=== PATIENT | female | born 1970 | race Two or more races ===

== ENCOUNTER 2020-03-07 15:14 | Outpatient (REF) | payer OTHER, SELFPAY ==
--- NOTE | 2020-03-07 | XR_ITS ---
EXAMINATION: XR LUMBAR SPINE 5 VIEWS CLINICAL INFORMATION: Low back pain COMPARISON: 12/07/2019 KUB TECHNIQUE: AP, lateral, and bilateral oblique views of the lumbar spine FINDINGS: Normal alignment and lumbar lordosis. No fracture. No spondylolysis or spondylolisthesis. Intervertebral disc heights are preserved. There is moderate degenerative disc disease at T12-L1 with narrowing and anterior endplate osteophytes. Incidental left nephrolithiasis. IMPRESSION: Unremarkable lumbar spine. Moderate T12-L1 degenerative disc disease.
== END 2020-03-07 15:15 | disposition home or self-care (01) ==
LOC: HO.XRAY 15:14
PROVIDERS: PCP Internal Medicine Geriatric Medicine; Visit Provider Internal Medicine Geriatric Medicine
DX: M54.5 Low back pain (principal)
CPT/HCPCS: 72110

== ENCOUNTER → 2020-05-14 10:51 | Outpatient (BNVA) | payer OTHER, SELFPAY | PROVIDERS: PCP Internal Medicine Geriatric Medicine; Referring Provider Internal Medicine Geriatric Medicine; Visit Provider Nurse Practitioner | DX: Z13.89 Encounter for screening for other disorder (principal) | CPT/HCPCS: Q3014 ==

== ENCOUNTER 2020-05-29 16:31 | Outpatient (REF) | payer OTHER, SELFPAY | END 2020-05-29 16:32 | disposition home or self-care (01) | LOC: HO.LAB 16:31 | PROVIDERS: Visit Provider Internal Medicine | DX: Z20.828 Contact with and (suspected) exposure to other viral communicable diseases (principal) | CPT/HCPCS: C9803; U0003 ==

== ENCOUNTER 2020-07-04 09:55 | Outpatient (REF) | payer OTHER, SELFPAY ==
--- NOTE | 2020-07-04 09:59 | EMG_ITS ---
Bilateral median and ulnar motor and sensory studies were performed. Bilateral radial sensory studies were performed. Bilateral paraspinal muscles were tested with a needle. IMPRESSION: Mild bilateral ulnar neuropathy across cubital tunnel. There was no evidence of median neuropathy. MD YEIMI Jimenez/VASU / [id number]
== END 2020-07-04 09:56 | disposition home or self-care (01) ==
LOC: HO.NEURO 09:55
PROVIDERS: PCP Internal Medicine Geriatric Medicine; Visit Provider Internal Medicine Geriatric Medicine
DX: G56.03 Carpal tunnel syndrome, bilateral upper limbs (principal); M54.5 Low back pain
CPT/HCPCS: 95886; 95911

== ENCOUNTER 2020-07-08 08:36 | Outpatient (REF) | payer OTHER, SELFPAY ==
--- NOTE | 2020-07-08 08:39 | US_ITS ---
EXAMINATION: US MESENTERIC ARTERIES CLINICAL INFORMATION: Abdominal pain. COMPARISON: CT abdomen and pelvis 12/18/2019. TECHNIQUE: Ultrasound of the aorta, celiac, SMA, PITO and splenic artery. In the aorta, velocity measurements proximal and distal to the SMA were obtained. In the celiac, attempts were made to obtain inspiratory and expiratory velocities in both the supine and upright position. Velocities in the proximal mid and distal SMA were attempted to be measured as were velocities in the PITO and splenic artery. FINDINGS: The study was extremely limited. Velocity in the aorta proximal to the SMA was 103 cm/s and distal to the SMA was 90 cm/s. The celiac could not be imaged with the patient upright as it was obscured by bowel gas. In the supine position, during inspiration velocity was 183 cm/s and during expiration 222 cm/s (slightly elevated with upper limits about 200 cm/s). Velocity in the proximal SMA was elevated at 301 cm/s. Velocity in the mid SMA was 153 cm/s and distally, the SMA could not be seen. Neither the PITO nor splenic artery could be visualized. US/US SMA IMPRESSION: Peak systolic velocity in the proximal SMA is mildly elevated with a maximum measured velocity of 301 cm/s (upper limits of normal 275 cm/s). Examination of the celiac was suboptimal as when dealing with arcuate ligament compression, measuring velocities in the erect position is necessary, which are expected to normalize could not be performed. Of note, on recent CT scan, no calcified plaque is present in the aorta, celiac or SMA. No post stenotic dilatation is seen on the CT. Overall, I would consider this a nondiagnostic study. If suspicion is high for mesenteric stenosis, CT angiography may be of value.
== END 2020-07-08 08:37 | disposition home or self-care (01) ==
LOC: HO.HMGCX 08:36
PROVIDERS: PCP Internal Medicine Geriatric Medicine; Visit Provider Internal Medicine Gastroenterology
DX: R10.13 Epigastric pain (principal)
CPT/HCPCS: 93976

== ENCOUNTER 2020-08-28 14:00 | Outpatient (REF) | payer OTHER, SELFPAY ==
--- NOTE | ~2020-08-28 | MM_ITS ---
EXAMINATION: MM SCREENING DIGITAL BREAST TOMOSYNTHESIS, BILATERAL CLINICAL INFORMATION: Screening. Asymptomatic. The lifetime risk of breast cancer based on the Tyrer-Cuzick Model is 10%. COMPARISON: Mammography: 12/02/2018, 02/01/2017 TECHNIQUE: Digital breast tomosynthesis is performed in both the craniocaudal and mediolateral oblique views along with computer-aided detection (CAD). Synthesized 2D images are generated from the tomosynthesis. FINDINGS: The breasts are almost entirely fatty (ACR BI-RADS breast composition Category a). There are no significant masses, abnormal calcifications, or other abnormalities. The axilla and skin contours are unremarkable. MM/MM tomosynthesis screening BI IMPRESSION: No mammographic evidence of malignancy. ASSESSMENT: BI-RADS 1: Negative RECOMMENDATION: Routine annual mammography screening. This patient's information was entered into a reminder system with a target due date for their next mammogram.
== END 2020-08-28 14:01 | disposition home or self-care (01) ==
LOC: HO.MAMMO 14:00
PROVIDERS: PCP Internal Medicine Geriatric Medicine; Visit Provider Internal Medicine Geriatric Medicine
DX: Z12.31 Encounter for screening mammogram for malignant neoplasm of breast (principal)
CPT/HCPCS: 77063; 77067

== ENCOUNTER → 2020-09-16 16:16 | Outpatient (BNVA) | payer OTHER, SELFPAY | PROVIDERS: PCP Internal Medicine Geriatric Medicine; Visit Provider Nurse Practitioner | DX: K29.71 Gastritis, unspecified, with bleeding (principal); R11.2 Nausea with vomiting, unspecified; K21.9 Gastro-esophageal reflux disease without esophagitis; K58.1 Irritable bowel syndrome with constipation; G43.909 Migraine, unspecified, not intractable, without status migrainosus; Z79.899 Other long term (current) drug therapy | CPT/HCPCS: Q3014 ==

== ENCOUNTER → 2020-10-07 07:36 | Outpatient (BNVA) | payer OTHER, SELFPAY | PROVIDERS: PCP Internal Medicine Geriatric Medicine; Visit Provider Surgery | DX: E66.01 Morbid (severe) obesity due to excess calories (principal); K42.9 Umbilical hernia without obstruction or gangrene; K21.9 Gastro-esophageal reflux disease without esophagitis; R10.13 Epigastric pain; Z68.41 Body mass index [BMI] 40.0-44.9, adult | CPT/HCPCS: Q3014 ==

== ENCOUNTER 2020-11-12 13:42 | Outpatient (REF) | payer OTHER, SELFPAY ==
--- NOTE | ~2020-11-12 | CT_ITS ---
EXAMINATION: CT ABDOMEN AND PELVIS WITH CONTRAST CLINICAL INFORMATION: Umbilical hernia COMPARISON: Previous CT of the abdomen and pelvis December 2019 and renal ultrasound January 2020 TECHNIQUE: Multidetector volumetric images were obtained from the superior aspect of the liver through the pubic symphysis following administration 85 mL of Omnipaque 350 intravenous contrast. Sagittal and coronal reformatted images were obtained on the technologist's workstation. Oral contrast: Yes This CT examination was performed using dose optimization techniques as appropriate, variously including the following: *Automated exposure control *Adjustment of mA and/or kV according to patient size (this includes techniques or standardized protocols for targeted exams where dose is matched to indication/reason for exam; i.e. extremities or head) *Use of iterative reconstruction technique DLP: 736 mGy-cm FINDINGS: LUNG BASES: There is a 2 mm right lower lobe nodule axial image 1 series 6 is stable and may represent a subpleural lymph node. The lung bases are otherwise clear.. LIVER, GALLBLADDER, AND BILIARY TREE: The liver is low in attenuation suggestive of fatty infiltration. The gallbladder has been removed. There is no biliary duct dilatation. PANCREAS: Unremarkable. SPLEEN: Unremarkable. ADRENAL GLANDS: Unremarkable. KIDNEYS AND URETERS: The kidneys are normal in size, shape, and attenuation. There is a 3 cm cyst in the upper pole of the right kidney. There are several small left renal stones, largest measuring 2 mm. There is no hydronephrosis. BLADDER: Unremarkable. GASTROINTESTINAL TRACT: There are postsurgical changes from gastric sleeve. The small and large bowel are unremarkable. The appendix is unremarkable. ABDOMINAL WALL: There are postsurgical changes from previous ventral hernia repair with mesh. There is a small upper abdominal ventral hernia to the left of midline containing fat axial image 34 series 3 measuring 2 x 2.5 x 2 cm. No other hernia is seen. LYMPH NODES: Normal. VASCULAR: Unremarkable. PELVIC VISCERA: The uterus appears to have been removed. No pelvic mass is seen. OSSEOUS STRUCTURES: There are degenerative changes of the spine. CT/CT abdomen pelvis w con IMPRESSION: Small upper abdominal ventral hernia containing fat. Postsurgical change following lower abdominal ventral hernia containing fat. Fatty liver. Small left renal stones. Right renal cyst.
[2020-11-12] MEDS: iohexoL 350 MG/ML 100 ML INFUS..BTL IV (16:37)
[2020-11-12] MEDS: Barium Sulfate Oral (Vanilla) 450 ML ORAL.SUSP PO (16:38)
== END 2020-11-12 13:43 | disposition home or self-care (01) ==
LOC: HO.CT 13:42
PROVIDERS: PCP Internal Medicine Geriatric Medicine; Visit Provider Surgery
DX: K42.9 Umbilical hernia without obstruction or gangrene (principal); R10.13 Epigastric pain; R10.11 Right upper quadrant pain; Z98.84 Bariatric surgery status
CPT/HCPCS: 74177; Q9967

== ENCOUNTER → 2020-12-10 14:15 | Outpatient (BNVA) | payer OTHER, SELFPAY | PROVIDERS: PCP Internal Medicine Geriatric Medicine; Visit Provider Surgery Vascular Surgery | DX: K29.71 Gastritis, unspecified, with bleeding (principal); K21.9 Gastro-esophageal reflux disease without esophagitis; K58.1 Irritable bowel syndrome with constipation; R11.2 Nausea with vomiting, unspecified; R10.9 Unspecified abdominal pain; I83.12 Varicose veins of left lower extremity with inflammation | CPT/HCPCS: 99202; Q3014 ==

== ENCOUNTER → 2021-01-23 14:22 | Outpatient (BNVA) | payer OTHER, SELFPAY | PROVIDERS: Visit Provider Nurse Practitioner | DX: K58.1 Irritable bowel syndrome with constipation (principal); K29.71 Gastritis, unspecified, with bleeding; K21.9 Gastro-esophageal reflux disease without esophagitis; Z79.899 Other long term (current) drug therapy | CPT/HCPCS: Q3014 ==

== ENCOUNTER 2021-07-04 10:54 | Outpatient (REF) | payer OTHER, SELFPAY ==
[2021-07-04 12:07] LABS: MANUAL DIFF FLAG NO
[2021-07-04 12:37] LABS: Basophils Absolute Auto 0.1 X10*3/uL (0.0-0.2); Basophils Percent Auto 0.6 % (0-2); Eosinophils Absolute Auto 0.4 X10*3/uL (0.0-0.4); Hematocrit 42.1 % (37.0-47.0); Hemoglobin 13.6 g/dl (12.0-16.0); Imm Gran Abs Auto 0.03 X10*3/uL (0.00-0.03); Imm Gran Pct Auto 0.4 % (0.0-0.4); Lymphocytes Absolute Auto 2.1 X10*3/uL (1.2-4.9); Lymphocytes Percent Auto 26.5 % (20-40); Mean Corpuscular HGB Conc 32.3 g/dl (31.0-35.0); Mean Corpuscular Hemoglobin 31.3 pg (27.0-33.0); Mean Platelet Volume 11.2 fL (9.4-12.3); Monocytes Absolute Auto 0.7 X10*3/uL (0.1-1.2); Monocytes Percent Auto 8.3 % (2-11); Neutrophils Absolute Auto 4.7 x10*3/uL (2.0-8.3); Neutrophils Percent Auto 59.2 % (45-73); Platelet Count 260 X10*3/uL (160-400); Red Blood Count 4.34 X10*6/uL (4.20-5.50)
[2021-07-04 13:00] LABS: Blood Urea Nitrogen 25 mg/dL (9-16); Estimated Glomerular Filt Rate 54
== END 2021-07-04 10:55 | disposition home or self-care (01) ==
LOC: HO.LAB 10:54
PROVIDERS: PCP Internal Medicine Geriatric Medicine; Referring Provider Internal Medicine Geriatric Medicine; Visit Provider Nurse Practitioner
DX: R10.32 Left lower quadrant pain (principal); K58.1 Irritable bowel syndrome with constipation; K21.9 Gastro-esophageal reflux disease without esophagitis; K57.92 Diverticulitis of intestine, part unspecified, without perforation or abscess without bleeding; R11.2 Nausea with vomiting, unspecified
CPT/HCPCS: 36415; 82565; 84520; 85025; 99212

== ENCOUNTER → 2021-07-22 09:39 | Outpatient (BNVA) | payer OTHER, SELFPAY | PROVIDERS: PCP Internal Medicine Geriatric Medicine; Referring Provider Internal Medicine Geriatric Medicine; Visit Provider Nurse Practitioner | DX: R10.32 Left lower quadrant pain (principal); R11.2 Nausea with vomiting, unspecified; K57.92 Diverticulitis of intestine, part unspecified, without perforation or abscess without bleeding; K58.1 Irritable bowel syndrome with constipation; K21.9 Gastro-esophageal reflux disease without esophagitis | CPT/HCPCS: 99212 ==

== ENCOUNTER 2021-08-05 12:11 | Outpatient (REF) | payer OTHER, SELFPAY ==
--- NOTE | ~2021-08-05 | CT_ITS ---
EXAMINATION: CT ABDOMEN AND PELVIS WITH CONTRAST CLINICAL INFORMATION: Left lower quadrant pain COMPARISON: Previous CT of the abdomen and pelvis November 2020 TECHNIQUE: Multidetector volumetric images were obtained from the superior aspect of the liver through the pubic symphysis following administration 85 mL of Omnipaque 350 intravenous contrast. Sagittal and coronal reformatted images were obtained on the technologist's workstation. Oral contrast: Yes This CT examination was performed using dose optimization techniques as appropriate, variously including the following: *Automated exposure control *Adjustment of mA and/or kV according to patient size (this includes techniques or standardized protocols for targeted exams where dose is matched to indication/reason for exam; i.e. extremities or head) *Use of iterative reconstruction technique DLP: 8 or mGy-cm FINDINGS: LUNG BASES: The visualized lung bases are unremarkable. LIVER, GALLBLADDER, AND BILIARY TREE: The liver is normal in size, shape, and attenuation. No focal hepatic lesion or biliary ductal dilatation is present. The gallbladder has been removed. PANCREAS: Unremarkable. SPLEEN: Unremarkable. ADRENAL GLANDS: Unremarkable. KIDNEYS AND URETERS: There are bilateral small nonobstructing renal stones. There is a 3 cm cyst in the upper pole of the right kidney. No imaging follow-up needed. BLADDER: Unremarkable. GASTROINTESTINAL TRACT: The small and large bowel are unremarkable. The appendix is unremarkable. There are postsurgical changes to the stomach following gastric sleeve procedure. There are small upper abdominal ventral hernias containing fat. There is evidence of old or inferior umbilical hernia repair with mesh. ABDOMINAL WALL: No significant hernia is appreciated. LYMPH NODES: Normal. VASCULAR: Unremarkable. PELVIC VISCERA: Uterus appears to have been removed. No pelvic mass is seen. OSSEOUS STRUCTURES: There are degenerative changes of the spine. CT/CT abdomen pelvis w con IMPRESSION: Bilateral nonobstructing renal stones. Right renal cyst. Postsurgical changes from gastric sleeve procedure. 2 small ventral hernias containing fat. Evidence of previous umbilical hernia repair with mesh. No recurrent umbilical hernia is seen. Fleischner guidelines were followed.
[2021-08-05] MEDS: iohexoL 350 MG/ML 100 ML INFUS..BTL IV (15:18)
[2021-08-05] MEDS: Barium Sulfate Oral (Vanilla) 450 ML ORAL.SUSP 900 ML PO (15:19)
== END 2021-08-05 12:12 | disposition home or self-care (01) ==
LOC: HO.CT 12:11
PROVIDERS: Visit Provider Nurse Practitioner
DX: R10.32 Left lower quadrant pain (principal)
CPT/HCPCS: 74177; Q9967

== ENCOUNTER → 2021-08-07 08:27 | Outpatient (BNVA) | payer OTHER, SELFPAY | PROVIDERS: PCP Internal Medicine Geriatric Medicine; Referring Provider Internal Medicine Geriatric Medicine; Visit Provider Nurse Practitioner | DX: K30 Functional dyspepsia (principal); K21.9 Gastro-esophageal reflux disease without esophagitis; K58.1 Irritable bowel syndrome with constipation; R10.9 Unspecified abdominal pain; R11.2 Nausea with vomiting, unspecified | CPT/HCPCS: 99212 ==

== ENCOUNTER 2021-09-26 14:47 | Outpatient (REF) | payer OTHER, SELFPAY ==
--- NOTE | ~2021-09-26 | XR_ITS ---
EXAMINATION: XR SHOULDER, LEFT CLINICAL INFORMATION: Pain in left shoulder COMPARISON: None TECHNIQUE: AP external rotation, Grashey, scapular Y, and axillary views of the left shoulder. FINDINGS: The bones and soft tissues are normal. No fracture. Glenohumeral and acromioclavicular alignment is anatomic with normal joint space. No abnormal soft tissue calcifications. XR/XR shoulder LT min 2V IMPRESSION: Unremarkable left shoulder exam.
== END 2021-09-26 14:48 | disposition home or self-care (01) ==
LOC: HO.XRAY 14:47
PROVIDERS: PCP Internal Medicine Geriatric Medicine; Visit Provider Nurse Practitioner Family
DX: M25.512 Pain in left shoulder (principal)
CPT/HCPCS: 73030; 99202

== ENCOUNTER 2021-10-02 12:28 | Outpatient (REF) | payer OTHER, SELFPAY ==
--- NOTE | ~2021-10-02 | MM_ITS ---
EXAMINATION: MM SCREENING DIGITAL BREAST TOMOSYNTHESIS, BILATERAL CLINICAL INFORMATION: Screening. Asymptomatic. The lifetime risk of breast cancer based on the Tyrer-Cuzick Model is 10.6%. COMPARISON: Mammography: August 28, 2020 and studies dating back to February 08, 2015 TECHNIQUE: Digital breast tomosynthesis is performed in both the craniocaudal and mediolateral oblique views along with computer-aided detection (CAD). Synthesized 2D images are generated from the tomosynthesis. FINDINGS: The breasts are almost entirely fatty (ACR BI-RADS breast composition Category a). There are no significant masses, abnormal calcifications, or other abnormalities. MM/MM tomosynthesis screening BI IMPRESSION: There are no significant changes from prior study. ASSESSMENT: BI-RADS 1: Negative RECOMMENDATION: Routine annual mammography screening. This patient's information was entered into a reminder system with a target due date for their next mammogram.
== END 2021-10-02 12:29 | disposition home or self-care (01) ==
LOC: HO.MAMMO 12:28
PROVIDERS: Visit Provider Internal Medicine Geriatric Medicine
DX: Z12.31 Encounter for screening mammogram for malignant neoplasm of breast (principal)
CPT/HCPCS: 77063; 77067

== ENCOUNTER → 2021-10-03 08:58 | Outpatient (BNVA) | payer OTHER, SELFPAY | PROVIDERS: PCP Internal Medicine Geriatric Medicine; Visit Provider Nurse Practitioner Family | DX: M25.512 Pain in left shoulder (principal); M62.838 Other muscle spasm; M47.816 Spondylosis without myelopathy or radiculopathy, lumbar region; M79.7 Fibromyalgia | CPT/HCPCS: 99212 ==

== ENCOUNTER 2021-10-14 11:00 | Outpatient (REF) | payer OTHER, SELFPAY ==
--- NOTE | ~2021-10-14 | CT_ITS ---
EXAMINATION: CT HEAD WITHOUT CONTRAST CLINICAL INFORMATION: Headaches COMPARISON: None TECHNIQUE: Contiguous axial imaging was performed from the skull base to vertex without intravenous administration of contrast. This CT examination was performed using dose optimization techniques as appropriate, variously including the following: *Automated exposure control *Adjustment of mA and/or kV according to patient size (this includes techniques or standardized protocols for targeted exams where dose is matched to indication/reason for exam; i.e. extremities or head) *Use of iterative reconstruction technique DLP: 757 mGy-cm FINDINGS: There is no evidence of acute intracranial hemorrhage or territorial infarction. No abnormal mass effect or midline shift is seen. Caldwell to white matter differentiation is well preserved. No extra-axial fluid collections are identified. The ventricles are normal in size. There is no abnormal attenuation within the brain parenchyma. The osseous structures and soft tissues are normal. The mastoid air cells and visualized portions of the paranasal sinuses are well aerated. CT/CT head/brain wo con IMPRESSION: No acute intracranial pathology.
== END 2021-10-14 11:01 | disposition home or self-care (01) ==
LOC: HO.CT 11:00
PROVIDERS: PCP Internal Medicine Geriatric Medicine; Visit Provider Internal Medicine Geriatric Medicine
DX: R51.9 Headache, unspecified (principal)
CPT/HCPCS: 70450

== ENCOUNTER → 2021-10-20 14:17 | Outpatient (BNVA) | payer OTHER, SELFPAY | PROVIDERS: PCP Internal Medicine Geriatric Medicine; Visit Provider Advanced Practice Midwife | DX: Z01.419 Encounter for gynecological examination (general) (routine) without abnormal findings (principal); R39.89 Other symptoms and signs involving the genitourinary system; L98.9 Disorder of the skin and subcutaneous tissue, unspecified | CPT/HCPCS: 81003 ==

== ENCOUNTER → 2021-12-02 12:56 | Outpatient (BNVA) | payer OTHER, SELFPAY | PROVIDERS: PCP Internal Medicine Geriatric Medicine; Visit Provider Nurse Practitioner | DX: K58.1 Irritable bowel syndrome with constipation (principal); K21.9 Gastro-esophageal reflux disease without esophagitis; R11.2 Nausea with vomiting, unspecified; K30 Functional dyspepsia | CPT/HCPCS: 99212 ==

== ENCOUNTER → 2021-12-03 15:25 | Outpatient (BNVA) | payer OTHER, SELFPAY | PROVIDERS: PCP Internal Medicine Geriatric Medicine; Visit Provider Surgery | DX: L72.0 Epidermal cyst (principal) | CPT/HCPCS: 99202 ==

== ENCOUNTER 2021-12-17 05:55 | Outpatient (REF) | payer OTHER, SELFPAY ==
--- NOTE | ~2021-12-17 | FL_ITS ---
EXAMINATION: XR FLUOROSCOPY WITH IMAGES CLINICAL INFORMATION: Pain left shoulder. COMPARISON: None. TECHNIQUE: Fluoroscopy performed by Ellie Xie. Fluoroscopy time: 0.2 minutes. Cumulative Dose: 12 mGy. DAP: 1.56 Gy-cm2. Images: 2. FL/FL guidance in treatment room FINDINGS/IMPRESSION: There is a needle positioned superior to the right scapula with contrast opacifying soft tissues.No gross bony abnormality seen. IMPRESSION: Fluoroscopy guidance was provided to referrer for pain management.
== END 2021-12-17 05:56 | disposition home or self-care (01) ==
LOC: HO.RADIR 05:55
PROVIDERS: Visit Provider Internal Medicine
DX: M25.512 Pain in left shoulder (principal)
CPT/HCPCS: 64418

== ENCOUNTER → 2021-12-29 10:47 | Outpatient (BNVA) | payer OTHER, SELFPAY | PROVIDERS: PCP Internal Medicine Geriatric Medicine; Visit Provider Nurse Practitioner Family | DX: M25.512 Pain in left shoulder (principal); M62.838 Other muscle spasm; M79.7 Fibromyalgia | CPT/HCPCS: 99212 ==

== ENCOUNTER 2022-02-18 06:29 | Outpatient (REF) | payer OTHER, SELFPAY ==
--- NOTE | ~2022-02-18 | FL_ITS ---
EXAMINATION: XR FLUOROSCOPY WITH IMAGES CLINICAL INFORMATION: M25.512 - Pain in left shoulder COMPARISON: Radiographs left shoulder 09/26/2021 TECHNIQUE: Fluoroscopy performed by Dr. Jason Damon. Fluoroscopy time: 0.4 minutes. Cumulative Dose: 12.3 mGy. DAP: 0.791 Gy-cm2. Images: 2. FINDINGS: There is a spinal needle with tip overlying the superior margin left scapula just medial to the neck glenoid. There is contrast along the soft tissue plane. No visible vascular communication. FL/FL guidance in treatment room IMPRESSION: Fluoroscopy for pain management procedure.
== END 2022-02-18 06:30 | disposition home or self-care (01) ==
LOC: HO.RADIR 06:29
PROVIDERS: Visit Provider Internal Medicine
DX: M25.512 Pain in left shoulder (principal)
CPT/HCPCS: 64418

== ENCOUNTER → 2022-02-20 15:55 | Outpatient (BNVA) | payer OTHER, SELFPAY | PROVIDERS: PCP Internal Medicine Geriatric Medicine; Visit Provider Nurse Practitioner Family | DX: M25.512 Pain in left shoulder (principal); M62.838 Other muscle spasm; M79.7 Fibromyalgia | CPT/HCPCS: Q3014 ==

== ENCOUNTER 2022-03-04 12:20 | Outpatient (REF) | payer OTHER, SELFPAY ==
--- NOTE | ~2022-03-04 | XR_ITS ---
EXAMINATION: XR HIP, LEFT CLINICAL INFORMATION: Left hip pain. COMPARISON: CT abdomen/pelvis dated 08/05/2021. TECHNIQUE: Two views of the left hip. FINDINGS: No acute fracture or dislocation. No joint space narrowing or marginal osteophytes. No osseous erosion. Phleboliths and surgical coils overlying the pelvis. Ossification adjacent to the greater trochanter consistent with distal gluteal calcific tendinitis. XR/XR hip LT min 2V IMPRESSION: 1. Ossification adjacent to the greater trochanter, consistent with distal gluteal calcific tendinitis. 2. No acute osseous abnormality.
== END 2022-03-04 12:21 | disposition home or self-care (01) ==
LOC: HO.XRAY 12:20
PROVIDERS: Absent Provider Internal Medicine Geriatric Medicine; PCP Internal Medicine Geriatric Medicine; Visit Provider Internal Medicine
DX: M25.552 Pain in left hip (principal)
CPT/HCPCS: 73502

== ENCOUNTER → 2022-03-12 12:50 | Outpatient (BNVA) | payer OTHER, SELFPAY | PROVIDERS: PCP Internal Medicine Geriatric Medicine; Visit Provider Nurse Practitioner | DX: R11.2 Nausea with vomiting, unspecified (principal); K58.1 Irritable bowel syndrome with constipation; K21.9 Gastro-esophageal reflux disease without esophagitis; K30 Functional dyspepsia | CPT/HCPCS: 99212 ==

== ENCOUNTER 2022-03-14 18:10 | Emergency (ER) | payer OTHER, SELFPAY ==
[2022-03-14 18:36] VITALS: BP 104/61; PULSE 97; RESP 18; TEMP 36.3; O2SAT 97; BMI 40.0
--- NOTE | 2022-03-14 21:27 | ED.LOWEXIN ---
HPI - Extremity Injury (Lower) General Chief Complaint: Extremity Injury, Lower Stated Complaint: finger Inj/black/diabetice Time Seen by Provider: 03/14/22 21:01 Source: patient Mode of arrival: ambulatory Limitations: no limitations History of Present Illness HPI Narrative: Patient comes to the emergency room complaining of pain in her left great toe. Patient dropped a large picture frame in her toe approximately 24 hours ago. Patient complaining of localized pain. Patient denies being on blood thinners. Related Data Home Medications Medication Instructions Recorded Confirmed calcium carbonate 600 mg calcium 600 mg PO DAILY 10/07/20 12/03/21 (1,500 mg) tablet (Calcium) clonazepam 1 mg tablet (Klonopin) 1 mg PO BEDTIME 10/07/20 12/03/21 clonidine HCl 0.1 mg tablet 0.1 mg PO BEDTIME 10/07/20 12/03/21 duloxetine 60 mg capsule,delayed 60 mg PO DAILY 10/07/20 12/03/21 release (Cymbalta) mecobalamin (vitamin B12) 5,000 5,000 mcg PO DAILY 10/07/20 12/03/21 mcg lozenge pregabalin 150 mg capsule (Lyrica) 150 mg PO DAILY 10/07/20 12/03/21 trazodone 100 mg tablet 100 mg PO BEDTIME PRN 10/07/20 12/03/21 albuterol sulfate 90 mcg/actuation 2 puff PO Q4-6H PRN 12/10/20 12/03/21 aerosol inhaler atorvastatin 20 mg tablet 20 mg PO DAILY 12/10/20 12/03/21 calcium carbonate 500 mg-vitamin 1 tab PO BID 12/10/20 12/03/21 D3 5 mcg (200 unit) tablet cholecalciferol (vitamin D3) 50 50 mcg PO DAILY 12/10/20 12/03/21 mcg (2,000 unit) capsule cyanocobalamin (vitamin B-12) 1,000 mcg PO DAILY 12/10/20 12/03/21 1,000 mcg tablet montelukast 10 mg tablet 10 mg PO QPM 12/10/20 12/03/21 potassium citrate 10 mEq (1,080 10 meq PO BID 12/10/20 12/03/21 mg) tablet,extended release losartan 25 mg tablet 25 mg PO DAILY 07/04/21 12/03/21 dulaglutide 0.75 mg/0.5 mL mg subcut QWEEK 08/07/21 12/03/21 subcutaneous pen injector (Trulicity) atomoxetine 40 mg capsule 40 mg PO DAILY 09/26/21 12/03/21 lidocaine-prilocaine 2.5 %-2.5 % g topical DIRECTED 09/26/21 12/03/21 topical cream duloxetine 20 mg capsule,delayed 20 mg PO DAILY 12/02/21 12/03/21 release fluticasone propionate 50 0 mcg intranasal BID PRN 12/02/21 12/03/21 mcg/actuation nasal spray,suspension levothyroxine 100 mcg tablet 100 mcg PO DAILY 12/02/21 12/03/21 topiramate 100 mg tablet 100 mg PO BID 12/02/21 12/03/21 hydrocortisone 2.5 % topical cream topical BID 12/29/21 with perineal applicator (Proctozone-HC) Previous Rx's Medication Instructions Recorded eletriptan 40 mg tablet (Relpax) 40 mg PO Q2-4H migraine headache 03/12/21 30 days #14 tabs sennosides 8.6 mg tablet (Mary-jozef) 17.2 mg PO BEDTIME #60 tabs 11/14/21 bisacodyl 5 mg tablet,delayed 10 mg PO BEDTIME 30 days #60 tabs 12/02/21 release (Dulcolax (bisacodyl)) pantoprazole 40 mg tablet,delayed 40 mg PO BID #60 tabs 01/20/22 release ondansetron 4 mg disintegrating 4 mg sublingual Q8H #90 ea 02/17/22 tablet diclofenac potassium 50 mg tablet 50 mg PO BID pain 30 days #60 tabs 02/20/22 tizanidine 4 mg tablet 4 mg PO BID PRN muscle spasticity 02/20/22 30 days #60 tabs dicyclomine 10 mg/5 mL oral 40 mg (20 mL) PO QID #1,200 mL 02/23/22 solution metoclopramide HCl 10 mg tablet 10 mg PO QIDACHS #120 tabs 03/13/22 (Reglan) ibuprofen 600 mg tablet 600 mg PO TID PRN pain #10 tabs 03/14/22 Allergies Allergy/AdvReac Type Severity Reaction Status Date / Time oxycodone [From PERCOCET] Allergy Intermediate ITCHY Verified 03/14/22 18:35 acetaminophen [Percocet] Allergy Unknown itching Verified 03/14/22 18:35 tramadol [TRAMADOL] Allergy Unknown ITCHING Verified 03/14/22 18:35 Review of Systems Review of Systems: Constitutional : No Weight loss, No Fever, No Chills, No Night Sweats, No Fatigue, No Malaise ENT/Mouth : No Hearing loss, No Ear Pain, No Nasal Congestion, No Sinus Pain, No Hoarseness, No sore throat, No Rhinorrhea, No Swallowing Difficulty Eyes: No Eye Pain, No Swelling, No Redness, No Foreign Body, No Discharge, No Vision Changes Cardiovascular : No Chest Pain, No SOB, No Dyspnea on Exertion, No Orthopnea, No Edema, No Palpitations Respiratory : No Cough, No Sputum, No Wheezing, No Smoke Exposure, No Dyspnea Gastrointestinal : No Nausea, No Vomiting, No Diarrhea, No Constipation, No abdominal Pain, No Hematochezia, No Melena Genitourinary : no irregular bleeding, No Dysuria, No Urinary Frequency, No Hematuria, No Urinary Incontinence, No Urgency, No Flank Pain, No Urinary Flow Changes, No Hesitancy Musculoskeletal : No joint pain, No Myalgias, No Joint Swelling Skin : Pain under her toenail 1st digit left foot Neuro : No Weakness, No Numbness, No Paresthesias, No Loss of Consciousness, No Dizziness, No Headache Psych : No Anxiety/Panic, No Depression, No SI/HI/AH/VH, No Social Issues, Heme/Lymph: No Bruising, No Bleeding,No Lymphadenopathy Endocrine : No Polyuria, No Polydipsia, No Temperature Intolerance PMFSH Past Medical History Medical History Calcific tendinitis of both shoulders Epidermal cyst Fibromyalgia Hypothyroidism Kidney stones Morbid obesity Morbid obesity Umbilical hernia Surgical History H/O: hysterectomy History of esophagogastroduodenoscopy (EGD) Hx of colonoscopy Hx of cystoscopy LAP-BAND surgery status S/P laparoscopic sleeve gastrectomy S/P panniculectomy Status post carpal tunnel release of both wrists Family History Family History Father Diabetes COPD (chronic obstructive pulmonary disease) Heart problem Mother Thyroid condition Diabetes Paternal Aunt Cancer of kidney Social History Social History Household Members: None Alcohol intake: never Current occupational status: disabled Gender identity: Female Physical Exam Vital Signs: Vital Signs: Last Vital Signs Temp 97.3 F 03/14/22 18:36 Pulse 97 03/14/22 18:36 Resp 18 03/14/22 18:36 BP 104/61 03/14/22 18:36 Pulse Ox 97 03/14/22 18:36 O2 Del Method 03/14/22 18:36 BMI result Body Mass Index 40.0 Const: Other: Appearance: Alert. Oriented X3. No acute distress. Eyes: Pupils equal, round and reactive to light. ENT: Pharynx normal. Neck: Normal inspection. Neck supple. No lymph nodes noted. No crepitus CVS: Normal heart rate and rhythm. Pulses normal. Normal S1 and S2 Respiratory: No respiratory distress. Breath sounds normal. No Wheezing. No rales Abdomen: Soft and nontender. No rigidity. No distention. Skin: Skin warm and dry. Normal skin color. Normal skin turgor. Extremities: No lower extremity edema. No Lacerations. No Rash. Patient has a subungual hematoma in the 1st great toe on the left foot Neuro: Oriented X 3. No motor deficit. No sensory deficit. Moving all extremities. No slurred speech. CN 2 through 12 grossly intact Psych: calm, cooperative, normal affect Course Course Course Narrative: X-rays are negative for fracture Subungual hematoma was drained, 2 orifices were made, large amount of blood was drained successfully. Patient feeling better. However, patient requested to have something stronger than Tylenol or ibuprofen. Patient is allergic to tramadol and oxycodone. At this time, we will provide ibuprofen. MDM - Extremity Injury (Lower) Imaging Data Foot x-ray: Radiologist's impression: FINDINGS: No fracture or dislocation. Joint spaces throughout the foot are maintained. No erosions. Small sclerotic bone island noted in the right toe distal phalanx. Normal alignment at the tarsometatarsal joints. Small posterior calcaneal enthesophyte/spur.? XR/XR foot LT 2V IMPRESSION: No fracture or dislocation. Discharge Plan Discharge Clinical Impression: Subungual hematoma of great toe of left foot Patient Disposition: Home, Self-Care Instructions: Subungual Hematoma (ED) Additional Instructions: Please follow-up with your primary care physician tomorrow. If you have any worsening or new symptoms, please return to the emergency room or call 911 Prescriptions: New ibuprofen 600 mg tablet 600 mg PO TID PRN (Reason: pain) Qty: 10 0RF No Action eletriptan [Relpax] 40 mg tablet 40 mg PO Q2-4H 30 Days Qty: 14 6RF Rx Instructions: do not exceed 2 doses per 24 hrs sennosides [Mary-jozef] 8.6 mg tablet 17.2 mg PO BEDTIME Qty: 60 3RF Hold Instructions: Doctor's Order pantoprazole 40 mg tablet,delayed release (DR/EC) 40 mg PO BID Qty: 60 6RF ondansetron 4 mg tablet,disintegrating 4 mg sublingual Q8H Qty: 90 3RF dicyclomine 10 mg/5 mL solution 40 mg PO QID Qty: 1200 6RF metoclopramide HCl [Reglan] 10 mg tablet 10 mg PO QIDACHS Qty: 120 6RF cholecalciferol (vitamin D3) 50 mcg (2,000 unit) capsule 50 mcg PO DAILY calcium carbonate-vitamin D3 500 mg(1,250mg) -200 unit tablet 1 tab PO BID montelukast 10 mg tablet 10 mg PO QPM potassium citrate 10 mEq (1,080 mg) tablet extended release 10 meq PO BID albuterol sulfate 90 mcg/actuation HFA aerosol inhaler 2 puff PO Q4-6H PRN atorvastatin 20 mg tablet 20 mg PO DAILY cyanocobalamin (vitamin B-12) 1,000 mcg tablet 1,000 mcg PO DAILY pregabalin [Lyrica] 150 mg capsule 150 mg PO DAILY duloxetine [Cymbalta] 60 mg capsule,delayed release(DR/EC) 60 mg PO DAILY trazodone 100 mg tablet 100 mg PO BEDTIME PRN clonazepam [Klonopin] 1 mg tablet 1 mg PO BEDTIME Rx Instructions: administer 30 minutes before bedtime clonidine HCl 0.1 mg tablet 0.1 mg PO BEDTIME mecobalamin (vitamin B12) 5,000 mcg lozenge 5,000 mcg PO DAILY Rx Instructions: allow to dissolve in mouth OR may chew lightly before swallowing calcium carbonate [Calcium 600] 600 mg calcium (1,500 mg) tablet 600 mg PO DAILY hydrocortisone [Proctozone-HC] 2.5 % cream with perineal applicator topical BID diclofenac potassium 50 mg tablet 50 mg PO BID 30 Days Qty: 60 0RF Rx Instructions: Take it with food. Avoid other NSAIDs. tizanidine 4 mg tablet 4 mg PO BID PRN (Reason: muscle spasticity) 30 Days Qty: 60 0RF losartan 25 mg tablet 25 mg PO DAILY Trulicity 0.75 mg/0.5 mL pen injector subcut QWEEK levothyroxine 100 mcg tablet 100 mcg PO DAILY topiramate 100 mg tablet 100 mg PO BID fluticasone propionate 50 mcg/actuation spray,suspension 0 mcg intranasal BID PRN duloxetine 20 mg capsule,delayed release(DR/EC) 20 mg PO DAILY bisacodyl [Dulcolax (bisacodyl)] 5 mg tablet,delayed release (DR/EC) 10 mg PO BEDTIME 30 Days Qty: 60 6RF lidocaine-prilocaine 2.5-2.5 % cream topical DIRECTED atomoxetine 40 mg capsule 40 mg PO DAILY
[2022-03-14] MEDS: Ibuprofen 600 MG TABLET PO (22:00)
== END 2022-03-14 22:02 | disposition home or self-care (01) ==
PROVIDERS: Emergency Provider Emergency Medicine; PCP Internal Medicine Geriatric Medicine
DX: S90.212A Contusion of left great toe with damage to nail, initial encounter (principal); W20.8XXA Other cause of strike by thrown, projected or falling object, initial encounter; Y93.89 Activity, other specified; Y92.039 Unspecified place in apartment as the place of occurrence of the external cause; Y99.9 Unspecified external cause status
CPT/HCPCS: 11740; 73620; 99283

== ENCOUNTER 2022-03-25 09:04 | Outpatient (REF) | payer OTHER, SELFPAY | END 2022-03-25 09:05 | disposition home or self-care (01) | LOC: HO.LNP 09:04 | PROVIDERS: PCP Internal Medicine Geriatric Medicine; Visit Provider Obstetrics & Gynecology | DX: R87.622 Low grade squamous intraepithelial lesion on cytologic smear of vagina (LGSIL) (principal) | CPT/HCPCS: 57421; 88305 ==

== ENCOUNTER → 2022-05-06 15:23 | Outpatient (BNVA) | payer OTHER, SELFPAY | PROVIDERS: Visit Provider Obstetrics & Gynecology | DX: R87.622 Low grade squamous intraepithelial lesion on cytologic smear of vagina (LGSIL) (principal) | CPT/HCPCS: 99212 ==

== ENCOUNTER → 2022-05-20 12:24 | Outpatient (BNVA) | payer OTHER, SELFPAY | PROVIDERS: PCP Internal Medicine Geriatric Medicine; Visit Provider Nurse Practitioner | DX: K30 Functional dyspepsia (principal); K58.1 Irritable bowel syndrome with constipation; R11.2 Nausea with vomiting, unspecified | CPT/HCPCS: 99212 ==

== ENCOUNTER 2022-05-27 09:55 | Day surgery (SDC) | payer OTHER, SELFPAY ==
--- NOTE | ~2022-05-27 | FL_ITS ---
EXAMINATION: XR FLUOROSCOPY WITH IMAGES CLINICAL INFORMATION: Sprint nerve stimulator COMPARISON: Left shoulder radiographs 09/26/2021 TECHNIQUE: Fluoroscopy Supervised By: Dr. Jason Damon. Fluoroscopy Time: 0.1 minutes. Cumulative Dose: 2.87 mGy. DAP: 0.385 Gycm2. Images: 3. FINDINGS: There is metallic marker directed towards the superior medial posterior left suprascapular region. Metallic stimulator wires are demonstrated. No kinking. FL/FL guidance in OR IMPRESSION: Fluoroscopy for pain management procedure.
[2022-05-27 10:20] VITALS: BMI 40.2
--- NOTE | 2022-05-27 12:36 | MHC.SHP ---
Pre-Procedural Eval Section A Date of Service: 05/27/22 The patient is an INPATIENT: No Changes since office visit: Yes Patient answered all questions The History & Physical has been completed within 30 days and I have reviewed it.: No Section B Chief Complaint: Pain in left shoulder Relevant Family History (Specify if Yes): No Relevant Social History: None Present Medications: see Short Stay Collaborative assessment Medical History: No relevant PMH History of Previous Operations: No relevant previous surgery Allergies: Allergies Allergy/AdvReac Type Severity Reaction Status Date / Time oxycodone [From PERCOCET] Allergy Intermediate ITCHY Verified 05/20/22 12:42 acetaminophen [Percocet] Allergy Unknown itching Verified 05/20/22 12:42 tramadol [TRAMADOL] Allergy Unknown ITCHING Verified 05/20/22 12:42 Review of Systems Sugical H&P ROS: Negative: Constitution, Cardiovascular and Respiratory Exam Surgical H&P Exam: Normal: HEENT, Normal: Heart and Normal: Lungs Plan Diagnosis/Plan: Unchanged I have reviewed the history and physical and performed a pertinent physical examination on my patient. No changes have occurred unless specified. Time Spent With Patient Time: Total time managing care of this patient today ____ minutes.
[2022-05-27 13:27] VITALS: BP 148/87; PULSE 88; RESP 18; TEMP 36.3; O2SAT 96
--- NOTE | 2022-05-27 14:48 | P.BOP_ITS ---
Brief Operative Note Date of Service: 05/27/22 Pre-op diagnosis: Pain in left shoulder joint, chronic pain Post-op diagnosis: same Procedure: Left suprascapular temporary nerve stimulator placement Implants: SPR temporary PNS system Surgeon: Jason Damon MD Anesthesia: local Was an Regional Maintenance Manager used for this Procedure?: No Estimated blood loss (mL): 1 Pathology: none sent Condition: stable Disposition: same day
--- NOTE | 2022-05-27 14:49 | W.PM.OPN ---
Operative Note Operative Note Date of Service: 05/27/22 Narrative: Peripheral Nerve Stimulation Temporary Lead Placement, Fluoroscopy-Guided, Suprascapular Nerve, Left ? After the risks, benefits and alternatives were discussed with the patient and informed consent was obtained, patient was placed in the sitting position and padded to foster comfort. Appropriate skin and bony landmarks were identified using fluoroscopy, including the left suprascapular notch. The skin overlying the needle entry site was prepped and draped in sterile fashion. After identifying and marking the intended target along the course of the suprascapular nerve, the skin around the planned entry point and the subcutaneous tissues were injected with local anesthetic. An introducer needle and stimulating probe were assembled, inserted and advanced along the intended course of the suprascapular nerve, taking care to maintain the proper depth of insertion as the introducer was advanced under fluoroscopy guidance. Bony contact was achieved with the scapula and maintained throughout. The introducer needle was delivered to a location in proximity to the nerve. Multiple stimulation parameters were used to deliver stimulation to the suprascapular nerve in concert with stimulating at multiple positions around the nerve. Nerve target acquisition was confirmed noting generation of sensory and mild motor effects (paresthesia, muscle tension, etc) in the shoulder and proximal arm; corresponding to the distribution of the suprascapular nerve. Various electrical parameter combinations were tested, and the lead location was adjusted (physically relocated under image guidance) until the patient indicated shoulder paresthesia and tension overlapping the distribution of the patient?s typical region of pain. The stimulating probe was removed from the introducer and a percutaneous lead was guided through the needle and delivered to a location in similar proximity to the nerve. Final location was verified with electrical stimulation and documented. The introducer needle was removed, and the exposed end of the percutaneous lead was attached to an external stimulator unit. Various electrical parameter combinations were again tested until the patient indicated paresthesia and muscle tension overlapping the distribution of the patient?s typical region of pain. After confirming that lead impedance was in the normal range, the external unit was detached, the needle was removed, and the lead was anchored at the skin. The needle entry site was occluded with exofin. The lead was threaded into the connector block and electrical continuity and desired patient response was confirmed. The connector block was attached to the external stimulator unit. The site was covered with a sterile occlusive dressing.? A final image was taken to document final placement. The patient was observed for stability of vital signs and comfort.
== END 2022-05-27 13:39 | disposition home or self-care (01) ==
PROVIDERS: PCP Internal Medicine Geriatric Medicine; Visit Provider Internal Medicine
PROC: (CPT 64555; principal; 2022-05-27 12:30)
DX: M25.512 Pain in left shoulder (principal); G89.29 Other chronic pain; M62.838 Other muscle spasm; M79.7 Fibromyalgia; Z87.828 Personal history of other (healed) physical injury and trauma; M54.40 Lumbago with sciatica, unspecified side; M79.642 Pain in left hand; M79.641 Pain in right hand; E66.01 Morbid (severe) obesity due to excess calories; Z88.8 Allergy status to other drugs, medicaments and biological substances; Z98.890 Other specified postprocedural states; Z98.84 Bariatric surgery status
CPT/HCPCS: 64555; C1778

== ENCOUNTER → 2022-06-05 08:02 | Outpatient (BNVA) | payer OTHER, SELFPAY | PROVIDERS: PCP Internal Medicine Geriatric Medicine; Visit Provider Internal Medicine | DX: M25.512 Pain in left shoulder (principal) | CPT/HCPCS: 99212 ==

== ENCOUNTER → 2022-07-24 08:53 | Outpatient (BNVA) | payer OTHER, SELFPAY | PROVIDERS: PCP Internal Medicine Geriatric Medicine; Visit Provider Internal Medicine | DX: M25.512 Pain in left shoulder (principal) | CPT/HCPCS: 99212 ==

== ENCOUNTER → 2022-09-16 12:35 | Outpatient (BNVA) | payer OTHER, SELFPAY | PROVIDERS: PCP Internal Medicine Geriatric Medicine; Visit Provider Nurse Practitioner | DX: K59.04 Chronic idiopathic constipation (principal); K30 Functional dyspepsia; K21.9 Gastro-esophageal reflux disease without esophagitis | CPT/HCPCS: 99212 ==

== ENCOUNTER 2022-10-20 13:29 | Outpatient (REF) | payer OTHER, SELFPAY ==
--- NOTE | ~2022-10-20 | MM_ITS ---
EXAMINATION: MM SCREENING DIGITAL BREAST TOMOSYNTHESIS, BILATERAL CLINICAL INFORMATION: Screening. Asymptomatic. The lifetime risk of breast cancer based on the Tyrer-Cuzick Model is 10%. COMPARISON: Mammography: 10/02/2021, 08/28/2020, 12/02/2018 TECHNIQUE: Digital breast tomosynthesis is performed in both the craniocaudal and mediolateral oblique views along with computer-aided detection (CAD). Synthesized 2D images are generated from the tomosynthesis. FINDINGS: The breasts are almost entirely fatty (ACR BI-RADS breast composition Category a). Background stromal markings are normal. No developing density or architectural abnormality. No significant mass. The axilla and skin contours are unremarkable. Right breast shows no abnormal calcifications. There are some punctate grouped high attenuation foci possibly calcifications or digital processing artifact pseudo calcification posterior outer left breast on CC view 16 cm from nipple. Patient will be recalled for additional magnification view. MM/MM tomosynthesis screening BI IMPRESSION: Left: -Tightly grouped calcifications versus digital processing artifact pseudocalcification posterior outer left breast. Right: -No mammographic evidence of malignancy. ASSESSMENT: BI-RADS 0: Incomplete - Need Additional Imaging Evaluation RECOMMENDATION: 1. Additional views left breast (magnification CC, magnification ML). 2. Radiology department staff will contact the patient for additional imaging. This patient's information was entered into a reminder system with a target due date for their next mammogram.
== END 2022-10-20 13:30 | disposition home or self-care (01) ==
LOC: HO.MAMMO 13:29
PROVIDERS: PCP Internal Medicine Geriatric Medicine; Visit Provider Internal Medicine Geriatric Medicine
DX: Z12.31 Encounter for screening mammogram for malignant neoplasm of breast (principal)
CPT/HCPCS: 77063; 77067

== ENCOUNTER → 2022-10-30 10:00 | Outpatient (BNVA) | payer OTHER, SELFPAY | PROVIDERS: PCP Internal Medicine Geriatric Medicine; Visit Provider Internal Medicine | DX: M25.512 Pain in left shoulder (principal) | CPT/HCPCS: 99212 ==

== ENCOUNTER 2022-11-17 08:44 | Outpatient (REF) | payer OTHER, SELFPAY ==
--- NOTE | ~2022-11-17 | MM_ITS ---
EXAMINATION: MM DIAGNOSTIC DIGITAL MAMMOGRAPHY, LEFT CLINICAL INFORMATION: Recall from screening for question of calcifications posterior outer left breast. TC score 10%. COMPARISON: Prior mammography exams including most recent 10/20/2022. TECHNIQUE: Digital mammography is performed in the following views: Magnification CC, magnification ML x2. FINDINGS: The breasts are almost entirely fatty (ACR BI-RADS breast composition Category a). The CC magnification view demonstrates a few barely perceptible foci overlying vascular markings outer left breast. There are no calcifications seen on the ML views. Finding for recall most likely represents early vascular calcification and will be reassessed again in 6 months. Results are discussed with the patient at time of visit. MM/MM added views LT IMPRESSION: Additional views suggest fine barely perceptible early vascular calcifications outer left breast. ASSESSMENT: BI-RADS 3: Probably Benign RECOMMENDATION: Diagnostic left mammography in 6 months. This patient's information was entered into a reminder system with a target due date for their next mammogram.
== END 2022-11-17 08:45 | disposition home or self-care (01) ==
LOC: HO.MAMMO 08:44
PROVIDERS: PCP Internal Medicine Geriatric Medicine; Visit Provider Internal Medicine Geriatric Medicine
DX: R92.1 Mammographic calcification found on diagnostic imaging of breast (principal)
CPT/HCPCS: 77065

== ENCOUNTER 2023-01-21 10:11 | Outpatient (REF) | payer OTHER, SELFPAY ==
[2023-01-21 11:13] LABS: MANUAL DIFF FLAG NO
[2023-01-21 11:37] LABS: Basophils Percent Auto 0.6 % (0-2); Eosinophils Absolute Auto 0.3 X10*3/uL (0.0-0.4); Eosinophils Percent Auto 4.1 % (0-4); Hematocrit 39.2 % (37.0-47.0); Hemoglobin 12.8 g/dl (12.0-16.0); Imm Gran Abs Auto 0.03 X10*3/uL (0.00-0.03); Imm Gran Pct Auto 0.4 % (0.0-0.4); Lymphocytes Percent Auto 29.1 % (20-40); Mean Corpuscular HGB Conc 32.7 g/dl (31.0-35.0); Mean Corpuscular Hemoglobin 32.2 pg (27.0-33.0); Mean Corpuscular Volume 98.7 fL (80.0-98.0); Mean Platelet Volume 11.5 fL (9.4-12.3); Monocytes Absolute Auto 0.7 X10*3/uL (0.1-1.2); Monocytes Percent Auto 9.3 % (2-11); Neutrophils Percent Auto 56.5 % (45-73); Platelet Count 233 X10*3/uL (160-400); Red Blood Count 3.97 X10*6/uL (4.20-5.50); Red Cell Distribution Width 12.6 % (11.0-16.0)
[2023-01-21 12:31] LABS: Cholesterol 182 mg/dL; HDL Cholesterol 46 mg/dL; LDL Cholesterol Calculated 109 mg/dl; Triglycerides 137 mg/dL
[2023-01-21 12:39] LABS: TSH reflex Free T4 27.97 uIU/mL (0.32-4.0)
[2023-01-21 13:57] LABS: Free T4 (Free Thyroxine) 0.87 ng/dL (0.71-1.85)
[2023-01-22 05:08] LABS: Follicle Stimulating Hormone 95.3 mIU/mL; Lutenizing Hormone 37.5 mIU/mL
== END 2023-01-21 10:12 | disposition home or self-care (01) ==
LOC: HO.HHCL 10:11
PROVIDERS: Visit Provider Internal Medicine Geriatric Medicine
DX: E11.9 Type 2 diabetes mellitus without complications (principal); E03.9 Hypothyroidism, unspecified; R23.2 Flushing; Z79.899 Other long term (current) drug therapy
CPT/HCPCS: 36415; 80061; 83001; 83002; 84439; 84443; 85025

== ENCOUNTER 2023-02-03 08:57 | Day surgery (SDC) | payer OTHER, SELFPAY ==
--- NOTE | ~2023-02-03 | FL_ITS ---
EXAMINATION: XR FLUOROSCOPY WITH IMAGES CLINICAL INFORMATION: Suprascapular SPRINT PNS. COMPARISON: None available. TECHNIQUE: Fluoroscopy Supervised By: Dr. Jason Damon. Fluoroscopy Time: 0.1 minute. Cumulative Dose: 1.13 mGy. DAP: 0.188 Gycm2. Images: 2. FINDINGS: Images demonstrate wire and probe placement over the right shoulder FL/FL guidance in OR IMPRESSION: Fluoroscopy guidance for pain management procedure
[2023-02-03 09:03] VITALS: BMI 40.8
[2023-02-03 10:54] VITALS: BP 117/62; PULSE 85; RESP 18; TEMP 36.5; O2SAT 94
--- NOTE | 2023-02-03 11:07 | MHC.SHP ---
Pre-Procedural Eval Section A Date of Service: 02/03/23 The patient is an INPATIENT: No Changes since office visit: Yes Patient answered all questions The History & Physical has been completed within 30 days and I have reviewed it.: No Section B Chief Complaint: Pain in left shoulder Relevant Family History (Specify if Yes): Yes Relevant Social History: Other (specify) Present Medications: see Short Stay Collaborative assessment Medical History: No relevant PMH History of Previous Operations: No relevant previous surgery Allergies: Allergies Allergy/AdvReac Type Severity Reaction Status Date / Time oxycodone [From PERCOCET] Allergy Intermediate ITCHY Verified 02/03/23 09:09 tramadol [TRAMADOL] Allergy Unknown ITCHING Verified 02/03/23 09:09 Review of Systems Sugical H&P ROS: Negative: Constitution, Cardiovascular and Respiratory Exam Surgical H&P Exam: Normal: HEENT, Normal: Heart and Normal: Lungs Plan Diagnosis/Plan: Unchanged I have reviewed the history and physical and performed a pertinent physical examination on my patient. No changes have occurred unless specified. Time Spent With Patient Time: Total time managing care of this patient today ____ minutes.
--- NOTE | 2023-02-03 11:08 | P.BOP_ITS ---
Brief Operative Note Date of Service: 02/03/23 Pre-op diagnosis: Intractable left shoulder pain Post-op diagnosis: same Procedure: Temporary suprascapular nerve stimulator placement Implants: Sprint temporary PNS system Surgeon: Jason Damon MD Anesthesia: local Was an Diesel Power Mechanic used for this Procedure?: No Estimated blood loss (mL): 1 Pathology: none sent Condition: stable Disposition: same day
--- NOTE | 2023-02-03 11:08 | W.PM.OPN ---
Operative Note Operative Note Date of Service: 02/03/23 Narrative: Peripheral Nerve Stimulation Temporary Lead Placement, Fluoroscopy-Guided, Suprascapular Nerve, Left ? After the risks, benefits and alternatives were discussed with the patient and informed consent was obtained, patient was placed in the sitting position and padded to foster comfort. Appropriate skin and bony landmarks were identified using fluoroscopy, including the left suprascapular notch. The skin overlying the needle entry site was prepped and draped in sterile fashion. After identifying and marking the intended target along the course of the suprascapular nerve, the skin around the planned entry point and the subcutaneous tissues were injected with local anesthetic. An introducer needle and stimulating probe were assembled, inserted and advanced along the intended course of the suprascapular nerve, taking care to maintain the proper depth of insertion as the introducer was advanced under fluoroscopy guidance. Bony contact was achieved with the scapula and maintained throughout. The introducer needle was delivered to a location in proximity to the nerve. Multiple stimulation parameters were used to deliver stimulation to the suprascapular nerve in concert with stimulating at multiple positions around the nerve. Nerve target acquisition was confirmed noting generation of sensory and mild motor effects (paresthesia, muscle tension, etc) in the shoulder and proximal arm; corresponding to the distribution of the suprascapular nerve. Various electrical parameter combinations were tested, and the lead location was adjusted (physically relocated under image guidance) until the patient indicated shoulder paresthesia and tension overlapping the distribution of the patient?s typical region of pain. The stimulating probe was removed from the introducer and a percutaneous lead was guided through the needle and delivered to a location in similar proximity to the nerve. Final location was verified with electrical stimulation and documented. The introducer needle was removed, and the exposed end of the percutaneous lead was attached to an external stimulator unit. Various electrical parameter combinations were again tested until the patient indicated paresthesia and muscle tension overlapping the distribution of the patient?s typical region of pain. After confirming that lead impedance was in the normal range, the external unit was detached, the needle was removed, and the lead was anchored at the skin. The needle entry site was occluded with dermabond. The lead was threaded into the connector block and electrical continuity and desired patient response was confirmed. The connector block was attached to the external stimulator unit. The site was covered with a sterile occlusive dressing.? A final image was taken to document final placement. The patient was observed for stability of vital signs and comfort.
== END 2023-02-03 11:11 | disposition home or self-care (01) ==
PROVIDERS: PCP Internal Medicine Geriatric Medicine; Visit Provider Internal Medicine
PROC: (CPT 64555; principal; 2023-02-03 10:30)
DX: M25.512 Pain in left shoulder (principal); M75.32 Calcific tendinitis of left shoulder; Z91.81 History of falling; M79.7 Fibromyalgia; E66.01 Morbid (severe) obesity due to excess calories; Z68.41 Body mass index [BMI] 40.0-44.9, adult; Z79.51 Long term (current) use of inhaled steroids; Z79.899 Other long term (current) drug therapy; Z79.85 Long-term (current) use of injectable non-insulin antidiabetic drugs; Z88.5 Allergy status to narcotic agent; Z98.84 Bariatric surgery status; Z98.890 Other specified postprocedural states
CPT/HCPCS: 64555; C1778

== ENCOUNTER → 2023-02-03 08:57 | Outpatient (BNV) | payer OTHER, SELFPAY | PROVIDERS: PCP Internal Medicine Geriatric Medicine; Visit Provider Internal Medicine | DX: M25.512 Pain in left shoulder (principal) | CPT/HCPCS: 64555 ==

== ENCOUNTER 2023-02-12 11:41 | Outpatient (AMB) | payer OTHER, SELFPAY ==
[2023-02-12 11:52] VITALS: BP 116/72; PULSE 85; RESP 14; O2SAT 95; BMI 41.3
--- NOTE | 2023-02-12 11:52 | A.OFFVIS_ITS ---
Intake Vital Signs 02/12/23 11:52 Height 5 ft 2 in Weight 226 lb BMI 41.3 BP 116/72 Blood Pressure Location Lt radial Position Sitting Respiration 14 Pulse 85 Pulse Source Pulse Oximeter Pulse Oximetry (%) 95 Oxygen Delivery Method Room Air Intake Visit Reasons: s/p Left suprascapular S[print Allergies oxycodone [From PERCOCET] Allergy (Intermediate, Verified 02/03/23 09:09) ITCHY tramadol [TRAMADOL] Allergy (Unknown, Verified 02/03/23 09:09) ITCHING HPI s/p Left suprascapular S[print HPI Details 52-year-old female is presenting today f or a status post left suprascapular sprint. The patient reports 90% relief following the procedure for her shoulder pain. The patient reports pain with certain movements, which was present prior to the procedure. Her changed the dressing at home. Past Procedures: 02/03/23: Peripheral Nerve Stimulation T emporary Lead Placement, Fluoroscopy- Guided, Suprascapular Nerve, Left: 90% relief. 05/27/22: Sprint Nerve Stimulator ? >90% relief for four months between May to August. [facility] Medical History Calcific tendinitis of both shoulders Diabetes type 2, controlled Epidermal cyst Fibromyalgia Hx LEEP (loop electrosurgical excision procedure), cervix, Hypothyroidism Kidney stones Morbid obesity Morbid obesity Umbilical hernia Surgical History H/O: hysterectomy History of esophagogastroduodenoscopy (EGD) Hx of colonoscopy Hx of cystoscopy LAP-BAND surgery status S/P laparoscopic sleeve gastrectomy S/P panniculectomy Status post carpal tunnel release of both wrists Family History Father Diabetes COPD (chronic obstructive pulmonary disease) Heart problem Mother Thyroid condition Diabetes Paternal Aunt Cancer of kidney Social History Household Members: None Housing: Apartment Alcohol intake: never Patient Tobacco Use Status: Never used Tobacco Current occupational status: disabled Sexual orientation: Straight/Heterosexual Gender identity: Female Review of Systems Const All systems reviewed & are unremarkable except as noted in HPI and below Physical Exam Vital Signs: Last Vital Signs Pulse 85 02/12/23 11:52 Resp 14 02/12/23 11:52 BP 116/72 02/12/23 11:52 Pulse Ox 95 02/12/23 11:52 Oxygen Delivery Method Room Air 02/12/23 11:52 BMI result Body Mass Index 41.3 General: Appears afebrile. Alert and oriented. Mood and affect appropriate. Follows and participates in conversation appropriately. Respiratory effort is unlabored. Able to transition from sit to stand unassisted. Ambulates with bilaterally normal heel strike and toe off. Site is clean, dry and intact. Results Reviewed Results Reviewed: No imaging is available for review. Assessment & Plan Assessment & Plan (1) Left shoulder pain: Code(s): M25.512 - Pain in left shoulder Plan The patient?s dressing was changed in the office today. The patient will follow up in seven weeks for device removal. Scribed for Dr. Damon by Valentín Danielson medical staff coordinator, on 02/12/2023. I, Dr. Damon, have personally reviewed and agree with the information entered by the scribe. Coding Level of Care Code Est Pt Level 3 (02768) Procedure Only Diagnoses Left shoulder pain M25.512
== END 2023-02-12 16:22 | disposition home or self-care (01) ==
PROVIDERS: PCP Internal Medicine Geriatric Medicine; Visit Provider Internal Medicine
DX: M25.512 Pain in left shoulder (principal)
CPT/HCPCS: 99024

== ENCOUNTER → 2023-02-12 11:41 | Outpatient (BNVA) | payer OTHER, SELFPAY | PROVIDERS: PCP Internal Medicine Geriatric Medicine; Visit Provider Internal Medicine | DX: M25.512 Pain in left shoulder (principal); Z98.890 Other specified postprocedural states | CPT/HCPCS: 99212 ==

== ENCOUNTER 2023-03-27 19:00 | Emergency (ER) | payer OTHER, SELFPAY ==
--- NOTE | ~2023-03-27 | XR_ITS ---
EXAMINATION: XR CHEST CLINICAL INFORMATION: Productive cough x1 week. COMPARISON: Chest x-ray 12/10/2017. TECHNIQUE: 2 views of the chest were obtained. FINDINGS: Peripheral nerve stimulator device. The cardiomediastinal silhouette is within normal limits. The lungs are mildly hypoexpanded. No consolidation or effusion. Mild degenerative changes in the spine. Right rotator cuff repair. XR/XR chest 2V IMPRESSION: No focal pneumonia.
[2023-03-27 19:34] VITALS: BP 134/91; PULSE 92; RESP 18; TEMP 36.8; O2SAT 96; BMI 40.6
--- NOTE | 2023-03-27 19:38 | ED.GENADULT ---
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 Reports sweats/chills, has not checked temperature with thermometer. Reports sore throat and generalized body aches. Has been using Tylenol and ibuprofen, last took Nyquil around 4pm. MD complaint: cough Onset (ago): week(s) Location: chest Associated symptoms: cough, shortness of breath and other (sore throat) Treatments prior to arrival: NSAID Related Data Home Medications Medication Instructions Recorded Confirmed clonazepam 1 mg tablet (Klonopin) 1 mg PO BEDTIME 10/07/20 10/30/22 clonidine HCl 0.1 mg tablet 0.1 mg PO BEDTIME 10/07/20 10/30/22 duloxetine 60 mg capsule,delayed 60 mg PO DAILY 10/07/20 10/30/22 release (Cymbalta) pregabalin 150 mg capsule (Lyrica) 150 mg PO DAILY 10/07/20 10/30/22 trazodone 100 mg tablet 100 mg PO BEDTIME PRN 10/07/20 10/30/22 albuterol sulfate 90 mcg/actuation 2 puff PO Q4-6H PRN 12/10/20 10/30/22 aerosol inhaler atorvastatin 20 mg tablet 20 mg PO DAILY 12/10/20 10/30/22 cholecalciferol (vitamin D3) 50 50 mcg PO DAILY 12/10/20 10/30/22 mcg (2,000 unit) capsule cyanocobalamin (vitamin B-12) 1,000 mcg PO DAILY 12/10/20 10/30/22 1,000 mcg tablet montelukast 10 mg tablet 10 mg PO QPM 12/10/20 10/30/22 potassium citrate 10 mEq (1,080 10 meq PO BID 12/10/20 10/30/22 mg) tablet,extended release losartan 25 mg tablet 25 mg PO DAILY 07/04/21 10/30/22 atomoxetine 40 mg capsule 40 mg PO DAILY 09/26/21 10/30/22 duloxetine 20 mg capsule,delayed 20 mg PO DAILY 12/02/21 10/30/22 release fluticasone propionate 50 0 mcg intranasal BID PRN 12/02/21 10/30/22 mcg/actuation nasal spray,suspension hydrocortisone 2.5 % topical cream topical BID 12/29/21 10/30/22 with perineal applicator (Proctozone-HC) amitriptyline 10 mg tablet 10 mg PO BEDTIME 07/24/22 10/30/22 dulaglutide 3 mg/0.5 mL 3 mg subcut QWEEK 09/16/22 10/30/22 subcutaneous pen injector (Trulicity) levothyroxine 112 mcg capsule 112 mcg PO DAILY 09/16/22 10/30/22 Previous Rx's Medication Instructions Recorded eletriptan 40 mg tablet (Relpax) 40 mg PO Q2-4H migraine headache 03/12/21 30 days #14 tabs ondansetron 4 mg disintegrating 4 mg sublingual Q8H #90 ea 02/17/22 tablet dicyclomine 10 mg/5 mL oral 40 mg (20 mL) PO QID #1,200 mL 05/20/22 solution bisacodyl 5 mg tablet,delayed 10 mg (2 x 5 mg) PO BEDTIME #60 07/07/22 release tabs metoclopramide HCl 10 mg tablet 10 mg PO QIDACHS #120 tabs 09/16/22 (Reglan) pantoprazole 40 mg tablet,delayed 40 mg PO BID 30 days #60 tabs 09/16/22 release (Protonix) linaclotide 145 mcg capsule 145 mcg PO QAM #30 caps 03/16/23 (Linzess) albuterol sulfate 90 mcg/actuation 2 puff inhalation Q4-6H PRN 03/27/23 aerosol inhaler shortness of breath or wheezing #6.7 grams azithromycin 250 mg tablet See Rx Instructions PO .COMPLEX #6 03/27/23 tabs benzonatate 100 mg capsule 100 mg PO TID PRN cough #14 caps 03/27/23 Allergies Allergy/AdvReac Type Severity Reaction Status Date / Time oxycodone [From PERCOCET] Allergy Intermediate ITCHY Verified 02/03/23 09:09 tramadol [TRAMADOL] Allergy Unknown ITCHING Verified 02/03/23 09:09 Review of Systems Review of Systems: As per HPI. Yes all other systems are reviewed and are negative Constitutional: Constitutional: Reports as per HPI [facility] Past Medical History Medical History Calcific tendinitis of both shoulders Diabetes type 2, controlled Epidermal cyst Fibromyalgia Hx LEEP (loop electrosurgical excision procedure), cervix, Hypothyroidism Kidney stones Morbid obesity Morbid obesity Umbilical hernia Surgical History H/O: hysterectomy History of esophagogastroduodenoscopy (EGD) Hx of colonoscopy Hx of cystoscopy LAP-BAND surgery status S/P laparoscopic sleeve gastrectomy S/P panniculectomy Status post carpal tunnel release of both wrists Family History Family History Father Diabetes COPD (chronic obstructive pulmonary disease) Heart problem Mother Thyroid condition Diabetes Paternal Aunt Cancer of kidney Social History Social History Household Members: None Housing: Apartment Alcohol intake: never Patient Tobacco Use Status: Never used Tobacco Current occupational status: disabled Sexual orientation: Straight/Heterosexual Gender identity: Female Physical Exam ED Vital Signs: Vital Signs - 24 hr 03/27/23 19:34 Temperature 98.2 F Pulse Rate 92 Respiratory Rate 18 Blood Pressure 134/91 H Pulse Oximetry 96 Oxygen Delivery Method Room Air BMI result Body Mass Index 40.6 Vital signs have been reviewed and appear to be correct. Blood pressure mildly elevated. Heart rate normal. Respiratory rate normal. Temperature normal. Oxygen saturation normal. Const General: cooperative, healthy appearing and no acute distress Orientation/consciousness: oriented to person, oriented to place, oriented to time and patient oriented x3 Limitations: no limitations HENMT Head: Yes normocephalic and Yes atraumatic Ears: external ears normal, TM's normal bilaterally and EAC's normal General nose exam: Normal external nose present Face and sinus: Yes face symmetric Mouth: oropharynx normal and moist mucous membranes Throat: Yes tonsils normal, Yes uvula midline, No uvular edema and Yes cobblestoning Eyes Pupils: Equal, round and reactive pupils present Neck Neck: Yes normal visual inspection and Yes supple Resp Effort & Inspection: normal respiratory effort and able to speak in complete sentences Auscultation: clear to auscultation bilaterally and wheezes scattered wheezes Cardio Rate: regular rate Rhythm: regular rhythm Heart sounds: S1 normal heart sound present and S2 normal heart sound present GI Palpation (GI): Soft to palpation and nontender Auscultation: normoactive bowel sounds General: Yes no CVA tenderness Back/Spine/Pelvis Back: no CVA tenderness Skin General skin exam: elasticity normal and turgor normal Neuro General: oriented to person, oriented to place, oriented to time, patient oriented x3, moves all extremities, no focal motor deficits and CN's II-XI intact bilaterally Cranial nerves: Yes Equal, round and reactive pupils present Cognition (Neuro): normal cognition Extrem General: Yes full ROM, Yes no pedal edema and Yes no calf tenderness Psych Mental Status: mental status grossly normal Affect: normal affect Thought process: Normal thought process present Medical Decision Making Medical Decision Making [facility] Narrative: Patient is a 52-year-old [place] speaking female presenting to the emergency department with complaint of cough productive of green sputum for the past 1-2 weeks. On exam patient is awake, A+Ox3, BP mildly elevated, VS otherwise WNL, afebrile, normal neurological exam without focal deficits, physical exam findings as above. Given reported symptoms and physical exam findings, initial differential includes viral upper respiratory infection, COVID, flu, strep pharyngitis, bronchitis, pneumonia. Swabs for COVID, flu, strep all negative. X-ray chest notable for no evidence of pneumonia. My interpretation is in agreement with the radiologist's interpretation. Feel patient is stable for discharge home. Will treat patient for bronchitis with azithromycin, albuterol inhaler, and benzonatate. Instructed patient follow-up with primary care provider. Return precautions discussed with patient. Patient verbalized understanding of and agreement with plan. Differential Diagnosis Differential Diagnoses: The differential diagnosis associated with the presentation includes As per [facility]. Lab Data [facility] Lab Attestation statement: I reviewed the patient's lab results. As per MDM. Labs: Lab Results 03/27/23 Range/Units 19:52 COVID-19 (EDU) Negative (Negative) COVID-19 Clin Com See Note Influenza Type A (DION) Negative (Negative) Influenza Type B (DION) Negative (Negative) Influenza A & B Note See Note Independent Interpretation I performed an independent interpretation of an: Plain X-Ray Interpretation: No evidence of pneumonia on chest x-ray. Radiology Impression Discussion of test interpretation with radiology: I have reviewed the radiologist's reading. Radiologist Impression: XR/XR chest 2V IMPRESSION: No focal pneumonia. External Record Review External record reviewed: Inpatient record, Office record and Outpatient record Prescription Management I considered prescription management with: Antibiotic and Other Discharge Plan Discharge Clinical Impression: Bronchitis, Upper respiratory virus Patient Disposition: Home, Self-Care Instructions: How to Use a Metered-Dose Inhaler (ED), Upper Respiratory Infection (DC), Acute Bronchitis (ED), Viral Syndrome (ED) Additional Instructions: Usted fue evaluado hoy en el departamento de emergencias por dolor de garganta y tos. Tus pruebas de Covid, gripe y estreptococo fueron todas negativas. Guardado radiograf?a de t?rax no mostr? evidencia de neumon?a. Es probable que virgil s?ntomas est?n relacionados con mervat enfermedad viral. Est? recibiendo tratamiento para la bronquitis con un tratamiento con antibi?ticos; complete el tratamiento completo seg?n lo prescrito. Tambi?n le recetar?n un inhalador que puede usar cada 4 a 6 horas seg?n sea necesario para la dificultad para respirar. Le recetan medicamentos para la tos que puede usar cada 8 horas seg?n sea necesario. Debe garantizar mervat ingesta adecuada de l?quidos y puede usar Tylenol 650 mg o ibuprofeno 600 mg cada 6 horas seg?n sea necesario para la fiebre o el malestar. Sean un seguimiento con guardado proveedor de atenci?n primaria esta semana. Regrese al departamento de emergencias si presenta dolor en el pecho, dificultad para respirar que empeora, dificultad para tragar, fiebre de 100.4 ?F o m?s o cualquier otro s?ntoma preocupante. Prescriptions: New azithromycin 250 mg tablet See Rx Instructions .ROUTE .COMPLEX Qty: 6 0RF Rx Instructions: For 250 mg dose pack: take 500 mg today (day 1), then 250 mg for 4 days (days 2-5) albuterol sulfate 90 mcg/actuation HFA aerosol inhaler 2 puff inhalation Q4-6H PRN (Reason: shortness of breath or wheezing) Qty: 6.7 0RF benzonatate 100 mg capsule 100 mg PO TID PRN (Reason: cough) Qty: 14 0RF No Action eletriptan [Relpax] 40 mg tablet 40 mg PO Q2-4H 30 Days Qty: 14 6RF Rx Instructions: do not exceed 2 doses per 24 hrs ondansetron 4 mg tablet,disintegrating 4 mg sublingual Q8H Qty: 90 3RF bisacodyl 5 mg tablet,delayed release (DR/EC) 10 mg PO BEDTIME Qty: 60 2RF Hold Instructions: Doctor's Order Linzess 145 mcg capsule 145 mcg PO QAM Qty: 30 6RF cholecalciferol (vitamin D3) 50 mcg (2,000 unit) capsule 50 mcg PO DAILY montelukast 10 mg tablet 10 mg PO QPM potassium citrate 10 mEq (1,080 mg) tablet extended release 10 meq PO BID albuterol sulfate 90 mcg/actuation HFA aerosol inhaler 2 puff PO Q4-6H PRN atorvastatin 20 mg tablet 20 mg PO DAILY cyanocobalamin (vitamin B-12) 1,000 mcg tablet 1,000 mcg PO DAILY pregabalin [Lyrica] 150 mg capsule 150 mg PO DAILY duloxetine [Cymbalta] 60 mg capsule,delayed release(DR/EC) 60 mg PO DAILY trazodone 100 mg tablet 100 mg PO BEDTIME PRN clonazepam [Klonopin] 1 mg tablet 1 mg PO BEDTIME Rx Instructions: administer 30 minutes before bedtime clonidine HCl 0.1 mg tablet 0.1 mg PO BEDTIME hydrocortisone [Proctozone-HC] 2.5 % cream with perineal applicator topical BID losartan 25 mg tablet 25 mg PO DAILY fluticasone propionate 50 mcg/actuation spray,suspension 0 mcg intranasal BID PRN duloxetine 20 mg capsule,delayed release(DR/EC) 20 mg PO DAILY atomoxetine 40 mg capsule 40 mg PO DAILY dicyclomine 10 mg/5 mL solution 40 mg PO QID Qty: 1200 6RF amitriptyline 10 mg tablet 10 mg PO BEDTIME Trulicity 3 mg/0.5 mL pen injector 3 mg subcut QWEEK levothyroxine 112 mcg capsule 112 mcg PO DAILY metoclopramide HCl [Reglan] 10 mg tablet 10 mg PO QIDACHS Qty: 120 6RF pantoprazole [Protonix] 40 mg tablet,delayed release (DR/EC) 40 mg PO BID 30 Days Qty: 60 6RF Print Language: Palauan
[2023-03-27 20:13] LABS: COVID-19 Test Negative (Negative); IDNOW Serial# 08D9AD1C; IDNOW Serial# BCCEAD1C; Influenza A Negative (Negative); Influenza B2 Negative (Negative)
[2023-03-27] MEDS: Benzonatate 100 MG CAPSULE PO (20:48)
[2023-03-27] MEDS: Albuterol Sulfate 90 MCG 8 GM INHALER 2 PUFF INHALE (20:48)
== END 2023-03-27 20:52 | disposition home or self-care (01) ==
PROVIDERS: Registered Nurse Emergency; Emergency Provider Emergency Medicine
DX: J06.9 Acute upper respiratory infection, unspecified (principal); J40 Bronchitis, not specified as acute or chronic; Z11.52 Encounter for screening for COVID-19; E11.9 Type 2 diabetes mellitus without complications; E66.9 Obesity, unspecified; Z68.41 Body mass index [BMI] 40.0-44.9, adult; Z79.85 Long-term (current) use of injectable non-insulin antidiabetic drugs; Z79.899 Other long term (current) drug therapy
CPT/HCPCS: 71046; 87502; 87635; 99282; 99284

== ENCOUNTER 2023-03-30 10:54 | Outpatient (REF) | payer OTHER, SELFPAY ==
[2023-03-30 14:17] LABS: Alanine Aminotransferase 18 U/L (0-31); Albumin Level 4.3 g/dL (3.5-5.0); Alkaline Phosphatase 109 U/L (39-117); Anion Gap 16 (12-20); Aspartate Amino Transferase 15 U/L (5-31); Bilirubin Total 0.4 mg/dL (0.0-1.0); Blood Urea Nitrogen 18 mg/dL (9-16); Carbon Dioxide 25 mmol/L (22-29); Chloride 105 mmol/L (96-108); Estimated Glomerular Filt Rate 57; Glucose Random 117 mg/dL (60-115); Potassium 4.1 mmol/L (3.3-5.1); Sodium 142 mmol/L (135-145); Total Protein 7.2 g/dL (6.5-8.0)
== END 2023-03-30 10:55 | disposition home or self-care (01) ==
LOC: HO.HHCL 10:54
PROVIDERS: Visit Provider Internal Medicine Geriatric Medicine
DX: E11.9 Type 2 diabetes mellitus without complications (principal); E03.9 Hypothyroidism, unspecified; R23.2 Flushing; Z79.899 Other long term (current) drug therapy
CPT/HCPCS: 36415; 80053

== ENCOUNTER 2023-04-02 14:35 | Outpatient (AMB) | payer OTHER, SELFPAY ==
--- NOTE | 2023-04-02 14:45 | MHC.OFFVIS ---
Intake Vital Signs 04/02/23 14:46 Height 5 ft 2 in BP 116/76 Blood Pressure Location Lt brachial Position Sitting Pulse 104 H Pulse Source Pulse Oximeter Pulse Oximetry (%) 95 Oxygen Delivery Method Room Air Intake Visit Reasons: Sprint removal/confirmed Allergies oxycodone [From PERCOCET] Allergy (Intermediate, Verified 04/02/23 14:45) ITCHY tramadol [TRAMADOL] Allergy (Unknown, Verified 04/02/23 14:45) ITCHING HPI HPI Comments History of Present Illness Details Yaniv is a very pleasant 52 year old female who presents to the office today for follow up, removal of left suprascapular Sprint PNS. Patient reports that she continues with pain to the left shoulder with decreased ROM. Pain of the posterior and proximal shoulder is improved but she remains with some pain under her arm and over proximal humerus. Prior: 52-year-old female is presenting today for a status post left suprascapular sprint. The patient reports 90% relief following the procedure for her shoulder pain. The patient reports pain with certain movements, which was present prior to the procedure. Her changed the dressing at home. Past Procedures: 02/03/23: Peripheral Nerve Stimulation Temporary Lead Placement, Fluoroscopy-Guided, Suprascapular Nerve, Left: 90% relief. 05/27/22: Sprint Nerve Stimulator ? >90% relief for four months between May to August. [facility] Medical History Calcific tendinitis of both shoulders Diabetes type 2, controlled Epidermal cyst Fibromyalgia Hx LEEP (loop electrosurgical excision procedure), cervix, Hypothyroidism Kidney stones Morbid obesity Morbid obesity Umbilical hernia Surgical History H/O: hysterectomy History of esophagogastroduodenoscopy (EGD) Hx of colonoscopy Hx of cystoscopy LAP-BAND surgery status S/P laparoscopic sleeve gastrectomy S/P panniculectomy Status post carpal tunnel release of both wrists Family History Father Diabetes COPD (chronic obstructive pulmonary disease) Heart problem Mother Thyroid condition Diabetes Paternal Aunt Cancer of kidney Social History Household Members: None Housing: Apartment Alcohol intake: never Patient Tobacco Use Status: Never used Tobacco Current occupational status: disabled Sexual orientation: Straight/Heterosexual Gender identity: Female Review of Systems Const All systems reviewed & are unremarkable except as noted in HPI and below Physical Exam Vital Signs: Last Vital Signs Pulse 104 H 04/02/23 14:46 BP 116/76 04/02/23 14:46 Pulse Ox 95 04/02/23 14:46 Oxygen Delivery Method Room Air 04/02/23 14:46 General: awake, alert, oriented. Answers questions appropriately. Fully engaged in examination. Skin: warm, dry, intact HEENT: Normocephalic. Hearing intact. Cardiac: External chest normal in appearance. Respiratory: No cough, audible wheezing or stridor. Abdomen: without gross distension. MS: No obvious swelling or deformities. decreased ROM LUE with reported pain increase with abduction Neurological: Oriented to person, place, time and situation. Thought process intact. No gait abnormalities appreciated. Psychiatric: Appropriate mood and affect. Good judgment and insight. Assessment & Plan Assessment & Plan (1) Left shoulder pain: Code(s): M25.512 - Pain in left shoulder Plan Patient presented to the office today for follow up left shoulder pain and left suprascapular sprint removal. Left Suprascapular Sprint dressing removed. Site dry, clean, intact. Area cleansed with chloraprep, lead removed with intact tip. Area cleansed again with chloraprep, bacitracin dressing with tegaderm applied. Patient tolerated removal well. Patient will follow up in the office with Dr Damon to further discuss her continued left shoulder pain. All questions and concerns addressed during visit, patient agrees with the plan. Coding Level of Care Code Est Pt Level 3 (80534) Diagnoses Left shoulder pain M25.512
[2023-04-02 14:46] VITALS: BP 116/76; PULSE 104; O2SAT 95
== END 2023-04-02 14:49 | disposition home or self-care (01) ==
PROVIDERS: PCP Internal Medicine Geriatric Medicine; Visit Provider Registered Nurse Emergency
DX: M25.512 Pain in left shoulder (principal)
CPT/HCPCS: 99213

== ENCOUNTER → 2023-04-02 14:35 | Outpatient (BNVA) | payer OTHER, SELFPAY | PROVIDERS: PCP Internal Medicine Geriatric Medicine; Visit Provider Registered Nurse Emergency | DX: M75.32 Calcific tendinitis of left shoulder (principal); M79.7 Fibromyalgia; Z48.811 Encounter for surgical aftercare following surgery on the nervous system | CPT/HCPCS: 99212 ==

== ENCOUNTER 2023-04-14 09:59 | Outpatient (REF) | payer OTHER, SELFPAY ==
[2023-04-14 12:03] LABS: TSH reflex Free T4 7.89 uIU/mL (0.32-4.0)
[2023-04-14 12:36] LABS: Free T4 (Free Thyroxine) 0.98 ng/dL (0.71-1.85)
== END 2023-04-14 10:00 | disposition home or self-care (01) ==
LOC: HO.HHCL 09:59
PROVIDERS: Visit Provider Internal Medicine Geriatric Medicine
DX: E03.9 Hypothyroidism, unspecified (principal)
CPT/HCPCS: 36415; 84439; 84443

== ENCOUNTER 2023-06-02 08:00 | Outpatient (REF) | payer OTHER, SELFPAY ==
--- NOTE | ~2023-06-02 | MM_ITS ---
EXAMINATION: MM DIAGNOSTIC DIGITAL MAMMOGRAPHY, LEFT CLINICAL INFORMATION: Follow-up possible left breast calcifications lateral aspect left breast, which cannot be seen on the orthogonal ML view. COMPARISON: Mammography: 11/17/2022, 10/20/2022, 09/24/2021, 08/28/2020. TECHNIQUE: Digital mammography is performed in the following views: Spot compression left CC and ML views, as well as a full-field 3-D left ML view. Computer-aided diagnosis was used for this study. FINDINGS: The breasts are almost entirely fatty (ACR BI-RADS breast composition Category a). Review of current and prior imaging demonstrates no evidence of suspicious calcifications, or any calcifications, within the lateral left breast. There are no suspicious masses, suspicious grouped calcifications, or areas of architectural distortion in the left breast. The parenchymal pattern is stable from prior exams. MM/MM diagnostic mammo unilat LT IMPRESSION: There are no findings suspicious for malignancy in the left breast. Specifically, no grouped calcifications are identified. Recommend patient return to routine screening. ASSESSMENT: BI-RADS BI-RADS 1 - Negative RECOMMENDATION: 1 year F/U This patient's information was entered into a reminder system with a target due date for their next mammogram.
== END 2023-06-02 08:01 | disposition home or self-care (01) ==
LOC: HO.MAMMO 08:00
PROVIDERS: PCP Internal Medicine Geriatric Medicine; Visit Provider Internal Medicine Geriatric Medicine
DX: R92.1 Mammographic calcification found on diagnostic imaging of breast (principal)
CPT/HCPCS: 77062; 77065

== ENCOUNTER → 2023-06-02 08:30 | Outpatient (BNV) | payer OTHER, SELFPAY | PROVIDERS: PCP Internal Medicine Geriatric Medicine; Visit Provider Radiology Diagnostic Radiology | DX: R92.2 Inconclusive mammogram (principal) | CPT/HCPCS: 77065 ==

== ENCOUNTER 2023-06-10 | Outpatient (REF) | payer OTHER, SELFPAY ==
[2023-06-14 23:54] LABS: HPV mRNA E6/E7 rflx Not Detected (Not Detected)
== END 2023-06-10 00:01 ==
LOC: HO.HHCLNP
PROVIDERS: Visit Provider Advanced Practice Midwife
DX: Z12.4 Encounter for screening for malignant neoplasm of cervix (principal); Z11.51 Encounter for screening for human papillomavirus (HPV)
CPT/HCPCS: 87624; 88142

== ENCOUNTER 2023-08-19 08:13 | Outpatient (REF) | payer OTHER, SELFPAY ==
[2023-08-19 11:55] LABS: Alanine Aminotransferase 15 U/L (0-31); Albumin Level 4.3 g/dL (3.5-5.0); Alkaline Phosphatase 106 U/L (39-117); Anion Gap 17 (12-20); Aspartate Amino Transferase 13 U/L (5-31); Bilirubin Total 0.2 mg/dL (0.0-1.0); Blood Urea Nitrogen 13 mg/dL (9-16); Calcium 9.8 mg/dL (8.4-10.2); Carbon Dioxide 25 mmol/L (22-29); Chloride 105 mmol/L (96-108); Cholesterol 251 mg/dL (<200); Estimated Glomerular Filt Rate 53; Glucose Random 118 mg/dL (60-115); HDL Cholesterol 44 mg/dL (>40); LDL Cholesterol Calculated 161 mg/dL (<100); Potassium 4.2 mmol/L (3.3-5.1); Sodium 143 mmol/L (135-145); Total Protein 7.1 g/dL (6.5-8.0); Triglycerides 233 mg/dL (<150)
[2023-08-19 11:57] LABS: Anion Gap 17 (12-20); Blood Urea Nitrogen 13 mg/dL (9-16); Calcium 9.9 mg/dL (8.4-10.2); Carbon Dioxide 25 mmol/L (22-29); Chloride 104 mmol/L (96-108); Estimated Glomerular Filt Rate 51; Potassium 4.2 mmol/L (3.3-5.1); Sodium 142 mmol/L (135-145)
[2023-08-19 12:01] LABS: Creatinine Urine 289.33 mg/dL; Microalbum/Creatinine Ratio Ur 8.9 ug/mg cr (<30)
[2023-08-19 12:31] LABS: TSH reflex Free T4 3.08 uIU/mL (0.32-4.0)
== END 2023-08-19 08:14 | disposition home or self-care (01) ==
LOC: HO.HHCL 08:13
PROVIDERS: Internal Medicine Nephrology; Visit Provider Internal Medicine Geriatric Medicine
DX: E11.9 Type 2 diabetes mellitus without complications (principal); E03.9 Hypothyroidism, unspecified; E78.00 Pure hypercholesterolemia, unspecified
CPT/HCPCS: 36415; 80051; 80053; 80061; 82043; 82310; 82565; 82570; 84443; 84520; 84550

== ENCOUNTER 2023-08-24 12:05 | Outpatient (REF) | payer OTHER, SELFPAY ==
[2023-08-25 19:28] LABS: Calcium, Random Urine 25.8 mg/dL
== END 2023-08-24 12:06 | disposition home or self-care (01) ==
LOC: HO.HHCL 12:05
PROVIDERS: Visit Provider Internal Medicine Nephrology
DX: Z00.00 Encounter for general adult medical examination without abnormal findings (principal); N20.0 Calculus of kidney
CPT/HCPCS: 82310; 82570

== ENCOUNTER 2023-08-24 18:15 | Outpatient (REF) | payer OTHER, SELFPAY | END 2023-08-24 18:16 | disposition home or self-care (01) | LOC: HO.HHCLNP 18:15 | PROVIDERS: Visit Provider Nurse Practitioner Family | DX: R30.0 Dysuria (principal) | CPT/HCPCS: 87086 ==

== ENCOUNTER 2023-10-27 07:53 | Outpatient (AMB) | payer OTHER, SELFPAY ==
--- NOTE | 2023-10-27 08:04 | MHC.OFFVIS ---
Vital Signs 10/27/23 08:10 Height 5 ft 2 in Weight 233 lb BMI 42.6 BP 105/55 L Blood Pressure Location Lt brachial Position Sitting Pulse 76 Intake Visit Reasons: Follow up medication Intake Note: Follow up for medication Patient cc: abdominal cramps, acid reflex with burning sensation on her throat, and some constipation. Mortgage Loan Underwriter Required: Yes Mortgage Loan Underwriter Name: Joselito [id number] Accompanied by: Self / Same As Patient Allergies oxycodone [From PERCOCET] Allergy (Intermediate, Verified 04/02/23 14:45) ITCHY tramadol [TRAMADOL] Allergy (Unknown, Verified 04/02/23 14:45) ITCHING HPI HPI Follow up medication: Details: Assessment & Plan (1) Chronic idiopathic constipation: Code(s): K59.04 - Chronic idiopathic constipation Plan: [place] #[employer] She has had 3 episodes of severe bloating after eating with pain the was constant in the gastric area. She admits seh has been very CIC recently not moving her bowels for 4 days at a time despite taking bisacodyl 2 tabs qhs. She also says that she has been adherent to her Reglan 10 mg 4 times a day. She recently had her thyroid medication increased and also her Trulicity was increased. This is likely the reason for the change. Prior to this she struggled with diarrhea r/t s/p lisa, so it is likely this is medication mediated. She continues on her pantoprazole with good control of her GERD. She is concerned because her home VNA nurse did occult stool test that was positive for blood.. This is not terribly concerning to me since she had a colonoscopy in 2018 and she has no alarm signs or symptoms. I reassure her and tell her that she is due for another screening in 2024. Return office visit in 3 weeks to evaluate her response. (2) Delayed gastric emptying: Code(s): K30 - Functional dyspepsia (3) GERD (gastroesophageal reflux disease): Code(s): K21.9 - Gastro-esophageal reflux disease without esophagitis Medications: New linaclotide (Linzess) 145 mcg PO QAM 30 caps 6RF K59.04 - Chronic idiopathic constipation pantoprazole (Protonix) 40 mg PO BID 30 days 60 tabs 6RF K21.9 - Gastro-esophageal reflux disease without esophagitis Refilled metoclopramide HCl (Reglan) 10 mg PO QIDACHS 120 tabs 6RF R11.2 - Nausea with vomiting, unspecified On Hold bisacodyl Hold Comment: Doctor's Order 10 mg (2 x 5 mg) PO BEDTIME 60 tabs 2RF K58.1 - Irritable bowel syndrome with constipation TODAY'S VISIT [place] #[id number] Ezra She received the Linzess 145mcg and the pantoprazole bid. BUT she still has a lot of acid brash and GERD. She feels that the Linzess is helping to move her bowels, but she still will skip days when she does not move her bowels. The stool is soft when she does move them. She is having a lot of abd cramping, which is usually a sign that the Linzess is not strong enough, so I will progress her to dana 290mcg dose. She also is only taking the reglan bid, and complains of a strong stomach ache in dana upper stomach after eating. I educate her to take it qid and before all meals to alleviate this. SHe feels that the pantoprazole is helpful with the GERD but it comes right back if I stop it. Again, I educate her that she needs to take it bid EVERY DAY. ROV 4 weeks. [facility] Medical History (Updated 10/27/23 @ 08:06 by RAHEEM Cordova) Epidermal cyst Irritable bowel syndrome with constipation Postprandial epigastric pain LLQ abdominal pain Diverticulitis Muscle spasm Preprocedural examination LGSIL Pap smear of vagina Diabetes type 2, controlled Hx LEEP (loop electrosurgical excision procedure), cervix, Morbid obesity Kidney stones Calcific tendinitis of both shoulders Fibromyalgia Hypothyroidism Umbilical hernia Morbid obesity Surgical History H/O: hysterectomy Status post carpal tunnel release of both wrists S/P laparoscopic sleeve gastrectomy LAP-BAND surgery status S/P panniculectomy Hx of cystoscopy History of esophagogastroduodenoscopy (EGD) Hx of colonoscopy Family History Father Diabetes COPD (chronic obstructive pulmonary disease) Heart problem Mother Thyroid condition Diabetes Paternal Aunt Cancer of kidney Social History Household Members: None Housing: Apartment Alcohol intake: never Patient Tobacco Use Status: Never used Tobacco Current occupational status: disabled Sexual orientation: Straight/Heterosexual Gender identity: Female Review of Systems Const Denies fatigue, Denies fever(s), Denies night sweats, Denies poor appetite and Denies weight loss Eyes Details: glasses Reports requires corrective lenses ENT Reports Normal hearing present, Denies dental pain, Denies dysphagia, Denies hearing loss, Denies mouth pain, Denies odynophagia, Denies throat swelling, Denies tongue swelling and Reports other (Dentition adequate) Card Reports no additional complaints Resp Reports no additional complaints GI Details: Denies abdominal pain, Denies melena, Reports bloating, Denies hematochezia, Reports constipation, Reports GI cramping, Denies dysphagia, Denies excessive flatus, Denies early satiety, Reports dyspepsia, Reports heartburn, Denies diarrhea, Denies nausea, Denies odynophagia, Denies vomiting and Denies hematemesis Skin/Breast Denies pruritus, Denies lesions, Denies rash and Denies jaundice Neuro Reports Normal hearing present and Denies Abnormal speech present Endo Denies fatigue Aller/Immun Denies throat swelling and Denies tongue swelling Physical Exam Vital Signs: Last Vital Signs Pulse 76 10/27/23 08:10 BP 105/55 L 10/27/23 08:10 BMI result Body Mass Index 42.6 Const General: cooperative, no acute distress, well developed and well groomed Nutritional Appearance: well nourished and obese Orientation/consciousness: oriented to person, oriented to place and oriented to time Limitations: language barrier HEENT Head: Yes normocephalic and Yes atraumatic Eyes General: appearance normal, both eyes and all related structures Pupils: Equal, round and reactive pupils present Neck Neck: Yes normal visual inspection and Yes no lymphadenopathy Thyroid: Thyroid normal Resp Effort & Inspection: normal respiratory effort and able to speak in complete sentences Auscultation: clear to auscultation bilaterally Cardio Rate: regular rate Rhythm: regular rhythm Heart sounds: Normal, physiologic split S2 sound present Peripheral pulses: radial pulses present and posterior tibial pulses present GI Inspection: No distended, Yes Abdominal panniculus present and Yes obesity Palpation (GI): Soft to palpation, nontender, no guarding, not rigid and No hepatosplenomegaly present Percussion: Yes normal to percussion Auscultation: normal bowel sounds Rectal Exam - Female: deferred Skin General skin exam: no rashes or lesions noted, turgor normal, skin not dry, no jaundice, No spider nevi and no striae Rashes: no rashes Nails: normal Neuro General: oriented to person, oriented to place and oriented to time Cranial nerves: Yes Equal, round and reactive pupils present and Yes Normal hearing present Speech: No Abnormal speech present Extrem General: Yes normal to inspection, No clubbing, No cyanosis and No edema Psych Appearance: grossly normal and well kempt Mental Status: mental status grossly normal Speech and movement: Normal speech and movement present Affect: normal affect Attitude: cooperative Thought process: Normal thought process present and not confabulating Thought content: Normal thought content present Insight: Limited insight present (Psych) and Poor insight present (Psych) Judgement: Limited judgement present (Psych) and Poor judgement present (Psych) Assessment & Plan Assessment & Plan (1) Chronic idiopathic constipation: Code(s): K59.04 - Chronic idiopathic constipation Category: Medical (2) GERD (gastroesophageal reflux disease): Code(s): K21.9 - Gastro-esophageal reflux disease without esophagitis Category: Medical (3) Nausea and vomiting: Comment: difficult to say if this is mediated by gastric or migraine issues she has associated dizzy spells as well so vertigo would be in the differential diagnosis. Code(s): R11.2 - Nausea with vomiting, unspecified Category: Medical (4) Hemorrhagic gastritis: Code(s): K29.71 - Gastritis, unspecified, with bleeding Category: Medical (5) Delayed gastric emptying: Code(s): K30 - Functional dyspepsia Category: Medical Plan [place] #[id number] Ezra She received the Linzess 145mcg and the pantoprazole bid. BUT she still has a lot of acid brash and GERD. She feels that the Linzess is helping to move her bowels, but she still will skip days when she does not move her bowels. The stool is soft when she does move them. She is having a lot of abd cramping, which is usually a sign that the Linzess is not strong enough, so I will progress her to dana 290mcg dose. She also is only taking the reglan bid, and complains of a strong stomach ache in dana upper stomach after eating. I educate her to take it qid and before all meals to alleviate this. SHe feels that the pantoprazole is helpful with the GERD but it comes right back if I stop it. Again, I educate her that she needs to take it bid EVERY DAY. ROV 4 weeks. Medications: New linaclotide (Linzess) 290 mcg PO QAM 30 caps 3RF 30 days K59.04 - Chronic idiopathic constipation On Hold linaclotide (Linzess) Hold Comment: Doctor's Order 145 mcg PO QAM 30 caps 6RF K59.04 - Chronic idiopathic constipation Coding Level of Care Code Est Pt Level 3 (77987) Diagnoses Chronic idiopathic constipation K59.04 GERD (gastroesophageal reflux disease) K21.9 Nausea and vomiting R11.2 Hemorrhagic gastritis K29.71 Delayed gastric emptying K30
[2023-10-27 08:10] VITALS: BP 105/55; PULSE 76; BMI 42.6
== END 2023-10-27 08:36 | disposition home or self-care (01) ==
PROVIDERS: PCP Internal Medicine Geriatric Medicine; Visit Provider Nurse Practitioner
DX: K59.04 Chronic idiopathic constipation (principal); K21.9 Gastro-esophageal reflux disease without esophagitis; R11.2 Nausea with vomiting, unspecified; K29.71 Gastritis, unspecified, with bleeding; K30 Functional dyspepsia
CPT/HCPCS: 99213

== ENCOUNTER → 2023-10-27 07:53 | Outpatient (BNVA) | payer OTHER, SELFPAY | PROVIDERS: PCP Internal Medicine Geriatric Medicine; Visit Provider Nurse Practitioner | DX: K59.04 Chronic idiopathic constipation (principal); K21.9 Gastro-esophageal reflux disease without esophagitis; K29.71 Gastritis, unspecified, with bleeding; K30 Functional dyspepsia; R11.2 Nausea with vomiting, unspecified | CPT/HCPCS: 99212 ==

== ENCOUNTER 2024-02-20 01:00 | Emergency (ER) | payer OTHER, SELFPAY ==
--- NOTE | ~2024-02-20 | XR_ITS ---
EXAMINATION: XR FOOT, LEFT CLINICAL INFORMATION: Pain COMPARISON: None available. TECHNIQUE: AP, lateral, and oblique views of the left foot. FINDINGS: Osseous alignment appears anatomic. No acute fracture is seen. Posterior calcaneal spur is noted. No significant focal soft tissue abnormality identified. XR/XR foot LT min 3V IMPRESSION: No acute findings identified. Electronically signed by: Amor Rowan MD 02/20/2024 04:11 AM EDT
[2024-02-20 01:13] VITALS: BP 137/89; PULSE 90; RESP 16; TEMP 36.3; O2SAT 94; BMI 41.1
[2024-02-20 01:30] VITALS: BP 154/87; PULSE 91; RESP 17; TEMP 36.9
--- NOTE | 2024-02-20 01:30 | ED.LOWEXIN ---
HPI - Extremity Injury (Lower) General Chief Complaint: Extremity Injury, Lower Stated Complaint: pain in left foot Time Seen by Provider: 02/20/24 01:29 Source: patient and family Mode of arrival: ambulatory Limitations: language barrier (Patient's 1st language is [place] but she does speak Irish, floor installation mechanic was used) History of Present Illness ED Provider: Dr. Jomar Tapia HPI Narrative: 53-year-old female with a history of fibromyalgia, diabetes mellitus and thyroid disease who presents emergency department for evaluation of pain in her left great toe for 2 weeks. She states that the pain is gotten worse. She denies any injury. Patient states the pain is severe especially if she bears weight or pushes on the great toe. She denied fever, chills, nausea, vomiting, fatigue. Related Data Home Medications ?Medication ?Instructions ?Recorded ?Confirmed clonazepam 1 mg tablet (Klonopin) 1 mg PO BEDTIME 10/07/20 10/30/22 clonidine HCl 0.1 mg tablet 0.1 mg PO BEDTIME 10/07/20 10/30/22 duloxetine 60 mg capsule,delayed 60 mg PO DAILY 10/07/20 10/30/22 release (Cymbalta) pregabalin 150 mg capsule (Lyrica) 150 mg PO DAILY 10/07/20 10/30/22 trazodone 100 mg tablet 100 mg PO BEDTIME PRN 10/07/20 10/30/22 albuterol sulfate 90 mcg/actuation 2 puff PO Q4-6H PRN 12/10/20 10/30/22 aerosol inhaler atorvastatin 20 mg tablet 20 mg PO DAILY 12/10/20 10/30/22 cholecalciferol (vitamin D3) 50 50 mcg PO DAILY 12/10/20 10/30/22 mcg (2,000 unit) capsule cyanocobalamin (vitamin B-12) 1,000 mcg PO DAILY 12/10/20 10/30/22 1,000 mcg tablet montelukast 10 mg tablet 10 mg PO QPM 12/10/20 10/30/22 potassium citrate 10 mEq (1,080 10 meq PO BID 12/10/20 10/30/22 mg) tablet,extended release losartan 25 mg tablet 25 mg PO DAILY 07/04/21 10/30/22 atomoxetine 40 mg capsule 40 mg PO DAILY 09/26/21 10/30/22 duloxetine 20 mg capsule,delayed 20 mg PO DAILY 12/02/21 10/30/22 release fluticasone propionate 50 0 mcg intranasal BID PRN 12/02/21 10/30/22 mcg/actuation nasal spray,suspension hydrocortisone 2.5 % topical cream topical BID 12/29/21 10/30/22 with perineal applicator (Proctozone-HC) amitriptyline 10 mg tablet 10 mg PO BEDTIME 07/24/22 10/30/22 dulaglutide 3 mg/0.5 mL 3 mg subcut QWEEK 09/16/22 10/30/22 [facility] levothyroxine 112 mcg capsule 112 mcg PO DAILY 09/16/22 10/30/22 semaglutide 1 mg/dose (2 mg/1.5 1 mg subcut QWEEK 10/27/23 mL) subcutaneous pen injector Previous Rx's ?Medication ?Instructions ?Recorded eletriptan 40 mg tablet (Relpax) 40 mg PO Q2-4H migraine headache 03/12/21 30 days #14 tabs dicyclomine 10 mg/5 mL oral 40 mg (20 mL) PO QID #1,200 mL 05/20/22 solution bisacodyl 5 mg tablet,delayed 10 mg (2 x 5 mg) PO BEDTIME #60 07/07/22 release tabs albuterol sulfate 90 mcg/actuation 2 puff inhalation Q4-6H PRN 03/27/23 aerosol inhaler shortness of breath or wheezing #6.7 grams azithromycin 250 mg tablet See Rx Instructions PO .COMPLEX #6 03/27/23 tabs benzonatate 100 mg capsule 100 mg PO TID PRN cough #14 caps 03/27/23 ondansetron 4 mg disintegrating 4 mg sublingual Q8H #90 ea 03/30/23 tablet metoclopramide HCl 10 mg tablet 10 mg PO QID #120 tabs 04/20/23 linaclotide 145 mcg capsule 145 mcg PO QAM #30 caps 10/22/23 (Linzess) linaclotide 290 mcg capsule 290 mcg PO QAM 30 days #30 caps 10/27/23 (Linzess) pantoprazole 40 mg tablet,delayed 40 mg PO BID #60 tabs 11/17/23 release colchicine 0.6 mg tablet (Colcrys) 0.6 mg PO ONCE #6 tabs 02/20/24 hydrocodone 5 mg-acetaminophen 325 1 tab PO Q6H PRN pain 5 days #10 02/20/24 mg tablet tabs prednisone 20 mg tablet 40 mg (2 x 20 mg) PO DAILY 5 days 02/20/24 #10 tabs Allergies Allergy/AdvReac Type Severity Reaction Status Date / Time oxycodone [From PERCOCET] Allergy Intermediate ITCHY Verified 02/20/24 01:14 tramadol [TRAMADOL] Allergy Unknown ITCHING Verified 02/20/24 01:14 [facility] Past Medical History Medical History (Updated 02/20/24 @ 01:52 by Jomar Tapia MD) Epidermal cyst Irritable bowel syndrome with constipation Postprandial epigastric pain LLQ abdominal pain Diverticulitis Muscle spasm Preprocedural examination LGSIL Pap smear of vagina Diabetes type 2, controlled Hx LEEP (loop electrosurgical excision procedure), cervix, Morbid obesity Kidney stones Calcific tendinitis of both shoulders Fibromyalgia Hypothyroidism Umbilical hernia Morbid obesity Surgical History H/O: hysterectomy Status post carpal tunnel release of both wrists S/P laparoscopic sleeve gastrectomy LAP-BAND surgery status S/P panniculectomy Hx of cystoscopy History of esophagogastroduodenoscopy (EGD) Hx of colonoscopy Family History Family History Father Diabetes COPD (chronic obstructive pulmonary disease) Heart problem Mother Thyroid condition Diabetes Paternal Aunt Cancer of kidney Social History Social History Household Members: None Housing: Apartment Alcohol intake: never Patient Tobacco Use Status: Never used Tobacco Current occupational status: disabled Sexual orientation: Straight/Heterosexual Gender identity: Female Physical Exam Vital Signs: Vital Signs: Last Vital Signs Temp 98.4 F 02/20/24 01:30 Pulse 91 02/20/24 01:30 Resp 17 02/20/24 01:30 BP 154/87 H 02/20/24 01:30 Pulse Ox 94 02/20/24 01:13 O2 Del Method Room Air 02/20/24 01:13 BMI result Body Mass Index 41.1 Vital signs revealed an elevated blood pressure of 154/87 Exam: Patient has erythema and increased warmth over the MTP joint of the right great toe with severe tenderness with palpation of this joint. She has no tenderness with palpation over the other joints are over the foot or ankle. Medical Decision Making Medical Decision Making MDM Narrative: 53-year-old female with a history of fibromyalgia, diabetes and thyroid disease who presents emergency department for evaluation of 2 weeks of pain in her right great toe. Patient's blood pressure was elevated. Physical examination revealed increased warmth and tenderness palpation over the 1st MTP joint. Differential diagnosis: ?Includes but is not limited to cellulitis, gout, septic arthritis Course: Patient's physical findings are consistent with gout of the 1st MTP joint. Patient's x-rays did not reveal any acute findings on my interpretation. Patient was given prescriptions for Colcrys, prednisone and Vicodin. Patient was given a dose of Vicodin 10/3251 tablets here in the emergency department prior to discharge. She was given printed and verbal instructions these were reviewed with her prior to discharge. Admission/Observation Consideration of admission/observation: Escalation of care including admission/observation considered (No) Independent Interpretation I performed an independent interpretation of an: Plain X-Ray Interpretation: My interpretation of the patient's right foot x-ray is as follows: No acute disease, no fracture seen Radiology Impression Discussion of test interpretation with radiology: I have reviewed the radiologist's reading. Independent Historian Clinical information obtained from an independent historian. History obtained from or confirmed by: Spouse Prescription Management I considered prescription management with: Pain Medication (Colcrys, prednisone, Vicodin) and Other Chronic Conditions Patient?s care impacted by: Diabetes and Other (Fibromyalgia) Discharge Plan Discharge Clinical Impression: Podagra Gout Qualifiers: Gout site: toe Encounter type: initial encounter Chronicity: acute Laterality: right Patient Disposition: Home, Self-Care Instructions: Gout (ED) Additional Instructions: Your symptoms and tenderness are consistent with gout of the great toe, this he was the most common spot for gout. Take Colcrys (colchicine) 0.6 mg pills, take 2 pills and then 1 hour later repeat 1 pill. This will last for 3 days in you can repeat the 3 pill dose again in 3 days if you still have pain. If your insurance does not cover the Colcrys try using [employer] to get a [employer] coupon discount. If this is still too expensive then get the prednisone prescription filled instead of the Colcrys. Take prednisone 20 mg pills, 2 pills once a day for 5 days. Take Vicodin 5/325, 1 pill every 6 hours as needed for pain. Follow-up with your doctor in 2 days. Please return to the emergency department if your symptoms get worse or if you develop any symptoms that are concerning to you. Prescriptions: New colchicine [Colcrys] 0.6 mg tablet 0.6 mg PO ONCE Qty: 6 0RF Rx Instructions: 1.2 mg orally, then 1 hour later take 0.6 mg orally, may repeat in 3 days hydrocodone-acetaminophen 5-325 mg tablet 1 tab PO Q6H PRN (Reason: pain) 5 Days Qty: 10 0RF Rx Instructions: Partial Fill upon patient request. prednisone 20 mg tablet 40 mg PO DAILY 5 Days Qty: 10 0RF No Action eletriptan [Relpax] 40 mg tablet 40 mg PO Q2-4H 30 Days Qty: 14 6RF Rx Instructions: do not exceed 2 doses per 24 hrs bisacodyl 5 mg tablet,delayed release (DR/EC) 10 mg PO BEDTIME Qty: 60 2RF ondansetron 4 mg tablet,disintegrating 4 mg sublingual Q8H Qty: 90 3RF metoclopramide HCl 10 mg tablet 10 mg PO QID Qty: 120 6RF Linzess 145 mcg capsule 145 mcg PO QAM Qty: 30 6RF pantoprazole 40 mg tablet,delayed release (DR/EC) 40 mg PO BID Qty: 60 6RF azithromycin 250 mg tablet See Rx Instructions .ROUTE .COMPLEX Qty: 6 0RF Rx Instructions: For 250 mg dose pack: take 500 mg today (day 1), then 250 mg for 4 days (days 2-5) albuterol sulfate 90 mcg/actuation HFA aerosol inhaler 2 puff inhalation Q4-6H PRN (Reason: shortness of breath or wheezing) Qty: 6.7 0RF benzonatate 100 mg capsule 100 mg PO TID PRN (Reason: cough) Qty: 14 0RF cholecalciferol (vitamin D3) 50 mcg (2,000 unit) capsule 50 mcg PO DAILY montelukast 10 mg tablet 10 mg PO QPM potassium citrate 10 mEq (1,080 mg) tablet extended release 10 meq PO BID albuterol sulfate 90 mcg/actuation HFA aerosol inhaler 2 puff PO Q4-6H PRN atorvastatin 20 mg tablet 20 mg PO DAILY cyanocobalamin (vitamin B-12) 1,000 mcg tablet 1,000 mcg PO DAILY pregabalin [Lyrica] 150 mg capsule 150 mg PO DAILY duloxetine [Cymbalta] 60 mg capsule,delayed release(DR/EC) 60 mg PO DAILY trazodone 100 mg tablet 100 mg PO BEDTIME PRN clonazepam [Klonopin] 1 mg tablet 1 mg PO BEDTIME Rx Instructions: administer 30 minutes before bedtime clonidine HCl 0.1 mg tablet 0.1 mg PO BEDTIME hydrocortisone [Proctozone-HC] 2.5 % cream with perineal applicator topical BID losartan 25 mg tablet 25 mg PO DAILY fluticasone propionate 50 mcg/actuation spray,suspension 0 mcg intranasal BID PRN duloxetine 20 mg capsule,delayed release(DR/EC) 20 mg PO DAILY atomoxetine 40 mg capsule 40 mg PO DAILY dicyclomine 10 mg/5 mL solution 40 mg PO QID Qty: 1200 6RF amitriptyline 10 mg tablet 10 mg PO BEDTIME Trulicity 3 mg/0.5 mL pen injector 3 mg subcut QWEEK levothyroxine 112 mcg capsule 112 mcg PO DAILY semaglutide 1 mg/dose (2 mg/1.5 mL) pen injector 1 mg subcut QWEEK Linzess 290 mcg capsule 290 mcg PO QAM 30 Days Qty: 30 3RF Print Language: [place]
[2024-02-20 02:10] VITALS: BP 141/81; PULSE 88; RESP 17; TEMP 36.8; O2SAT 95
[2024-02-20] MEDS: HYDROcodone Bit/Acetam 5/325 TABLET 1 TAB PO (02:14)
== END 2024-02-20 02:17 | disposition home or self-care (01) ==
PROVIDERS: Emergency Provider Emergency Medicine Emergency Medical Services; PCP Internal Medicine Geriatric Medicine
DX: M10.072 Idiopathic gout, left ankle and foot (principal); Z79.899 Other long term (current) drug therapy
CPT/HCPCS: 73630; 99283; 99284

== ENCOUNTER 2024-03-22 13:43 | Outpatient (REF) | payer OTHER, SELFPAY ==
[2024-03-22 16:55] LABS: Anion Gap 14 (12-20); Blood Urea Nitrogen 12 mg/dL (9-16); Calcium 9.9 mg/dL (8.4-10.2); Carbon Dioxide 28 mmol/L (22-29); Chloride 104 mmol/L (96-108); Estimated Glomerular Filt Rate 57; Glucose Random 137 mg/dL (60-115); Potassium 4.1 mmol/L (3.3-5.1); Sodium 142 mmol/L (135-145)
[2024-03-22 17:07] LABS: TSH reflex Free T4 11.29 uIU/mL (0.32-4.0); Thyroid Stimulating Hormone 11.29 uIU/mL (0.32-4.0)
[2024-03-22 17:54] LABS: Free T4 (Free Thyroxine) 1.13 ng/dL (0.71-1.85)
== END 2024-03-22 13:44 | disposition home or self-care (01) ==
LOC: HO.HHCL 13:43
PROVIDERS: Visit Provider Internal Medicine Geriatric Medicine
DX: E11.9 Type 2 diabetes mellitus without complications (principal); E03.9 Hypothyroidism, unspecified; I10 Essential (primary) hypertension; E03.8 Other specified hypothyroidism
CPT/HCPCS: 36415; 80048; 84439; 84443

== ENCOUNTER 2024-03-28 14:49 | Outpatient (AMB) | payer OTHER, SELFPAY ==
--- NOTE | 2024-03-28 15:02 | A.OFFVIS_ITS ---
Vital Signs 03/28/24 15:10 Height 5 ft 2 in Weight 225 lb 4.999 oz BMI 41.2 BP 137/86 Blood Pressure Location Lt brachial Position Sitting Pulse 95 Intake Visit Reasons: Abdominal pain/CIC Intake Note: Patient in office today in follow up of CIC. CC: Patient c/o abdominal pain, and abdominal inflammation sometimes after eating. She also reports occasional constipation and nausea. 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 Allergies oxycodone [From PERCOCET] Allergy (Intermediate, Verified 03/28/24 15:16) ITCHY tramadol [TRAMADOL] Allergy (Unknown, Verified 03/28/24 15:16) ITCHING HPI HPI Abdominal pain/CIC: Details: Assessment & Plan (1) Chronic idiopathic constipation: Code(s): K59.04 - Chronic idiopathic constipation Category: Medical (2) GERD (gastroesophageal reflux disease): Code(s): K21.9 - Gastro-esophageal reflux disease without esophagitis Category: Medical (3) Nausea and vomiting: Comment: difficult to say if this is mediated by gastric or migraine issues she has associated dizzy spells as well so vertigo would be in the differential diagnosis. Code(s): R11.2 - Nausea with vomiting, unspecified Category: Medical (4) Hemorrhagic gastritis: Code(s): K29.71 - Gastritis, unspecified, with bleeding Category: Medical (5) Delayed gastric emptying: Code(s): K30 - Functional dyspepsia Category: Medical Plan Citizen [place] #[id number] Ezra She received the Linzess 145mcg and the pantoprazole bid. BUT she still has a lot of acid brash and GERD. She feels that the Linzess is helping to move her bowels, but she still will skip days when she does not move her bowels. The stool is soft when she does move them. She is having a lot of abd cramping, which is usually a sign that the Linzess is not strong enough, so I will progress her to the 290mcg dose. She also is only taking the reglan bid, and complains of a strong stomach ache in the upper stomach after eating. I educate her to take it qid and before all meals to alleviate this. SHe feels that the pantoprazole is helpful with the GERD but it comes right back if I stop it. Again, I educate her that she needs to take it bid EVERY DAY. ROV 4 weeks. Medications New linaclotide (Linzess) 290 mcg PO QAM 30 caps 3RF 30 days K59.04 - Chronic idiopathic constipation On Hold linaclotide (Linzess) Hold Comment: Doctor's Order 145 mcg PO QAM 30 caps 6RF K59.04 - Chronic idiopathic constipation TODAY'S VISIT [place] #INDIA It seems at the 290mcg dose she had diarrhea. BUT she declines a trial of senna added to the lower dose LInzess, she wants to play with dosing scheduled to titrate this herself. Her other sx are controlled except the intermittent severe periumbilical pain that will occur randomly and she describes it as like I'm bloated and it will only be relieved with a heating pad across her stomach. This happens about once q3mos, it will last all day if she does nto use a heating pad, but with a heating pad it will last an hour. It is NOT helped with bentyl. I will give her trial of simethicone to try. Her current regimen is LInzess 290mcg, pantoprazole 40mg bid, liquid bentyl, and now simethicone. ROV 4 mos. [facility] Medical History (Updated 02/21/24 @ 00:01 by Maryam Guevara) Epidermal cyst Irritable bowel syndrome with constipation Postprandial epigastric pain LLQ abdominal pain Diverticulitis Muscle spasm Preprocedural examination LGSIL Pap smear of vagina Diabetes type 2, controlled Hx LEEP (loop electrosurgical excision procedure), cervix, Morbid obesity Kidney stones Calcific tendinitis of both shoulders Fibromyalgia Hypothyroidism Umbilical hernia Morbid obesity Surgical History H/O: hysterectomy Status post carpal tunnel release of both wrists S/P laparoscopic sleeve gastrectomy LAP-BAND surgery status S/P panniculectomy Hx of cystoscopy History of esophagogastroduodenoscopy (EGD) Hx of colonoscopy Family History Father Diabetes COPD (chronic obstructive pulmonary disease) Heart problem Mother Thyroid condition Diabetes Paternal Aunt Cancer of kidney Social History Household Members: None Housing: Apartment Alcohol intake: never Patient Tobacco Use Status: Never used Tobacco Current occupational status: disabled Sexual orientation: Straight/Heterosexual Gender identity: Female Review of Systems Const Denies fatigue, Denies fever(s), Denies night sweats, Denies poor appetite and Denies weight loss ENT Reports Normal hearing present, Denies dental pain, Denies dysphagia, Denies hearing loss, Denies mouth pain, Denies odynophagia, Denies throat swelling, Denies tongue swelling and Reports other (Dentition adequate) Card Reports no additional complaints Resp Reports no additional complaints GI Details: Reports abdominal pain, Denies melena, Reports bloating, Denies hematochezia, Reports constipation, Reports GI cramping, Denies dysphagia, Denies excessive flatus, Denies early satiety, Reports heartburn, Denies diarrhea, Denies nausea, Denies odynophagia, Denies vomiting and Denies hematemesis Skin/Breast Denies pruritus, Denies lesions, Denies rash and Denies jaundice Neuro Reports Normal hearing present and Denies Abnormal speech present Endo Denies fatigue Aller/Immun Denies throat swelling and Denies tongue swelling Physical Exam Vital Signs: Last Vital Signs Pulse 95 03/28/24 15:10 BP 137/86 03/28/24 15:10 BMI result Body Mass Index 41.2 Const General: cooperative, no acute distress, well developed and well groomed Nutritional Appearance: well nourished and obese Orientation/consciousness: oriented to person, oriented to place and oriented to time Limitations: language barrier HEENT Head: Yes normocephalic and Yes atraumatic Eyes General: appearance normal, both eyes and all related structures Pupils: Equal, round and reactive pupils present Neck Neck: Yes normal visual inspection and Yes no lymphadenopathy Thyroid: Thyroid normal Resp Effort & Inspection: normal respiratory effort and able to speak in complete sentences Auscultation: clear to auscultation bilaterally Cardio Rate: regular rate Rhythm: regular rhythm Heart sounds: Normal, physiologic split S2 sound present Peripheral pulses: radial pulses present and posterior tibial pulses present GI Inspection: No distended, Yes Abdominal panniculus present and Yes obesity Palpation (GI): Soft to palpation, nontender, no guarding, not rigid and No hepatosplenomegaly present Percussion: Yes normal to percussion Auscultation: normal bowel sounds Rectal Exam - Female: deferred Skin General skin exam: no rashes or lesions noted, turgor normal, skin not dry, no jaundice, No spider nevi and no striae Rashes: no rashes Nails: normal Neuro General: oriented to person, oriented to place and oriented to time Cranial nerves: Yes Equal, round and reactive pupils present and Yes Normal hearing present Speech: No Abnormal speech present Extrem General: Yes normal to inspection, No clubbing, No cyanosis and No edema Psych Appearance: grossly normal and well kempt Mental Status: mental status grossly normal Speech and movement: Normal speech and movement present Affect: normal affect Attitude: cooperative Thought process: Normal thought process present and not confabulating Thought content: Normal thought content present Insight: Fair insight present (Psych) and Limited insight present (Psych) Judgement: Fair judgement present (Psych) and Limited judgement present (Psych) Assessment & Plan Assessment & Plan (1) Chronic idiopathic constipation: Code(s): K59.04 - Chronic idiopathic constipation Category: Medical (2) GERD (gastroesophageal reflux disease): Code(s): K21.9 - Gastro-esophageal reflux disease without esophagitis Category: Medical (3) Nausea and vomiting: Comment: difficult to say if this is mediated by gastric or migraine issues she has associated dizzy spells as well so vertigo would be in the differential diagnosis. Code(s): R11.2 - Nausea with vomiting, unspecified Category: Medical (4) Delayed gastric emptying: Code(s): K30 - Functional dyspepsia Category: Medical Plan [place] #INDIA It seems at the 290mcg dose she had diarrhea. BUT she declines a trial of senna added to the lower dose LInzess, she wants to play with dosing scheduled to titrate this herself. Her other sx are controlled except the intermittent severe periumbilical pain that will occur randomly and she describes it as like I'm bloated and it will only be relieved with a heating pad across her stomach. This happens about once q3mos, it will last all day if she does nto use a heating pad, but with a heating pad it will last an hour. It is NOT helped with bentyl. I will give her trial of simethicone to try. Her current regimen is LInzess 290mcg, pantoprazole 40mg bid, liquid bentyl, reglan 10mg qid and now simethicone. ROV 4 mos. Medications: New simethicone after meals 180 mg PO QID 120 caps 3RF 30 days Refilled metoclopramide HCl 10 mg PO QID 120 tabs 6RF R11.2 - Nausea with vomiting, unspecified ondansetron 4 mg sublingual Q8H 90 ea 3RF K29.71 - Gastritis, unspecified, with bleeding, R11.2 - Nausea with vomiting, unspecified pantoprazole 40 mg PO BID 60 tabs 6RF K21.9 - Gastro-esophageal reflux disease without esophagitis dicyclomine 40 mg (20 mL) PO QID 1,200 mL 6RF R10.9 - Unspecified abdominal pain Coding Level of Care Code Est Pt Level 3 (05985) Diagnoses Chronic idiopathic constipation K59.04 GERD (gastroesophageal reflux disease) K21.9 Nausea and vomiting R11.2 Delayed gastric emptying K30
[2024-03-28 15:10] VITALS: BP 137/86; PULSE 95; BMI 41.2
== END 2024-03-28 15:53 | disposition home or self-care (01) ==
PROVIDERS: PCP Internal Medicine Geriatric Medicine; Visit Provider Nurse Practitioner
DX: K59.04 Chronic idiopathic constipation (principal); K21.9 Gastro-esophageal reflux disease without esophagitis; R11.2 Nausea with vomiting, unspecified; K30 Functional dyspepsia
CPT/HCPCS: 99213

== ENCOUNTER → 2024-03-28 14:49 | Outpatient (BNVA) | payer OTHER, SELFPAY | PROVIDERS: PCP Internal Medicine Geriatric Medicine; Visit Provider Nurse Practitioner | DX: K59.04 Chronic idiopathic constipation (principal); K21.9 Gastro-esophageal reflux disease without esophagitis; R11.2 Nausea with vomiting, unspecified; K30 Functional dyspepsia | CPT/HCPCS: 99212 ==

== ENCOUNTER 2024-04-18 08:53 | Emergency (ER) | payer OTHER, SELFPAY ==
[2024-04-18 08:59] VITALS: BP 108/74; PULSE 100; RESP 18; TEMP 36.3; O2SAT 97; BMI 40.7
--- NOTE | 2024-04-18 18:10 | PC.NURSE ---
no answer at 1800 roll call.
== END 2024-04-18 18:24 | disposition left against medical advice (07) ==
LOC: HO.ED 18:17
PROVIDERS: Emergency Provider Emergency Medicine; PCP Internal Medicine Geriatric Medicine
DX: M54.50 Low back pain, unspecified (principal); Z53.21 Procedure and treatment not carried out due to patient leaving prior to being seen by health care provider
CPT/HCPCS: 99281

== ENCOUNTER 2024-06-19 13:57 | Outpatient (REF) | payer OTHER, SELFPAY | END 2024-06-19 13:58 | disposition home or self-care (01) | LOC: HO.MAMMO 13:57 | PROVIDERS: PCP Internal Medicine Geriatric Medicine; Visit Provider Internal Medicine Geriatric Medicine | DX: Z12.31 Encounter for screening mammogram for malignant neoplasm of breast (principal) | CPT/HCPCS: 77063; 77067 ==

== ENCOUNTER → 2024-06-19 14:15 | Outpatient (BNV) | payer OTHER, SELFPAY | PROVIDERS: PCP Internal Medicine Geriatric Medicine; Visit Provider Internal Medicine | DX: Z12.31 Encounter for screening mammogram for malignant neoplasm of breast (principal) | CPT/HCPCS: 77063; 77067 ==

== ENCOUNTER 2024-06-20 16:43 | Outpatient (REF) | payer OTHER, SELFPAY ==
[2024-06-21 06:49] LABS: HPV 16,18/45 See PAP report
== END 2024-06-20 16:44 | disposition home or self-care (01) ==
LOC: HO.HHCLNP 16:43
PROVIDERS: Visit Provider Advanced Practice Midwife
DX: R87.622 Low grade squamous intraepithelial lesion on cytologic smear of vagina (LGSIL) (principal)
CPT/HCPCS: 87626; 88175

== ENCOUNTER 2024-08-24 10:50 | Outpatient (REF) | payer OTHER, SELFPAY ==
--- OUTSIDE RECORDS SUMMARY | 2024-08-24 12:46 | XMS_ITS | Encounter Summary ---
Author Organization [email or web address] Address [address] [facility] [address] [place] [address] Care Team Providers Care Trim Operator Name Role Phone Name, Saman HOOK Primary Care Provider [phone] Reason for Visit * Reason Comments Med Refill Encounter Details Date Type Department Care Team ([facility] Contact Info) Description 12/02/2023 Refill [facility] MEDICINE [address] [place], [place] [phone] Tabitha Goodman NP [address] [place], [place] [phone] Chronic pain syndrome Social History Tobacco Use Types Packs/Day Years Used Date Smoking Tobacco: Never Smokeless Tobacco: Never Alcohol Use Standard Drinks/Week Comments Never 0 (1 standard drink = 0.6 oz pur e alcohol) Depression Answer Date Recorded Patient Health Questionnaire-9 Score 0 04/07/2023 Patient Health Questionnaire-9 Score 0 04/07/2023 Last PHQ-9: Questionnaire Data Not on file 1 06/07/2022 Housing Stability Answer Date Recorded What is your housing situation today? I have eveashley gómez 07/07/[address] you li ve. Do you have problems with any of the following? None of the above 07/07/2023 Food Insecurity Answer Date Recorded Within the past 12 months, y ou worried that your food would run out before you got money to buy more: Never True 07/07/2023 Within the past 12 months,th e food you bought just didn't last and you didn't have enough money to get more: Never True Transportation Answer Date Recorded In the past 12 months, has l ack of transportation kept you from medical appts, meetings, work or from getting things needed for daily living? No 07/07/2023 Utilities Answer Date Recorded In the past 12 months, has t he electric, gas, oil or water company threatened to shut off services in your home? No 07/07/2023 Depression Answer Date Recorded Patient Health Questionnaire-2 Score 0 04/07/2023 Comments No Sex and Gender Information Value Date Recorded Sex Assigned at Female 04/06/2022 10:29 AM EDT Legal Sex Female 10:29 AM EDT Gender Identity Female 04/06/2022 10:29 AM EDT Sexual Orientation Straight 04/06/2022 10 :29 AM EDT documented as of this encounter Plan of Treatment Upcoming Encounters Date Type Department Care Team (Late st Contact Info) Description 09/01/2024 4:00 PM EDT Office Visit [facility] MEDICINE [address] [place] [address] Name, MD Saman [address] [place] [address] documented as of this encounter Visit Diagnoses Diagnosis Chronic pain syndrome documented in this encounter Additional Health Concerns Assessment Noted Time PHQ-9 Depression Total Score: 0 04/07/20 23 3:38 PM EDT documented as of this encounter Care Teams Trim Operator Relationship Specialty Start Date End Date Name, MD Saman [address] [place] [address] PCP - General Family Medicine 08/13/15 documented as of this encounter
--- OUTSIDE RECORDS SUMMARY | 2024-08-24 12:47 | XMS_ITS | Encounter Summary ---
Author Organization [employer] Address [address] [place] [address] [address] [place] [address] Care Team Providers Care Farmworker General Name Role Phone Name, Saman HOOK Primary Care Provider [phone] Reason for Visit * Reason Comments Med Refill Encounter Details Date Type Department Care Team ([facility] Contact Info) Description 02/10/2023 Refill [facility] MEDICINE [address] [place] [phone] Marisel Baxter MD [address] [place] [address] Social History Tobacco Use Types Packs/Day Years Used Date Smoking Tobacco: Never Smokeless Tobacco: Never Alcohol Use Standard Drinks/Week Comments Never 0 (1 standard drink = 0.6 oz pur e alcohol) Depression Answer Date Recorded Patient Health Questionnaire-9 Score 0 07/03/2022 Depression Answer Date Recorded Patient Health Questionnaire-2 Score 0 07/03/2022 Comments Unknown Sex and Gender Information Value Date Recorded Sex Assigned at Female 04/06/2022 10:29 AM EDT Legal Sex Female 10:29 AM EDT Gender Identity Female 04/06/2022 10:29 AM EDT Sexual Orientation Straight 04/06/2022 10 :29 AM EDT documented as of this encounter Plan of Treatment Upcoming Encounters Date Type Department Care Team ([facility] Contact Info) Description 09/01/2024 4:00 PM EDT Office Visit [facility] MEDICINE [address] [place] [phone] Name, MD Saman [address] [place] [phone] documented as of this encounter Visit Diagnoses Not on filedocumented in this encounter Additional Health Concerns Assessment Noted Time PHQ-9 Depression Total Score: 0 07/03/19 23 10:55 AM EST documented as of this encounter Care Teams Farmworker General Relationship Specialty Start Date End Date Name, MD Saman [address] [place] [address] PCP - General Family Medicine 08/13/15 documented as of this encounter
--- OUTSIDE RECORDS SUMMARY | 2024-08-24 12:47 | XMS_ITS | Encounter Summary ---
Author Organization [employer] Address [address] [place] [address] [address] [place] [address] Care Team Providers Care Adult Care Manager Name Role Phone NameSaman MD Primary Care Provider [phone] Reason for Visit * Reason Comments Med Refill Encounter Details Date Type Department Care Team ([facility] Contact Info) Description 02/10/2023 Refill [facility] MEDICINE [address] [place] [phone] Saman Doe MD [address] [place] [address] [phone] Social History Tobacco Use Types Packs/Day Years [...] Upcoming Encounters Date Type Department Care Team ([facility] Contact Info) Description 09/01/2024 4:00 PM EDT Office Visit [facility] MEDICINE [address] [place] [address] [phone] Saman Doe MD [address] [place] [phone] documented as of this encounter Visit Diagnoses Not on filedocumented in this encounter Additional Health Concerns Assessment Noted Time PHQ-9 Depression Total Score: 0 07/03/19 23 10:55 AM EST documented as of this encounter Care Teams Adult Care Manager Relationship Specialty Start Date End Date Name, MD Saman [address] [place] [address] PCP - General Family Medicine 08/13/15 documented as of this encounter
--- OUTSIDE RECORDS SUMMARY | 2024-08-24 12:47 | XMS_ITS | Clinical Summary ---
Author Organization [employer] Address [address] [facility] [address] [place] [address] Care Team Providers Care Results Engineer Name Role Phone Name, Saman HOOK Primary Care Provider [phone] Allergies Active Allergy Reactions Criticality Noted Date Comments Lisinopril 02/10/2013 cough cough Oxycodone High 08/13/2015 Other reaction(s): ITCHY Tramadol Hives,Itching 12/23/2018 Other reaction(s): Not available Medications atomoxetine (Strattera) 40 MG capsule Take 80 mg by mouth at bed time. Active cloNIDine (Catapres) 0.1 MG tablet TAKE 1 TABLET BY MOUTH IN THE MORNING AND TAKE 2 TABLETS BY MOUTH IN THE EVENING NEEDED 05/26/20 22 Active DULoxetine (Cymbalta) [address] capsule Take 120 mg by mouth Once per day. 05/26/20 22 Active pantoprazole (ProtoNix) 40 MG EC tablet TAKE 1 TABLET BY MOUTH two (2) times a day 05/26/20 22 Active potassium citrate CR (Urocit-K-10) 10 mEq ER tablet TAKE 1 TABLET BY MOUTH two (2) times a day 12/10/19 22 Active traZODone (Desyrel) 100 MG tablet TAKE 2 TABLETS BY MOUTH ONCE DAILY AT BEDTIME NEEDED 05/26/20 22 Active clonazePAM (KlonoPIN) 1 MG tablet TAKE 1 TABLET BY MOUTH two (2) times a day NEEDED 06/05/20 22 Active Diclofenac Sodium 1 % gelIndications:S houlder pain, unspecified chronicity, unspecified laterality APPLY 2gm TO THE AFFECTED AREA two (2) times a day 100 g 02/16/20 23 Active fluticasone (Flonase) 50 MCG/ACT nasal sprayIndications :Allergic rhinitis, unspecified seasonality, unspecified trigger SPRAY TWICE IN two (2) times a day NEEDED 48 g 1 04/07/20 23 Active FREESTYLE LITE test strip USE TO TEST FINGER STICK BLOOD SUGAR ONCE DAILY 100 strip 5 09/10/19 24 Active Global Inject Ease Lancets 28G misc USE TO TEST FINGER STICK BLOOD SUGAR ONCE DAILY 100 each 09/10/19 24 Active pravastatin (Pravachol) 20 MG tablet Take 1 tablet (20 mg) by mouth Once per day. 30 tablet 10/13/19 24 025 Active levothyroxine (Synthroid, Levoxyl) 137 MCG tablet TAKE 1 TABLET BY MOUTH ONCE DAILY BEFORE BREAKFAST 30 tablet 01/03/20 24 Active cyanocobalamin (Vitamin B-12) 1000 MCG tablet TAKE 2 TABLETS (2000mcg) BY MOUTH ONCE DAILY 60 tablet 03/13/20 24 Active cetirizine (ZyrTEC) 10 MG tablet TAKE 1 TABLET BY MOUTH ONCE DAILY IN THE MORNING 30 tablet 03/13/20 24 Active eletriptan (Relpax) 40 MG tablet TAKE 1 TABLET BY MOUTH NEEDED . MAY REPEAT AFTER 2 HOUR. not to exceed 2 X IN 24 HOURS 10 tablet 03/13/20 24 Active Semaglutide, 2 MG/DOSE, (Ozempic, 2 MG/DOSE,) 8 MG/3ML solution pen-injectorIndi cations:Type 2 diabetes mellitus without complication, without long-term current use of insulin ([facility]),Morbid obesity ([facility]) Inject 0.75 mL (2 mg) under the skin 1 (one) time per week. 3 mL 04/12/20 24 025 Active albuterol 108 (90 Base) MCG/ACT inhaler INHALE TWO PUFFS BY MOUTH EVERY 4 TO 6 HOURS NEEDED 8.5 g 3 05/08/20 24 Active montelukast (Singulair) 10 MG tabletIndication s:Chronic pain syndrome TAKE 1 TABLET BY MOUTH EVERY EVENING 30 tablet 5 05/08/20 24 Active losartan (Cozaar) 50 MG tabletIndication s:Essential hypertension TAKE 1 TABLET BY MOUTH EVERY MORNING 30 tablet 5 06/12/19 25 Active estradiol (Vagifem) 10 MCG tablet vaginal tablet Insert 10 mcg into the vagina 2 (two) times a week. 04/24/20 24 Active amitriptyline (Elavil) 10 MG tabletIndication s:Chronic pain syndrome TAKE 1 TABLET BY MOUTH ONCE DAILY AT BEDTIME 30 tablet 5 06/30/19 25 Active methocarbamol (Robaxin) 750 MG tablet TAKE 1 TABLET BY MOUTH 3 (THREE) TIMES A DAY 30 tablet 07/27/19 25 Active celecoxib (CeleBREX) 200 MG capsule TAKE 1 CAPSULE BY MOUTH two (2) times a day 40 capsule 07/27/19 25 Active cholecalciferol (D3 Super Strength) 50 MCG (1999 UT) capsule TAKE 1 CAPSULE BY MOUTH ONCE DAILY 30 capsule 11 08/19/19 25 Active pregabalin (Lyrica) 150 MG capsuleIndicatio ns:Chronic pain syndrome TAKE 1 CAPSULE BY MOUTH 3 (THREE) TIMES A DAY 90 capsule 08/19/19 25 Active cholecalciferol 50 MCG (1999 UT) capsule TAKE 1 CAPSULE BY MOUTH ONCE DAILY 30 capsule 11 07/23/19 24 025 Discontinued celecoxib (CeleBREX) 200 MG capsule TAKE 1 CAPSULE BY MOUTH two (2) times a day 40 capsule 06/30/19 25 025 Discontinued methocarbamol (Robaxin) 750 MG tablet Take 1 tablet (750 mg) by mouth 3 times daily. 30 tablet 06/30/19 25 025 Discontinued pregabalin (Lyrica) 150 MG capsuleIndicatio ns:Chronic pain syndrome TAKE 1 CAPSULE BY MOUTH 3 (THREE) TIMES A DAY 90 capsule 06/30/19 25 025 Discontinued Active Problems Problem Noted Date Diagnosed Date Lack of sexual desire 06/20/2024 Abdominal cramping 04/07/2023 04/07/2023 Chronic idiopathic constipation 04/07/2023 04/07/2023 Diverticulitis 04/07/2023 04/07/2023 Epidermal cyst 04/07/2023 04/07/2023 GERD (gastroesophageal reflux disease) 04/07/2023 Hemorrhagic gastritis 04/07/2023 04/07/2023 LGSIL Pap smear of vagina 04/07/20232022 LLQ abdominal pain 04/07/2023 04/07/2023 Lumbar spondylosis 04/07/2023 04/07/2023 Muscle spasm 04/07/2023 04/07/2023 Other nonspecific abnormal finding 04/07/2023 04/07/2023 Preprocedural examination 04/07/20232022 Sacroiliac joint dysfunction 04/07/202306/2022 Umbilical hernia 04/07/2023 04/07/2023 Varicose veins of left lower extremity with infl ammation 04/07/2023 04/07/2023 Status post repair of ventral hernia 01/11/2023 Venous insufficiency of leg 10/29/2022 Stone in kidney 10/13/2022 Type 2 diabetes mellitus without complication Irritable bowel syndrome with constipation 07/03 Fibromyalgia 07/03/2022 Cubital tunnel syndrome 07/03/2022 Essential hypertension 02/16/2022 Morbid obesity 02/16/2022 Overview (04/07/2023): bariatric surgery Hemorrhoids without complication 02/16/2022 Steatosis of liver 01/05/2018 Renal cyst 01/05/2018 Migraines 09/01/2017 Allergic rhinitis 08/19/2017 Trigger finger of both hands 04/16/2017 History of hysterectomy 01/27/2017 History of sleeve gastrectomy 05/13/2016 Blurring of visual image 05/13/2016 Left shoulder pain 03/03/2016 Mild intermittent asthma 08/13/2015 Anxiety 05/28/2015 Vitamin D deficiency 01/17/2014 Carpal tunnel syndrome 01/10/2014 Back pain 01/10/2014 Bipolar I disorder with depression 02/10/2013 Uterine leiomyoma 12/28/2012 HLD (hyperlipidemia) 11/25/2012 Hypothyroidism 08/17/2012 Depression 08/17/2012 Resolved Problems Problem Noted Date Diagnosed Date Resolved Date Delayed gastric emptying 04/07/2023 04/07/202301/2024 Nausea and vomiting 04/07/2023 04/07/2023 10/13/19 Postprandial epigastric pain 04/07/2023 04/07/2023 10/13/2023 Gastroesophageal reflux disease 04/07/2023 10/13/2023 Acute hemorrhagic gastritis 04/07/2023 10/13/2023 Epigastric pain 04/07/2023 10/13/2023 Primary hypertension 01/11/2023 024 Ulnar nerve entrapment at elbow 07/03/2022 10/13/2023 Varicose veins 02/16/2022 10/13/2023 Numbness of hand 04/16/2017 10/13/2023 Pain in female pelvis 01/27/20172023 Asthma 02/20/2013 10/13/2023 Heartburn 11/25/2012 10/13/2023 Encounters Date Type Department Care Team Description 08/17/2024 Refill [facility] [address] [place] [address] [phone] Saman Doe MD Chronic pain syndrome 07/27/2024 Refill [facility] [address] [place] [address] [phone] Saman Doe MD 07/17/2024 Telephone [facility] [address] [place] [address] [phone] Janna Munoz, CYNDI Results 06/30/2024 Refill [facility] [address] [place] [address] [phone] Shereen Castro MD Chronic pain syndrome 06/30/2024 Refill [facility] [address] [place] [address] [phone] Saman Doe MD Chronic pain syndrome; Chronic pain syndrome 06/30/2024 Refill [facility] [address] [place] [address] [phone] Charla Mendieta DO 06/30/2024 Refill [facility] [address] [place] [address] [phone] Tabitha Goodman NP 06/20/2024 2:15 PM EST Procedure Visit [facility] [address] [place] [address] [phone] Andrew Villareal, JANA LGSIL Pap smear of vagina (Primary Dx); Pelvic pain; Lack of sexual desire 06/20/2024 Travel 06/19/2024 Orders Only [facility] [address] [place] [address] [phone] Saman Doe MD 06/15/2024 Telephone [facility] [address] [place] [address] Cindy Maradiaga MA feb recalls 06/13/2024 Travel 06/10/2024 Refill [facility] [address] [place] [address] Name, MD Saman Essential hypertension 06/10/2024 Refill [facility] [address] [place] [address] Izzy Fischer NP 06/06/2024 Travel from Last 3 Months Immunizations Name Administration Dates Next Due INFLUENZA VACCINE QUADRIVALE NT RECOMBINANT PRESERVATIVE FREE RIV4 03/11/2020 Influenza injectable quadriv alent IIV4 with preservative 04/17/2019,03/11/2018 Influenza injectable quadriv alent preservative free 02/23/2022,04/01/2021,03/18/2017 Influenza, IIV3, injectable 02/20/2015, 3 Influenza, seasonal, injecta ble, preservative free 02/12/2016 PPD Test 02/20/2015 Pneumococcal Conjugate PCV 20 01/25/2024 Tdap 07/07/2023,01/04/2013 Family History Medical History Relation Name Comments Diabetes Father Tin??n Rom??n Nancy Hypertension Father Tin??n Rom??n Nancy Arthritis Father's Sister Liv Rom??n Nancy Cancer Father's Sister Liv Rom??n Nancy Cancer Maternal Grandfather Vesta Romelia Depression Mother Marisel Susie Romelia [place] Diabetes Mother Marisel Susie Romelia [place] Relation Name Status Comments Father Tin??n Rom??n Nancy Father's Sister Liv Rom??n Nancy Maternal Grandfather Vesta Romelia Mother Marisel León [place] Social History Tobacco Use Types Packs/Day Years Used Date Smoking Tobacco: Never Passive Smoke Exposure: Never Smokeless Tobacco: Never Tobacco Cessation:Counseling Given: Not Answered Alcohol Use Standard Drinks/Week Comments Never 0 (1 standard drink = 0.6 oz pur e alcohol) Alcohol Answer Date Recorded Frequency of Alcohol Consumption Not on file 01/25/2024 Average Number of Drinks Not on file 024 Frequency of Binge Drinking Not on file 01/06 Score 0 01/25/2024 Depression Answer Date Recorded Patient Health Questionnaire-9 Score 0 04/07/2023 Patient Health Questionnaire-9 Score 0 04/07/2023 Last PHQ-9: Questionnaire Data Not on file 1 06/07/2022 Housing Stability Answer Date Recorded What is your housing situation today? I have eve gómez 07/07/[address] you [...] Orientation Straight 04/06/2022 10 :29 AM EDT Last Filed Vital Signs Vital Sign Reading Time Taken Comments Blood Pressure 148/78 06/20/2024 2:29 PM EST Pulse 105 06/20/2024 2:29 PM EST Temperature 36.2 ??C (97.2 ??F) 06/20/2024 2:29 PM ES T Respiratory Rate 20 06/20/2024 2:29 PM EST Oxygen Saturation 98% 06/20/2024 2:29 PM EST Inhaled Oxygen Concentration - - Weight 102 kg (224 lb 9.6 oz) 06/20/2024 2:29 PM EST Height 157.5 cm (5' 2 ) 06/20/2024 2:29 PM EST Body Mass Index 41.08 06/20/2024 2:29 PM EST Plan of Treatment Upcoming Encounters Date Type Department Care Team (Late st Contact Info) Description 09/01/2024 4:00 PM EDT Office Visit [facility] [address] [place] [address] Name, MD Saman [address] [place] [address] Health Maintenance Due Date Last Done Comments CT Colonography 1971 FIT DNA/Cologuard 1971 FIT 1971 FOBT 1970 HIV Screening 1970 Sigmoidoscopy 1971 Hepatitis C Screening 1989 Hepatitis A Vaccines (1 of 2 - Risk 2-dose series) 1990 Hepatitis B Vaccines (1 of 3 - 19+ 3-dose series) 1990 Zoster Vaccines (1 of 2) 2021 COVID-19 Vaccine ( - season) 2024 Influenza Vaccine (#1) 2024 , 04/01/2021, 03/11/2020, Additional history exists Depression Screening 04/07/2024 04/07/2023, 04/07/20 23 SDOH Screening 07/07/2024 07/07/2023 Mammogram 12/17/2024 06/19/2024, 05/08, 11/17/2022, Additional history exists Alcohol/Substance Use Screening 01/24/2025 01/25/2024 Tobacco Screening 06/20/2025 06/20/2024 Cervical Cancer Screening 06/20/2027 HPV/Cotest 06/20/2027 06/10/2023, 02/05, 01/18/2019 Pap Smear 06/20/2027 06/20/2024, 09/2023, 02/23/2022 Lipid Panel 08/18/2028 08/19/2023, 01/05, 05/25/2022, Additional history exists Colonoscopy 12/28/2028 01/11/2019, 12/23/2018 Colorectal Cancer Screening 12/28/2028 DTaP/Tdap/Td Vaccines (3 - Td or Tdap) 07/07/2033 07/07/2023, 01/04/2013 RSV Patients and Patients Aged 60 years or older (1 - 1-dose 75+ series) 2046 Pneumococcal Vaccine: 50+ Years Completed 01/25/2024 HIB Vaccines Aged Out No longer eligi ble based on patient's age to complete this topic HPV Vaccines Aged Out No longer eligi ble based on patient's age to complete this topic IPV Vaccines Aged Out No longer eligi ble based on patient's age to complete this topic Meningococcal Vaccine Aged Out No cass noni eligible based on patient's age to complete this topic RSV under 20 months Aged Out No longe r eligible based on patient's age to complete this topic Rotavirus Vaccines Aged Out No longer eligible based on patient's age to complete this topic Procedures Procedure Name Priority Date/Time Associated Diagnosis Comments PAP SMEAR Routine 06/20/2024 12:00 AM EST LGSIL Pap smear of vagina BI MAMMOGRAM SCREENING TOMOSYNTHESIS BILATERAL Routine 06/19/2024 2:05 PM EST LIPID PANEL, STANDARD Routine 08/19/2023 8:22 AM EDT High cholesterol HPV MRNA E6/E7 REFLEX TO HPV 16, 18/45 Routine 06/10/2023 1:06 PM EST HM COLONOSCOPY Routine 01/11/2019 from Last 3 Months or Most Recently Relevant to Health Maintenance Results * Pap Smear (06/20/2024 12:00 AM EST) Swab Vaginal structure / Unknown 06/20/2024 06/21/2024 6:20 AM EST Narrative [facility] - 07/03/2024 3:04 PM EST ----- ------- Name: Yaniv Epstein ?Age/Sex: 53/F ? : 1970 Unit#: [id number] ?? Attend Dr: ANDREW VILLAREAL CNM ?Re06/20/24 ?Status: DEP REF ? [facility] ? Disch: ? ----- ------- SPEC : [id number] ?RECD: 06/21/24 ? STATUS: ??SOUT ? REQ NUM: [id number] ? SIMONE: 06/20/24 ? SUBM DR: ANDREW VILLAREAL CNM ? ENTERED: ??06/21/24 ?SP TYPE: Pap Smr ?OTHR : ? ORDERED: ??Pap Smear ? Interpretation ?? Satisfactory for evaluation. ?? Negative for intraepithelial lesion or malignancy. ? HPV High Risk: ??Negative ? HPV Genotyping 16: ??Negative ?? HPV Genotyping 18: ??Negative ?Clinical Information LMP: Previous PAP test: Other surgery: Hysterectomy Other history: LSIL HPV neg 2023, hx ABILIO ? Material Received ?? ThinPrep-Vaginal ----- ------- Signed (signature on file) ANGELO Potts (ASCP) 07/03/24 7043 ? ----- ------- ? END OF REPORT ? us Andrew Villareal [facility] CYTOLOGY ORDERABLES F inal Result [facility] [address] [place] [address] [phone] * BI Mammogram Screening Tomosynthesis Bilateral (06/19/2024 2:05 PM EST) Anatomical Region Laterality Modality Breast Bilateral Mammography 06/19/2024 2:05 PM EST Narrative 06/27/2024 4:59 PM EST ? [facility] ? [address] ?[place], [place] [address] ? Mammography Report ? Signed ? Patient: Romanquiles,Daianna ?MR#: [id number] ?? [id number] ? : 1970 ?Acct:[id number] ? Age/Sex: 53 / F ?ADM Date: 06/19/24 ? Loc: HO.MAMMO ? Attending Dr: Saman Name MD ? Ordering Physician: Name,Saman MD ?Results: 1Negative ? Date of Service: 06/19/24 ?Follow Up: 1 Year From Orig ?? inal Mammogram ? Procedure(s): MM tomosynthesis screening BI ?? Accession Number(s): [id number] ? cc: Name,Saman MD ? EXAMINATION: ?? MM SCREENING DIGITAL BREAST TOMOSYNTHESIS, BILATERAL ? CLINICAL INFORMATION: ? Screening. Asymptomatic. ? COMPARISON: ?? Mammography: Comparison is made with available priors ? TECHNIQUE: ?? Digital breast mammography with tomosynthesis is performed in both the ?? craniocaudal and mediolateral oblique views along with computer-aided ?? detection (CAD). ? FINDINGS: ?? There are scattered areas of fibroglandular density (ACR BI-RADS breast ?? composition Category b). ? There are no significant masses, abnormal calcifications, or other ?? abnormalities. ? MM/MM tomosynthesis screening BI ?? IMPRESSION: ?? No mammographic evidence of malignancy. ? ASSESSMENT: ? BI-RADS BI-RADS 1 - Negative ? RECOMMENDATION: ?? Routine annual mammography screening. ? 1 year F/U ? This examination should not preclude the clinical evaluation of a ?? suspicious palpable abnormality. ? This patient's information was entered into a reminder system with a ?? target due date for their next mammogram. ? Electronically signed by: ??Marce Stafford DO ??06/27/2024 04:55 PM EST ? Dictated By: ?Marce Stafford DO ? Signed By: ?<Electronically signed by Marce Stafford, DO in OV> ? 06/27/24 7585 ? DD/ 1405 ? TD/TT: 06/19/24 1425 ? Cardiovascular Tech: ? Procedure Note Donbandarter, Image - 06/27/2024 [facility] [address] [place] [address] Mammography Report Signed Patient: Myron Epstein#: [id number] : 1970Acct:[id number] Age/Sex: 53 / FADM Date: 06/19/24 Loc: .MAMMO Attending Dr: Saman Doe MD Ordering Physician: Saman Doeesults: 1Negative Date of Service: 06/19/24Follow Up: 1 Year From Orig inal Mammogram Procedure(s): MM tomosynthesis screening BI Accession Number(s): [id number] cc: Saman Doe MD EXAMINATION: MM SCREENING DIGITAL BREAST TOMOSYNTHESIS, BILATERAL CLINICAL INFORMATION: Screening. Asymptomatic. COMPARISON: Mammography: Comparison is made with available priors TECHNIQUE: Digital breast mammography with tomosynthesis is performed in both the craniocaudal and mediolateral oblique views along with computer-aided detection (CAD). FINDINGS: There are scattered areas of fibroglandular density (ACR BI-RADS breast composition Category b). There are no significant masses, abnormal calcifications, or other abnormalities. MM/MM tomosynthesis screening BI IMPRESSION: No mammographic evidence of malignancy. ASSESSMENT: BI-RADS BI-RADS 1 - Negative RECOMMENDATION: Routine annual mammography screening. 1 year F/U This examination should not preclude the clinical evaluation of a suspicious palpable abnormality. This patient's information was entered into a reminder system with a target due date for their next mammogram. Electronically signed by: Marce Stafford DO 06/27/2024 04:55 PM EST Dictated By: Marce Stafford DO Signed By: <Electronically signed by Marce Stafford DO in OV> 06/27/24 1655 DD/ 1405 TD/TT: 06/19/24 1425 Cardiovascular Tech: us Saman Name IMMaryan BI PROCEDURES Final Result * (ABNORMAL) Lipid Panel, Standard (08/19/2023 8:22 AM EDT) Triglycerides 233(H) <150 mg/dL [facility] Comment:Desirable Triglyceri de: less than 150 mg/dLBorderline High Triglyceride 150-199 mg/dLHigh Triglyceride: 200-499 mg/dLVery High Triglyceride: greater than or equal to 5OO mg/dL Cholesterol 251(H) <200 mg/dL [facility] Comment:Desirable Cholestero l: less than 200 mg/dLBorderline High Cholesterol: 200-239 mg/dLHigh Cholesterol: greater than 239 mg/dL LDL Cholesterol Calculated 161(H) <100 mg/dL [facility] Comment:Desirable LDL: less than 100 mg/dLNear Optimal/Above Optimal LDL: 110- 129 mg/dLBorderline High LDL: 130-159 mg/dLHigh LDL: 160-189 mg/dLVery High LDL: greater than or equal to 190 mg/dL HDL Cholesterol 44 >40 mg/dL [facility] Comment:Desirable HDL: great er than 40 mg/dL Note: This HDL assay may give artificially low results in patients with liver disease. Blood Venous blood specimen / Unknown 08/19/2023 8:22 AM EDT 08/19/2023 11:28 AM EDT Saman Doe MD LAB BLOOD ORDERABLES Final Resul t Performing Organization Address [facility] Co de Phone Number [facility] [address] [place] [phone] * HPV mRNA E6/E7 w/Reflex to HPV Genotypes 16, 18/45 (06/10/2023 1:06 PM EST) HPV nRNA E6/E7 Not Detected Not Detected [facility] Comment:Methodology: Transcr iption-Mediated AmplificationThis assay detects E6/E7 viral messenger RNA (mRNA) from 14high-risk HPV types (16,18,31,33,35,39,45,51,52,56,58,59,66,68).Cervical sources are required for HPV testing.If a vaginal source from a patient who has had atotal hysterectomy with removal of cervix wassubmitted, please contact the testing laboratoryfor alternative testing options.For additional information, please refer tohttp://education.[employer]/faq/KBM472k4(This link if provided for information/educational purposes only.)THIS TEST WAS PERFORMED AT:[employer] [place] [phone] CORDERO MD HPV mRNA E6/E7 [facility] HPV 16 RNA [facility] HPV 18/45 RNA [facility] 06/10/2023 1:06 PM EST 06/11/2023 9:30 AM EST Andrew Villareal CNM LAB CYTOLOGY ORDERABLES F inal Result Performing Organization Address [facility] Co de Phone Number [facility] [address] [place] [phone] * (ABNORMAL) Hm Colonoscopy (01/11/2019) Colonoscopy Abnormal(A ) Normal Saman Doe MD HEALTH MAINTENANCE Final Result from Last 3 Months or Most Recently Relevant to Health Maintenance Insurance [facility] Care Teams Results Engineer Relationship Specialty Start Date End Date Name, MD Saman [address] [place] [phone] PCP - General Family Medicine 08/13/15
--- OUTSIDE RECORDS SUMMARY | 2024-08-24 12:47 | XMS_ITS | Encounter Summary ---
Author Organization [facility] Address [facility] [address] [place] [address] Phone Care Team Providers Care Industrial Ecologist Name Role Phone Name, Saman HOOK Primary Care Provider [phone] Encounter Details Date Type Department Care Team (Late Contact Info) Description 03/31/2022 Telephone [facility] [address] [place] [phone] Lewis Kennedy MD [address] [facility] [address] [place] [phone] Social History Tobacco Use Types Packs/Day Years Used Date Smoking Tobacco: Never Smokeless Tobacco: Never Alcohol Use Standard Drinks/Week Comments No 0 (1 standard drink = 0.6 oz pur e alcohol) Comments Unknown Sex and Gender Information Value Date Recorded Sex Assigned at Not on file Legal Sex Female 4:47 PM EST Gender Identity Not on file Sexual Orientation Not on file documented as of this encounter Miscellaneous Notes * Telephone Encounter - Dionne Robin - 03/31/2022 1:15 PM EDT Pt called, she is still waiting for her litholink kit to come in the mail, she would like t know the status of that. Please call her back at [phone] Thank you documented in this encounter Plan of Treatment Upcoming Encounters Date Type Department Care Team ([facility] Contact Info) Description 02/21/2025 1:00 PM EDT Office Visit [facility] [address] [phone] Lewis Kennedy MD [address] [phone] documented as of this encounter Visit Diagnoses Not on filedocumented in this encounter Care Teams Industrial Ecologist Relationship Specialty Start Date End Date Name, MD Saman [address] [place] [phone] PCP - General 06/17/20 documented as of this encounter
--- OUTSIDE RECORDS SUMMARY | 2024-08-24 12:47 | XMS_ITS | Encounter Summary ---
Author Organization [employer] Address 75 [facility] 7t [place] [address] Care Team Providers Care Fire Safety Manager Name Role Phone Name, Saman HOOK Primary Care Provider [phone] Reason for Visit * Reason Comments Med Refill Encounter Details Date Type Department Care Team ([facility] st Contact Info) Description 08/17/2024 Refill [facility] MEDICINE [address] [place], [place] [phone] Name, MD Saman [address] [place], [place] [phone] Chronic pain syndrome Social History Tobacco Use Types Packs/Day Years Used Date Smoking Tobacco: Never Passive Smoke Exposure: Never Smokeless Tobacco: Never Alcohol Use Standard [...] Description 09/01/2024 4:00 PM EDT Office Visit [facility] MEDICINE [address] [place] [address] NameSaman MD [address] [place] [address] documented as of this encounter Visit Diagnoses Diagnosis Chronic pain syndrome documented in this encounter Additional Health Concerns Assessment Noted Time PHQ-9 Depression Total Score: 0 04/07/20 23 3:38 PM EDT documented as of this encounter Care Teams Fire Safety Manager Relationship Specialty Start Date End Date NameSaman MD [address] [place] [address] PCP - General Family Medicine 08/13/15 documented as of this encounter
--- OUTSIDE RECORDS SUMMARY | 2024-08-24 12:47 | XMS_ITS | Encounter Summary ---
Author Organization [employer] Address 75 [facility] 7t [place] [address] Care Team Providers Care Feed Handler Name Role Phone Name, Saman HOOK Primary Care Provider [phone] Encounter Details Date Type Department Care Team ([facility] Contact Info) Description 08/17/2022 Orders Only [facility] CHC MED & PEDS [address] [place], [place] [phone] Charla Yusuf LPN Social History Tobacco Use Types Packs/Day Years Used Date Smoking Tobacco: Never Smokeless Tobacco: Never Depression Answer Date Recorded Patient Health Questionnaire-9 [...] Upcoming Encounters Date Type Department Care Team ([facility] Contact Info) Description 09/01/2024 4:00 PM EDT Office Visit [facility] MEDICINE [address] [place], [place] [phone] Name, MD Saman [address] [place], [place] [phone] documented as of this encounter Visit Diagnoses Not on filedocumented in this encounter Additional Health Concerns Assessment Noted Time PHQ-9 Depression Total Score: 0 07/03/19 10:55 AM EST documented as of this encounter Care Teams Feed Handler Relationship Specialty Start Date End Date Name, MD Saman [address] [place] [address] PCP - General Family Medicine 08/13/15 documented as of this encounter
--- OUTSIDE RECORDS SUMMARY | 2024-08-24 12:47 | XMS_ITS | Encounter Summary ---
Author Organization [employer] Address [address] [place] [address] 7t [place] [address] Care Team Providers Care Manager Laundry Name Role Phone Name, Saman HOOK Primary Care Provider [phone] Encounter Details Date Type Department Care Team ([facility] Contact Info) Description 08/05/2022 Orders Only [facility] MEDICINE [address] [place] [address] [phone] Ellie Nagy LPN Social History Tobacco Use Types Packs/Day [...] Upcoming Encounters Date Type Department Care Team ([facility] Contact Info) Description 09/01/2024 4:00 PM EDT Office Visit [facility] MEDICINE [address] [place] [address] Name, MD Saman [address] [place] [address] documented as of this encounter Visit Diagnoses Not on filedocumented in this encounter Additional Health Concerns Assessment Noted Time PHQ-9 Depression Total Score: 0 01/27/20 23 10:55 AM EST documented as of this encounter Care Teams Manager Laundry Relationship Specialty Start Date End Date Name, MD Saman [address] [place] [address] PCP - General Family Medicine 08/13/15 documented as of this encounter
--- OUTSIDE RECORDS SUMMARY | 2024-08-24 12:47 | XMS_ITS | Encounter Summary ---
Author Organization [employer] Address [address] [facility] 7t [place] [address] Care Team Providers Care Concrete Pourer Name Role Phone Name, Saman HOOK Primary Care Provider [phone] Reason for Visit * Reason Onset Date Comments triage 08/06/2022 Encounter Details Date Type Department Care Team ([facility] st Contact Info) Description 08/06/2022 Telephone [facility] MEDICINE [address] [place], [place] [phone] Name, MD Saman [address] [place], [place] [phone] triage Social History Tobacco Use Types Packs/Day Years [...] AM EDT documented as of this encounter Miscellaneous Notes * Telephone Encounter - Ivania Murcia RN - 08/06/2022 4:22 PM EST Placed call to pt regarding message below. Pt states she is aware of TSH that was ordered during last appt but needs a f/u with PCP as PCP advised pt to get labs done a week prior to appt. Appt scheduled for 08/31/22 and recall dropped. Pt verbalized understanding and agrees with plan. * Telephone Encounter - Anai Romero LPN - 08/06/2022 3:46 PM EST Triage call returned to patient via [employer] [id number]. Patient reports that she is feeling tired and sleepy for the last two weeks. Patient takes medications for sleep and other meds as prescribed. Patient without illness no vomiting or diarrhea no blood loss. No black or tarry stools. POintake adequate. Patient reports that she needs and appt. with PCP in order to get her labs done. Team tasked to follow with Team Provider for patient request for labs. Disposition reviewed and patietn in agreement with plan Protocol Used: Weakness (Generalized) and Fatigue (Adult) Protocol-Based Disposition: See in Office or Video Visit within 3 Days Override (Final) Disposition: Discuss with PCP and Callback by Nurse Today Override Reason: No appointments available Override Notes: Patient requesting Thyroid labs to be checked due to onset of fatigue. Video visit offer not recorded Positive Triage Question: * Fatigue (i.e., tires easily, decreased energy) and persists > 1 week * All higher-acuity triage questions were negative * Telephone Encounter - Morgan Donald - 08/06/2022 3:09 PM EST Symptom: Lethargic (Tired) Outcome: Schedule an urgent appointment (within 4 hours) or talk to a nurse or provider soon Reason: Getting worse The caller accepted this outcome speaks taiwanese documented in this encounter Plan of Treatment Upcoming Encounters Date Type Department Care Team (Late st Contact Info) Description 09/01/2024 4:00 PM EDT Office Visit [facility] MEDICINE [address] [place] [address] Name, MD Saman [address] [place] [address] documented as of this encounter Visit Diagnoses Not on filedocumented in this encounter Additional Health Concerns Assessment Noted Time PHQ-9 Depression Total Score: 0 07/03/19 23 10:55 AM EST documented as of this encounter Care Teams Concrete Pourer Relationship Specialty Start Date End Date Name, MD Saman [address] [place] [address] PCP - General Family Medicine 08/13/15 documented as of this encounter
--- OUTSIDE RECORDS SUMMARY | 2024-08-24 12:47 | XMS_ITS | Encounter Summary ---
Author Organization [employer] Address [address] [place] [address] 7t [place] [address] Care Team Providers Care Electronic Security Technician Name Role Phone Name, Saman HOOK Primary Care Provider [phone] Encounter Details Date Type Department Care Team ([facility] Contact Info) Description 10/16/2022 Orders Only [facility] CHC MED & PEDS [address] [place], [place] [phone] Charla Yusuf LPN Social History Tobacco Use [...] Upcoming Encounters Date Type Department Care Team ([facility] Contact Info) Description 09/01/2024 4:00 PM EDT Office Visit [facility] MEDICINE 230 [place], [place] [phone] NameSaman MD [address] [place], [place] [phone] documented as of this encounter Procedures Procedure Name Priority Date/Time Associated Diagnosis Comments BI MAMMOGRAM SCREENING TOMOSYNTHESIS BILATERAL Routine 10/20/2022 2:00 PM EDT documented in this encounter Results * BI Mammogram Screening Tomosynthesis Bilateral (10/20/2022 2:00 PM EDT) Anatomical Region Laterality Modality Breast Bilateral Mammography 10/20/2022 2:00 PM EDT Narrative 10/22/2022 11:24 AM EDT ? [facility] ? [address] ?[place] [address] ? Mammography Report ? Signed ? Patient: Ezra León,Yaniv ?MR#: [id number] ?? [id number] ? : 1970 ?Acct:[id number] ? Age/Sex: 52 / F ?ADM Date: 05/16/ ? Loc: HO.MAMMO ? Attending Dr: Saman Name MD ? Ordering Physician: Name,Saman MD ?Results: 0Incomplet ?? e: Needs Additional Imaging Evaluation ? Date of Service: 05/16/23 ?Follow Up: Additional Imagi ?? ng ? Procedure(s): MM tomosynthesis screening BI ?? Accession Number(s): [id number] ? cc: Name,Saman HOOK ? EXAMINATION: ?? MM SCREENING DIGITAL BREAST TOMOSYNTHESIS, BILATERAL ? CLINICAL INFORMATION: ? Screening. Asymptomatic. ? The lifetime risk of breast cancer based on the Tyrer-Cuzick Model is ?? 10%. ? COMPARISON: ?? Mammography: 10/02/2021, 08/28/2020, 12/02/2018 ? TECHNIQUE: ?? Digital breast tomosynthesis is performed in both the craniocaudal and ?? mediolateral oblique views along with computer-aided detection (CAD). ?? Synthesized 2D images are generated from the tomosynthesis. ? FINDINGS: ?? The breasts are almost entirely fatty (ACR BI-RADS breast composition ?? Category a). ? Background stromal markings are normal. No developing density or ?? architectural abnormality. No significant mass. The axilla and skin ?? contours are unremarkable. ? Right breast shows no abnormal calcifications. ? There are some punctate grouped high attenuation foci possibly ?? calcifications or digital processing artifact pseudo calcification ?? posterior outer left breast on CC view 16 cm from nipple. Patient will ?? be recalled for additional magnification view. ? MM/MM tomosynthesis screening BI ?? IMPRESSION: ?? Left: ?? -Tightly grouped calcifications versus digital processing artifact ?? pseudocalcification posterior outer left breast. ? Right: ?? -No mammographic evidence of malignancy. ? ASSESSMENT: ? BI-RADS 0: Incomplete - Need Additional Imaging Evaluation ? RECOMMENDATION: ?? 1. Additional views left breast (magnification CC, magnification ML). ?? 2. Radiology department staff will contact the patient for additional ?? imaging. ? This patient's information was entered into a reminder system with a ?? target due date for their next mammogram. ? Dictated By: ?Jack Jolly MD ? Signed By: ?<Electronically signed by Jack Jolly MD in OV> ?10/22/22 1122 ? DD/ 1400 ? TD/TT: ? Folder Stitcher Operator: KULKARNI ? Procedure Note Meliton Girard - 12/03/2022 [facility] [address] [place] [address] [place] [address] Mammography Report Signed Patient: Nova Kearnssanto#: [id number] : 1970Acct:[id number] Age/Sex: 52 / FADM Date: 10/20/22 Loc: HO.MAMMO Attending Dr: Saman Doe MD Ordering Physician: Name,Saman MDResults: 0Incomplet e: Needs Additional Imaging Evaluation Date of Service: 10/20/22Follow Up: Additional Imagi ng Procedure(s): MM tomosynthesis screening BI Accession Number(s): [id number] cc: Name,Saman HOOK EXAMINATION: MM SCREENING DIGITAL BREAST TOMOSYNTHESIS, BILATERAL CLINICAL INFORMATION: Screening. Asymptomatic. The lifetime risk of breast cancer based on the Tyrer-Cuzick Model is 10%. COMPARISON: Mammography: 10/02/2021, 08/28/2020, 12/02/2018 TECHNIQUE: Digital breast tomosynthesis is performed in both the craniocaudal and mediolateral oblique views along with computer-aided detection (CAD). Synthesized 2D images are generated from the tomosynthesis. FINDINGS: The breasts are almost entirely fatty (ACR BI-RADS breast composition Category a). Background stromal markings are normal. No developing density or architectural abnormality. No significant mass. The axilla and skin contours are unremarkable. Right breast shows no abnormal calcifications. There are some punctate grouped high attenuation foci possibly calcifications or digital processing artifact pseudo calcification posterior outer left breast on CC view 16 cm from nipple. Patient will be recalled for additional magnification view. MM/MM tomosynthesis screening BI IMPRESSION: Left: -Tightly grouped calcifications versus digital processing artifact pseudocalcification posterior outer left breast. Right: -No mammographic evidence of malignancy. ASSESSMENT: BI-RADS 0: Incomplete - Need Additional Imaging Evaluation RECOMMENDATION: 1. Additional views left breast (magnification CC, magnification ML). 2. Radiology department staff will contact the patient for additional imaging. This patient's information was entered into a reminder system with a target due date for their next mammogram. Dictated By: Jack Jolly MD Signed By: <Electronically signed by Jack Jolly MD in OV> 10/22/22 1122 DD/ 1400 TD/TT: Folder Stitcher Operator: KULKARNI [facility] External Provider IMG BI PROCEDURES Final Result documented in this encounter Visit Diagnoses Not on filedocumented in this encounter Additional Health Concerns Assessment Noted Time PHQ-9 Depression Total Score: 0 07/03/19 23 10:55 AM EST documented as of this encounter Care Teams Electronic Security Technician Relationship Specialty Start Date End Date Name, MD Saman [address] [place] [address] PCP - General Family Medicine 08/13/15 documented as of this encounter
--- OUTSIDE RECORDS SUMMARY | 2024-08-24 12:47 | XMS_ITS | Encounter Summary ---
Author Organization [employer] Address [address] [facility] 7t [place] [address] Care Team Providers Care Access Specialist Name Role Phone Name, Saman HOOK Primary Care Provider [phone] Reason for Visit * Reason Comments Med Refill Encounter Details Date Type Department Care Team ([facility] st Contact Info) Description 04/14/2023 Refill [facility] MEDICINE [address] [place], [place] [phone] Name, MD Saman [address] [place], [place] [phone] Chronic pain syndrome Social History Tobacco Use [...] housing situation today? I have eve gómez 03/22/[address] you li ve. Do you have problems with any of the following? None of the above 03/22/2023 Food Insecurity Answer Date Recorded Within the past 12 months, y ou worried that your food would run out before you got money to buy more: Never True 03/22/2023 Within the past 12 months,th e food you bought just didn't last and you didn't have enough money to get more: Never True Transportation Answer Date Recorded In the past 12 months, has l ack of transportation kept you from medical appts, meetings, work or from getting things needed for daily living? No 03/22/2023 Utilities Answer Date Recorded In the past 12 months, has t he electric, gas, oil or water company threatened to shut off services in your home? No 03/22/2023 Depression Answer Date Recorded Patient Health Questionnaire-2 Score 0 04/07/2023 Comments Unknown Sex and Gender Information Value [...] Description 09/01/2024 4:00 PM EDT Office Visit [facility] MEDICINE [address] [place] [address] Name, MD Saman [address] [place] [address] documented as of this encounter Visit Diagnoses Diagnosis Chronic pain syndrome documented in this encounter Additional Health Concerns Assessment Noted Time PHQ-9 Depression Total Score: 0 04/07/20 23 3:38 PM EDT documented as of this encounter Care Teams Access Specialist Relationship Specialty Start Date End Date Name, MD Saman [address] [place] [address] PCP - General Family Medicine 08/13/15 documented as of this encounter
--- OUTSIDE RECORDS SUMMARY | 2024-08-24 12:47 | XMS_ITS | Clinical Summary ---
Author Organization [facility] Address [facility] [address] [place] [address] Phone Care Team Providers Care Derrick Barge Operator Name Role Phone Name, Saman HOOK Primary Care Provider [phone] Allergies Active Allergy Reactions Criticality Noted Date Comments Lisinopril 02/10/2013 cough Oxycodone-Acetaminophen Other (see comments) Tramadol 02/17/2022 Medications atorvastatin (LIPITOR) 20 MG tablet Take 20 mg by mouth 1 (one) time each day 06/17/2020 Active levothyroxine sodium (TIROSINT) 112 MCG capsule Take 1 tablet by mouth 1 (one) time each day 12/04/2014 Active clonazePAM (KlonoPIN) 1 MG tablet Take 1 tablet by mouth 1 (one) time each day 07/01/2015 Active traZODone (DESYREL) 100 MG tablet Take 100 mg by mouth Active cyanocobalamin (VITAMIN B-12) 1000 MCG tablet Take 1,000 mcg by mouth 1 (one) time each day 07/26/2020 Active cloNIDine (CATAPRES) 0.1 MG tablet Take 0.1 mg by mouth 2 (two) times a day Active montelukast (SINGULAIR) 10 MG tablet Take 10 mg by mouth every night Active Calcium Carb-Cholecalci ferol (OYSTER SHELL CALCIUM 250+D PO) TAKE ONE TABLET BY MOUTH two (2) times a day 03/05/2021 Active albuterol HFA (PROVENTIL HFA;VENTOLIN HFA) 108 (90 Base) MCG/ACT inhaler INHALE 2 PUFF BY MOUTH EVERY 4 TO 6 HOURS NEEDED 03/24/2021 Active Butalbital-APAP -Caffeine 50-300-40 MG capsule Take 1 capsule by mouth 1 (one) time each day Active eletriptan (RELPAX) 40 MG tablet TAKE ONE TABLET BY MOUTH EVERY 2 TO 4 HOURS for migraine. not to exceed 2 X EVERY 24 HOUR 03/25/2021 Active pantoprazole (PROTONIX) 40 MG EC tablet TAKE ONE TABLET BY MOUTH two (2) times a day 03/24/2021 Active pregabalin (LYRICA) 150 MG capsule TAKE ONE CAPSULE BY MOUTH 3 (THREE) TIMES A DAY 03/07/2021 Active Dulaglutide 3 MG/0.5ML solution pen-injector Inject under the skin Active potassium citrate 10 MEQ (1080 MG) CR tablet TAKE 1 TABLET BY MOUTH IN THE MORNING, ONE TABLET AT NOON, AND ONE TABLET IN THE EVENING. 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/2022 Renal stone 02/17/2022 Depressed bipolar I disorder 02/16/2022 Essential hypertension 02/16/2022 Gastric band attached 02/16/2022 H/O: asthma 02/16/2022 Hemorrhoids without complication 02/16/2022 Repair of ventral hernia 02/16/2022 Obesity 02/16/2022 Overview (02/16/2022): bariatric surgery Venous varices 02/16/2022 Renal stone 08/06/2020 History of calculus of kidney 08/06/2020 Steatosis of liver 01/05/2018 Migraine 09/01/2017 Allergic rhinitis 08/19/2017 Bilateral trigger fingers 04/16/2017 Numbness of hand 04/16/2017 H/O: hysterectomy 01/27/2017 Pain in female pelvis 01/27/2017 Blurring of visual image 05/13/2016 History of sleeve gastrectomy 05/13/2016 Shoulder pain 03/03/2016 Mild intermittent asthma 08/13/2015 Anxiety 05/28/2015 History of migraine with aura 02/27/2014 Vitamin D deficiency 01/17/2014 Carpal tunnel syndrome 01/10/2014 Bariatric surgery status 01/10/2014 Overview (08/06/2020): Banding with Dr Forbes Back pain 01/10/2014 Asthma 02/20/2013 Bipolar disorder 02/10/2013 Uterine leiomyoma 12/28/2012 Hypercholesterolemia 11/25/2012 Heartburn 11/25/2012 Hypothyroidism 08/17/2012 Encounters Date Type Department Care Team Description 06/10/2024 Refill [facility] [address] [place] [address] Lewis Kennedy MD from Last 3 Months Immunizations Name Administration Dates Next Due Influenza (IM) Preservative Free 02/12/2016 Influenza TIV (IM) 02/20/2015,02/10/2013 Influenza, Quadrivalent, Preservative Free 02/23,04/01/2021,03/18/2017 Influenza, Quadrivalent, With Preservative 04/17,03/11/2018 Influenza, Recombinant, Quadrivalent, Pf 020 PPD Test 02/20/2015 Tdap 07/07/2023,01/04/2013 Family History Medical History Relation Comments Diabetes Father Heart disease Father Hypertension Father Diabetes Mother Relation Status Comments Father Mother Social History Tobacco Use Types Packs/Day Years Used Date Smoking Tobacco: Never Smokeless Tobacco: Never Alcohol Use Standard Drinks/Week Comments No 0 (1 standard drink = 0.6 oz pur e alcohol) Comments Unknown Sex and Gender Information Value Date Recorded Sex Assigned at Not on file Legal Sex Female 4:47 PM EST Gender Identity Not on file Sexual Orientation Not on file Last Filed Vital Signs Vital Sign Reading Time Taken Comments Blood Pressure 117/64 08/26/2023 8:48 AM EDT Pulse 94 08/26/2023 8:48 AM EDT Temperature - - Respiratory Rate - - Oxygen Saturation 98% 08/26/2023 8:48 AM EDT Inhaled Oxygen Concentration - - Weight 106 kg (233 lb) 08/26/2023 8:48 AM EDT Height - - Body Mass Index - - Plan of Treatment Upcoming Encounters Date Type Department Care Team (Late st Contact Info) Description 02/21/2025 1:00 PM EDT Office Visit [facility] [address]. [address] [phone] Lewis Kennedy MD [address] [phone] Health Maintenance Due Date Last Done Comments Breast Cancer Screening 1970 Hepatitis B Vaccine (1 of 3 - 19+ 3-dose series) 1990 Colorectal Cancer Screening: Annual FOBT 2020 Colorectal Cancer Screening: Colonoscopy 2020 Colorectal Cancer Screening: Sigmoidoscopy 2020 Diabetes: Ophthalmology Exam 10/06/2022 Diabetes: Pedal Pulse Checked 10/06/2022 Diabetes: Sensory Foot Exam 10/06/2022 Diabetes: Visual Foot Exam 10/06/2022 Influenza Vaccine (#1) 2024 2, 04/01/2021, 03/11/2020, Additional history exists Diabetes: Hemoglobin A1C 07/13/2024 04/12/2024 Pneumococcal Vaccine: Pediat rics (0 to 5 Years) and At-Risk Patients (6 to 64 Years) Completed 01/25/2024 Insurance [facility] ([id number]) [place] [id number] [facility] ([id number]) [place] [id number] Care Teams Derrick Barge Operator Relationship Specialty Start Date End Date Name, MD Saman [address] [place] [address] [phone] PCP - General 06/17/20
--- OUTSIDE RECORDS SUMMARY | 2024-08-24 12:47 | XMS_ITS | Encounter Summary ---
Author Organization [employer] Address [address] [facility] 7t [place] [address] Care Team Providers Care Mortgage Lender Name Role Phone Name, Saman HOOK Primary Care Provider [phone] Encounter Details Date Type Department Care Team ([facility] Contact Info) Description 12/15/2022 Telephone [facility] MEDICINE [address] [place] [address] [phone] Name, MD Saman [address] [place] [phone] Social History Tobacco Use Types Packs/Day Years [...] Orientation Straight 04/06/2022 10 :29 AM EDT COVID-19 Exposure Response Date Recorded In the last 10 days, have yo u been in contact with someone who was confirmed or suspected to have Coronavirus/COVID-19? No / Unsure 11/19/2022 9:09 AM EDT documented as of this encounter Plan of Treatment Upcoming Encounters Date Type Department Care Team ([facility] Contact Info) Description 09/01/2024 4:00 PM EDT Office Visit [facility] MEDICINE [address] [place] [phone] Name, MD Saman [address] [place] [address] documented as of this encounter Visit Diagnoses Not on filedocumented in this encounter Additional Health Concerns Assessment Noted Time PHQ-9 Depression Total Score: 0 07/03/19 23 10:55 AM EST documented as of this encounter Care Teams Mortgage Lender Relationship Specialty Start Date End Date Name, MD Saman [address] [place] [address] PCP - General Family Medicine 08/13/15 documented as of this encounter
--- OUTSIDE RECORDS SUMMARY | 2024-08-24 12:47 | XMS_ITS | Encounter Summary ---
Author Organization [employer] Address [address] [place] [address] 7 [place] [address] Care Team Providers Care Chief Fishery Division Name Role Phone Name, Saman HOOK Primary Care Provider [phone] Encounter Details Date Type Department Care Team ([facility] Contact Info) Description 02/26/2023 Orders Only [facility] CHC MED & PEDS [address] [place], [place] [phone] Ellie Nagy LPN Social History Tobacco Use [...] Upcoming Encounters Date Type Department Care Team ([facility] Contact Info) Description 09/01/2024 4:00 PM EDT Office Visit [facility] MEDICINE [address] [place], [place] [phone] Name, MD Saman [address] [place], [place] [phone] documented as of this encounter Visit Diagnoses Not on filedocumented in this encounter Additional Health Concerns Assessment Noted Time PHQ-9 Depression Total Score: 0 07/03/19 23 10:55 AM EST documented as of this encounter Care Teams Chief Fishery Division Relationship Specialty Start Date End Date Name, MD Saman [address] [place] [address] PCP - General Family Medicine 08/13/15 documented as of this encounter
--- OUTSIDE RECORDS SUMMARY | 2024-08-24 12:47 | XMS_ITS | Encounter Summary ---
Author Organization [employer] Address [address] [facility] 7t [place] [address] Care Team Providers Care Retail Custodial Associate Name Role Phone Name, Saman HOOK Primary Care Provider [phone] Reason for Visit * Reason Comments Med Refill Encounter Details Date Type Department Care Team ([facility] Contact Info) Description 07/27/2024 Refill [facility] [address] [place] [address] [phone] Name, MD Saman [address] [place] [address] Social History Tobacco Use Types Packs/Day Years [...] Description 09/01/2024 4:00 PM EDT Office Visit [facility] [address] [place] [phone] NameSaman MD [address] [place] [address] documented as of this encounter Visit Diagnoses Not on filedocumented in this encounter Additional Health Concerns Assessment Noted Time PHQ-9 Depression Total Score: 0 04/07/20 23 3:38 PM EDT documented as of this encounter Care Teams Retail Custodial Associate Relationship Specialty Start Date End Date NameSaman MD [address] [place] [address] PCP - General Family Medicine 08/13/15 documented as of this encounter
[2024-08-24 14:11] LABS: Alanine Aminotransferase 15 U/L (0-31); Alkaline Phosphatase 80 U/L (39-117); Anion Gap 11 (12-20); Aspartate Amino Transferase 17 U/L (5-31); Bilirubin Total 0.4 mg/dL (0.0-1.0); Blood Urea Nitrogen 14 mg/dL (9-16); Calcium 9.2 mg/dL (8.4-10.2); Carbon Dioxide 29 mmol/L (22-29); Chloride 106 mmol/L (96-108); Cholesterol 204 mg/dL (<200); Estimated Glomerular Filt Rate > 60; Glucose Random 142 mg/dL (60-115); HDL Cholesterol 43 mg/dL (>40); LDL Cholesterol Calculated 119 mg/dL (<100); Potassium 4.8 mmol/L (3.3-5.1); Sodium 141 mmol/L (135-145); TSH reflex Free T4 0.64 uIU/mL (0.32-4.0); Total Protein 6.8 g/dL (6.5-8.0); Triglycerides 210 mg/dL (<150)
== END 2024-08-24 10:51 | disposition home or self-care (01) ==
LOC: HO.HHCL 10:50
PROVIDERS: Visit Provider Internal Medicine Geriatric Medicine
DX: E03.9 Hypothyroidism, unspecified (principal); Z79.899 Other long term (current) drug therapy
CPT/HCPCS: 36415; 80053; 80061; 84443

== ENCOUNTER 2024-09-22 07:55 | Outpatient (REF) | payer OTHER, SELFPAY ==
--- NOTE | ~2024-09-22 | XR_ITS ---
EXAMINATION: XR SHOULDER, LEFT CLINICAL INFORMATION: M25.512 - Pain in left shoulder COMPARISON: 09/26/2021. TECHNIQUE: AP external rotation, Grashey, scapular Y, and axillary views of the left shoulder. FINDINGS: Normal bone mineralization. No fracture, dislocation, or suspicious bone lesion. Normal alignment. The glenohumeral joint demonstrate mild degenerative arthritis. The AC joint demonstrates mild degenerative arthritis with minimal undersurface spurring. There is a type II acromion. No undersurface spurring. The subacromial space is preserved. Remainder of the soft tissue and bony structures appear normal. XR/XR shoulder LT min 2V IMPRESSION: 1. No acute findings. 2. 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 Electronically signed by: Pranav Esteban MD 09/22/2024 10:35 AM EDT
--- OUTSIDE RECORDS SUMMARY | 2024-09-22 07:57 | XMS_ITS | Encounter Summary ---
Author Organization [employer] Address [address] [place] [address] 7 [place] [address] Care Team Providers Care Commercial Field Inspector Name Role Phone Name, Saman HOOK Primary Care Provider [phone] Reason for Visit * Reason Comments Med Refill Encounter Details Date Type Department Care Team ([facility] Contact Info) Description 02/10/2023 Refill [facility] MEDICINE [address] [place] [phone] Marisel Baxter MD [address] [place], [place] [phone] Social History Tobacco Use Types Packs/Day Years [...] Upcoming Encounters Date Type Department Care Team ([facility] Contact Info) Description 01/11/2025 11:15 AM EDT Office Visit [facility] MEDICINE [address] [place] [address] Name, MD Saman [address] [place] [address] documented as of this encounter Visit Diagnoses Not on filedocumented in this encounter Additional Health Concerns Assessment Noted Time PHQ-9 Depression Total Score: 0 07/03/19 23 10:55 AM EST documented as of this encounter Care Teams Commercial Field Inspector Relationship Specialty Start Date End Date Name, MD Saman [address] [place] [address] PCP - General Family Medicine 08/13/15 documented as of this encounter
--- OUTSIDE RECORDS SUMMARY | 2024-09-22 07:57 | XMS_ITS | Encounter Summary ---
Author Organization [employer] Address [address] [place] [address] 7t [place] [address] Care Team Providers Care Animal Ride Manager Name Role Phone Name, Saman HOOK Primary Care Provider [phone] Encounter Details Date Type Department Care Team ([facility] Contact Info) Description 08/05/2022 Orders Only [facility] MEDICINE [address] [place] [address] Ellie Nagy LPN Social History Tobacco Use [...] Upcoming Encounters Date Type Department Care Team ([facility] Contact Info) Description 01/11/2025 11:15 AM EDT Office Visit [facility] MEDICINE [address] [place] [address] Name, MD Saman [address] [place] [address] documented as of this encounter Visit Diagnoses Not on filedocumented in this encounter Additional Health Concerns Assessment Noted Time PHQ-9 Depression Total Score: 0 01/27/20 23 10:55 AM EST documented as of this encounter Care Teams Animal Ride Manager Relationship Specialty Start Date End Date Name, MD Saman [address] [place] [address] PCP - General Family Medicine 08/13/15 documented as of this encounter
--- OUTSIDE RECORDS SUMMARY | 2024-09-22 07:57 | XMS_ITS | Encounter Summary ---
Author Organization [employer] Address [address] [facility] 7t [place] [address] Care Team Providers Care Senior Office Support Assistant Sosa Name Role Phone Name, Saman HOOK Primary Care Provider [phone] Reason for Visit * Reason Onset Date Comments triage 08/06/2022 Encounter Details Date Type Department Care Team ([facility] st Contact Info) Description 08/06/2022 Telephone [facility] MEDICINE [address] [place], [place] [phone] Name, MD Saman [address] [place], [place] [phone] triage Social History Tobacco Use Types Packs/Day [...] Miscellaneous Notes * Telephone Encounter - Ivania Mrucia RN - 08/06/2022 4:22 PM EST Placed [...] EST Triage call returned to patient via [email or web address] Acquisition Manager [phone]. Patient reports that she is feeling tired [...] worse The caller accepted this outcome speaks nicaraguan documented in this encounter Plan of Treatment Upcoming Encounters Date Type Department Care Team (Late st Contact Info) Description 01/11/2025 11:15 AM EDT Office Visit [facility] MEDICINE [address] [place] [phone] Name, MD Saman [address] [place] [address] documented as of this encounter Visit Diagnoses Not on filedocumented in this encounter Additional Health Concerns Assessment Noted Time PHQ-9 Depression Total Score: 0 07/03/19 23 10:55 AM EST documented as of this encounter Care Teams Senior Office Support Assistant Sosa Relationship Specialty Start Date End Date Name, MD Saman [address] [place] [address] PCP - General Family Medicine 08/13/15 documented as of this encounter
--- OUTSIDE RECORDS SUMMARY | 2024-09-22 07:57 | XMS_ITS | Encounter Summary ---
Author Organization [employer] Address [address] [facility] 7t [place] [address] Care Team Providers Care Furniture Packer Name Role Phone Name, Saman HOOK Primary Care Provider [phone] Encounter Details Date Type Department Care Team ([facility] Contact Info) Description 08/17/2022 Orders Only [facility] CHC MED & PEDS [address] [place], [place] [phone] Charla Yusuf LPN Social History Tobacco Use [...] Upcoming Encounters Date Type Department Care Team ([facility] Contact Info) Description 01/11/2025 11:15 AM EDT Office Visit [facility] MEDICINE [address] [place], [place] [phone] Name, MD Saman [address] [place], [place] [phone] documented as of this encounter Visit Diagnoses Not on filedocumented in this encounter Additional Health Concerns Assessment Noted Time PHQ-9 Depression Total Score: 0 07/03/19 10:55 AM EST documented as of this encounter Care Teams Furniture Packer Relationship Specialty Start Date End Date Name, MD Saman [address] [place] [address] PCP - General Family Medicine 08/13/15 documented as of this encounter
--- OUTSIDE RECORDS SUMMARY | 2024-09-22 07:57 | XMS_ITS | Encounter Summary ---
Author Organization [employer] Address [address] [facility] 7t [place] [address] Care Team Providers Care Sock Mender Name Role Phone Name, Saman HOOK Primary Care Provider [phone] Encounter Details Date Type Department Care Team ([facility] Contact Info) Description 12/15/2022 Telephone [facility] MEDICINE [address] [place] [address] [phone] Name, MD Saman [address] [place] [address] Social History Tobacco Use Types Packs/Day Years [...] Upcoming Encounters Date Type Department Care Team ([facility] Contact Info) Description 01/11/2025 11:15 AM EDT Office Visit [facility] MEDICINE [address] [place] [address] Name, MD Saman [address] [place] [address] documented as of this encounter Visit Diagnoses Not on filedocumented in this encounter Additional Health Concerns Assessment Noted Time PHQ-9 Depression Total Score: 0 07/03/19 23 10:55 AM EST documented as of this encounter Care Teams Sock Mender Relationship Specialty Start Date End Date Name, MD Saman [address] [place] [address] PCP - General Family Medicine 08/13/15 documented as of this encounter
--- OUTSIDE RECORDS SUMMARY | 2024-09-22 07:57 | XMS_ITS | Encounter Summary ---
Author Organization [employer] Address [address] [place] [address] 7 [place] [address] Care Team Providers Care Bait Man Name Role Phone Name, Saman HOOK Primary Care Provider Encounter Details Date Type Department Care Team ([facility] Contact Info) Description 02/26/2023 Orders Only [facility] CHC MED & PEDS [address] [place], [place] [phone] Ellie Nagy LPN Social History Tobacco Use [...] Upcoming Encounters Date Type Department Care Team ([facility] Contact Info) Description 01/11/2025 11:15 AM EDT Office Visit [facility] MEDICINE [address] [place], [place] [phone] Name, MD Saman [address] [place], [place] [phone] documented as of this encounter Visit Diagnoses Not on filedocumented in this encounter Additional Health Concerns Assessment Noted Time PHQ-9 Depression Total Score: 0 07/03/19 23 10:55 AM EST documented as of this encounter Care Teams Bait Man Relationship Specialty Start Date End Date Name, MD Saman [address] [place] [address] PCP - General Family Medicine 08/13/15 documented as of this encounter
--- OUTSIDE RECORDS SUMMARY | 2024-09-22 07:57 | XMS_ITS | Encounter Summary ---
Author Organization [facility] Address [address] [facility] [address] [place] [address] Phone Care Team Providers Care Developer Trading Systems Name Role Phone Name, Saman HOOK Primary Care Provider [phone] Encounter Details Date Type Department Care Team (Late Contact Info) Description 03/31/2022 Telephone [facility] [address] [place] [phone] Lewis Kennedy MD [address] [facility] [address] [place] [phone] Social History Tobacco Use Types Packs/Day Years [...] of that. Please call her back at [phone] Thank you documented in this encounter Plan of Treatment Upcoming Encounters Date Type Department Care Team ([facility] [address] Contact Info) Description 02/21/2025 1:00 PM EDT Office Visit [facility] [address] [phone] Lewis Kennedy MD [address] [phone] documented as of this encounter Visit Diagnoses Not on filedocumented in this encounter Care Teams Developer Trading Systems Relationship Specialty Start Date End Date Name, MD Saman [address] [place] [address] PCP - General 06/17/20 documented as of this encounter
--- OUTSIDE RECORDS SUMMARY | 2024-09-22 07:57 | XMS_ITS | Clinical Summary ---
Author Organization [facility] Address [address] [facility] [address] [place] [address] Phone Care Team Providers Care Office Spec Name Role Phone Name, Saman HOOK Primary Care Provider [phone] Allergies Active Allergy Reactions Criticality Noted Date [...] 12/28/2012 Hypercholesterolemia 11/25/2012 Heartburn 11/25/2012 Hypothyroidism 08/17/2012 Immunizations Immunization Administration Dates Next Due Influenza (IM) Preservative [...] Office Visit [facility] [address] [phone] Lewis Kennedy MD [address] [phone] Health Maintenance Due Date Last Done Comments Breast Cancer Screening 1971 Hepatitis B Vaccine (1 of 3 - 19+ 3-dose series) 1990 Colorectal Cancer Screening: Annual FOBT 2020 Colorectal Cancer Screening: Colonoscopy 2020 Colorectal Cancer Screening: Sigmoidoscopy 2020 Diabetes: Ophthalmology Exam 10/06/2022 Diabetes: Pedal Pulse Checked 10/06/2022 Diabetes: Sensory Foot Exam 10/06/2022 Diabetes: Visual Foot Exam 10/06/2022 Diabetes: Hemoglobin A1C 07/13/2024 04/12/2024 Influenza Vaccine (Season Ended) 2025 02/23/2022, 04/01/2021, 03/11/2020, Additional history exists Pneumococcal Vaccine: 50+ Years Completed Pneumococcal Vaccine: Peds ( 0 to 5 Years) and At-Risk Patients (6 to 49 Years) Discontinued 01/25/2024 Insurance [facility] ([id number]) [facility] MCR ([id number]) [place] HOWELL [id number] Care Teams Office Spec Relationship Specialty Start Date End Date Name, MD Saman [address] [place], [place] [phone] PCP - General 06/17/20
--- OUTSIDE RECORDS SUMMARY | 2024-09-22 07:57 | XMS_ITS | Encounter Summary ---
Author Organization [employer] Address [address] [facility] 7t [place] [address] Care Team Providers Care Airport Duty Manager Name Role Phone Name, Saman HOOK Primary Care Provider [phone] Reason for Visit * Reason Onset Date Comments december recalls 09/21/2024 Encounter Details Date Type Department Care Team ([facility] st Contact Info) Description 09/21/[address] [facility] MEDICINE [address] [place], [place] [phone] [place] december recalls Social History Tobacco Use Types Packs/Day Years [...] encounter Miscellaneous Notes * Telephone Encounter - Cindy Maradiaga MA - 09/21/2024 2:39 PM EDT Telephone call to patient to schedule the following recall: Visit type: Follow up Appointment notes: HTN Patient agree to appointment on 01/21/25 at 11:15 PM with Name. documented in this encounter Plan of Treatment Upcoming Encounters Date Type Department Care Team (Late st Contact Info) Description 01/11/2025 11:15 AM EDT Office Visit [facility] MEDICINE [address] [place] [address] Name, MD Saman [address] [place] [address] documented as of this encounter Visit Diagnoses Not on filedocumented in this encounter Additional Health Concerns Assessment Noted Time PHQ-9 Depression Total Score: 0 04/07/20 23 3:38 PM EDT documented as of this encounter Care Teams Airport Duty Manager Relationship Specialty Start Date End Date NameSaman MD [address] [place] [address] PCP - General Family Medicine 08/13/15 documented as of this encounter
--- OUTSIDE RECORDS SUMMARY | 2024-09-22 07:57 | XMS_ITS | Encounter Summary ---
Author Organization [employer] Address [address] [place] [address] 7t [place] [address] Care Team Providers Care District Plant Superintendent Name Role Phone Name, Saman HOOK Primary Care Provider [phone] Encounter Details Date Type Department Care Team ([facility] Contact Info) Description 10/16/2022 Orders Only [facility] CHC MED & PEDS [address] [place], [place] [phone] Charla Yusuf LPN Social History Tobacco Use [...] Upcoming Encounters Date Type Department Care Team ([facility] Contact Info) Description 01/11/2025 11:15 AM EDT Office Visit [facility] MEDICINE [address] [place], [place] [phone] NameSaman MD [address] [place], [place] [phone] documented as of this encounter Procedures Procedure Name Priority Date/Time Associated Diagnosis Comments BI MAMMOGRAM SCREENING TOMOSYNTHESIS BILATERAL Routine 10/20/2022 2:00 PM EDT documented in this encounter Results * BI Mammogram Screening Tomosynthesis Bilateral (10/20/2022 2:00 PM EDT) Anatomical Region Laterality Modality Breast Bilateral Mammography 10/20/2022 2:00 PM EDT Narrative 10/22/2022 11:24 AM EDT ? [facility] ? [address] ?[place] [address] ? Mammography Report ? Signed ? Patient: Ezra León,Yaniv ?MR#: [id number] ?? [id number] ? : 1970 ?Acct:[id number] ? Age/Sex: 52 / F ?ADM Date: 05/16/ ? Loc: HO.MAMMO ? Attending Dr: Saman Name MD ? Ordering Physician: Name,Saman MD ?Results: 0Incomplet ?? e: Needs Additional Imaging Evaluation ? Date of Service: 05/16/23 ?Follow Up: Additional Imagi ?? ng ? Procedure(s): MM tomosynthesis screening BI ?? Accession Number(s): [id number] ? cc: Name,Saman HOOK ? EXAMINATION: ?? [...] 1122 ? DD/ 1400 ? TD/TT: ? Business Control Manager: KULKARNI ? Procedure Note Meliton Girard - 12/03/2022 [facility] [address] [place] [address] [place] [address] Mammography Report Signed Patient: Nova Kearnssanto#: [id number] : 1970Acct:[id number] Age/Sex: 52 / FADM Date: 10/20/22 Loc: HO.MAMMO Attending Dr: Saman Doe MD Ordering Physician: Name,Saman MDResults: 0Incomplet e: Needs Additional Imaging Evaluation Date of Service: 10/20/22Follow Up: Additional Imagi ng Procedure(s): MM tomosynthesis screening BI Accession Number(s): [id number] cc: Name,Saman HOOK EXAMINATION: MM SCREENING DIGITAL [...] in OV> 10/22/22 1122 DD/ 1400 TD/TT: Business Control Manager: KULKARNI [facility] External Provider IMG BI PROCEDURES Final Result documented in this encounter Visit Diagnoses Not on filedocumented in this encounter Additional Health Concerns Assessment Noted Time PHQ-9 Depression Total Score: 0 07/03/19 23 10:55 AM EST documented as of this encounter Care Teams District Plant Superintendent Relationship Specialty Start Date End Date Name, MD Saman [address] [place] [address] PCP - General Family Medicine 08/13/15 documented as of this encounter
--- OUTSIDE RECORDS SUMMARY | 2024-09-22 07:57 | XMS_ITS | Clinical Summary ---
Author Organization [employer] Address [address] [facility] 7t [place] [address] Care Team Providers Care Waist Cutter Name Role Phone Name, Saman HOOK Primary Care Provider [phone] Allergies Active Allergy Reactions Criticality Noted Date [...] 06/05/20 22 Active Diclofenac Sodium 1 % gelIndications: Shoulder pain, unspecified chronicity, unspecified laterality APPLY 2gm TO THE AFFECTED AREA two (2) times a day 100 g 02/16/20 23 Active fluticasone (Flonase) 50 MCG/ACT nasal sprayIndication s:Allergic rhinitis, unspecified seasonality, unspecified trigger SPRAY TWICE [...] (2000mcg) BY MOUTH ONCE DAILY 60 tablet 11 03/13/20 24 Active cetirizine (ZyrTEC) 10 MG tablet TAKE 1 TABLET BY MOUTH ONCE DAILY IN THE MORNING 30 tablet 11 03/13/20 24 Active albuterol 108 (90 Base) MCG/ACT inhaler INHALE TWO PUFFS BY MOUTH EVERY 4 TO 6 HOURS NEEDED 8.5 g 3 05/08/20 24 Active montelukast (Singulair) 10 MG tabletIndicatio ns:Chronic pain syndrome TAKE 1 TABLET BY MOUTH EVERY EVENING 30 tablet 5 05/08/20 24 Active losartan (Cozaar) 50 MG tabletIndicatio ns:Essential hypertension TAKE 1 TABLET BY MOUTH EVERY MORNING 30 tablet 5 06/12/19 25 Active estradiol (Vagifem) 10 MCG tablet vaginal tablet Insert 10 mcg into the vagina 2 (two) times a week. 04/24/20 24 Active cholecalciferol (D3 Super Strength) 50 MCG (2000 UT) capsule TAKE 1 CAPSULE BY MOUTH ONCE DAILY 30 capsule 11 08/19/19 25 Active pregabalin (Lyrica) 150 MG capsuleIndicati ons:Chronic pain syndrome TAKE 1 CAPSULE BY MOUTH 3 (THREE) TIMES A DAY 90 capsule 08/19/19 25 Active amitriptyline (Elavil) 25 MG tablet Take 1 tablet (25 mg) by mouth at bedtime. 30 tablet 2 09/02/19 25 025 Active SUMAtriptan (Imitrex) 50 MG tablet Take 1 tablet (50 mg) by mouth 1 (one) time if needed for migraine for up to 1 dose. May repeat dose once in 2 hours if no relief. Do not exceed 2 doses in 24 hours. 9 tablet 3 09/02/19 25 Active metaxalone (Skelaxin) 800 MG tablet Take 0.5 tablets (400 mg) by mouth if needed in the morning and at bedtime for muscle spasms for up to 10 days. 15 tablet 09/02/19 25 Active Tirzepatide (Mounjaro) 5 MG/0.5ML solution auto-injectorIn dications:Type 2 diabetes mellitus without complication, without long-term current use of insulin ([facility]) Inject 5 mg under the skin 1 (one) time per week. 2 mL 2 09/02/19 25 025 Active celecoxib (CeleBREX) 200 MG capsule TAKE 1 CAPSULE BY MOUTH two (2) times a day 40 capsule 09/16/19 25 Active eletriptan (Relpax) 40 MG tablet TAKE 1 TABLET BY MOUTH NEEDED . MAY REPEAT AFTER 2 HOUR. not to exceed 2 X IN 24 HOURS 10 tablet 11 03/13/20 24 025 Discontinued(Co st of medication) Semaglutide, 2 MG/DOSE, (Ozempic, 2 MG/DOSE,) 8 MG/3ML solution pen-injectorInd ications:Type 2 diabetes mellitus without complication, without long-term current use of insulin ([facility]),Morbi d obesity ([facility]) Inject 0.75 mL (2 mg) under the skin 1 (one) time per week. 3 mL 11 04/12/20 24 025 Discontinued(In effective) amitriptyline (Elavil) 10 MG tabletIndicatio ns:Chronic pain syndrome TAKE 1 TABLET BY MOUTH ONCE DAILY AT BEDTIME 30 tablet 5 06/30/19 25 025 Discontinued(Do se adjustment) methocarbamol (Robaxin) 750 MG tablet TAKE 1 TABLET BY MOUTH 3 (THREE) TIMES A DAY 30 tablet 07/27/19 25 025 Discontinued(Co st of medication) celecoxib (CeleBREX) 200 MG capsule TAKE 1 CAPSULE BY MOUTH two (2) times a day 40 capsule 07/27/19 025 Discontinued Active Problems Problem Noted Date [...] 04/07/202301/2024 Nausea and vomiting 04/07/2023 04/07/2023 10/13/19 24 Postprandial epigastric pain 04/07/2023 04/07/2023 10/13/2023 Gastroesophageal reflux disease 04/07/2023 10/13/2023 Acute hemorrhagic gastritis 04/07/2023 10/13/2023 Epigastric pain 04/07/2023 10/13/2023 Primary hypertension 01/11/2023 024 Ulnar nerve entrapment at elbow 07/03/2022 10/13/2023 Varicose veins 02/16/2022 10/13/2023 Numbness of hand 04/16/2017 10/13/2023 Pain in female pelvis 01/27/20172023 Asthma 02/20/2013 10/13/2023 Heartburn 11/25/2012 10/13/2023 Encounters Date Type Department Care Team Description 09/21/2024 Telephone [facility] [address] [place] [address] Cindy Maradiaga MA december recalls 09/14/2024 Refill [facility] [address] [place] [address] NameSaman MD 09/01/2024 4:00 PM EDT Telemedicine [facility] [address] [place] [address] NameSaman MD Type 2 diabetes mellitus without complication, without long-term current use of insulin (CMS/HCC) (Primary Dx); Morbid obesity (CMS/HCC); Chronic pain syndrome; Migraine without aura and without status migrainosus, not intractable 09/01/2024 Travel 09/01/2024 Telephone [facility] [address] [place] [address] Cindy Maradiaga MA appt change to telehealth 08/25/2024 Travel 08/17/2024 Refill [facility] [address] [place] [address] Saman Doe MD Chronic pain syndrome 07/27/2024 Refill [facility] [address] [place] [address] Saman Doe MD 07/17/2024 Telephone [facility] [address] [place] [address] Janna Munoz RN Results 06/30/2024 Refill [facility] [address] [place] [address] Shereen Castro MD Chronic pain syndrome 06/30/2024 Refill [facility] [address] [place] [phone] Saman Doe MD Chronic pain syndrome; Chronic pain syndrome 06/30/2024 Refill [facility] [address] [place] [address] Charla Mendieta DO 06/30/2024 Refill [facility] [address] [place] [phone] Tabitha Goodman NP from Last 3 Months Immunizations Name Administration [...] Liv Rom??n Nancy Cancer Maternal Grandfather Vesta León Depression Mother Marisel Fairbanks Diabetes Mother Marisel Fairbanks Relation Name Status Comments Father Tin??n Rom??n Nancy Father's Sister Liv Rom??n Nancy Maternal Grandfather Vesta Romelia Mother Marisel Fairbanks Social History Tobacco Use Types Packs/Day [...] Description 01/11/2025 11:15 AM EDT Office Visit [facility] [address] [place], [place] [phone] Name, MD Saman [address] [place] [address] Health Maintenance Due Date Last Done Comments CT Colonography 1971 FIT DNA/Cologuard 1971 FIT 1970 FOBT 1970 HIV Screening 1970 Sigmoidoscopy 1970 Hepatitis C Screening 1989 Hepatitis A Vaccines (1 of 2 - Risk 2-dose series) 1990 Hepatitis B Vaccines (1 of 3 - 19+ 3-dose series) 1990 Zoster Vaccines (1 of 2) 2021 COVID-19 Vaccine ( season) 2024 Influenza Vaccine (#1) 2024 2, 04/01/2021, 03/11/2020, Additional history exists Depression Screening 04/07/2024 04/07/2023, 04/07/20 23 SDOH Screening 07/07/2024 07/07/2023 Diabetes: Urine Protein Screening 08/18/2024 08/19/2023 Diabetes: Hemoglobin A1C 10/10/2024 024, 10/13/2023, 04/07/2023, Additional history exists Mammogram 12/17/2024 06/19/2024, 05/08, 11/17/2022, Additional history exists Alcohol/Substance Use Screening 01/24/2025 01/25/2024 Diabetes: Foot Exam 04/12/2025 04/12/2024, 01/25/2024, 01/25/2024, Additional history exists Tobacco Screening 06/20/2025 06/20/2024 Lipid Panel 08/24/2025 08/24/2024, 08/05, 01/21/2023, Additional history exists Eye Exam 09/06/2026 09/06/2024, 09/06/2023 Cervical Cancer Screening 06/20/2027 HPV/Cotest 06/20/2027 06/10/2023, 02/05, 01/18/2019 Pap Smear 06/20/2027 06/20/2024, 09/2023, 02/23/2022 Colonoscopy 12/28/2028 01/11/2019, 12/23/2018 Colorectal Cancer Screening [...] Procedure Name Priority Date/Time Associated Diagnosis Comments TSH W/REFLEX TO FT4 Routine 08/24/2024 1 0:57 AM EDT Hypothyroidism, unspecified type LIPID PANEL, STANDARD Routine 08/24/2024 10:57 AM EDT On statin therapy COMPREHENSIVE METABOLIC PANEL Routine 08/24/2024 10:57 AM EDT On statin therapy PAP SMEAR Routine 06/20/2024 12:00 AM EST LGSIL Pap smear of vagina BI MAMMOGRAM SCREENING TOMOSYNTHESIS BILATERAL Routine 06/19/2024 2:05 PM EST POCT GLYCATED HEMOGLOBIN, TOTAL Routine 04/12/2024 3:33 PM EST Type 2 diabetes mellitus without complication, without long-term current use of insulin ([facility]) DIABETES EYE EXAM Routine 09/06/2023 ALBUMIN, RANDOM URINE W/CREATININE Routine 08/19/2023 8:25 AM EDT Type 2 diabetes mellitus without complication, without long-term current use of insulin ([facility]) HPV MRNA E6/E7 REFLEX TO HPV 16, 18/45 Routine 06/10/2023 1:06 PM EST COLONOSCOPY Routine 01/11/2019 from Last 3 Months or Most Recently Relevant to Health Maintenance Results * TSH W/Reflex to FT4 (08/24/2024 10:57 AM EDT) TSH reflex Free T4 0.64 0.32 - 4.0 uIU/mL [facility] Blood Venous blood specimen / Unknown 08/24/2024 10:57 AM EDT 08/24/2024 1:06 PM EDT us Saman Doe MD LAB BLOOD ORDERABLES Final Resul t [facility] [address] [place] [phone] * (ABNORMAL) Lipid Panel, Standard (08/24/2024 10:57 AM EDT) Triglycerides 210(H) <150 mg/dL [facility] Comment:Desirable Triglyceri de: less than 150 mg/dLBorderline High Triglyceride 150-199 mg/dLHigh Triglyceride: 200-499 mg/dLVery High Triglyceride: greater than or equal to 5OO mg/dL Cholesterol 204(H) <200 mg/dL [facility] Comment:Desirable Cholestero l: less than 200 mg/dLBorderline High Cholesterol: 200-239 mg/dLHigh Cholesterol: greater than 239 mg/dL LDL Cholesterol Calculated 119(H) <100 mg/dL [facility] Comment:Desirable LDL: less than 100 mg/dLNear Optimal/Above Optimal LDL: 110- 129 mg/dLBorderline High LDL: 130-159 mg/dLHigh LDL: 160-189 mg/dLVery High LDL: greater than or equal to 190 mg/dL HDL Cholesterol 43 >40 mg/dL [facility] Comment:Desirable HDL: great er than 40 mg/dL Note: This HDL assay may give artificially low results in patients with liver disease. Blood Venous blood specimen / Unknown 08/24/2024 10:57 AM EDT 08/24/2024 1:06 PM EDT us Saman Name MD LAB BLOOD ORDERABLES Final Resul t [facility] [address] [place] [phone] * (ABNORMAL) Comprehensive Metabolic Panel (08/24/2024 10:57 AM EDT) Sodium 141 135 - 145 mmol/L [facility] Potassium 4.8 3.3 - 5.1 mmol/L [facility] Chloride 106 96 - 108 mmol/L [facility] Carbon Dioxide 29 22 - 29 mmol/L [facility] Anion Gap 11(L) 12 - 20 [facility] Urea Nitrogen (BUN) 14 9 - 16 mg/dL [facility] Creatinine, Serum 0.96 0.5 - 1.4 mg/dL [facility] Estimated Glomerular Filt Rate >60 [facility] Comment:Chronic Kidney Disea se: Estimated GFR < 60 mL/min/1.51c7Eqemgf Kidney Disease: Estimated GFR < 15 mL/min/1.73m2 Glucose 142(H) 60 - 115 mg/dL [facility] Calcium 9.2 8.4 - 10.2 mg/dL [facility] Bilirubin, Total 0.4 0.0 - 1.0 mg/dL [facility] Aspartate Amino Transferase 17 5 - 31 U/L [facility] Alanine Aminotransferase 15 0 - 31 U/L [facility] Total Protein 6.8 6.5 - 8.0 g/dL [facility] Albumin Level 4.0 3.5 - 5.0 g/dL [facility] Alkaline Phosphatase 80 39 - 117 U/L [facility] Blood Venous blood specimen / Unknown 08/24/2024 10:57 AM EDT 08/24/2024 1:06 PM EDT us Saman Doe MD LAB BLOOD ORDERABLES Final Resul t [facility] [address] [place] [phone] * Pap Smear (06/20/2024 12:00 AM EST) Swab Vaginal structure / Unknown 06/20/2024 06/21/2024 6:20 AM EST Narrative [facility] - 07/03/2024 3:04 PM EST ----- ------- Name: Yaniv Epstein ?Age/Sex: 53/F ? : 1970 Unit#: [id number] ?? Attend Dr: ANDREW VILLAREAL CNChayo ?Re06/20/24 ?Status: DEP REF ? Location: HO.HHCLNP ? Disch: ? ----- ------- SPEC : [id number] ?RECD: 06/21/24 ? STATUS: ??SOUT ? REQ NUM: [id number] ? SIMONE: 06/20/24 ? SUBM DR: ANDREW VILLAREAL CNM ? ENTERED: ??06/21/24 ?SP TYPE: Pap Smr ?OTHR DR: ? ORDERED: ??Pap Smear ? Interpretation ?? Satisfactory for evaluation. ?? Negative for intraepithelial lesion or malignancy. ? HPV High Risk: ??Negative ? HPV Genotyping 16: ??Negative ?? HPV Genotyping 18: ??Negative ?Clinical Information LMP: Previous PAP test: Other surgery: Hysterectomy Other history: LSIL HPV neg 2023, hx ABILIO ? Material Received ?? ThinPrep-Vaginal ----- ------- Signed (signature on file) ANGELO Ptots (ASCP) 07/03/24 [id number] ? ----- ------- ? END OF REPORT ? us Andrew Villareal [facility] CYTOLOGY ORDERABLES F inal Result [facility] [address] [place] [phone] * BI Mammogram Screening Tomosynthesis Bilateral (06/19/2024 2:05 PM EST) Anatomical Region Laterality Modality Breast Bilateral Mammography 06/19/2024 2:05 PM EST Narrative 06/27/2024 4:59 PM EST ? [facility] ? [address] ?[place] [address] ? Mammography Report ? Signed ? Patient: Romanquiles,Daianna ?MR#: [id number] ?? [id number] ? : 1970 ?Acct:[id number] ? Age/Sex: 53 / F ?ADM Date: 06/19/24 ? Loc: HO.MAMMO ? Attending Dr: Saman Doe MD ? Ordering Physician: Saman Doe MD ?Results: 1Negative ? Date of Service: 06/19/24 ?Follow Up: 1 Year From Orig ?? inal Mammogram ? Procedure(s): MM tomosynthesis screening BI ?? Accession Number(s): [id number] ? cc: Saman Doe MD ? EXAMINATION: ?? MM SCREENING DIGITAL [...] ??Marce Stafford DO ??06/27/2024 04:55 PM EST ?? RP ? Dictated By: ?Marce Stafford DO ? Signed By: ?<Electronically signed by Marce Stafford, DO in OV> ? 06/27/24 1655 ? DD/ 1405 ? TD/TT: 06/19/24 1425 ? Industrial Relations Commissioner: ? Procedure Note Donotuseinterpreter, Image - 06/27/2024 [facility] [address] [place] [address] Mammography Report Signed Patient: Yaniv EpsteinMR#: [id number] : 1970Acct:[id number] Age/Sex: 53 / FADM Date: 06/19/24 Loc: HO.MAMMO Attending Dr: Saman Doe MD Ordering Physician: Saman Doeesults: 1Negative Date of Service: 06/19/24Follow Up: 1 Year From Orig inal Mammogram Procedure(s): MM tomosynthesis screening BI Accession Number(s): [id number] cc: Saman Doe MD EXAMINATION: MM SCREENING [...] Marce Stafford DO 06/27/2024 04:55 PM EST RP Dictated By: Marce Stafford DO Signed By: <Electronically signed by Marce Stafford DO in OV> 06/27/24 1655 DD/ 1405 TD/TT: 06/19/24 1425 Industrial Relations Commissioner: us Saman Doe MD IMG BI PROCEDURES Final Result * (ABNORMAL) POCT HGB A1C (04/12/2024 3:33 PM EST) Hemoglobin A1C 6.6(A) 4.0 - 6.0 % QC Media Lot # [id number] Lot# Expiration Date Blood 04/12/2024 3:33 PM EST us Saman Doe MD POINT OF CARE TEST ENTER/EDIT OR DERABLES Final Result * Hm Diabetes Eye Exam (09/06/2023) Eye Exam Normal Normal us Saman Doe MD HEALTH MAINTENANCE Final Result * Albumin, Random Urine W/Creatinine (08/19/2023 8:25 AM EDT) Creatinine, Urine 289.33 mg/dL [facility] Microalbumin Urine 26.0 mg/L [facility] Microalbum Creatinine Ratio Ur 8.9 <30 ug/mg cr [facility] Comment:Albumin/Creatinine R at Reference Ranges: Normal: < 30 ug/mg creatinine Microalbuminuria: 30 - 300 ug/mg creatinineClinical Albuminuria: > 300 ug/mg creatinine Urine (Urine, Random) 08/19/2023 8:25 AM EDT 08/19/2023 11:27 AM EDT Saman Doe MD LAB URINE ORDERABLES Final Resul t [facility] [address] [place], [place] [phone] * HPV mRNA E6/E7 w/Reflex to HPV Genotypes 16, 18/45 (06/10/2023 1:06 PM EST) HPV nRNA E6/E7 Not Detected Not Detected [facility] Comment:Methodology: Transcr iption-Mediated AmplificationThis assay detects E6/E7 viral messenger RNA (mRNA) from 14high-risk HPV types (16,18,31,33,35,39,45,51,52,56,58,59,66,68).Cervical sources are required for HPV testing.If a vaginal source from a patient who has had atotal hysterectomy with removal of cervix wassubmitted, please contact the testing laboratoryfor alternative testing options.For additional information, please refer tohttp://[email or web address] Navigation/faq/QFF438v9(This link if provided for information/educational purposes only.)THIS TEST WAS PERFORMED AT:[id number] [place] [phone] CORDERO MD HPV mRNA E6/E7 [facility] HPV 16 RNA [facility] HPV 18/45 RNA [facility] 06/10/2023 1:06 PM EST 06/11/2023 9:30 AM EST Andrew JAIME LAB CYTOLOGY ORDERABLES F inal Result [facility] [address] [place] [address] [phone] * (ABNORMAL) Hm Colonoscopy (01/11/2019) Colonoscopy Abnormal(A ) Normal Saman Doe MD HEALTH MAINTENANCE Final Result from Last 3 Months or Most Recently Relevant to Health Maintenance Insurance [facility] Care Teams Waist Cutter Relationship Specialty Start Date End Date Name, MD Saman [address] [place] [phone] PCP - General Family Medicine 08/13/15
--- OUTSIDE RECORDS SUMMARY | 2024-09-22 07:57 | XMS_ITS | Encounter Summary ---
Author Organization [employer] Address [address] [facility] [address]t [place] [address] Care Team Providers Care Refrigeration Installer Name Role Phone Name, Saman HOOK Primary Care Provider [phone] Reason for Visit * Reason Comments Med Refill Encounter Details Date Type Department Care Team ([facility] st Contact Info) Description 04/14/2023 Refill [facility] [address] [place], [place] [phone] Name, MD Saman [address] [place], [place] [phone] Chronic pain syndrome Social History Tobacco Use [...] Description 01/11/2025 11:15 AM EDT Office Visit [facility] [address] [place] [address] Name, MD Saman [address] [place] [address] documented as of this encounter Visit Diagnoses Diagnosis Chronic pain syndrome documented in this encounter Additional Health Concerns Assessment Noted Time PHQ-9 Depression Total Score: 0 04/07/20 23 3:38 PM EDT documented as of this encounter Care Teams Refrigeration Installer Relationship Specialty Start Date End Date Name, MD Saman [address] [place] [address] PCP - General Family Medicine 08/13/15 documented as of this encounter
--- OUTSIDE RECORDS SUMMARY | 2024-09-22 07:57 | XMS_ITS | Encounter Summary ---
Author Organization [employer] Address [address] [place] [address] [address] [place] [address] Care Team Providers Care Body Shop Worker Name Role Phone NameSaman MD Primary Care Provider [phone] Reason for Visit * Reason Comments Med Refill Encounter Details Date Type Department Care Team ([facility] Contact Info) Description 02/10/2023 Refill [facility] [address] [place] [address] [phone] Saman Doe MD [address] [place] [address] [phone] Social History Tobacco Use Types Packs/Day Years [...] Department Care Team ([facility] Contact Info) Description 01/11/2025 11:15 AM EDT Office Visit [facility] [address] [place] [address] [phone] Saman Doe MD [address] [place] [phone] documented as of this encounter Visit Diagnoses Not on filedocumented in this encounter Additional Health Concerns Assessment Noted Time PHQ-9 Depression Total Score: 0 07/03/19 23 10:55 AM EST documented as of this encounter Care Teams Body Shop Worker Relationship Specialty Start Date End Date Name, MD Saman [address] [place] [address] PCP - General Family Medicine 08/13/15 documented as of this encounter
--- OUTSIDE RECORDS SUMMARY | 2024-09-22 07:57 | XMS_ITS | Encounter Summary ---
Author Organization [employer] Address [address] [facility] 7t [place] [address] Care Team Providers Care Business Analytics Intern Name Role Phone Name, Saman HOOK Primary Care Provider [phone] Reason for Visit * Reason Comments Med Refill Encounter Details Date Type Department Care Team ([facility] Contact Info) Description 12/02/[address] [facility] [address] [place], [place] [phone] Tabitha Goodman NP [address] [place], [place] [phone] Chronic pain syndrome Social History Tobacco Use [...] Description 01/11/2025 11:15 AM EDT Office Visit [facility] [address] [place] [address] Name, MD Saman [address] [place] [address] documented as of this encounter Visit Diagnoses Diagnosis Chronic pain syndrome documented in this encounter Additional Health Concerns Assessment Noted Time PHQ-9 Depression Total Score: 0 04/07/20 23 3:38 PM EDT documented as of this encounter Care Teams Business Analytics Intern Relationship Specialty Start Date End Date Name, MD Saman [address] [place] [address] PCP - General Family Medicine 08/13/15 documented as of this encounter
== END 2024-09-22 07:56 | disposition home or self-care (01) ==
LOC: HO.HOSX 07:55
PROVIDERS: Visit Provider Physician Assistant
DX: M77.8 Other enthesopathies, not elsewhere classified (principal); M25.512 Pain in left shoulder
CPT/HCPCS: 20610; 73030; 99202; J1010; J2003

== ENCOUNTER 2024-09-22 10:03 | Outpatient (AMB) | payer OTHER, SELFPAY ==
--- NOTE | 2024-09-22 10:18 | MHC.OFFVIS ---
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 Patient reports her pain is on the lateral aspect of the shoulder and it radiates up to her neck at times. She states that she was prescribed prednisone at [facility] that provided her with mild relief. Nuclear Technician Services: Nuclear Technician Present (bryce [id number]) Nuclear Technician Name: bryce ID [id number] Allergies oxycodone [From PERCOCET] Allergy (Intermediate, Verified 09/22/24 10:41) ITCHY tramadol [TRAMADOL] Allergy (Unknown, Verified 09/22/24 10:41) ITCHING Medication List - Last Reconciled 09/22/24 by Petra Castillo PA-C albuterol sulfate 90 mcg/actuation 2 puffs inhalation Q4-6H PRN amitriptyline 10 mg PO BEDTIME atomoxetine 80 mg PO QAM bisacodyl 10 mg (2 x 5 mg) PO BEDTIME cetirizine 10 mg PO DAILY cholecalciferol (vitamin D3) 50 mcg PO DAILY clonazepam (Klonopin) 1 mg PO BEDTIME clonidine HCl 0.1 mg PO BEDTIME cyanocobalamin (vitamin B-12) 1,000 mcg PO DAILY dicyclomine 40 mg (20 mL) PO QID duloxetine (Cymbalta) 60 mg PO DAILY eletriptan (Relpax) 40 mg PO Q2-4H 30 days fluticasone propionate 50 mcg/actuation 0 mcg intranasal BID PRN hydrocortisone 2.5% (Proctozone-HC) topical BID levothyroxine 137 mcg PO DAILY linaclotide (Linzess) 145 mcg PO QAM linaclotide (Linzess) 290 mcg PO QAM losartan 50 mg PO DAILY metoclopramide HCl 10 mg PO QID montelukast 10 mg PO QPM ondansetron 4 mg sublingual Q8H pantoprazole 40 mg PO BID potassium citrate ER 10 mEq PO BID pravastatin 20 mg PO DAILY pregabalin (Lyrica) 150 mg PO DAILY semaglutide (Ozempic) mg subcut QWEEK simethicone 180 mg PO QID trazodone 100 mg PO BEDTIME PRN HPI HPI 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 She had left shoulder surgery [address] Ag. She was doing well post op up until this past year. She states she may have develiped the pain from carrying cases of water. She states at that moment, she recalls pain, no pop or pulling sensation. Since this incident she has pain with reaching above shoulder height and behind back. She has pain with sleeping at night. [facility] Medical History (Updated 09/22/24 @ 10:49 by Petra Castillo PA-C) Epidermal cyst Irritable bowel syndrome with constipation Postprandial epigastric pain LLQ abdominal pain Diverticulitis Muscle spasm Preprocedural examination LGSIL Pap smear of vagina Diabetes type 2, controlled Hx LEEP (loop electrosurgical excision procedure), cervix, Morbid obesity Kidney stones Calcific tendinitis of both shoulders Fibromyalgia Hypothyroidism Umbilical hernia Morbid obesity Surgical History H/O: hysterectomy Status post carpal tunnel release of both wrists S/P laparoscopic sleeve gastrectomy LAP-BAND surgery status S/P panniculectomy Hx of cystoscopy History of esophagogastroduodenoscopy (EGD) Hx of colonoscopy Family History Father Diabetes COPD (chronic obstructive pulmonary disease) Heart problem Mother Thyroid condition Diabetes Paternal Aunt Cancer of kidney Social History Household Members: None Housing: Apartment Alcohol intake: never Patient Tobacco Use Status: Never used Tobacco Current occupational status: disabled Sexual orientation: Straight/Heterosexual Gender identity: Female Review of Systems Const All systems reviewed & are unremarkable except as noted in HPI and below Physical Exam Const General: cooperative and no acute distress Orientation/consciousness: patient oriented x3 Resp Effort & Inspection: normal respiratory effort and able to speak in complete sentences Cardio Peripheral pulses: Peripheral pulses 2+ throughout Neuro General: patient oriented x3 Extrem Other: Right shoulder normal to inspection. She has full range of motion in all planes. She has a positive cross-body abduction. 5/5 rotator cuff strength. Neurovascularly intact. Office Procedures AMB Joint Injection/Aspiration Joint Injection/Aspiration Primary Site: right shoulder Prep: site was prepped using aseptic technique, ethochloride spray was applied and injection warnings given Injected: 40 mg of, DepoMedrol, with 8 mL of, 1% plain lidocaine and in the subcromial space Approach Used: posterolateral Procedure: The patient tolerated the procedure well and there was some relief with the local anesthesia Coding 97601 - Glenohumeral/Tronchanteric Bursa/Intraarticular Procedure code (CPT) selection complete Results Reviewed Results Reviewed: X-rays of the right shoulder obtained in the office today and reviewed by me are significant for a post surgical changes resembling subacromial decompression. Mild AC joint arthritis. Assessment & Plan Assessment & Plan (1) Left shoulder tendonitis: Code(s): M77.8 - Other enthesopathies, not elsewhere classified Category: Medical Plan We discussed options which include physical therapy and steroid injections. I did place an order for physical therapy to work on range of motion rotator cuff and periscapular stabilization. She did consent to proceed with a right shoulder steroid injection which she tolerated well. I did explain the effects he can have on her overall blood glucose levels which she will monitor over the next 72 hours and present in the emergency department if she was feeling unwell. She will follow up as needed if symptoms persist or worsen. Orders: Orders PT Evaluation and Treatment Today M77.8 - Other enthesopathies, not elsewhere classified XR shoulder LT min 2V Today M25.512 - Pain in left shoulder Coding Level of Care Code New Pt Level 3 (03918) Complex EM visit Add On G2211 Diagnoses Left shoulder tendonitis M77.8 CPT Codes Coding - Joint 7: 27682 - Glenohumeral/Tronchanteric Bursa/Intraarticular ([id number])
--- OUTSIDE RECORDS SUMMARY | 2024-09-22 10:52 | XMS_ITS | Encounter Summary ---
Author Organization [employer] Address [address] [facility] [address] [place] [address] Care Team Providers Care Lodging Facilities Attendant Name Role Phone Name, Saman HOOK Primary Care Provider [phone] Encounter Details Date Type Department Care Team ([facility] Contact Info) Description 08/17/2022 Orders Only [facility] MED & PEDS [address] [place], [place] [phone] Charla Yusuf LPN Social History Tobacco Use [...] Upcoming Encounters Date Type Department Care Team ([facility] Contact Info) Description 01/11/2025 11:15 AM EDT Office Visit [facility] MEDICINE [address] [place], [place] [phone] Name, MD Saman [address] [place], [place] [phone] documented as of this encounter Visit Diagnoses Not on filedocumented in this encounter Additional Health Concerns Assessment Noted Time PHQ-9 Depression Total Score: 0 07/03/19 10:55 AM EST documented as of this encounter Care Teams Lodging Facilities Attendant Relationship Specialty Start Date End Date Name, MD Saman [address] [place] [address] PCP - General Family Medicine 08/13/15 documented as of this encounter
--- OUTSIDE RECORDS SUMMARY | 2024-09-22 10:52 | XMS_ITS | Data Portability ---
Author Organization [place] [facility] Address [address] [place] [address] Care Team Providers Care Wiper Blender Name Role Phone NAME, HAROON CAVAZOS Assessment Encounter Date Assessment Date Assessment LastModified by Organization Details LastModified Time 04/05/2019 04/05/2019 Overview/History : 48-year-old asthmatic female with 2 days of sinus congestion, cough, post nasal drip, irritated throat. Denies fever, chest pain, wheezing. Reports SOB earlier today for which she used albuterol inhaler. Exam: Afebrile, tachycardic, lungs sounds clear. No sinus tenderness, ears normal, oropharynx without erythema. DDx considered, but not limited to: Viral upper respiratory infection likely due to course. Consider bacterial sinusitis however given the time course less likely. Asthma exacerbation less likely, patient's oxygen saturation within normal limits, lungs clear without wheezing. Pneumonia less likely, patient is afebrile and without adventitious lung sounds. Work up/Results: Plan/Discussion: Likely viral due to time course. Patient has asthma but does not appear to have an acute exacerbation. Tachycardia likely from albuterol use. Flonase as prescribed for nasal congestion. Mucinex as prescribed. OTC cough medication such as Delsym per package direction. Continue albuterol inhaler as previously prescribed. Saline nasal rinse, instructed patient to use distilled water not tap water for this. Warm salt water gargles throughout the day for symptomatic relief. Drink plenty of fluids. Patient instructed to call if symptoms worsen or do not improve; patient acknowledges understands and agrees with plan. Note created with voice recognition software and may contain grammatical errors due to this. Patients PCP contacted and updated on patient status. Patient verbalized understanding of discharge instructions and when to follow up with PCP/911/ED as needed. Patient in agreement with current plan and treatment. In order to obtain further information and compare any laboratory results/values, I have accessed . This information was pertinent in my medical decision making today. [email or web address] Not available 04/05/2019 11:33:58 Plan of Treatment Reminders Order Date Submit Date Provider Last Modified By Organization Details Last Modified Time Details Appointments None recorded. Lab None recorded. Referral None recorded. Procedures None recorded. Surgeries None recorded. Imaging None recorded. Medication Orders Flonase Allergy Relief 50 mcg/actua tion nasal spray,virgil pension 2018 [place], [place] - [id number], [address] [place], [address], 9 10:42:14 Mucinex 1,200 mg tablet, extended release 2018 [place], [place] - [id number], [address] [place], [address], 9 10:42:29 Patient TargetsNo targets recorded. Patient Instructions Encounter Date Encounter Id Patient Instructions Last Modified By Organization Details Last Modified Time 04/05/2019 [id number] Saline nasal spray, warm salt water gargles throughout the day. Use Flonase and Mucinex as prescribed. Continue albuterol inhaler. OTC cough medication such as Delsym. [email or web address] Not available 04/05/2019 10:42:59 Reason for Referral None Reported. Medical Equipment None Reported. Allergies Allergen ID Allergen Name Allergen Category Reaction Reaction Severity Criticality Documentation Date Start Date Code Code System Note Provider Name and Address Organization Details Recorded Time 63915 acetamino phen / oxycodone medicatio n Not available Not available Not available 04/05/2019 47233 3 RxNorm ODALYS BURT [address] [place], [address], [place] [facility] 9 10:31:11 73327 tramadol medicatio n Not available Not available Not available 04/05/2019 77423 RxNorm ODALYS BURT [address] [place], [address], [place] [facility] 9 10:31:17 Medications Name Sig Start Date Stop Date Status Note LastModified by Organization Details LastModified Time clonidine HCl 0.1 mg tablet active Not Available Not Available Not Available venlafaxine ER 75 mg capsule,exte nded release 24 hr active Not Available Not Available Not Available atorvastatin 20 mg tablet active Not Available Not Available Not Available trazodone 50 mg tablet active Not Available Not Available No t Available hydrocodone 5 mg-acetamino phen 325 mg tablet active Not Available Not Available Not Available sumatriptan 25 mg tablet active Not Available Not Available Not Available ondansetron HCl 4 mg tablet active Not Available Not Available Not Available clonazepam 1 mg tablet active Not Available Not Available No t Available venlafaxine ER 150 mg capsule,exte nded release 24 hr active Not Available Not Available Not Available chlorthalido ne 25 mg tablet active Not Available Not Available Not Available tramadol 50 mg tablet active Not Available Not Available No t Available levothyroxin e 100 mcg tablet active Not Available Not Available Not Available trazodone 100 mg tablet active Not Available Not Available Not Available dicyclomine 20 mg tablet active Not Available Not Available Not Available Proctozone-H C 2.5 % topical cream perineal applicator active Not Available Not Available N ot Available baclofen 10 mg tablet active Not Available Not Available No t Available potassium citrate ER 10 mEq (1,080 mg) tablet,exten ded release active Not Available Not Available Not Available clonazepam 2 mg tablet active Not Available Not Available No t Available promethazine 25 mg tablet active Not Available Not Available Not Available omeprazole 20 mg capsule,vicente yed release active Not Available Not Available Not Available montelukast 10 mg tablet active Not Available Not Available Not Available lisinopril 5 mg tablet active Not Available Not Available No t Available dicyclomine 10 mg capsule active Not Available Not Available Not Available naproxen 500 mg tablet active Not Available Not Available No t Available Ventolin HFA 90 mcg/actuatio n aerosol inhaler active Not Available Not Available Not Available oxycodone 5 mg tablet active Not Available Not Available No t Available Mucinex 1,200 mg tablet, extended release Take 1 tablet twice a day by oral route for 10 days. 2018 active Not Available Not Available Not Avai lable GaviLyte-N 420 gram oral solution active Not Available Not Available Not Available Creon 3,000 unit-9,500 unit-15,000 unit capsule,vicente yed release active Not Available Not Available Not Available Flonase Allergy Relief 50 mcg/actuatio n nasal spray,suspen kris Neche 1 spray twice a day by intranasal route. 2018 active Not Available Not Available Not Avai lable Vitals Date Recorded Heart rate Oxygen saturation Oxygen saturation in Arterial blood by Pulse oximetry Respiratory rate Body temperature Systolic blood pressure Diastolic blood pressure Provider Name and Address Organization Details Last Updated DateTime 9 110 /min 95 % 95 % 12 /min 99.5 [degF] 108 mm[Hg] 70 mm[Hg] Not Available [facility] 9 10:28:09 Social History Question Answer Notes LastModified by Organizat ion Details LastModified Time Tobacco Smoking Status Never Smoker ODAL[facility] BURT [address], [place], [address], [place] [facility] 04/05/2019 10:32:28 Do You Have An Advance Directive? No Information not available 04/05/2019 What Is Your Code Status? Full Code Information not available 04/05/2019 Drugs Abused 0 Information not available 04/05/2019 Do You Or Have You Ever Used E-cigarettes Or Vape? Never Used Electronic Cigarettes Information not available 04/05/2019 How Many Days In The Past Year Have You Had A Heavy Drinking Consumption (4+ Female, 5+ Male)? 0 Information not available 04/05/2019 Marital Status Single Informatio n not available 04/05/2019 What Was The Date Of Your Most Recent Tobacco Screening? 04/05/2019 Information not available 04/05/2019 Do You Or Have You Ever Used Smokeless Tobacco? Never Used Smokeless Tobacco Information not available 04/05/2019 Sex: Unknown Functional Status None recorded. Mental Status None recorded. Family History Relationship Description Onset Age of this Age Resolved Age Notes LastModified by Organization Details LastModified Time Father Diabetes mellitus [email or web address] Not available 2018 10:31:46 Medical History Condition Response Diabetes N Coronary Artery Disease N High Cholesterol Y Pulmonary Embolism N Cancer N Hypertension N Stroke N Asthma Y COPD N Depression Y Kidney Disease N Gynecological HistoryNo gynecological history recorded. Obstetrics History GPAL:G 0 P 0 0 0 0 Past Encounters Encounter ID Performer Location Encounter Start Date Encounter Closed Date Diagnosis/Indication Diagnosis SNOMED-CT Code Diagnosis ICD10 Code Diagnosis Note [id number] ODALYS BURT [facility] [address] [place] [address] 04/05/2019 10:11:14 04/05/2019 15:30:22 Acute rhinosinusitis 213233449 J00 Asthma [id number] J45.90 9 Health Concerns Section Related Observation LastModified by Organization Detai ls LastModified Time None Recorded Concern Status LastModified by Organization Details LastModified Time None Recorded Advance Directives Directive N: Payers Encounter Date Sequence Insurance Name Policy Number Policy Brown Covered Member ID Brown Member ID Guarantor Name 04/05/2019 1 [place]ICARE [place]: [id number] Yaniv Munguia Romelia [id number] Yaniv Munguia Notes Date Note Type Note Provider Name and Address Organization Details Recorded Time 04/05/2019 text/html 48-year-old asthmatic female presents for evaluation cough. Reports 2 days of cough, sinus congestion, postnasal drip, irritated throat, ear pain. Denies fever, chest pain, wheezing. States this morning she used albuterol inhaler for some shortness of breath. States otherwise, has not tried anything for relief. ODAL[facility] BURT [address], [place], [address], [place] [facility] 04/05/2019 11:34:02 OBGyn Episode No OBEpisode recorded.
--- OUTSIDE RECORDS SUMMARY | 2024-09-22 10:52 | XMS_ITS | Encounter Summary ---
Author Organization [employer] Address [address] [place] [address] [address] [place] [address] Care Team Providers Care Agricultural Agent Name Role Phone NameSaman MD Primary Care Provider Reason for Visit * Reason Comments Med Refill Encounter Details Date Type Department Care Team ([facility] Contact Info) Description 02/10/2023 Refill [facility] MEDICINE [address] [place] [address] [phone] Saman Doe MD [address] [place] [address] [phone] Social History Tobacco Use Types Packs/Day Years [...] Upcoming Encounters Date Type Department Care Team ([facility] Contact Info) Description 01/11/2025 11:15 AM EDT Office Visit [facility] MEDICINE [address] [place] [address] [phone] Saman Doe MD [address] [place] [phone] documented as of this encounter Visit Diagnoses Not on filedocumented in this encounter Additional Health Concerns Assessment Noted Time PHQ-9 Depression Total Score: 0 07/03/19 23 10:55 AM EST documented as of this encounter Care Teams Agricultural Agent Relationship Specialty Start Date End Date Name, MD Saman [address] [place] [address] PCP - General Family Medicine 08/13/15 documented as of this encounter
--- OUTSIDE RECORDS SUMMARY | 2024-09-22 10:52 | XMS_ITS | Encounter Summary ---
Author Organization [employer] Address [address] [facility] [address]t [place] [address] Care Team Providers Care Public Policy Analyst Name Role Phone Name, Saman HOOK Primary Care Provider [phone] Encounter Details Date Type Department Care Team ([facility] Contact Info) Description 12/15/[address] [facility] MEDICINE [address] [place] [address] [phone] Name, MD Saman [address] [place] [phone] Social History Tobacco Use Types Packs/Day Years [...] Upcoming Encounters Date Type Department Care Team ([facility] Contact Info) Description 01/11/2025 11:15 AM EDT Office Visit [facility] MEDICINE [address] [place] [phone] Name, MD Saman [address] [place] [address] documented as of this encounter Visit Diagnoses Not on filedocumented in this encounter Additional Health Concerns Assessment Noted Time PHQ-9 Depression Total Score: 0 07/03/19 23 10:55 AM EST documented as of this encounter Care Teams Public Policy Analyst Relationship Specialty Start Date End Date Name, MD Saman [address] [place] [address] PCP - General Family Medicine 08/13/15 documented as of this encounter
--- OUTSIDE RECORDS SUMMARY | 2024-09-22 10:52 | XMS_ITS | Encounter Summary ---
Author Organization [employer] Address [address] [facility] [address]t [place] [address] Care Team Providers Care Rustic Fence Builder Name Role Phone Name, Saman HOOK Primary Care Provider [phone] Reason for Visit * Reason Comments Med Refill Encounter Details Date Type Department Care Team ([facility] Contact Info) Description 12/02/2023 Refill [facility] MEDICINE [address] [place], [place] [phone] Tabitha Goodman NP [address] [place], [place] [phone] Chronic pain syndrome Social History Tobacco Use [...] Description 01/11/2025 11:15 AM EDT Office Visit [facility] MEDICINE [address] [place] [address] Name, MD Saman [address] [place] [address] documented as of this encounter Visit Diagnoses Diagnosis Chronic pain syndrome documented in this encounter Additional Health Concerns Assessment Noted Time PHQ-9 Depression Total Score: 0 04/07/20 23 3:38 PM EDT documented as of this encounter Care Teams Rustic Fence Builder Relationship Specialty Start Date End Date Name, MD Saman [address] [place] [address] PCP - General Family Medicine 08/13/15 documented as of this encounter
--- OUTSIDE RECORDS SUMMARY | 2024-09-22 10:52 | XMS_ITS | Encounter Summary ---
Author Organization [employer] Address [address] [place] [address] [address] [place] [address] Care Team Providers Care River Rafting Guide Name Role Phone Name, Saman HOOK Primary Care Provider [phone] Encounter Details Date Type Department Care Team ([facility] Contact Info) Description 02/26/2023 Orders Only [facility] MED & PEDS [address] [place], [place] [phone] Ellie Nagy LPN Social History Tobacco Use [...] Upcoming Encounters Date Type Department Care Team ([facility] Contact Info) Description 01/11/2025 11:15 AM EDT Office Visit [facility] MEDICINE [address] [place], [place] [phone] Name, MD Saman [address] [place], [place] [phone] documented as of this encounter Visit Diagnoses Not on filedocumented in this encounter Additional Health Concerns Assessment Noted Time PHQ-9 Depression Total Score: 0 07/03/19 23 10:55 AM EST documented as of this encounter Care Teams River Rafting Guide Relationship Specialty Start Date End Date Name, MD Saman [address] [place] [address] PCP - General Family Medicine 08/13/15 documented as of this encounter
--- OUTSIDE RECORDS SUMMARY | 2024-09-22 10:52 | XMS_ITS | Encounter Summary ---
Author Organization [employer] Address [address] [place] [address] [address] [place] [address] Care Team Providers Care Mainframe Software Developer Name Role Phone Name, Saman HOOK Primary Care Provider [phone] Encounter Details Date Type Department Care Team ([facility] Contact Info) Description 08/05/2022 Orders Only [facility] MEDICINE [address] [place] [phone] Ellie Nagy LPN Social History Tobacco [...] Upcoming Encounters Date Type Department Care Team ([facility] Contact Info) Description 01/11/2025 11:15 AM EDT Office Visit [facility] MEDICINE [address] [place] [phone] Name, MD Saman [address] [place] [phone] documented as of this encounter Visit Diagnoses Not on filedocumented in this encounter Additional Health Concerns Assessment Noted Time PHQ-9 Depression Total Score: 0 01/27/20 23 10:55 AM EST documented as of this encounter Care Teams Mainframe Software Developer Relationship Specialty Start Date End Date Name, MD Saman [address] [place] [address] PCP - General Family Medicine 08/13/15 documented as of this encounter
--- OUTSIDE RECORDS SUMMARY | 2024-09-22 10:52 | XMS_ITS | Clinical Summary ---
Author Organization [facility] [employer] Address [address] [facility] 7t [place] [address] Care Team Providers Care Customer Supply Chain Analyst Name Role Phone Name, Saman HOOK Primary Care Provider [phone] Allergies Active Allergy Reactions Criticality Noted Date [...] complication, without long-term current use of insulin ([facility]) Inject 5 mg under the skin 1 [...] complication, without long-term current use of insulin ([facility]),Morbi d obesity ([facility]) Inject 0.75 mL (2 mg) [...] Type Department Care Team Description 09/21/2024 Telephone [facility] [address] [place] [address] Cindy Maradiaga [place] december recalls 09/14/2024 Refill [facility] [address] [place] [address] NameSaman MD 09/01/2024 4:00 PM EDT Telemedicine [facility] [address] [place] [address] NameSaman MD Type 2 diabetes mellitus without complication, without long-term current use of insulin (CMS/HCC) (Primary Dx); Morbid obesity (CMS/HCC); Chronic pain syndrome; Migraine without aura and without status migrainosus, not intractable 09/01/2024 Travel 09/01/2024 Telephone [facility] [address] [place] [address] Cindy Maradiaga [place] appt change to telehealth 08/25/2024 Travel 08/17/2024 Refill [facility] [address] [place] [address] Saman Doe MD Chronic pain syndrome 07/27/2024 Refill [facility] [address] [place] [address] Saman Doe MD 07/17/2024 Telephone [facility] [address] [place] [address] Janna Munoz RN Results 06/30/2024 Refill [facility] [address] [place] [address] Shereen Castro MD Chronic pain syndrome 06/30/2024 Refill [facility] [address] [place] [address] Saman Doe MD Chronic pain syndrome; Chronic pain syndrome 06/30/2024 Refill [facility] [address] [place] [address] Charla Mendieta DO 06/30/2024 Refill [facility] [address] [place] [address] Tabitha Goodman NP from Last 3 Months [...] Description 01/11/2025 11:15 AM EDT Office Visit [facility] [address] [place], [place] [phone] Name, MD Saman [address] [place] [address] Health Maintenance Due Date Last Done Comments [...] complication, without long-term current use of insulin ([facility]) DIABETES EYE EXAM Routine 09/06/2023 ALBUMIN, RANDOM URINE W/CREATININE Routine 08/19/2023 8:25 AM EDT Type 2 diabetes mellitus without complication, without long-term current use of insulin ([facility]) HPV MRNA E6/E7 REFLEX TO HPV 16, 18/45 Routine 06/10/2023 1:06 PM EST COLONOSCOPY Routine 01/11/2019 from Last 3 Months or Most Recently Relevant to Health Maintenance Results * TSH W/Reflex to FT4 (08/24/2024 10:57 AM EDT) TSH reflex Free T4 0.64 0.32 - 4.0 uIU/mL [facility] Blood Venous blood specimen / Unknown 08/24/2024 10:57 AM EDT 08/24/2024 1:06 PM EDT us Saman Doe MD LAB BLOOD ORDERABLES Final Resul t [facility] [address] [place] [phone] * (ABNORMAL) Lipid Panel, Standard (08/24/2024 10:57 AM EDT) Triglycerides 210(H) <150 mg/dL [facility] Comment:Desirable Triglyceri de: less than 150 mg/dLBorderline High Triglyceride 150-199 mg/dLHigh Triglyceride: 200-499 mg/dLVery High Triglyceride: greater than or equal to 5OO mg/dL Cholesterol 204(H) <200 mg/dL [facility] Comment:Desirable Cholestero l: less than 200 mg/dLBorderline High Cholesterol: 200-239 mg/dLHigh Cholesterol: greater than 239 mg/dL LDL Cholesterol Calculated 119(H) <100 mg/dL [facility] Comment:Desirable LDL: less than 100 mg/dLNear Optimal/Above Optimal LDL: 110- 129 mg/dLBorderline High LDL: 130-159 mg/dLHigh LDL: 160-189 mg/dLVery High LDL: greater than or equal to 190 mg/dL HDL Cholesterol 43 >40 mg/dL [facility] Comment:Desirable HDL: great er than 40 mg/dL Note: This HDL assay may give artificially low results in patients with liver disease. Blood Venous blood specimen / Unknown 08/24/2024 10:57 AM EDT 08/24/2024 1:06 PM EDT us Saman Name MD LAB BLOOD ORDERABLES Final Resul t [facility] [address] [place] [phone] * (ABNORMAL) Comprehensive Metabolic Panel (08/24/2024 10:57 AM EDT) Sodium 141 135 - 145 mmol/L [facility] Potassium 4.8 3.3 - 5.1 mmol/L [facility] Chloride 106 96 - 108 mmol/L [facility] Carbon Dioxide 29 22 - 29 mmol/L [facility] Anion Gap 11(L) 12 - 20 [facility] Urea Nitrogen (BUN) 14 9 - 16 mg/dL [facility] Creatinine, Serum 0.96 0.5 - 1.4 mg/dL [facility] Estimated Glomerular Filt Rate >60 [facility] Comment:Chronic Kidney Disea se: Estimated GFR < 60 mL/min/1.74o3Vczsei Kidney Disease: Estimated GFR < 15 mL/min/1.73m2 Glucose 142(H) 60 - 115 mg/dL [facility] Calcium 9.2 8.4 - 10.2 mg/dL [facility] Bilirubin, Total 0.4 0.0 - 1.0 mg/dL [facility] Aspartate Amino Transferase 17 5 - 31 U/L [facility] Alanine Aminotransferase 15 0 - 31 U/L [facility] Total Protein 6.8 6.5 - 8.0 g/dL [facility] Albumin Level 4.0 3.5 - 5.0 g/dL [facility] Alkaline Phosphatase 80 39 - 117 U/L [facility] Blood Venous blood specimen / Unknown 08/24/2024 10:57 AM EDT 08/24/2024 1:06 PM EDT us Saman Doe MD LAB BLOOD ORDERABLES Final Resul t [facility] [address] [place] [phone] * Pap Smear (06/20/2024 12:00 AM EST) Swab Vaginal structure / Unknown 06/20/2024 06/21/2024 6:20 AM EST Narrative [facility] - 07/03/2024 3:04 PM EST ----- ------- Name: Yaniv Epstein ?Age/Sex: 53/F ? : 1970 Unit#: [id number] ?? Attend Dr: ANDREW VILLAREAL CNChayo ?Re06/20/24 ?Status: DEP REF ? Location: HO.HHCLNP ? Disch: ? ----- ------- SPEC : [id number] ?RECD: 06/21/24 ? STATUS: ??SOUT ? REQ NUM: [id number] ? SIMONE: 06/20/24 ? SUBM DR: ANDREW [...] (signature on file) ANGELO Potts (ASCP) 07/03/24 1604 ? ----- ------- ? END OF REPORT ? us Andrew Villareal [facility] CYTOLOGY ORDERABLES F inal Result [facility] [address] [place] [phone] [phone] * BI Mammogram Screening Tomosynthesis Bilateral (06/19/2024 2:05 PM EST) Anatomical Region Laterality Modality Breast Bilateral Mammography 06/19/2024 2:05 PM EST Narrative 06/27/2024 4:59 PM EST ? [facility] ? [address] ?[place] [address] ? Mammography Report ? Signed ? Patient: Romanquiles,Daianna ?MR#: [id number] ?? [id number] ? : 1970 ?Acct:[id number] ? Age/Sex: 53 / F ?ADM Date: 06/19/24 ? Loc: HO.MAMMO ? Attending Dr: Saman Doe MD ? Ordering Physician: Saman Doe MD ?Results: 1Negative ? Date of Service: 06/19/24 ?Follow Up: 1 Year From Orig ?? inal Mammogram ? Procedure(s): MM tomosynthesis screening BI ?? Accession Number(s): [id number] ? cc: Saman Doe MD ? EXAMINATION: [...] DD/ 1405 ? TD/TT: 06/19/24 1425 ? Job Setter: ? Procedure Note Donotuseinterpreter, Image - 06/27/2024 [facility] [address] [place] [address] Mammography Report Signed Patient: Yaniv EpsteinMR#: [id number] : 1970Acct:[id number] Age/Sex: 53 / FADM Date: 06/19/24 Loc: HO.MAMMO Attending Dr: Saman Doe MD Ordering Physician: Saman Doeesults: 1Negative Date of Service: 06/19/24Follow Up: 1 Year From Orig inal Mammogram Procedure(s): MM tomosynthesis screening BI Accession Number(s): [id number] cc: Saman Doe MD EXAMINATION: MM SCREENING [...] 06/27/24 1655 DD/ 1405 TD/TT: 06/19/24 1425 Job Setter: us Saman Doe MD IMG BI PROCEDURES [...] 8:25 AM EDT) Creatinine, Urine 289.33 mg/dL [facility] Microalbumin Urine 26.0 mg/L [facility] Microalbum Creatinine Ratio Ur 8.9 <30 ug/mg cr [facility] Comment:Albumin/Creatinine R at Reference Ranges: Normal: < 30 ug/mg creatinine Microalbuminuria: 30 - 300 ug/mg creatinineClinical Albuminuria: > 300 ug/mg creatinine Urine (Urine, Random) 08/19/2023 8:25 AM EDT 08/19/2023 11:27 AM EDT Saman oDe MD LAB URINE ORDERABLES Final Resul t [facility] [address] [place], [place] [phone] * HPV mRNA E6/E7 w/Reflex to HPV Genotypes 16, 18/45 (06/10/2023 1:06 PM EST) HPV nRNA E6/E7 Not Detected Not Detected [facility] Comment:Methodology: Transcr iption-Mediated AmplificationThis assay detects E6/E7 viral messenger RNA (mRNA) from 14high-risk HPV types (16,18,31,33,35,39,45,51,52,56,58,59,66,68).Cervical sources are required for HPV testing.If a vaginal source from a patient who has had atotal hysterectomy with removal of cervix wassubmitted, please contact the testing laboratoryfor alternative testing options.For additional information, please refer tohttp://education.[employer]/faq/MGL586w6(This link if provided for information/educational purposes only.)THIS TEST WAS PERFORMED AT:[employer] [place] [phone] CORDERO MD HPV mRNA E6/E7 [facility] HPV 16 RNA [facility] HPV 18/45 RNA [facility] 06/10/2023 1:06 PM EST 06/11/2023 9:30 AM EST Andrew JAIME LAB CYTOLOGY ORDERABLES F inal Result [facility] [address] [place] [address] [phone] * (ABNORMAL) Hm Colonoscopy (01/11/2019) Colonoscopy Abnormal(A ) Normal Saman Doe MD HEALTH MAINTENANCE Final Result from Last 3 Months or Most Recently Relevant to Health Maintenance Insurance [facility] Care Teams Customer Supply Chain Analyst Relationship Specialty Start Date End Date Name, MD Saman [address] [place] [address] PCP - General Family Medicine 08/13/15
--- OUTSIDE RECORDS SUMMARY | 2024-09-22 10:52 | XMS_ITS | Encounter Summary ---
Author Organization [employer] Address [address] [facility] 7t [place] [address] Care Team Providers Care Lap Maker Name Role Phone Name, Saman HOOK Primary Care Provider [phone] Reason for Visit * Reason Comments Med Refill Encounter Details Date Type Department Care Team ([facility] st Contact Info) Description 04/14/2023 Refill [facility] [address] [place], [place] [phone] Name, MD Saman [address] [place], [place] [phone] Chronic pain syndrome Social History Tobacco Use [...] Description 01/11/2025 11:15 AM EDT Office Visit [facility] [address] [place] [address] Name, MD Saman [address] [place] [address] documented as of this encounter Visit Diagnoses Diagnosis Chronic pain syndrome documented in this encounter Additional Health Concerns Assessment Noted Time PHQ-9 Depression Total Score: 0 04/07/20 23 3:38 PM EDT documented as of this encounter Care Teams Lap Maker Relationship Specialty Start Date End Date Name, MD Saman [address] [place] [address] PCP - General Family Medicine 08/13/15 documented as of this encounter
--- OUTSIDE RECORDS SUMMARY | 2024-09-22 10:52 | XMS_ITS | Encounter Summary ---
Author Organization [employer] Address [address] [place] [address] 7 [place] [address] Care Team Providers Care Production Weigher Name Role Phone Name, Saman HOOK Primary Care Provider [phone] Reason for Visit * Reason Comments Med Refill Encounter Details Date Type Department Care Team ([facility] Contact Info) Description 02/10/2023 Refill [facility] [address] [place] [address] Marisel Baxter MD [address] [place], [place] [phone] Social History Tobacco Use Types Packs/Day Years [...] Upcoming Encounters Date Type Department Care Team ([facility] Contact Info) Description 01/11/2025 11:15 AM EDT Office Visit [facility] [address] [place] [address] Name, MD Saman [address] [place] [address] documented as of this encounter Visit Diagnoses Not on filedocumented in this encounter Additional Health Concerns Assessment Noted Time PHQ-9 Depression Total Score: 0 07/03/19 23 10:55 AM EST documented as of this encounter Care Teams Production Weigher Relationship Specialty Start Date End Date Name, MD Saman [address] [place] [address] PCP - General Family Medicine 08/13/15 documented as of this encounter
--- OUTSIDE RECORDS SUMMARY | 2024-09-22 10:52 | XMS_ITS | Encounter Summary ---
Author Organization [employer] Address [address] [facility] 7t [place] [address] Care Team Providers Care Data Abstractor Name Role Phone Name, Saman HOOK Primary Care Provider [phone] Reason for Visit * Reason Onset Date Comments triage 08/06/2022 Encounter Details Date Type Department Care Team ([facility] st Contact Info) Description 08/06/2022 Telephone [facility] [address] [place], [place] [phone] Name, MD Saman [address] [place], [place] [phone] triage Social History Tobacco Use Types Packs/Day [...] EST Triage call returned to patient via [employer] [phone]. Patient reports that she is feeling tired [...] worse The caller accepted this outcome speaks equatorial guinean documented in this encounter Plan of Treatment Upcoming Encounters Date Type Department Care Team (Late st Contact Info) Description 01/11/2025 11:15 AM EDT Office Visit [facility] [address] [place] [address] Name, MD Saman [address] [place] [address] documented as of this encounter Visit Diagnoses Not on filedocumented in this encounter Additional Health Concerns Assessment Noted Time PHQ-9 Depression Total Score: 0 07/03/19 23 10:55 AM EST documented as of this encounter Care Teams Data Abstractor Relationship Specialty Start Date End Date Name, MD Saman [address] [place] [address] PCP - General Family Medicine 08/13/15 documented as of this encounter
--- OUTSIDE RECORDS SUMMARY | 2024-09-22 10:52 | XMS_ITS | Encounter Summary ---
Author Organization [employer] Address [address] [facility] 7t [place] [address] Care Team Providers Care Program Support Specialist Name Role Phone Name, Saman HOOK Primary Care Provider [phone] Reason for Visit * Reason Onset Date Comments december recalls 09/21/2024 Encounter Details Date Type Department Care Team ([facility] st Contact Info) Description 09/21/[address] [facility] [address] [place], [place] [phone] Cindy MaradiagaST[place], [place] december recalls Social History Tobacco Use [...] Office Visit [facility] [address] [place] [address] Name, MD Saman [address] [place] [address] documented as of this encounter Visit Diagnoses Not on filedocumented in this encounter Additional Health Concerns Assessment Noted Time PHQ-9 Depression Total Score: 0 04/07/20 23 3:38 PM EDT documented as of this encounter Care Teams Program Support Specialist Relationship Specialty Start Date End Date NameSaman MD [address] [place] [address] PCP - General Family Medicine 08/13/15 documented as of this encounter
--- OUTSIDE RECORDS SUMMARY | 2024-09-22 10:52 | XMS_ITS | Encounter Summary ---
Author Organization [facility] Address [facility] [address] [place] [address] Phone Care Team Providers Care Food And Beverage Service Manager Name Role Phone Name, Saman HOOK Primary Care Provider Encounter Details Date Type Department Care Team (Late Contact Info) Description 03/31/2022 Telephone [facility] [address] [place] [phone] Lewis Kennedy MD [address] [facility] [address] [place] [phone] Social History Tobacco Use Types Packs/Day Years [...] of that. Please call her back at [phone] Thank you documented in this encounter Plan of Treatment Upcoming Encounters Date Type Department Care Team ([facility] Contact Info) Description 02/21/2025 1:00 PM EDT Office Visit [facility] [address] [phone] Lewis Kennedy MD [address] [phone] documented as of this encounter Visit Diagnoses Not on filedocumented in this encounter Care Teams Food And Beverage Service Manager Relationship Specialty Start Date End Date Name, MD Saman [address] [place] [address] PCP - General 06/17/20 documented as of this encounter
--- OUTSIDE RECORDS SUMMARY | 2024-09-22 10:52 | XMS_ITS | Clinical Summary ---
Author Organization [facility] Address [address] [facility] [address] [place] [address] Phone Care Team Providers Care Campus Manager Name Role Phone Name, Saman HOOK Primary Care Provider [phone] Allergies Active Allergy Reactions Criticality Noted Date [...] Office Visit [facility] [address] [phone] Lewis Kennedy MD [address] [phone] Health Maintenance Due Date Last Done Comments [...] (6 to 49 Years) Discontinued 01/25/2024 Insurance * Guarantor: Yaniv Kearns Account Type Relation to Patient Date of Phone Billing Address Personal/Family Self [address] [place] [id number] [facility] ([id number]) [facility] ([id number]) ODALYS HOWELL [phone] Care Teams Campus Manager Relationship Specialty Start Date End Date Name, MD Saman [address] [place], [place] [phone] PCP - General 06/17/20
--- OUTSIDE RECORDS SUMMARY | 2024-09-22 10:53 | XMS_ITS | Encounter Summary ---
Author Organization [employer] Address [address] [place] [address] 7t [place] [address] Care Team Providers Care Mercury Cracking Tester Name Role Phone Name, Saman HOOK Primary Care Provider [phone] Encounter Details Date Type Department Care Team ([facility] Contact Info) Description 10/16/2022 Orders Only [facility] [address] [place], [place] [phone] Charla Yusuf LPN Social History Tobacco Use [...] Upcoming Encounters Date Type Department Care Team ([facility] Contact Info) Description 01/11/2025 11:15 AM EDT Office Visit [facility] [address] [place], [place] [phone] NameSaman MD [address] [place], [place] [phone] documented as of this encounter Procedures Procedure Name Priority Date/Time Associated Diagnosis Comments BI MAMMOGRAM SCREENING TOMOSYNTHESIS BILATERAL Routine 10/20/2022 2:00 PM EDT documented in this encounter Results * BI Mammogram Screening Tomosynthesis Bilateral (10/20/2022 2:00 PM EDT) Anatomical Region Laterality Modality Breast Bilateral Mammography 10/20/2022 2:00 PM EDT Narrative 10/22/2022 11:24 AM EDT ? [facility] ? [address] ?[place] [address] ? Mammography Report ? Signed ? Patient: Ezra León,Yaniv ?MR#: [id number] ?? [id number] ? : 1970 ?Acct:[id number] ? Age/Sex: 52 / F ?ADM Date: 05/16/ ? Loc: HO.MAMMO ? Attending Dr: Saman Name MD ? Ordering Physician: Name,Saman MD ?Results: 0Incomplet ?? e: Needs Additional Imaging Evaluation ? Date of Service: 05/16/23 ?Follow Up: Additional Imagi ?? ng ? Procedure(s): MM tomosynthesis screening BI ?? Accession Number(s): [id number] ? cc: Name,Saman HOOK ? EXAMINATION: ?? [...] 1122 ? DD/ 1400 ? TD/TT: ? Biometrics Experimentalist: KULKARNI ? Procedure Note Meliton Girard - 12/03/2022 [facility] [address] [place] [address] [place] [address] Mammography Report Signed Patient: Nova Kearnssanto#: [id number] : 1970Acct:[id number] Age/Sex: 52 / FADM Date: 10/20/22 Loc: HO.MAMMO Attending Dr: Saman Doe MD Ordering Physician: Name,Saman MDResults: 0Incomplet e: Needs Additional Imaging Evaluation Date of Service: 10/20/22Follow Up: Additional Imagi ng Procedure(s): MM tomosynthesis screening BI Accession Number(s): [id number] cc: Name,Saman HOOK EXAMINATION: MM SCREENING DIGITAL [...] in OV> 10/22/22 1122 DD/ 1400 TD/TT: Biometrics Experimentalist: KULKARNI [facility] External Provider IMG BI PROCEDURES Final Result documented in this encounter Visit Diagnoses Not on filedocumented in this encounter Additional Health Concerns Assessment Noted Time PHQ-9 Depression Total Score: 0 07/03/19 23 10:55 AM EST documented as of this encounter Care Teams Mercury Cracking Tester Relationship Specialty Start Date End Date Name, MD Saman [address] [place] [address] PCP - General Family Medicine 08/13/15 documented as of this encounter
== END 2024-09-22 11:27 | disposition home or self-care (01) ==
LOC: HO.HOS 10:04
PROVIDERS: PCP Internal Medicine Geriatric Medicine; Visit Provider Physician Assistant
DX: M77.8 Other enthesopathies, not elsewhere classified (principal)
CPT/HCPCS: 20610; 99203

== ENCOUNTER → 2024-09-22 10:09 | Outpatient (BNV) | payer OTHER, SELFPAY | PROVIDERS: Visit Provider Radiology Diagnostic Radiology | DX: M25.512 Pain in left shoulder (principal) | CPT/HCPCS: 73030 ==

== ENCOUNTER 2024-11-20 13:00 | Outpatient (RCR) | payer OTHER, SELFPAY ==
--- NOTE | 2024-10-31 14:36 | MHC.PT.EP ---
[facility] [place] [facility] [place] Office [place] Office [address] Shailesh Godinez [address] [phone] F: [phone] F: [phone] F: [phone] F: [phone] Physical Therapy Plan of Care Date of Evaluation: 10/31/24 Date of Surgery: n/a Diagnosis: L shoulder tendonitis Assessment: Patient is a 54 year old female presenting to PT with complaints of pain in her L shoulder. Pt reports onset of pain began 2019 due to never getting better after surgery. She presents today with impairments in pain, ROM, shoulder strength, posture. Pt's current occupation is disabled, with baseline physical activities including ADLs, reaching, lifting, sleeping. Pt expresses long-term goal of reducing pain, and is motivated to work towards this in PT. Clinical presentation today is most consistent with signs and sx associated with L shoulder pain and pt will benefit from skilled PT 2 week x 4 weeks to address the following problems and impairments noted upon evaluation: pain, ROM, shoulder strength, posture. These problems limit the patient with the following functional activities: ADLs, reaching, lifting, sleeping. The prescribed treatment plan of care is medically necessary. Co-morbidities of T2DM, fibromyalgia were identified and taken into considerations of plan of care. Pt was educated on HEP, role of PT, prognosis, POC. Frequency and Duration: The patient will be seen 2 x week x 4 weeks Short Term Goals: Pt will demonstrate L shoulder ROM equal B in 2 weeks. Pt will demonstrate L shoulder MMT strength improved by 1/3 grade in 2 weeks. Pt will demonstrate improved posture as evidence by min to no cues for correction with exercises in 2 weeks. Master Dyer Goals: Pt will demonstrate improved SPADI score by 13 points for improved functional mobility. Pt will demonstrate ability to reach with min to no pain in 4 weeks for return to PLOF. Pt will demonstrate ability to lift with min to no pain for improved tolerance to bathing and ADLs. Treatment Plan: Modalities to reduce pain, spasms and effusion. Manual therapy to restore motion and function. Therapeutic exercise to improve strength and flexibility. Neuromuscular re-education for posture and balance. Therapeutic activities to return to functional activities of daily living. Electronically signed by: Leti Sam, PT, DPT, ATC Please sign and return to therapist. Thank you for your referral.
--- NOTE | 2024-12-18 10:59 | MHC.PT.DC ---
[facility] [place] Office [place] Office [place] Office [address] Shailesh Godinez [address] [phone] F: [phone] F: [phone] F: [phone] F: [phone] Physical Therapy Discharge Report Diagnosis: L shoulder tendonitis Date of Surgery: n/a Date of Evaluation: 10/31/24 Date of Discharge: 12/18/24 Treatments to Date: 4 Cancellations to Date: 2 No Shows to Date: 1 Discharge Status: Discharge Summary: Pt cancelled her last scheduled appointment and has not returned since. Pt to be d/c. Electronically signed by: Leti Sam PT, DPT, ATC Please sign and return to therapist. Thank you for your referral.
== END 2024-12-18 10:59 | disposition home or self-care (01) ==
LOC: HO.PTCHIC 13:00
PROVIDERS: PCP Internal Medicine Geriatric Medicine; Visit Provider Physician Assistant
DX: M77.8 Other enthesopathies, not elsewhere classified (principal)
CPT/HCPCS: 97110; 97140; 97162

== ENCOUNTER 2025-01-24 14:50 | Outpatient (AMB) | payer OTHER, SELFPAY ==
--- NOTE | 2025-01-24 14:54 | MHC.OFFVIS ---
Vital Signs 01/24/25 14:56 Height 5 ft 2 in Weight 222 lb BMI 40.6 Intake Visit Reasons: OV-LT shoulder calcific tendonitis last inj Intake Note: Yaniv is a 54 year old female who presents today for new problem of left shoulder tendonitis. At last visit injection was given and she was referred to physical therapy for her right shoulder follow up as needed. Today patient reports that she continues to have pain , that radiates form her neck to her shoulder. Limited ROM. She did not attend therapy. [employer] Required: Yes [employer] Services: [employer] Present [employer] Name: Treva, JOSE, LM Allergies oxycodone (From PERCOCET) Allergy (Intermediate, Verified 01/24/25 14:56) ITCHY tramadol (TRAMADOL) Allergy (Unknown, Verified 01/24/25 14:56) ITCHING Medication List - Last Reconciled 01/24/25 by Petra Castillo PA-C albuterol sulfate 90 mcg/actuation 2 puffs inhalation Q4-6H PRN amitriptyline 10 mg PO BEDTIME atomoxetine 80 mg PO QAM bisacodyl 10 mg (2 x 5 mg) PO BEDTIME Held on 09/16/22. Instructions: Doctor's Order cetirizine 10 mg PO DAILY cholecalciferol (vitamin D3) 50 mcg PO DAILY clonazepam (Klonopin) 1 mg PO BEDTIME clonidine HCl 0.1 mg PO BEDTIME cyanocobalamin (vitamin B-12) 1,000 mcg PO DAILY dicyclomine 40 mg (20 mL) PO QID duloxetine (Cymbalta) 60 mg PO DAILY eletriptan (Relpax) 40 mg PO Q2-4H 30 days fluticasone propionate 50 mcg/actuation 0 mcg intranasal BID PRN hydrocortisone 2.5% (Proctozone-HC) topical BID levothyroxine 137 mcg PO DAILY linaclotide (Linzess) 145 mcg PO QAM Held on 10/27/23. Instructions: Doctor's Order linaclotide (Linzess) 290 mcg PO QAM losartan 50 mg PO DAILY metoclopramide HCl 10 mg PO QID montelukast 10 mg PO QPM ondansetron 4 mg sublingual Q8H pantoprazole 40 mg PO BID potassium citrate ER 10 mEq PO BID pravastatin 20 mg PO DAILY pregabalin (Lyrica) 150 mg PO DAILY semaglutide (Ozempic) mg subcut QWEEK simethicone 180 mg PO QID trazodone 100 mg PO BEDTIME PRN HPI HPI OV-LT shoulder calcific tendonitis last inj : Details: 54-year-old female presents to the office today for pain in the left shoulder. He has seen me in the past for her right shoulder and had an injection which was quite helpful. She states her left shoulder has been bothering her for a significant amount of time which is making daily activities difficult. She has pain with overhead reaching and sleeping at night. She has tried physical therapy on the left shoulder but states there was no relief with exercises due to ongoing pain. She does have a history of left shoulder surgery many years ago. [facility] Medical History (Updated 09/22/24 @ 10:49 by Petra Castlilo PA-C) Epidermal cyst Irritable bowel syndrome with constipation Postprandial epigastric pain LLQ abdominal pain Diverticulitis Muscle spasm Preprocedural examination LGSIL Pap smear of vagina Diabetes type 2, controlled Hx LEEP (loop electrosurgical excision procedure), cervix, Morbid obesity Kidney stones Calcific tendinitis of both shoulders Fibromyalgia Hypothyroidism Umbilical hernia Morbid obesity Surgical History H/O: hysterectomy Status post carpal tunnel release of both wrists S/P laparoscopic sleeve gastrectomy LAP-BAND surgery status S/P panniculectomy Hx of cystoscopy History of esophagogastroduodenoscopy (EGD) Hx of colonoscopy Family History Father Diabetes COPD (chronic obstructive pulmonary disease) Heart problem Mother Thyroid condition Diabetes Paternal Aunt Cancer of kidney Social History Household Members: None Housing: Apartment Alcohol intake: never Patient Tobacco Use Status: Never used Tobacco Current occupational status: disabled Sexual orientation: Straight/Heterosexual Gender identity: Female Review of Systems Const All systems reviewed & are unremarkable except as noted in HPI and below Physical Exam Vital Signs: BMI result Body Mass Index 40.6 Extrem Other: Left shoulder normal to inspection. Portal sites well healed. She has full range of motion and pain with palpation to the proximal biceps tendon. Discomfort with Chavez. 5/5 rotator cuff strength. Neurovascularly intact. Office Procedures AMB Joint Injection/Aspiration Joint Injection/Aspiration Primary Site: left shoulder Prep: site was prepped using aseptic technique, ethochloride spray was applied and injection warnings given Injected: 40 mg of, DepoMedrol, with 8 mL of, 1% plain lidocaine and in the subcromial space Approach Used: posterolateral Coding 53967 - Glenohumeral/Tronchanteric Bursa/Intraarticular Procedure code (CPT) selection complete Results Reviewed Results Reviewed: XR shoulder LT min 2V IMPRESSION: 1. No acute findings. 2. 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 Assessment & Plan Assessment & Plan (1) Left shoulder tendonitis: Code(s): M77.8 - Other enthesopathies, not elsewhere classified Category: Medical Plan: We discussed options today, which include steroid injection. The patient did consent to move forward with left shoulder injection, which was tolerated well.? I recommended rest, ice and elevation and OTC antiinflammatories prn for discomfort. .We also discussed their diabetes and the effect the steroid can have on thier blood glucose levels; therefore, they will continue to monitor these very closely over the next 72 hours If symptoms persist over the next 6-8 weeks, they will contact our office, otherwise, prn Coding Level of Care Code Est Pt Level 3 (58924) Complex EM visit Add On G2211 Diagnoses Left shoulder tendonitis M77.8 CPT Codes Coding - Joint 7: 35195 - Glenohumeral/Tronchanteric Bursa/Intraarticular ([id number])
[2025-01-24 14:56] VITALS: BMI 40.6
--- OUTSIDE RECORDS SUMMARY | 2025-01-24 15:47 | XMS_ITS | Encounter Summary ---
Author Organization [employer] Address [address] [facility] [address] [place] [address] Care Team Providers Care Gum Maker Name Role Phone Name, Saman HOOK Primary Care Provider [phone] Reason for Visit * Reason Comments Med Refill Encounter Details Date Type Department Care Team ([facility] Contact Info) Description 12/02/2023 Refill [facility] [address] [place], [place] [phone] Tabitha Goodman NP [address] [place], [place] [phone] Chronic pain syndrome Social History Tobacco Use [...] as of this encounter Plan of Treatment Not on file documented as of this encounter Visit Diagnoses Diagnosis Chronic pain syndrome documented in this encounter Additional Health Concerns Assessment Noted Time PHQ-9 Depression Total Score: 0 04/07/20 23 3:38 PM EDT documented as of this encounter Care Teams Gum Maker Relationship Specialty Start Date End Date Name, MD Saman [address] [place] [address] PCP - General Family Medicine 08/13/15 documented as of this encounter
--- OUTSIDE RECORDS SUMMARY | 2025-01-24 15:47 | XMS_ITS | Clinical Summary ---
Author Organization [facility] Address [address] [facility] [address] [place] [address] Phone Care Team Providers Care Engineering Designer Name Role Phone Name, Saman HOOK Primary Care Provider [phone] Allergies Active Allergy Reactions Criticality Noted Date [...] 1 TABLET BY MOUTH IN THE MORNING, 1 TAB AT NOON, AND 1 TAB IN THE EVENING. TAKE WITH A MEAL 270 tablet 12/14/2024 Active Active Problems Problem Noted Date Diagnosed [...] Encounters Date Type Department Care Team Description 12/14/2024 Refill [facility] [address] [place] [address] Lewis Kennedy MD from Last 3 Months Immunizations Immunization Administration Dates Next Due Influenza [...] Care Team (Late st Contact Info) Description 02/14/2025 1:15 PM EDT Office Visit [facility] [address] [facility] [address] [place] [phone] Lewis Kennedy MD [address] [address] Health Maintenance Due Date Last [...] Diabetes: Hemoglobin A1C 07/13/2024 04/12/2024 Influenza Vaccine (#1) 2025 2, 04/01/2021, 03/11/2020, Additional history exists Pneumococcal Vaccine: 50+ Years Completed 4 Pneumococcal Vaccine: Peds ( 0 to 5 Years) and At-Risk Patients (6 to 49 Years) Discontinued 01/25/2024 Insurance [facility] ([id number]) [facility] ([id number]) Care Teams Engineering Designer Relationship Specialty Start Date End Date Name, MD Saman [address] [place] [address] [phone] PCP - General 06/17/20
== END 2025-01-24 15:43 | disposition home or self-care (01) ==
LOC: HO.HOS 14:51
PROVIDERS: PCP Internal Medicine Geriatric Medicine; Visit Provider Physician Assistant
DX: M77.8 Other enthesopathies, not elsewhere classified (principal)
CPT/HCPCS: 20610; 99213

== ENCOUNTER → 2025-01-24 14:50 | Outpatient (BNVA) | payer OTHER, SELFPAY | PROVIDERS: PCP Internal Medicine Geriatric Medicine; Visit Provider Physician Assistant | DX: M25.512 Pain in left shoulder (principal); M77.8 Other enthesopathies, not elsewhere classified | CPT/HCPCS: 20610; 99212; J1010; J2003 ==

== ENCOUNTER 2025-01-26 13:20 | Outpatient (REF) | payer OTHER, SELFPAY ==
--- NOTE | ~2025-01-26 | XR_ITS ---
EXAMINATION: XR LUMBOSACRAL SPINE WITH OBLIQUES CLINICAL INFORMATION: One month of severe left sided sciatica, worse walking COMPARISON: March 07, 2020 TECHNIQUE: AP, both oblique, and lateral views of the lumbar spine. Lateral view of the lumbosacral junction. FINDINGS: No acute cortical disruption or malalignment. Anterior marginal osteophyte formation and endplate sclerosis decreased intervertebral disc height and vacuum phenomenon and subchondral cyst formation at T12-L1 and to a lesser extent T11-12. No lytic or blastic lesions. Metallic coils overlapping the peripheral aspect of the sacrum likely in the abdominal wall. Vascular clips right upper quadrant abdomen. XR/XR lumbar spine 4V min IMPRESSION: Spondylosis pronounced at T12-L1 and to a lesser extent T11-12. Electronically signed by: Keenan Polk MD 01/26/2025 01:37 PM EDT
--- OUTSIDE RECORDS SUMMARY | 2025-01-26 13:22 | XMS_ITS | Encounter Summary ---
Author Organization [facility] Address [address] [facility] [address] [place] [address] Encounters * CPT with Medical [facility] at [facility] on 2025-01-24 { reasonForRequest : Patient has leg pain and hip pain. , patientReports&q uot;: , denies :[ Zhu Flash, circumferential zhu , Zhu reported with black tissue to the area , Open skin area after a fall with uncontrolled bl eeding , Abscess/infection with streaking noted, presence of fever or without , History of cellulitis, isolated redness noted , Fever and chills noted in setting of wound , Rash , Bites -bugs, spider , Abscess ], chiefComplaints&q uot;: Extremity Pain , pmh : Fibromyalgia, Hypertension, Diabetes MellitusType 2, Depression, Anxiety Disorder, Kidney Stones, Post-Traumatic Stress Disorder (PTSD), Hypothyroidism , allergies : Tramadol, Oxycodone , otherAllergies :null,"painAssessment : Level 10 out of 10 , visitOutcome : ,"additionalComments : 54 y.o female complains of Extremity Pain\n\nPt is having leg and hip pain, left leg, \nShe has not had any falls or injuries. \nShe has had the pain for month. She has an appt on Wednesday with her pcp . \nShe denies any pain or swelling just pain when she walks. \nshe has no arthritis or gout. \nShe has a pain level of 10 when she walks. \nShe has taken lyrica , tylenol and it has not helped \nShe has no blood thinners or CKD \nI provided information on the mobilehealth provider response time and advised the patient and/or caregiver to monitor reported signs and symptoms. I discussed the warning signs of when to seek emergency care. } No complaints are on phonic pain, bilateral and left leg pain. Patient reports she has appointment with TC in two days, just needs to get through. Patient denies recent injury or any other pain or complaint. Patient reports mobility is decrease due to pain on walking. Patient denies fever, chills, numbness, tingling, or any other pain. Patient pink warm dry good CSM???s in all negative increase worker breathing positive full sentences extremities unremarkable no edema noted. Medication administered as ordered without complication using five rights. Red flags patient education discussed. Patient demonstrates understanding of care and plan. IV_(FLUIDS_AND/OR_MEDICATION), MEDICATION_IM, ORAL_MEDICATION, WOUND_CARE, ORTHOSTATIC_VITAL_SIGNS Written by Medical [facility] on 2025-01-24
--- OUTSIDE RECORDS SUMMARY | 2025-01-26 13:22 | XMS_ITS | Clinical Summary ---
Author Organization [facility] Address [address] [facility] [address] [place] [address] Phone Care Team Providers Care Retail Loss Prevention Officer Name Role Phone Name, Saman HOOK Primary Care Provider [phone] Allergies Active Allergy Reactions Criticality Noted Date [...] [place] [address] [place] [address] Lewis Kennedy MD from Last 3 Months [...] Office Visit [facility] [facility] [address] [place] [phone] Lewis Kennedy MD [address] [address] Health Maintenance Due Date Last [...] (6 to 49 Years) Discontinued 01/25/2024 Insurance [facility] ([id number]) [facility] ([id number]) Care Teams Retail Loss Prevention Officer Relationship Specialty Start Date End Date Name, MD Saman [address] [place] [address] [phone] PCP - General 06/17/20
--- OUTSIDE RECORDS SUMMARY | 2025-01-26 13:22 | XMS_ITS | Encounter Summary ---
Author Organization [employer] Address [address] [place] [address] Care Team Providers Care B2B Appointment Setter Name Role Phone Name, Saman HOOK Primary Care Provider [phone] Encounter Details Date Type Department Care Team (Latest Contact Info) Description 01/26/2025 Travel Social History Tobacco Use Types Packs/Day Years [...] documented as of this encounter Care Teams B2B Appointment Setter Relationship Specialty Start Date End Date Name, MD Saman [address] [place] [address] PCP - General Family Medicine 08/13/15 documented as of this encounter
== END 2025-01-26 13:21 | disposition home or self-care (01) ==
LOC: HO.HHCX 13:20
PROVIDERS: Visit Provider Internal Medicine Geriatric Medicine
DX: M54.32 Sciatica, left side (principal)
CPT/HCPCS: 72110

== ENCOUNTER → 2025-01-26 13:21 | Outpatient (BNV) | payer OTHER, SELFPAY | PROVIDERS: Visit Provider Radiology Diagnostic Radiology | DX: M47.814 Spondylosis without myelopathy or radiculopathy, thoracic region (principal); M47.816 Spondylosis without myelopathy or radiculopathy, lumbar region | CPT/HCPCS: 72110 ==

== ENCOUNTER 2025-01-31 11:37 | Outpatient (REF) | payer OTHER, SELFPAY ==
--- OUTSIDE RECORDS SUMMARY | 2025-01-26 13:00 | XMS_ITS | Encounter Summary ---
Author Organization [employer] Address [address] [facility] 7[address] [place] [address] Care Team Providers Care Yarn Spooler Name Role Phone Saman Doe MD Primary Care Provider [phone] Reason for Referral * Consultation (Routine) - Closed Specialty Diagnoses / Procedures Referred By Contac t Referred To Contact Physical Therapy Diagnoses Sciatica of left side Saman Doe MD [address] [place] [id number] Phone: tel: fax: Physical Therapy, AT [address] [facility] [address] [place] Phone: tel: fax: Referral ID Status Reason Start Date Expiration Date V isits Requested Visits Authorized [id number] Closed Specialty Services Required 01/26/2025 01/26/2026 1 1 Reason for Visit * Reason Comments Sciatica Encounter Details Date Type Department Care Team (Late st Contact Info) Description 01/26/2025 1:00 PM EDT Office Visit [facility] [address] [place], [place] [phone] Saman Doe MD [address] [place] [address] [phone] Sciatica of left side (Primary Dx) Social History Tobacco Use Types Packs/Day Years [...] Answer Date Recorded Patient Health Questionnaire-9 Score 5 01/11/2025 Patient Health Questionnaire-9 Score 5 01/11/2025 Last PHQ-9: Questionnaire Data Not on file 0 01/11/2025 Housing Stability Answer Date Recorded What is your housing situation today? I have eve gómez 01/11/[address] you li ve. Do you have problems with any of the following? None of the above 01/11/2025 Food Insecurity Answer Date Recorded Within the past 12 months, y ou worried that your food would run out before you got money to buy more: Never True 01/11/2025 Within the past 12 months,th e food you bought just didn't last and you didn't have enough money to get more: Often true 12/2024 Transportation Answer Date Recorded In the past 12 months, has l ack of transportation kept you from medical appts, meetings, work or from getting things needed for daily living? No 01/11/2025 Utilities Answer Date Recorded In the past 12 months, has t he electric, gas, oil or water company threatened to shut off services in your home? No 01/11/2025 Depression Answer Date Recorded Patient Health Questionnaire-2 Score 1 01/11/2025 Internet Access Answer Date Recorded Internet Access Q1 Yes 01/11/2025 Internet Access Q2 Not on file 01/11/2025 Comments No Sex and Gender Information Value Date Recorded Sex Assigned at Female 04/06/2022 10:29 AM EDT Legal Sex Female 10:29 AM EDT Gender Identity Female 04/06/2022 10:29 AM EDT Sexual Orientation Straight 04/06/2022 10 :29 AM EDT documented as of this encounter Last Filed Vital Signs Vital Sign Reading Time Taken Comments Blood Pressure 128/83 01/26/2025 12:54 PM EDT Pulse 107 01/26/2025 12:54 PM EDT Temperature 36.5 C (97.7 F) 01/26/2025 12:54 PM EDT Respiratory Rate 17 01/26/2025 12:54 PM EDT Oxygen Saturation 98% 01/26/2025 12:54 PM EDT Inhaled Oxygen Concentration - - Weight 99 kg (218 lb 3.2 oz) 01/26/2025 12:54 PM EDT Height - - Body Mass Index 39.91 01/11/2025 11:12 AM EDT documented in this encounter Progress Notes * Saman Doe MD - 01/26/2025 1:00 PM EDT Subjective Patient ID: Yaniv León is a 54 y.o. female who presents for Sciatica. Patient comes for a sick visit complaining of 1 month of radiculopathic pain on the left leg. In the beginning of the month she was having low back pain that has resolved. She has persistent burning/lancinating pain of the left thigh that is worse with walking. She was evaluated at home by [facility] twice and received Toradol in both occasions without much improvement. [id number] NSAIDs are not helping either. She does not have any weakness, no unexplained weight loss, no fevers or chills, no history of malignancy, no IVDA, no associated GI or complaints. No saddle anesthesia. Review of Systems Constitutional: Negative for chills and fever. HENT: Negative for sore throat. Respiratory: Negative for cough, shortness of breath and wheezing. Cardiovascular: Negative for chest pain, palpitations and leg swelling. Gastrointestinal: Negative for abdominal pain. Musculoskeletal: See HPI Visit Vitals BP 128/83 (BP Location: Right arm, Patient Position: Sitting, BP Cuff Size: Large adult) Pulse 107 Temp 97.7 ??F (36.5 ??C) (Temporal) Resp 17 Wt 218 lb 3.2 oz (99 kg) LMP (LMP Unknown) SpO2 98% BMI 39.91 kg/m?? OB Status Postmenopausal Smoking Status Never BSA 2.08 m?? Objective Physical Exam Constitutional: General: She is not in acute distress. Appearance: She is not toxic-appearing. Cardiovascular: Rate and Rhythm: Normal rate and regular rhythm. Pulmonary: Effort: Pulmonary effort is normal. No respiratory distress. Neurological: General: No focal deficit present. Motor: No weakness. Gait: Gait normal. Assessment/Plan Diagnoses and all orders for this visit: Sciatica of left side Comments: I recommend to avoid OTC NSAIDs. I recommended treatment with short tapering course of prednisone Referral to physical therapy X-ray of the lumbar spine prior to physical therapy evaluation Further recommendation based on the results and the patient's response. Orders: - predniSONE (Deltasone) 20 MG tablet; Take 3 tablets (60 mg) by mouth Once per day for 3 days, THEN 2 tablets (40 mg) Once per day for 3 days, THEN 1 tablet (20 mg) Once per day for 3 days, THEN 0.5tablets (10 mg) Once per day for 4 days. - XR Lumbar Spine Complete 4+ Views; Future - Referral to Physical Therapy; Future documented in this encounter Plan of Treatment Scheduled Referrals Name Type Priority Associated Diagnoses Orde r Schedule Referral to Physical Therapy Outpatient Referral Routine Sciatica of left side Expected: 01/26/2025 (Approximate), Expires: 01/26/2026 documented as of this encounter Procedures Procedure Name Priority Date/Time Associated Diagnosis Comments XR LUMBAR SPINE COMPLETE 4+ VIEWS Routine 01/26/2025 12:40 PM EDT Sciatica of left side documented in this encounter Results * XR Lumbar Spine Complete 4+ Views (01/26/2025 12:40 PM EDT) Anatomical Region Laterality Modality Spine, L-spine Radiographic Shawna ging 01/26/2025 12:4 0 PM EDT Narrative 01/26/2025 1:40 PM EDT [address] [address] XRay Report Signed Patient: Yaniv Epstein MR#: [id number] : 1970 Acct:[id number] Age/Sex: 54 / F ADM Date: 01/26/25 Loc: HO.HHCX Attending Dr: Saman Doe MD Ordering Physician: Saman Doe MD Date of Service: 01/26/25 Procedure(s): XR lumbar spine 4V min Accession Number(s): [id number] cc: Saman Doe MD EXAMINATION: XR LUMBOSACRAL SPINE WITH OBLIQUES CLINICAL INFORMATION: One month of severe left sided sciatica, worse walking COMPARISON: March 07, 2020 TECHNIQUE: AP, both oblique, and lateral views of the lumbar spine. Lateral view of the lumbosacral junction. FINDINGS: No acute cortical disruption or malalignment. Anterior marginal osteophyte formation and endplate sclerosis decreased intervertebral disc height and vacuum phenomenon and subchondral cyst formation at T12-L1 and to a lesser extent T11-12. No lytic or blastic lesions. Metallic coils overlapping the peripheral aspect of the sacrum likely in the abdominal wall. Vascular clips right upper quadrant abdomen. XR/XR lumbar spine 4V min IMPRESSION: Spondylosis pronounced at T12-L1 and to a lesser extent T11-12. Electronically signed by: Keenan Polk MD 01/26/2025 01:37 PM EDT RP Dictated By: Keenan Pandey MD Signed By: <Electronically signed by Keenan Pfeiffer MD in OV> 01/26/25 1337 DD/ 1240 TD/TT: 01/26/25 1330 Administrator Health Care Facility: Procedure Note Donotuseinterpreter, Image - 01/26/[address] [address] XRay Report Signed Patient: Myron Epstein#: [id number] : 1970Acct:[id number] Age/Sex: 54 / FADM Date: 01/26/25 Loc: HO.HHCX Attending Dr: Saman Doe MD Ordering Physician: Saman Doe MD Date of Service: 01/26/25 Procedure(s): XR lumbar spine 4V min Accession Number(s): [id number] cc: Saman Doe MD EXAMINATION: XR LUMBOSACRAL SPINE WITH OBLIQUES CLINICAL INFORMATION: One month of severe left sided sciatica, worse walking COMPARISON: March 07, 2020 TECHNIQUE: AP, both oblique, and lateral views of the lumbar spine. Lateral view of the lumbosacral junction. FINDINGS: No acute cortical disruption or malalignment. Anterior marginal osteophyte formation and endplate sclerosis decreased intervertebral disc height and vacuum phenomenon and subchondral cyst formation at T12-L1 and to a lesser extent T11-12. No lytic or blastic lesions. Metallic coils overlapping the peripheral aspect of the sacrum likely in the abdominal wall. Vascular clips right upper quadrant abdomen. XR/XR lumbar spine 4V min IMPRESSION: Spondylosis pronounced at T12-L1 and to a lesser extent T11-12. Electronically signed by: Keenan Polk MD 01/26/2025 01:37 PM EDT RP Dictated By: Keenan Pandey MD Signed By: <Electronically signed by Keenan Pfeiffer MDin OV> 01/26/25 1337 DD/ 1240 TD/TT: 01/26/25 1330 Administrator Health Care Facility: Saman Doe MD IMG XR PROCEDURES Final Result documented in this encounter Visit Diagnoses Diagnosis Sciatica of left side- Primary documented in this encounter Additional Health Concerns Assessment Noted Time PHQ-9 Depression Total Score: 5 01/12/20 25 11:17 AM EDT documented as of this encounter Care Teams Yarn Spooler Relationship Specialty Start Date End Date Name, MD Saman [address] [place] [address] PCP - General Family Medicine 08/13/15 documented as of this encounter
--- OUTSIDE RECORDS SUMMARY | 2025-01-31 12:38 | XMS_ITS | Encounter Summary ---
Author Organization [facility] Address [address] [facility] [address] [place] [address] Phone Care Team Providers Care Circus Hand Name Role Phone Name, Saman HOOK Primary Care Provider [phone] Encounter Details Date Type Department Care Team (Late Contact Info) Description 03/31/2022 Telephone [facility] [address] [facility] [address] [place] [phone] Lewis Kennedy MD [address] [facility] [address] [place] [phone] Social History Tobacco Use Types Packs/Day Years [...] of that. Please call her back at [phone] Thank you documented in this encounter Plan of Treatment Upcoming Encounters Date Type Department Care Team ([facility] Contact Info) Description 02/14/2025 1:15 PM EDT Office Visit [facility] [address] [address] Lewis Kennedy MD [address] [address] documented as of this encounter Visit Diagnoses Not on filedocumented in this encounter Care Teams Circus Hand Relationship Specialty Start Date End Date Name, MD Saman [address] [place] [id number] PCP - General 06/17/20 documented as of this encounter
--- OUTSIDE RECORDS SUMMARY | 2025-01-31 12:38 | XMS_ITS | Encounter Summary ---
Author Organization [employer] Address [address] [facility] 7t [place] [address] Care Team Providers Care Abalone Sheller Name Role Phone Name, Saman HOOK Primary Care Provider [phone] Encounter Details Date Type Department Care Team ([facility] st Contact Info) Description 08/05/2022 Orders Only [facility] [address] [place] [address] Ellie Nagy LPN Social History Tobacco Use [...] documented as of this encounter Care Teams Abalone Sheller Relationship Specialty Start Date End Date Name, MD Saman [address] [place] [address] PCP - General Family Medicine 08/13/15 documented as of this encounter
--- OUTSIDE RECORDS SUMMARY | 2025-01-31 12:38 | XMS_ITS | Encounter Summary ---
Author Organization [employer] Address [address] [facility] 7t [place] [address] Care Team Providers Care Radio Artist Name Role Phone NameSaman MD Primary Care Provider Reason for Visit * Reason Comments Med Refill Encounter Details Date Type Department Care Team ([facility] st Contact Info) Description 02/10/2023 Refill [facility] [address] [place], [place] [phone] Saman Doe MD [address] [place] [address] Social History Tobacco Use Types Packs/Day Years [...] documented as of this encounter Care Teams Radio Artist Relationship Specialty Start Date End Date NameSaman MD [address] [place] [address] PCP - General Family Medicine 08/13/15 documented as of this encounter
--- OUTSIDE RECORDS SUMMARY | 2025-01-31 12:38 | XMS_ITS | Continuity of Care Document ---
Author Name [facility] Address [address] [place] [address] Organization Unknown Address [address] [place] [address] Medications No known medications Problems No known problems
--- OUTSIDE RECORDS SUMMARY | 2025-01-31 12:38 | XMS_ITS | Encounter Summary ---
Author Organization [employer] Address [address] [facility] [address] [place] [address] Care Team Providers Care Geomorphology Teacher Name Role Phone Name, Saman HOOK Primary Care Provider [phone] Encounter Details Date Type Department Care Team [...] documented as of this encounter Care Teams Geomorphology Teacher Relationship Specialty Start Date End Date Name, MD Saman [address] [place] [address] PCP - General Family Medicine 08/13/15 documented as of this encounter
--- OUTSIDE RECORDS SUMMARY | 2025-01-31 12:38 | XMS_ITS | Encounter Summary ---
Author Organization [facility] Address [address] [facility] [address] [place] [address] Encounters * CPT with Medical [facility] at [employer] on 2025-01-07 { reasonForRequest : , patientReports : , denies":[ Zhu Flash, circumferential zhu , Zhu reported with black tissue to the area , Open skin area after a fall with uncontrolled bleeding , Abscess/infectio n with streaking noted, presence of fever or without ], chiefComplaints : Back P ain , pmh : Fibromyalgia, Hypertension, Diabetes Mellitus Type 2, Depression, An xiety Disorder, Kidney Stones, Post-Traumatic Stress Disorder (PTSD), Hypothyroidism , allergies : Tramadol, Oxycodone , otherAllergies :null, painAssessment&qu ot;: , visitOutcome : , additionalComments : 54 y.o female complains of Back Pain\n\nReferral taken via [facility].\nPatient with lower back pain for about a week, goes to her gluts and hips.\nDenies history of sciatica, no falls, trauma or strenuous activity.\nShe is unable to sit straight up, or it the pain shoots like lightening.\nDenies any numbness or tingling down her legs, no loss of bowel or bladder.\nShe has taken APAP, IBU, is onlyrica and celebrex, heat and ice with no relief..\nShe would like to be evaluated.\n\n01/07 9p- out r each to patient as we cannot accommodate a visit this evening, she is agreeable to a visit tomorrow01/07- AC\n\nI provided information on the mobile health provider response time and advised the patient and/or caregiver to monitor reported signs and symptoms. I discussed the warning signs of when toseek emergency care. } This 54-year-old female with a history including but not limited to fibromyalgia, HTN, DM type II, anxiety/depression, kidney stones, PTSD, hypothyroidism quested a visit today to address one week ofleft lower back pain that radiates down her left leg. Patient denies any known history of sciatica a nd denies any injuries or unusually strenuous activity. Patient had similar pain ???many years ago.?? Patient takes Celebrex 200 mg BID, last dose was yesterday evening and has been taking Tylenol Q8H. Allergy to tramadol and oxycodone. Patient presents awake and alert, in no acute distress and speaking full sentences. Her vital signsare reasonably stable and she is afebrile. Nonfocal neurological exam. Slight limp favoring left side. Lungs are clear throughout auscultation. Abdomen is soft, nontender, nondistended. No point tenderness, erythema, edema or warmth to her left lower back. No lower extremity edema. I treated with Ketorolac 15 mg IM, left dorsogluteal. We discussed the diagnostic uncertainty of home visits and the risk associated with this. In this case, the patient and I felt this to be an acceptable and reasonable amount of risk given the benefitof avoiding an ED visit. I recommend she follow up with her PCP tomorrow to discuss the need for physical therapy. I instructed her hold her morning dose of Celebrex, resume tonight; continue [id number] and present to the emergency department for any new or worsening severe symptoms such as black/bloody stools or emesis, focal weakness, loss of bowel or bladder function, high fever, altered mental status. The patient was given the opportunity to ask questions and is agreeable to this plan. IV_(FLUIDS_AND/OR_MEDICATION), MEDICATION_IM, ORAL_MEDICATION, EKG Written by Medical Migel on 2025-01-07
--- OUTSIDE RECORDS SUMMARY | 2025-01-31 12:38 | XMS_ITS | Clinical Summary ---
Author Organization [facility] Address [address] [facility] [address] [place] [address] Phone Care Team Providers Care Academic Support Assistant Name Role Phone Name, Saman HOOK Primary Care Provider [phone] Allergies Active Allergy Reactions Criticality Noted Date [...] Of [place] [address] [place] [address] Lewis Kennedy MD from Last 3 Months [...] Office Visit [facility] [address] [facility] [address] [place] [phone] Lewis Kennedy MD [address] [address] Health Maintenance Due Date Last [...] (6 to 49 Years) Discontinued 01/25/2024 Insurance [facility] ([id number]) [facility] ([id number]) Care Teams Academic Support Assistant Relationship Specialty Start Date End Date Name, MD Saman [address] [place] [address] [phone] PCP - General 06/17/20
--- OUTSIDE RECORDS SUMMARY | 2025-01-31 12:38 | XMS_ITS | Clinical Summary ---
Author Organization [employer] Address [address] [facility] 7t [place] [address] Care Team Providers Care Museum Docent Name Role Phone Name, Saman HOOK Primary Care Provider [phone] Allergies Active Allergy Reactions Criticality Noted Date Comments Lisinopril 02/10/2013 cough cough Oxycodone High 08/13/2015 Other reaction(s): ITCHY Tramadol Hives,Itching 12/23/2018 Other reaction(s): Not available Medications * This document contains information received from the source organization and may not represent a complete record from that organization. atomoxetine (Strattera) 40 MG capsule Take 80 mg by mouth at bed time. Active cloNIDine (Catapres) 0.1 MG tablet TAKE 1 TABLET BY MOUTH IN THE MORNING AND TAKE 2 TABLETS BY MOUTH IN THE EVENING NEEDED Active DULoxetine (Cymbalta) [address] capsule Take 120 mg by mouth Once per day. Active pantoprazole (ProtoNix) 40 MG EC tablet TAKE 1 TABLET BY MOUTH two (2) times a day Active potassium citrate CR (Urocit-K-10) 10 mEq ER tablet TAKE 1 TABLET BY MOUTH two (2) times a day Active traZODone (Desyrel) 100 MG tablet TAKE 2 TABLETS BY MOUTH ONCE DAILY AT BEDTIME NEEDED Active clonazePAM (KlonoPIN) 1 MG tablet TAKE 1 TABLET BY MOUTH two (2) times a day NEEDED 12/30/2 022 Active Diclofenac Sodium 1 % gelIndications :Shoulder pain, unspecified chronicity, unspecified laterality APPLY 2gm TO THE AFFECTED AREA two (2) times a day 100 g 023 Active cyanocobalamin (Vitamin B-12) 1000 MCG tablet TAKE 2 TABLETS (2000mcg) BY MOUTH ONCE DAILY 60 tablet 11 024 Active cetirizine (ZyrTEC) 10 MG tablet TAKE 1 TABLET BY MOUTH ONCE DAILY IN THE MORNING 30 tablet 11 024 Active estradiol (Vagifem) 10 MCG tablet vaginal tablet Insert 10 mcg into the vagina 2 (two) times a week. 024 Active cholecalcifero l (D3 Super Strength) 50 MCG (2000 UT) capsule TAKE 1 CAPSULE BY MOUTH ONCE DAILY 30 capsule 11 025 Active fluticasone (Flonase) 50 MCG/ACT nasal sprayIndicatio ns:Allergic rhinitis, unspecified seasonality, unspecified trigger SPRAY 1 SPRAY IN EACH NOSTRIL two (2) times a day NEEDED 48 g 1 025 Active hydrocortisone (Anusol-HC) 25 MG suppository INSERT 1 SUPPOSITORY rectalemente ONCE DAILY FOR 2 WEEKS 20 suppository 025 Active True Comfort Safety Lancets miscIndication s:Type 2 diabetes mellitus without complication, without long-term current use of insulin ([facility]) USE TO TEST FINGER STICK BLOOD SUGAR ONCE DAILY 100 each 3 025 Active FREESTYLE LITE test stripIndicatio ns:Type 2 diabetes mellitus without complication, without long-term current use of insulin ([facility]) USE TO TEST FINGER STICK BLOOD SUGAR ONCE DAILY 100 strip 3 025 Active Mounjaro 5 MG/0.5ML solution auto-injectorI ndications:Typ e 2 diabetes mellitus without complication, without long-term current use of insulin ([facility]) INJECT ONE PEN (=5MG) SUBCUTANEOUSLY ONCE A WEEK DIRECTED 2 mL 2 025 Active albuterol 108 (90 Base) MCG/ACT inhaler INHALE 2 PUFF BY MOUTH EVERY 4 TO 6 HOURS NEEDED 8.5 g 3 025 Active amitriptyline (Elavil) 25 MG tablet TAKE 1 TABLET BY MOUTH AT BEDTIME 30 tablet 2 025 Active montelukast (Singulair) 10 MG tabletIndicati ons:Chronic pain syndrome TAKE 1 TABLET BY MOUTH EVERY EVENING 30 tablet 5 025 Active pravastatin (Pravachol) 20 MG tablet TAKE 1 TABLET BY MOUTH ONCE DAILY 30 tablet 11 025 Active SUMAtriptan (Imitrex) 50 MG tablet TAKE 1 TABLET BY MOUTH ONCE NEEDED for migraine FOR UP TO 1 X. MAY REPEAT ONCE IN 2 HOUR NEEDED . not to exceed 2 X IN 24 HOUR 9 tablet 3 025 Active losartan (Cozaar) 50 MG tabletIndicati ons:Essential hypertension TAKE 1 TABLET BY MOUTH EVERY MORNING 90 tablet 1 Active tiZANidine (Zanaflex) 2 MG tablet TAKE 1 TABLET BY MOUTH EVERY 8 HOURS NEEDED FOR MUSCLE SPASM 30 tablet Active levothyroxine (Synthroid, Levoxyl) 137 MCG tablet TAKE 1 TABLET BY MOUTH ONCE DAILY BEFORE BREAKFAST 30 tablet 11 Active pregabalin (Lyrica) 150 MG capsuleIndicat ions:Chronic pain syndrome TAKE 1 CAPSULE BY MOUTH 3 (THREE) TIMES A DAY 90 capsule 025 Active predniSONE (Deltasone) 20 MG tabletIndicati ons:Sciatica of left side Take 3 tablets (60 mg) by mouth Once per day for 3 days, THEN 2 tablets (40 mg) Once per day for 3 days, THEN 1 tablet (20 mg) Once per day for 3 days, THEN 0.5 tablets (10 mg) Once per day for 4 days. 20 tablet 025 2024 Active levothyroxine (Synthroid, Levoxyl) 137 MCG tablet TAKE 1 TABLET BY MOUTH ONCE DAILY BEFORE BREAKFAST 30 tablet 11 024 2024 Discontinued celecoxib (CeleBREX) 200 MG capsule TAKE 1 CAPSULE BY MOUTH two (2) times a day 40 capsule 3 025 2024 Discontinued( Therapy completed) tiZANidine (Zanaflex) 2 MG tablet TAKE 1 TABLET BY MOUTH EVERY 8 HOURS NEEDED FOR MUSCLE SPASMS FOR UP TO 10 DAYS 30 tablet 025 2024 Discontinued pregabalin (Lyrica) 150 MG capsuleIndicat ions:Chronic pain syndrome TAKE 1 CAPSULE BY MOUTH 3 (THREE) TIMES A DAY 90 capsule 025 2024 Discontinued Active Problems Problem Noted Date Diagnosed [...] 08/13/2015 Anxiety 05/28/2015 Vitamin D deficiency 01/17/2014 Back pain 01/10/2014 Bipolar I disorder with [...] 04/16/2017 10/13/2023 Pain in female pelvis 01/27/20172023 Carpal tunnel syndrome 01/10/201401/11 Asthma 02/20/2013 10/13/2023 Heartburn 11/25/2012 10/13/2023 Encounters * This document contains information received from the source organization and may not represent a complete record from that organization. Date Type Department Care Team Description 01/26/2025 1:00 PM EDT Office Visit [facility] [address] [place] [address] NameSaman MD Sciatica of left side (Primary Dx) 01/26/2025 Travel 01/25/2025 Travel 01/25/2025 Telephone [facility] [address] [place], [place] [phone] Cindy Maradiaga MA chart prep 01/24/2025 Refill [facility] [address] [place] [address] NameSaman MD Chronic pain syndrome 01/16/2025 Refill [facility] [address] [place] [address] NameSaman MD 01/12/2025 Refill [facility] [address] [facility] [place] [address] NameSaman MD 01/11/2025 11:15 AM EDT Office Visit [facility] [address] [facility] [place] [address] Name, MD Saman Type 2 diabetes mellitus without complication, without long-term current use of insulin ([facility]) (Primary Dx); Morbid obesity ([facility]); Acquired hypothyroidism; Skin cyst; Alopecia areata 01/11/2025 Travel 01/05/2025 Travel 12/23/2024 Refill [facility] [address] [place] [address] NameSaman MD Chronic pain syndrome 12/18/2024 Refill [facility] [address] [place] [address] Tabitha Goodman NP Essential hypertension 12/14/2024 Refill [facility] [address] [place] [address] NameSaman MD 12/13/2024 Refill [facility] [address] [place] [address] NameSaman MD 11/27/2024 Refill [facility] [address] [place] [address] NameSaman MD 11/27/2024 Refill [facility] [address] [place] [address] NameSaman MD 11/25/2024 Refill [facility] [address] [place] [address] NameSaman MD Chronic pain syndrome 11/21/2024 Refill [facility] [address] [place] [address] NameSaman MD Chronic pain syndrome 11/21/2024 Refill [facility] [address] [place] [address] Name, MD Saman Type 2 diabetes mellitus without complication, without long-term current use of insulin ([facility]) 11/10/2024 Telephone [facility] [address] [place] [address] Name, MD Saman Nurse Triage; Medication Question from Last 3 Months Immunizations Immunization Administration Dates Next Due INFLUENZA VACCINE QUADRIVALE NT RECOMBINANT PRESERVATIVE FREE RIV4 03/11/2020 Influenza injectable quadriv alent IIV4 with preservative 04/17/2019,03/11/2018 Influenza injectable quadriv alent preservative free 02/23/2022,04/01/2021,03/18/2017 Influenza, IIV3, injectable 02/20/2015, 3 Influenza, seasonal, injecta ble, preservative free 02/12/2016 PPD Test 02/20/2015 Pneumococcal Conjugate PCV 20 01/25/2024 Tdap 07/07/2023,01/04/2013 Family History Medical History Relation Name Comments Diabetes Father Tin n Rom n Nancy Hypertension Father Tin n Rom n Nancy Arthritis Father's Sister Liv Rom n Nancy Cancer Father's Sister Liv Rom n Nancy Cancer Maternal Grandfather Vesta Romelia Depression Mother Marisel Susie Romelia [place] Diabetes Mother Marisel Susie Romeila [place] Relation Name Status Comments Father Tin n Rom n Nancy Father's Sister Liv Rom n Nancy Maternal Grandfather Vesta Romelia Mother Marisel Susie Romelia [place] Social History Tobacco Use Types Packs/Day [...] 3.2 oz) 01/26/2025 12:54 PM EDT Height 157.5 cm (5' 2 ) 01/11/2025 11:12 AM EDT Body Mass Index 39.91 01/11/2025 11:12 AM EDT Plan of Treatment Health Maintenance Due Date Last Done Comments CT Colonography 1971 FIT DNA/Cologuard 1971 FIT 1971 FOBT 1970 HIV Screening 1970 Sigmoidoscopy 1971 Hepatitis C Screening 1989 Hepatitis A Vaccines (1 of 2 - Risk 2-dose series) 1990 Hepatitis B Vaccines (1 of 3 - 19+ 3-dose series) 1990 Zoster Vaccines (1 of 2) 2021 COVID-19 Vaccine ( - 2023- season) 2024 Diabetes: Urine Protein Screening 08/18/2024 08/19/2023 Mammogram 12/17/2024 06/19/2024, 05/08, 11/17/2022, Additional history exists Influenza Vaccine (#1) 2025 , 04/01/2021, 03/11/2020, Additional history exists Diabetes: Foot Exam 04/12/2025 04/12/2024, 01/25/2024, 01/25/2024, Additional history exists Disability Screening 06/13/2025 06/13/2024 Diabetes: Hemoglobin A1C 07/14/2025 025, 04/12/2024, 10/13/2023, Additional history exists Lipid Panel 08/24/2025 08/24/2024, 08/05, 01/21/2023, Additional history exists Alcohol/Substance Use Screening 01/11/2026 01/11/2025 Depression Screening 01/11/2026 01/11/2025, 01/12/20 25 SDOH Screening 01/11/2026 01/11/2025 Tobacco Screening 01/11/2026 01/11/2025 Eye Exam 09/06/2026 09/06/2024, 09/06/2023 Cervical Cancer [...] patient's age to complete this topic Meningococcal B Vaccine Aged Out No l onger eligible based on patient's age to complete [...] 12:40 PM EDT Sciatica of left side POCT GLYCATED HEMOGLOBIN, TOTAL Routine 01/11/2025 11:14 AM EDT Type 2 diabetes mellitus without complication, without long-term current use of insulin ([facility]) POCT GLUCOSE Routine 01/11/2025 11:14 AM EDT Type 2 diabetes mellitus without complication, without long-term current use of insulin ([facility]) LIPID PANEL, STANDARD Routine 08/24/2024 10:57 AM EDT On statin therapy PAP SMEAR Routine 06/20/2024 12:00 AM EST LGSIL Pap smear of vagina BI MAMMOGRAM SCREENING TOMOSYNTHESIS BILATERAL Routine 06/19/2024 2:05 PM EST DIABETES EYE EXAM Routine 09/06/2023 ALBUMIN, RANDOM URINE W/CREATININE Routine 08/19/2023 8:25 AM EDT Type 2 diabetes mellitus without complication, without long-term current use of insulin ([facility]) HPV MRNA E6/E7 REFLEX TO HPV 16, 18/45 Routine 06/10/2023 1:06 PM EST HM COLONOSCOPY Routine 01/11/2019 from Last 3 Months or Most Recently Relevant to Health Maintenance Results * XR Lumbar Spine Complete 4+ Views (01/26/2025 12:40 PM EDT) Anatomical Region Laterality Modality Spine, L-spine Radiographic Shawna ging 01/26/2025 12:4 0 PM EDT Narrative 01/26/2025 1:40 PM EDT [facility] [address] [place] [address] XRay Report Signed Patient: Yaniv Epstein MR#: [id number] : 1970 Acct:[id number] Age/Sex: 54 / F ADM Date: 01/26/25 Loc: HO.HHCX Attending Dr: Saman Doe MD Ordering Physician: Saman Doe MD Date of Service: 01/26/25 Procedure(s): XR lumbar spine 4V min Accession Number(s): [id number] cc: Saman Doe MD EXAMINATION: XR LUMBOSACRAL [...] Keenan Polk MD 01/26/2025 01:37 PM EDT Dictated By: Keenan Pandey MD Signed By: <Electronically signed by Keenan Pfeiffer MD in OV> 01/26/25 1337 DD/ 1240 TD/TT: 01/26/25 1330 Home Economist Consumer Service: Procedure Note Donotuseinterpreter, Image - 01/26/2025 [facility] [address] [place] [address] XRay Report Signed Patient: Myron Epstein#: [id number] : 1970Acct:[id number] Age/Sex: 54 / FADM Date: 01/26/25 Loc: HO.CX Attending Dr: Saman Doe MD Ordering Physician: Saman Doe MD Date of Service: 01/26/25 Procedure(s): XR lumbar spine 4V min Accession Number(s): [id number] cc: Saman Doe MD EXAMINATION: XR LUMBOSACRAL [...] Keenan Polk MD 01/26/2025 01:37 PM EDT Dictated By: Keenan Pandey MD Signed By: <Electronically signed by Keenan Pfeiffer MDin OV> 01/26/25 1337 DD/ 1240 TD/TT: 01/26/25 1330 Home Economist Consumer Service: Saman oDe MD IMG XR PROCEDURES Final Result * (ABNORMAL) POCT HGB A1C (01/11/2025 11:14 AM EDT) Hemoglobin A1C 6.3(A) 4.0 - 5.7 % QC Media Lot # [id number] Lot# Expiration Date Blood 01/11/2025 11:1 4 AM EDT us Saman Doe MD POINT OF CARE TEST ENTER/EDIT OR DERABLES Final Result * POCT Glucose (01/11/2025 11:14 AM EDT) Glucose Blood, POC 126 60 - 200 mg/dL QC Media Lot # [id number] Lot# Expiration Date Blood Capillary blood specimen / Unknown 01/11/2025 11:14 AM EDT us Saman Doe MD POINT OF CARE TEST ENTER/EDIT OR DERABLES Final Result * (ABNORMAL) Lipid Panel, Standard (08/24/2024 10:57 AM EDT) Triglycerides 210(H) <150 mg/dL [facility] Comment:Desirable Triglyceri de: less than 150 mg/dLBorderline High Triglyceride 150-199 mg/dLHigh Triglyceride: 200-499 mg/dLVery High Triglyceride: greater than or equal to 5OO mg/dL Cholesterol 204(H) <200 mg/dL [facility] Comment:Desirable Cholestero l: less than 200 mg/dLBorderline High Cholesterol: 200-239 mg/dLHigh Cholesterol: greater than 239 mg/dL LDL Cholesterol Calculated 119(H) <100 mg/dL [facility] Comment:Desirable LDL: less than 100 mg/dLNear Optimal/Above Optimal LDL: 110- 129 mg/dLBorderline High LDL: 130-159 mg/dLHigh LDL: 160-189 mg/dLVery High LDL: greater than or equal to 190 mg/dL HDL Cholesterol 43 >40 mg/dL [facility] Comment:Desirable HDL: great er than 40 mg/dL Note: This HDL assay may give artificially low results in patients with liver disease. Blood Venous blood specimen / Unknown 08/24/2024 10:57 AM EDT 08/24/2024 1:06 PM EDT us Saman Name LAB BLOOD ORDERABLES Final Resul t [facility] [address] [place] [phone] * Pap Smear (06/20/2024 12:00 AM EST) Swab Vaginal structure / Unknown 06/20/2024 06/21/2024 6:20 AM EST Narrative [facility] - 07/03/2024 3:04 PM EST ----- ------- Name: Yaniv Epstein Age/Sex: 53/F : 1970 Unit#: [id number] Attend Dr: ANDREW VILLAREAL CNM Re06/20/24 Status: LEON [facility]: ----- ------- SPEC : [id number] RECD: 06/21/24 STATUS: SWETA HOLCOMB NUM: [id number] SIMONE: 06/20/24-[address]: ANDREW VILLAREAL CNM ENTERED: 06/21/24 SP TYPE: Pap Smr OTHR DR: ORDERED: Pap Smear Interpretation Satisfactory for evaluation. Negative for intraepithelial lesion or malignancy. HPV High Risk: Negative HPV Genotyping 16: Negative HPV Genotyping 18: Negative Clinical Information LMP: Previous PAP test: Other surgery: Hysterectomy Other history: LSIL HPV neg 2023, hx ABILIO Material Received ThinPrep-Vaginal ----- ------- Signed (signature on file) ANGELO Potts (ASCP) 07/03/24 1504 ----- ------- END OF REPORT Andrew Villareal [facility] CYTOLOGY ORDERABLES F inal Result [facility] [address] [place] [phone] * BI Mammogram Screening Tomosynthesis Bilateral (06/19/2024 2:05 PM EST) Anatomical Region Laterality Modality Breast Bilateral Mammography 06/19/2024 2:05 PM EST Narrative 06/27/2024 4:59 PM EST [facility] [address] [place] [address] [place] [address] Mammography Report Signed Patient: Yaniv Epstein MR#: [id number] : 1970 Acct:[id number] Age/Sex: 53 / F ADM Date: 06/19/24 Loc: AWA Attending Dr: Saman Doe MD Ordering Physician: Saman Doe MD Results: 1Negative Date of Service: 06/19/24 Follow Up: 1 Year From Orig inal Mammogram Procedure(s): MM tomosynthesis screening BI Accession Number(s): [id number] cc: Saman Doe MD EXAMINATION: MM SCREENING [...] by: Marce Stafford DO 06/27/2024 04:55 PM [facility] Dictated By: Marce Stafford DO Signed By: <Electronically signed by Marce Stafford DO in OV> 06/27/24 1655 DD/ 1405 TD/TT: 06/19/24 1425 Home Economist Consumer Service: Procedure Note Donotuseinterpreter, Image - 06/27/2024 [facility] [address] [place] [address] Mammography Report Signed Patient: Yaniv Epstein#: [id number] : 1970Acct:[id number] Age/Sex: 53 / FADM Date: 06/19/24 Loc: LUCI[facility] Attending Dr: Saman Doe MD Ordering Physician: Saman Doe MDResults: 1Negative Date of Service: 06/19/24Follow Up: 1 Year From Orig inal Mammogram Procedure(s): MM tomosynthesis screening BI Accession Number(s): [id number] cc: Saman Doe MD EXAMINATION: MM SCREENING [...] by: Marce Stafford DO 06/27/2024 04:55 PM [facility] Dictated By: Marce Stafford DO Signed By: <Electronically signed by Marce Stafford DO in OV> 06/27/24 1655 DD/ 1405 TD/TT: 06/19/24 1425 Home Economist Consumer Service: us Saman Doe MD IMG BI PROCEDURES Final Result * Hm Diabetes Eye Exam (09/06/2023) Eye Exam Normal Normal us Saman Doe MD HEALTH MAINTENANCE Final Result * Albumin, Random Urine W/Creatinine (08/19/2023 8:25 AM EDT) Creatinine, Urine 289.33 mg/dL [facility] Microalbumin Urine 26.0 mg/L [facility] Microalbum Creatinine Ratio Ur 8.9 <30 ug/mg cr [facility] Comment:Albumin/Creatinine R atio Reference Ranges: Normal: < 30 ug/mg creatinine Microalbuminuria: 30 - 300 ug/mg creatinineClinical Albuminuria: > 300 ug/mg creatinine Urine (Urine, Random) 08/19/2023 8:25 AM EDT 08/19/2023 11:27 AM EDT Saman Doe MD LAB URINE ORDERABLES Final Resul t Performing Organization Address City/[facility]/ZIP Co de Phone Number [facility] [address] [place] [phone] * HPV mRNA E6/E7 w/Reflex to HPV Genotypes 16, 18/45 (06/10/2023 1:06 PM EST) HPV nRNA E6/E7 Not Detected Not Detected [facility] Comment:Methodology: Transcr iption-Mediated AmplificationThis assay detects E6/E7 viral messenger RNA (mRNA) from 14high-risk HPV types (16,18,31,33,35,39,45,51,52,56,58,59,66,68).Cervical sources are required for HPV testing.If a vaginal source from a patient who has had atotal hysterectomy with removal of cervix wassubmitted, please contact the testing laboratoryfor alternative testing options.For additional information, please refer [email or web address]/faq/MVM877u9(This link if provided for information/educational purposes only.)THIS TEST WAS PERFORMED AT:[facility] [place] [phone] CORDERO MD HPV mRNA E6/E7 [facility] HPV 16 RNA [facility] HPV 18/45 RNA [facility] 06/10/2023 1:06 PM EST 06/11/2023 9:30 AM EST Andrew Villareal [facility] CYTOLOGY ORDERABLES F inal Result [facility] [address] [place] [phone] * (ABNORMAL) Hm Colonoscopy (01/11/2019) Colonoscopy Abnormal(A ) Normal us Saman Doe MD HEALTH MAINTENANCE Final Result from Last 3 Months or Most Recently Relevant to Health Maintenance Insurance [facility] ONE CARE < [address] [place] [id number] Care Teams Museum Docent Relationship Specialty Start Date End Date Name, MD Saman [address] [place] [address] PCP - General Family Medicine 08/13/15
--- OUTSIDE RECORDS SUMMARY | 2025-01-31 12:38 | XMS_ITS | Encounter Summary ---
Author Organization [employer] Address [address] [facility] 7t [place] [address] Care Team Providers Care Life Management Teacher Name Role Phone Name, Saman HOOK Primary Care Provider [phone] Reason for Visit * Reason Comments Med Refill Encounter Details Date Type Department Care Team ([facility] st Contact Info) Description 04/14/2023 Refill [facility] [address] [place], [place] [phone] Name, MD Saman [address] [place], [place] [phone] Chronic pain syndrome Social History Tobacco Use [...] documented as of this encounter Care Teams Life Management Teacher Relationship Specialty Start Date End Date Name, MD Saman [address] [place] [address] PCP - General Family Medicine 08/13/15 documented as of this encounter
--- OUTSIDE RECORDS SUMMARY | 2025-01-31 12:38 | XMS_ITS | Continuity of Care Document ---
Author Name [facility], Medical Address [address] [place] [address] Organization Unknown Address [address] [place], [place] [phone] Medications No known medications Problems No known problems
--- OUTSIDE RECORDS SUMMARY | 2025-01-31 12:38 | XMS_ITS | Encounter Summary ---
Author Organization [employer] Address [address] [facility] 7t [place] [address] Care Team Providers Care Skein Spooler Name Role Phone Name, Saman HOOK Primary Care Provider Reason for Visit * Reason Onset Date Comments triage 08/06/2022 Encounter Details Date Type Department Care Team ([facility] st Contact Info) Description 08/06/2022 Telephone [facility] [address] [place], [place] [phone] Name, MD Saman [address] [place], [place] [phone] triage Social History Tobacco Use Types Packs/Day [...] EST Triage call returned to patient via [employer]/Medical Interpreter [phone]. Patient reports that she is feeling tired [...] worse The caller accepted this outcome speaks urdu documented in this encounter Plan of Treatment Not on file documented as of this encounter Visit Diagnoses Not on filedocumented in this encounter Additional Health Concerns Assessment Noted Time PHQ-9 Depression Total Score: 0 07/03/19 23 10:55 AM EST documented as of this encounter Care Teams Skein Spooler Relationship Specialty Start Date End Date Name, MD Samna [address] [place] [phone] PCP - General Family Medicine 08/13/15 documented as of this encounter
--- OUTSIDE RECORDS SUMMARY | 2025-01-31 12:38 | XMS_ITS | Encounter Summary ---
Author Organization [employer] Address [address] [facility] 7t [place] [address] Care Team Providers Care Assistant Finance Manager Name Role Phone Name, Saman HOOK Primary Care Provider [phone] Reason for Visit * Reason Comments Med Refill Encounter Details Date Type Department Care Team ([facility] st Contact Info) Description 02/10/2023 Refill [facility] [address] [place] [address] Marisel Baxter MD [address] [place] [address] Social History Tobacco Use Types Packs/Day Years [...] documented as of this encounter Care Teams Assistant Finance Manager Relationship Specialty Start Date End Date Name, MD Saman [address] [place] [address] PCP - General Family Medicine 08/13/15 documented as of this encounter
--- OUTSIDE RECORDS SUMMARY | 2025-01-31 12:38 | XMS_ITS | Encounter Summary ---
Author Organization [employer] Address [address] [facility] 7t [place] [address] Care Team Providers Care Claims Adjustor Name Role Phone Name, Saman HOOK Primary Care Provider [phone] Encounter Details Date Type Department Care Team ([facility] st Contact Info) Description 08/17/2022 Orders Only [facility] MED & PEDS [address] [place] [address] Charla Yusuf LPN Social History Tobacco Use [...] documented as of this encounter Care Teams Claims Adjustor Relationship Specialty Start Date End Date Name, MD Saman [address] [place] [address] PCP - General Family Medicine 08/13/15 documented as of this encounter
--- OUTSIDE RECORDS SUMMARY | 2025-01-31 12:38 | XMS_ITS | Encounter Summary ---
Author Organization [employer] Address [address] [facility] 7t [place] [address] Care Team Providers Care Drawing Tracer Name Role Phone Name, Saman HOOK Primary Care Provider [phone] Reason for Visit * Reason Comments Med Refill Encounter Details Date Type Department Care Team ([facility] Contact Info) Description 12/02/2023 Refill [facility] MEDICINE [address] [place], [place] [phone] Tabitha Goodman NP [address] [place], [place] [phone] Chronic pain syndrome Social History Tobacco Use [...] documented as of this encounter Care Teams Drawing Tracer Relationship Specialty Start Date End Date Name, MD Saman [address] [place] [address] PCP - General Family Medicine 08/13/15 documented as of this encounter
--- OUTSIDE RECORDS SUMMARY | 2025-01-31 12:38 | XMS_ITS | Encounter Summary ---
Author Organization [employer] Address [address] [facility] 7t [place] [address] Care Team Providers Care Big Data Analytics Lead Name Role Phone Name, Saman HOOK Primary Care Provider [phone] Encounter Details Date Type Department Care Team ([facility] Contact Info) Description 02/26/2023 Orders Only [facility] CHC MED & PEDS [address] [place], [place] [phone] Ellie Nagy LPN Social History Tobacco Use [...] documented as of this encounter Care Teams Big Data Analytics Lead Relationship Specialty Start Date End Date Name, MD Saman [address] [place] [id number] PCP - General Family Medicine 08/13/15 documented as of this encounter
--- OUTSIDE RECORDS SUMMARY | 2025-01-31 12:39 | XMS_ITS | Encounter Summary ---
Author Organization [employer] Address [address] [facility] 7t [place] [address] Care Team Providers Care Cable Television Program Director Name Role Phone Name, Saman HOOK Primary Care Provider [phone] Encounter Details Date Type Department Care Team ([facility] Contact Info) Description 12/15/2022 Telephone [facility] MEDICINE [address] [place], [place] [phone] Name, MD Saman [address] [place] [address] Social History Tobacco Use Types Packs/Day Years [...] documented as of this encounter Care Teams Cable Television Program Director Relationship Specialty Start Date End Date Name, MD Saman [address] [place] [address] PCP - General Family Medicine 08/13/15 documented as of this encounter
--- OUTSIDE RECORDS SUMMARY | 2025-01-31 12:39 | XMS_ITS | Encounter Summary ---
Author Organization [employer] Address [address] [facility] 7t [place] [address] Care Team Providers Care Electroencephalogram Technologist Name Role Phone Name, Saman HOOK Primary Care Provider [phone] Encounter Details Date Type Department Care Team ([facility] Contact Info) Description 10/16/2022 Orders Only [facility] CHC MED & PEDS [address] [place], [place] [phone] Charla Yusuf LPN Social History Tobacco Use [...] on file documented as of this encounter Procedures Procedure Name Priority Date/Time Associated Diagnosis Comments BI MAMMOGRAM SCREENING TOMOSYNTHESIS BILATERAL Routine 10/20/2022 2:00 PM EDT documented in this encounter Results * BI Mammogram Screening Tomosynthesis Bilateral (10/20/2022 2:00 PM EDT) Anatomical Region Laterality Modality Breast Bilateral Mammography 10/20/2022 2:00 PM EDT Narrative 10/22/2022 11:24 AM EDT [facility] [address] [place], [place] [address] Mammography Report Signed Patient: Yaniv Kearns MR#: [id number] : 1970 Acct:[id number] Age/Sex: 52 / F ADM Date: 10/20/22 Loc: HO.MAMMO Attending Dr: Saman Doe MD Ordering Physician: Saman Doe MD Results: 0Incomplet e: Needs Additional Imaging Evaluation Date of Service: 10/20/22 Follow Up: Additional Imagi ng Procedure(s): MM tomosynthesis screening BI Accession Number(s): [id number] cc: Name,Saman HOOK EXAMINATION: MM SCREENING DIGITAL [...] in OV> 10/22/22 1122 DD/ 1400 TD/TT: Time Clock Inspector: KULKARNI Procedure Note Donotuseinterpreter, Image - 12/03/2022 [facility] [address] [place], [place] [address] Mammography Report Signed Patient: Yaniv KearnsMR#: [id number] : 1970Acct:[id number] Age/Sex: 52 / FADM Date: 10/20/22 Loc: HO.MAMMO Attending Dr: Saman Doe MD Ordering Physician: Saman Doe MDResults: 0Incomplet e: Needs Additional Imaging Evaluation Date of Service: 10/20/22Follow Up: Additional Imagi ng Procedure(s): MM tomosynthesis screening BI Accession Number(s): [id number] cc: Saman Doe MD EXAMINATION: MM SCREENING [...] in OV> 10/22/22 1122 DD/ 1400 TD/TT: Time Clock Inspector: CAYLA [facility] External Provider IMG BI PROCEDURES Final Result documented in this encounter Visit Diagnoses Not on filedocumented in this encounter Additional Health Concerns Assessment Noted Time PHQ-9 Depression Total Score: 0 07/03/19 10:55 AM EST documented as of this encounter Care Teams Electroencephalogram Technologist Relationship Specialty Start Date End Date Name, MD Saman [address] [place] [address] PCP - General Family Medicine 08/13/15 documented as of this encounter
[2025-01-31 13:16] LABS: MANUAL DIFF FLAG NO
[2025-01-31 14:01] LABS: Hematocrit 35.7 % (37.0-47.0); Hemoglobin 11.1 g/dl (12.0-16.0); Imm Gran Abs Auto 0.12 X10*3/uL (0.00-0.03); Imm Gran Pct Auto 0.9 % (0.0-0.4); Lymphocytes Absolute Auto 2.5 X10*3/uL (1.2-4.9); Mean Corpuscular HGB Conc 31.1 g/dl (31.0-35.0); Mean Corpuscular Hemoglobin 25.5 pg (27.0-33.0); Mean Corpuscular Volume 82.1 fL (80.0-98.0); NRBC Abs Auto 0.000 X10*3/uL (0.0-0.012); NRBC Pct Auto 0.0 /100WBC (0.0-0.2); Platelet Count 349 X10*3/uL (160-400); Red Blood Count 4.35 X10*6/uL (4.20-5.50); White Blood Count 14.0 X10*3/uL (4.8-10.8)
[2025-01-31 14:20] LABS: Alanine Aminotransferase 19 U/L (0-31); Albumin Level 4.5 g/dL (3.5-5.0); Alkaline Phosphatase 104 U/L (39-117); Anion Gap 12 (12-20); Aspartate Amino Transferase 15 U/L (5-31); Blood Urea Nitrogen 20 mg/dL (9-16); Calcium 9.3 mg/dL (8.4-10.2); Carbon Dioxide 29 mmol/L (22-29); Chloride 101 mmol/L (96-108); Estimated Glomerular Filt Rate 57; Potassium 3.8 mmol/L (3.3-5.1); Sodium 138 mmol/L (135-145); Total Protein 6.9 g/dL (6.5-8.0)
[2025-01-31 14:41] LABS: Thyroid Stimulating Hormone 0.11 uIU/mL (0.32-4.0)
[2025-01-31 15:41] LABS: Free T4 (Free Thyroxine) 1.42 ng/dL (0.71-1.85)
== END 2025-01-31 11:38 | disposition home or self-care (01) ==
LOC: HO.HHCL 11:37
PROVIDERS: PCP Internal Medicine Geriatric Medicine; Referring Provider Dietitian, Registered; Visit Provider Internal Medicine Geriatric Medicine
DX: F43.10 Post-traumatic stress disorder, unspecified (principal); E03.9 Hypothyroidism, unspecified
CPT/HCPCS: 36415; 80053; 84439; 84443; 85025

== ENCOUNTER 2025-02-15 10:40 | Outpatient (AMB) | payer OTHER, SELFPAY ==
--- NOTE | 2025-02-15 10:43 | MHC.OFFVIS ---
Vital Signs 02/15/25 10:52 Height 5 ft 2 in Weight 219 lb BMI 40.1 BP 117/58 L Blood Pressure Location Rt brachial Position Sitting Pulse 94 Intake Visit Reasons: recurrent skin cyst buttocks draining off/on sinc Intake Note: Patient scheduled today's appointment concerned with recurrent cyst on buttock. Hx of perianal abscess. Patient c/o: on and off oozing. Minor surgery was rescheduled as cyst was resolved. MILA: 12-03-2021 Oil Burner Technician Required: Yes Information Interpreted: clinical only (Rajeev #[id number]) Accompanied by: Self / Same As Patient Allergies oxycodone (From PERCOCET) Allergy (Intermediate, Verified 02/15/25 10:48) ITCHY tramadol (TRAMADOL) Allergy (Unknown, Verified 02/15/25 10:48) ITCHING Medication List - Last Reconciled 02/15/25 by Roman Bolivar MD albuterol sulfate 90 mcg/actuation 2 puffs inhalation Q4-6H PRN amitriptyline 10 mg PO BEDTIME bisacodyl 10 mg (2 x 5 mg) PO BEDTIME Held on 09/16/22. Instructions: Doctor's Order cetirizine 10 mg PO DAILY cholecalciferol (vitamin D3) 50 mcg PO DAILY clonazepam (Klonopin) 1 mg PO BEDTIME clonidine HCl 0.1 mg PO BEDTIME cyanocobalamin (vitamin B-12) 1,000 mcg PO DAILY dicyclomine 40 mg (20 mL) PO QID duloxetine (Cymbalta) 60 mg PO DAILY fluticasone propionate 50 mcg/actuation 0 mcg intranasal BID PRN hydrocortisone 2.5% (Proctozone-HC) topical BID levothyroxine 137 mcg PO DAILY linaclotide (Linzess) 145 mcg PO QAM Held on 10/27/23. Instructions: Doctor's Order linaclotide (Linzess) 290 mcg PO QAM losartan 50 mg PO DAILY montelukast 10 mg PO QPM ondansetron 4 mg sublingual Q8H pantoprazole 40 mg PO BID potassium citrate ER 10 mEq PO BID pravastatin 20 mg PO DAILY pregabalin (Lyrica) 150 mg PO DAILY semaglutide (Ozempic) mg subcut QWEEK simethicone 180 mg PO QID trazodone 100 mg PO BEDTIME PRN HPI HPI recurrent skin cyst buttocks draining off/on sinc: Details: 54-year-old female referred for a cyst on her buttocks. She says that she has had an area of recurrent swelling and drainage left buttock since August 2024. She therefore wants this removed. She says that this causes some pain and discomfort whenever this is swollen. She is a known diabetic. She says her blood sugars are well controlled. [facility] Medical History (Updated 02/15/25 @ 11:04 by Roman Bolivar MD) Cyst of buttocks Epidermal cyst Irritable bowel syndrome with constipation Postprandial epigastric pain LLQ abdominal pain Diverticulitis Muscle spasm Preprocedural examination LGSIL Pap smear of vagina Diabetes type 2, controlled Hx LEEP (loop electrosurgical excision procedure), cervix, Morbid obesity Kidney stones Calcific tendinitis of both shoulders Fibromyalgia Hypothyroidism Umbilical hernia Morbid obesity Surgical History H/O: hysterectomy Status post carpal tunnel release of both wrists S/P laparoscopic sleeve gastrectomy LAP-BAND surgery status S/P panniculectomy Hx of cystoscopy History of esophagogastroduodenoscopy (EGD) Hx of colonoscopy Family History Father Diabetes COPD (chronic obstructive pulmonary disease) Heart problem Mother Thyroid condition Diabetes Paternal Aunt Cancer of kidney Social History Household Members: None Housing: Apartment Alcohol intake: never Patient Tobacco Use Status: Never used Tobacco Current occupational status: disabled Sexual orientation: Straight/Heterosexual Gender identity: Female Review of Systems Const Denies chills and Denies fever(s) Card Denies chest pain, Denies dyspnea and Denies dyspnea on exertion Resp Denies cough, Denies dyspnea and Denies dyspnea on exertion GI Denies hematochezia and Denies change in bowel habits Denies hematuria Musc Denies back pain and Denies limited range of motion Neuro Denies focal weakness and Denies convulsions Psych Denies depression and Denies mood swings Physical Exam Const General: comfortable and no acute distress Orientation/consciousness: patient oriented x3 Neck Neck: Yes no lymphadenopathy Resp Auscultation: clear to auscultation bilaterally Cardio Rhythm: regular rhythm GI Palpation (GI): Soft to palpation, nontender and no guarding Back/Spine/Pelvis Other: Left buttock with a cystic induration, about 2 cm in diameter Neuro General: patient oriented x3 Assessment & Plan Assessment & Plan (1) Cyst of buttocks: Code(s): L72.9 - Follicular cyst of the skin and subcutaneous tissue, unspecified Category: Medical Plan: She has what appears to be an epidermal cyst of the left buttock. She wants to proceed with the excision. I explained the technique of excision under local anesthesia. I reviewed the risks of bleeding, infections among others, as well as the benefits and alternatives. She wants to proceed. This will be done in the office on her next visit. Coding Level of Care Code New Pt Level 3 (14438) Diagnoses Cyst of buttocks L72.9
[2025-02-15 10:52] VITALS: BP 117/58; PULSE 94; BMI 40.1
== END 2025-02-15 11:02 | disposition home or self-care (01) ==
LOC: HO.HGS 10:41
PROVIDERS: PCP Internal Medicine Geriatric Medicine; Visit Provider Surgery
DX: L72.9 Follicular cyst of the skin and subcutaneous tissue, unspecified (principal)
CPT/HCPCS: 99203

== ENCOUNTER → 2025-02-15 10:40 | Outpatient (BNVA) | payer OTHER, SELFPAY | PROVIDERS: PCP Internal Medicine Geriatric Medicine; Visit Provider Surgery | DX: L72.0 Epidermal cyst (principal) | CPT/HCPCS: 99202 ==

== ENCOUNTER 2025-03-08 14:33 | Outpatient (AMB) | payer OTHER, SELFPAY ==
--- NOTE | 2025-03-08 14:46 | A.OFFVIS_ITS ---
Vital Signs 03/08/25 15:08 Height 5 ft 2 in Weight 215 lb 9.793 oz BMI 39.4 BP 150/65 H Blood Pressure Location Lt brachial Position Sitting Pulse 98 Intake Visit Reasons: Follow up medication/CIC Intake Note: Patient in office today in follow up of CIC. CC: Patient reports epigastric pain and abd bloating. Programmer Analyst Health It Required: Yes Programmer Analyst Health It Language: Ivorian Accompanied by: Self / Same As Patient Allergies oxycodone (From PERCOCET) Allergy (Intermediate, Verified 03/08/25 15:16) ITCHY tramadol (TRAMADOL) Allergy (Unknown, Verified 03/08/25 15:16) ITCHING HPI HPI Follow up medication/CIC: Details: Assessment & Plan (1) Chronic idiopathic constipation: Code(s): K59.04 - Chronic idiopathic constipation Category: Medical (2) GERD (gastroesophageal reflux disease): Code(s): K21.9 - Gastro-esophageal reflux disease without esophagitis Category: Medical (3) Nausea and vomiting: Comment: difficult to say if this is mediated by gastric or migraine issues she has associated dizzy spells as well so vertigo would be in the differential diagnosis. Code(s): R11.2 - Nausea with vomiting, unspecified Category: Medical (4) Delayed gastric emptying: Code(s): K30 - Functional dyspepsia Category: Medical Plan Ivorian #INDIA It seems at the 290mcg dose she had diarrhea. BUT she declines a trial of senna added to the lower dose LInzess, she wants to play with dosing scheduled to titrate this herself. Her other sx are controlled except the intermittent severe periumbilical pain that will occur randomly and she describes it as like I'm bloated and it will only be relieved with a heating pad across her stomach. This happens about once q3mos, it will last all day if she does nto use a heating pad, but with a heating pad it will last an hour. It is NOT helped with bentyl. I will give her trial of simethicone to try. Her current regimen is LInzess 290mcg, pantoprazole 40mg bid, liquid bentyl, reglan 10mg qid and now simethicone. ROV 4 mos. Medications: New simethicone after meals 180 mg PO QID 120 caps 3RF 30 days Refilled metoclopramide HCl 10 mg PO QID 120 tabs 6RF R11.2 - Nausea with vomiting, unspecified ondansetron 4 mg sublingual Q8H 90 ea 3RF K29.71 - Gastritis, unspecified, with bleeding, R11.2 - Nausea with vomiting, unspecified pantoprazole 40 mg PO BID 60 tabs 6RF K21.9 - Gastro-esophageal reflux disease without esophagitis dicyclomine 40 mg (20 mL) PO QID 1,200 mL 6RF R10.9 - Unspecified abdominal pain TODAYS VISIT Ivorian #V live [facility] Medical History (Updated 02/15/25 @ 11:04 by Roman Bolivar MD) Cyst of buttocks Epidermal cyst Irritable bowel syndrome with constipation Postprandial epigastric pain LLQ abdominal pain Diverticulitis Muscle spasm Preprocedural examination LGSIL Pap smear of vagina Diabetes type 2, controlled Hx LEEP (loop electrosurgical excision procedure), cervix, Morbid obesity Kidney stones Calcific tendinitis of both shoulders Fibromyalgia Hypothyroidism Umbilical hernia Morbid obesity Surgical History H/O: hysterectomy Status post carpal tunnel release of both wrists S/P laparoscopic sleeve gastrectomy LAP-BAND surgery status S/P panniculectomy Hx of cystoscopy History of esophagogastroduodenoscopy (EGD) Hx of colonoscopy Family History Father Diabetes COPD (chronic obstructive pulmonary disease) Heart problem Mother Thyroid condition Diabetes Paternal Aunt Cancer of kidney Social History Household Members: None Housing: Apartment Alcohol intake: never Patient Tobacco Use Status: Never used Tobacco Current occupational status: disabled Sexual orientation: Straight/Heterosexual Gender identity: Female Review of Systems Const Denies fatigue, Denies fever(s), Denies night sweats, Denies poor appetite and Denies weight loss Eyes Details: glasses Reports requires corrective lenses ENT Reports Normal hearing present, Denies dental pain, Denies dysphagia, Denies hearing loss, Denies mouth pain, Denies odynophagia, Denies throat swelling, Denies tongue swelling and Reports other (Dentition adequate) Card Reports no additional complaints Resp Reports no additional complaints GI Details: Reports abdominal pain, Denies melena, Denies bloating, Denies hematochezia, Reports constipation, Denies GI cramping, Denies dysphagia, Denies excessive flatus, Reports early satiety, Reports dyspepsia, Reports heartburn, Denies diarrhea, Denies nausea, Denies odynophagia, Denies vomiting and Denies hematemesis Skin/Breast Denies pruritus, Denies lesions, Denies rash and Denies jaundice Neuro Reports Normal hearing present and Denies Abnormal speech present Endo Denies fatigue Aller/Immun Denies throat swelling and Denies tongue swelling Physical Exam Vital Signs: Last Vital Signs Pulse 98 03/08/25 15:08 BP 150/65 H 03/08/25 15:08 BMI result Body Mass Index 39.4 Const General: cooperative, no acute distress, well developed and well groomed Nutritional Appearance: well nourished and obese Orientation/consciousness: oriented to person, oriented to place and oriented to time Limitations: language barrier HEENT Head: Yes normocephalic and Yes atraumatic Eyes General: appearance normal, both eyes and all related structures Pupils: Equal, round and reactive pupils present Neck Neck: Yes normal visual inspection and Yes no lymphadenopathy Thyroid: Thyroid normal Resp Effort & Inspection: normal respiratory effort and able to speak in complete sentences Auscultation: clear to auscultation bilaterally Cardio Rate: regular rate Rhythm: regular rhythm Heart sounds: Normal, physiologic split S2 sound present Peripheral pulses: radial pulses present and posterior tibial pulses present GI Inspection: No distended, Yes Abdominal panniculus present and Yes obesity Palpation (GI): Soft to palpation, nontender, no guarding, not rigid and No hepatosplenomegaly present Percussion: Yes normal to percussion Auscultation: normal bowel sounds Rectal Exam - Female: deferred Skin General skin exam: no rashes or lesions noted, turgor normal, skin not dry, no jaundice, No spider nevi and no striae Rashes: no rashes Nails: normal Neuro General: oriented to person, oriented to place and oriented to time Cranial nerves: Yes Equal, round and reactive pupils present and Yes Normal hearing present Speech: No Abnormal speech present Extrem General: Yes normal to inspection, No clubbing, No cyanosis and No edema Psych Appearance: grossly normal and well kempt Mental Status: mental status grossly normal Speech and movement: Normal speech and movement present Affect: normal affect Attitude: cooperative Thought process: Normal thought process present and not confabulating Thought content: Normal thought content present Insight: Limited insight present (Psych) Judgement: Limited judgement present (Psych) Assessment & Plan Assessment & Plan (1) Delayed gastric emptying: Code(s): K30 - Functional dyspepsia Category: Medical Plan Ivorian #V live Her current regimen is LInzess 290mcg, pantoprazole 40mg bid, liquid bentyl, reglan 10mg qid and now simethicone. She has had an increase in epigastric pain and upset stomach. On review of the med list it seems she is out of her dicyclomine and her Reglan. This is likely the reason. We will restart these medications and then assess her for further needs. Return office visit in 6 weeks Medications: New metoclopramide HCl (Reglan) 10 mg PO QIDACHS 120 tabs 6RF K30 - Functional dyspepsia Refilled simethicone 180 mg PO QID 120 ea 3RF dicyclomine 40 mg (20 mL) PO QID 1,200 mL 6RF R10.9 - Unspecified abdominal pain pantoprazole 40 mg PO BID 60 tabs 6RF K21.9 - Gastro-esophageal reflux disease without esophagitis Discontinued bisacodyl Discontinued Reason: Doctor's Order 10 mg (2 x 5 mg) PO BEDTIME 60 tabs 2RF K58.1 - Irritable bowel syndrome with constipation linaclotide (Linzess) Discontinued Reason: Doctor's Order 145 mcg PO QAM 30 caps 6RF K59.04 - Chronic idiopathic constipation Coding Level of Care Code Est Pt Level 3 (72301) Diagnoses Delayed gastric emptying K30
[2025-03-08 15:08] VITALS: BP 150/65; PULSE 98; BMI 39.4
--- OUTSIDE RECORDS SUMMARY | 2025-03-08 16:09 | XMS_ITS | Clinical Summary ---
Author Organization [facility] Address [address] [facility] [address] [place] [address] Phone Care Team Providers Care Refuse Driver Name Role Phone Name, Saman HOOK Primary Care Provider [phone] Allergies Active Allergy Reactions Criticality Noted Date Comments Lisinopril 02/10/2013 cough Oxycodone High 08/13/2015 Other Reaction(s): Not available Other reaction(s): ITCHY Oxycodone-Acetaminophe n Other (see comments) 04/03/2021 Tramadol 02/17/2022 Medications atorvastatin (LIPITOR) 20 MG tablet Take 20 mg by mouth 1 (one) time each day 1 Active levothyroxine sodium (TIROSINT) 112 MCG capsule Take 1 tablet by mouth 1 (one) time each day 5 Active clonazePAM (KlonoPIN) 1 MG tablet Take 1 tablet by mouth 1 (one) time each day 6 Active traZODone (DESYREL) 100 MG tablet Take 100 mg by mouth Active cyanocobalamin (VITAMIN B-12) 1000 MCG tablet Take 1,000 mcg by mouth 1 (one) time each day 1 Active cloNIDine (CATAPRES) 0.1 MG tablet Take 0.1 mg by mouth 2 (two) times a day Active montelukast (SINGULAIR) 10 MG tablet Take 10 mg by mouth every night Active Calcium Carb-Cholecalc iferol (OYSTER SHELL CALCIUM 250+D PO) TAKE ONE TABLET BY MOUTH two (2) times a day 1 Active albuterol HFA (PROVENTIL HFA;VENTOLIN HFA) 108 (90 Base) MCG/ACT inhaler INHALE 2 PUFF BY MOUTH EVERY 4 TO 6 HOURS NEEDED 1 Active Butalbital-APA P-Caffeine 50-300-40 MG capsule Take 1 capsule by mouth 1 (one) time each day Active eletriptan (RELPAX) 40 MG tablet TAKE ONE TABLET BY MOUTH EVERY 2 TO 4 HOURS for migraine. not to exceed 2 X EVERY 24 HOUR 1 Active pantoprazole (PROTONIX) 40 MG EC tablet TAKE ONE TABLET BY MOUTH two (2) times a day 1 Active pregabalin (LYRICA) 150 MG capsule TAKE ONE CAPSULE BY MOUTH 3 (THREE) TIMES A DAY 1 Active Dulaglutide 3 MG/0.5ML solution pen-injector Inject under the skin Active potassium citrate 10 MEQ (1080 MG) CR tablet TAKE 1 TABLET BY MOUTH IN THE MORNING, 1 TAB AT NOON, AND 1 TAB IN THE EVENING. TAKE WITH A MEAL 270 tablet 5 Active Mounjaro 5 MG/0.5ML solution auto-injector INJECT ONE PEN (=5MG) SUBCUTANEOUSLY ONCE A WEEK DIRECTED 5 Active lamoTRIgine (LaMICtal) 25 MG tablet Take 25 mg by mouth 1 (one) time each day Active Active Problems Problem Noted Date Diagnosed [...] Encounters Date Type Department Care Team Description 02/14/2025 1:15 PM EDT Office Visit [facility] [address] [facility] [facility] [address] [place] [phone] Lewis Kennedy MD Stone in kidney (Primary Dx) 02/14/2025 Office Communication [facility] [address] [facility] [address] [place] [phone] Lewis Kennedy MD 12/14/2024 Refill [facility] [address] [place] [address] Lewis Kennedy MD from Last 3 Months [...] Sign Reading Time Taken Comments Blood Pressure 118/72 02/14/2025 1:25 PM EDT Pulse 102 02/14/2025 1:25 PM EDT Temperature - - Respiratory Rate - - Oxygen Saturation 94% 02/14/2025 1:25 PM EDT Inhaled Oxygen Concentration - - Weight 101 kg (221 lb 9.6 oz) 02/14/2025 1:25 PM EDT Height - - Body Mass Index - - Plan of Treatment Upcoming Encounters Date Type Department Care Team (Late st Contact Info) Description 02/13/2026 1:15 PM EDT Office Visit [facility] [address] [phone] Charla Arciniega ARNP [address] [phone] Health Maintenance Due Date Last Done Comments Breast Cancer Screening 1970 Hepatitis B Vaccine (1 of 3 - 19+ 3-dose series) 1990 Colorectal Cancer Screening: Annual FOBT 2020 Colorectal Cancer Screening: Colonoscopy 2020 Colorectal Cancer Screening: Sigmoidoscopy 2020 Diabetes: Ophthalmology Exam 10/06/2022 Diabetes: Pedal Pulse Checked 10/06/2022 Diabetes: Sensory Foot Exam 10/06/2022 Diabetes: Visual Foot Exam 10/06/2022 Influenza Vaccine (#1) 2025 2, 04/01/2021, 03/11/2020, Additional history exists Diabetes: Hemoglobin A1C 04/13/2025 01/11/2025, 110 11/2023 Pneumococcal Vaccine: 50+ Years Completed Pneumococcal Vaccine: Peds ( 0 to 5 Years) and At-Risk Patients (6 to 49 Years) Discontinued 01/25/2024 Insurance ([id number]) [facility] ([id number]) Care Teams Refuse Driver Relationship Specialty Start Date End Date Name, MD Saman [address] [place] [id number] PCP - General 06/17/20
--- OUTSIDE RECORDS SUMMARY | 2025-03-08 16:09 | XMS_ITS | Encounter Summary ---
Author Organization [employer] Address [address] [facility] 7t [place] [address] Care Team Providers Care Bottle Tester Name Role Phone Name, Saman HOOK Primary Care Provider [phone] Encounter Details Date Type Department Care Team ([facility] Contact Info) Description 02/26/2023 Orders Only [facility] [address], [place] [phone] Ellie Nagy LPN Social History Tobacco Use [...] documented as of this encounter Care Teams Bottle Tester Relationship Specialty Start Date End Date Name, MD Saman [address] [place] [phone] PCP - General Family Medicine 08/13/15 documented as of this encounter
--- OUTSIDE RECORDS SUMMARY | 2025-03-08 16:09 | XMS_ITS | Clinical Summary ---
Author Organization [employer] Address [address] [facility] 7t [place] [address] Care Team Providers Care Marine Welder Name Role Phone Name, Saman HOOK Primary Care Provider [phone] Allergies Active Allergy Reactions Criticality Noted Date [...] complication, without long-term current use of insulin (HCC) USE TO TEST FINGER STICK BLOOD SUGAR ONCE DAILY 100 each 3 025 Active FREESTYLE LITE test stripIndicatio ns:Type 2 diabetes mellitus without complication, without long-term current use of insulin (HCC) USE TO TEST FINGER STICK BLOOD SUGAR ONCE DAILY 100 strip 3 025 Active albuterol 108 (90 Base) MCG/ACT inhaler INHALE 2 PUFF BY MOUTH EVERY 4 TO 6 HOURS NEEDED 8.5 g 3 025 Active montelukast (Singulair) 10 MG tabletIndicati [...] X IN 24 HOUR 9 tablet 3 Active losartan (Cozaar) 50 MG tabletIndicati ons:Essential hypertension TAKE 1 TABLET BY MOUTH EVERY MORNING 90 tablet 1 Active tiZANidine (Zanaflex) 2 MG tablet TAKE 1 TABLET BY MOUTH EVERY 8 HOURS NEEDED FOR MUSCLE SPASM 30 tablet Active levothyroxine (Synthroid) 125 MCG tablet Take 1 tablet (125 mcg) by mouth before breakfast. 30 tablet 11 025 2025 Active Mounjaro 5 MG/0.5ML solution auto-injectorI ndications:Typ e 2 diabetes mellitus without complication, without long-term current use of insulin ([facility]) INJECT ONE PEN (=5MG) SUBCUTANEOUSLY ONCE A WEEK DIRECTED 2 mL 2 Active pregabalin (Lyrica) 150 MG capsuleIndicat ions:Chronic pain syndrome TAKE 1 CAPSULE BY MOUTH 3 (THREE) TIMES A DAY 90 capsule Active amitriptyline (Elavil) 25 MG tablet TAKE 1 TABLET BY MOUTH ONCE DAILY AT BEDTIME 30 tablet 2 Active meloxicam (Mobic) 7.5 MG tablet Take 1 tablet (7.5 mg) by mouth Once per day. 30 tablet 025 2025 Active Mounjaro 5 MG/0.5ML solution auto-injectorI ndications:Typ e 2 diabetes mellitus without complication, without long-term current use of insulin ([facility]) INJECT ONE PEN (=5MG) SUBCUTANEOUSLY ONCE A WEEK DIRECTED 2 mL 2 025 2024 Discontinued amitriptyline (Elavil) 25 MG tablet TAKE 1 TABLET BY MOUTH AT BEDTIME 30 tablet 2 025 2024 Discontinued pregabalin (Lyrica) 150 MG capsuleIndicat ions:Chronic pain syndrome TAKE 1 CAPSULE BY MOUTH 3 (THREE) TIMES A DAY 90 capsule 025 2024 Discontinued predniSONE (Deltasone) 20 MG tabletIndicati ons:Sciatica of left side Take 3 tablets (60 mg) by mouth Once per day for 3 days, THEN 2 tablets (40 mg) Once per day for 3 days, THEN 1 tablet (20 mg) Once per day for 3 days, THEN 0.5 tablets (10 mg) Once per day for 4 days. 20 tablet 025 2024 guaiFENesin (Robitussin) 100 MG/5ML liquid Take 10 mL (200 mg) by mouth if needed in the morning, at noon, and at bedtime for cough for up to 10 days. 120 mL 025 2024 Active Problems Problem Noted Date Diagnosed Date [...] syndrome 07/03/2022 Essential hypertension 02/16/2022 Morbid obesity (CMS/HCC) 02/16/2022 Overview (04/07/2023): bariatric surgery Hemorrhoids without complication 02/16/2022 Steatosis of liver 01/05/2018 Renal cyst 01/05/2018 Migraines 09/01/2017 Allergic rhinitis 08/19/2017 Trigger finger of both hands 04/16/2017 History of hysterectomy 01/27/2017 History of sleeve gastrectomy 05/13/2016 Blurring of visual image 05/13/2016 Left shoulder pain 03/03/2016 Mild intermittent asthma 08/13/2015 Anxiety 05/28/2015 Vitamin D deficiency 01/17/2014 Back pain 01/10/2014 Bipolar I disorder with depression (CMS/HCC) 11/2012 Uterine leiomyoma 12/28/2012 HLD (hyperlipidemia) 11/25/2012 Hypothyroidism [...] Encounters Date Type Department Care Team Description 02/27/2025 3:45 PM EDT Office Visit [facility] [address] [place] [phone] Saman Doe MD Sciatica of left side (Primary Dx) 02/27/2025 Travel 02/26/2025 Travel 02/26/2025 Refill [facility] [address] [place] [address] Saman Bailey MD 02/24/2025 Refill [facility] [place] [phone] Saman Doe MD Chronic pain syndrome 02/21/2025 Telephone [facility] [address] [place], [place] [phone] [address] Danielle Bhatt, CYNDI Call Back Request 02/16/2025 Telephone [facility] [address] [place] [phone] Saman Doe MD Nurse Triage 02/14/2025 Refill [facility] [address] [facility] [place] [address] Saman Doe MD Type 2 diabetes mellitus without complication, without long-term current use of insulin ([facility]) 02/08/2025 Telephone [facility] [address] [place], [place] [phone] [address] Saman Doe MD Nurse Triage 02/02/2025 Results Follow-Up [facility] [address] [place] [phone] Saman Doe MD Hold Green Gel, T4, Free 01/31/2025 Orders Only [facility] [address] [place] [phone] Saman Doe MD 01/26/2025 1:00 PM EDT Office Visit [facility] [address] [place] [address] Saman Doe MD Sciatica of left side (Primary Dx) 01/26/2025 Travel 01/25/2025 Travel 01/25/2025 Telephone [facility] [address] [place] [address] Cindy Maradiaga MA chart prep 01/24/2025 Refill [facility] [address] [place] [address] Saman Doe MD Chronic pain syndrome 01/16/2025 Refill [facility] [address] [place] [address] Saman Doe MD 01/12/2025 Refill [facility] [address] [place] [address] Saman Doe MD 01/11/2025 11:15 AM EDT Office Visit [facility] [address] [place] [address] NameSaman MD Type 2 diabetes mellitus without complication, without long-term current use of insulin ([facility]) (Primary Dx); Morbid obesity ([facility]); Acquired hypothyroidism; Skin cyst; Alopecia areata 01/11/2025 Travel 01/05/2025 Travel 12/23/2024 Refill [facility] [address] [place] [address] Saman Doe MD Chronic pain syndrome 12/18/2024 Refill [facility] [address] [place] [address] Tabitha Goodman NP Essential hypertension 12/14/2024 Refill [facility] [address] [place] [address] Saman Doe MD 12/13/2024 Refill [facility] [address] [place] [address] Saman Doe MD from Last 3 Months Immunizations Immunization [...] Romelia Fairbanks Relation Name Status Comments Father Tin [...] Sign Reading Time Taken Comments Blood Pressure 136/82 02/27/2025 3:40 PM EDT Pulse 108 02/27/2025 4:28 PM EDT Temperature 36.7 C (98 F) 02/27/2025 3:40 PM EDT Respiratory Rate 18 02/27/2025 3:40 PM EDT Oxygen Saturation 98% 02/27/2025 3:40 PM EDT Inhaled Oxygen Concentration - - Weight 99.9 kg (220 lb 3.2 oz) 02/27/2025 3:40 P M EDT Height 157.5 cm (5' 2 ) 02/27/2025 3:40 PM EDT Body Mass Index 40.28 02/27/2025 3:40 PM EDT Plan of Treatment Health Maintenance Due Date Last Done Comments CT Colonography 1971 FIT DNA/Cologuard 1971 FIT 1970 FOBT 1970 HIV Screening 1970 Sigmoidoscopy 1970 Hepatitis C Screening 1989 Hepatitis A Vaccines (1 of 2 - Risk 2-dose series) 1990 Hepatitis B Vaccines (1 of 3 - 19+ 3-dose series) 1990 Zoster Vaccines (1 of 2) 2021 Diabetes: Urine Protein Screening 08/18/2024 08/19/2023 Mammogram 12/17/2024 06/19/2024, 05/08, 11/17/2022, Additional history exists COVID-19 Vaccine ( season) 2025 Influenza Vaccine (#1) 2025 , 04/01/2021, 03/11/2020, Additional history exists Diabetes: Foot Exam 04/12/2025 04/12/2024, 01/25/2024, 01/25/2024, Additional history exists Disability Screening 06/13/2025 06/13/2024 Diabetes: Hemoglobin A1C 07/14/2025 025, 04/12/2024, 10/13/2023, Additional history exists Lipid Panel 08/24/2025 08/24/2024, 08/05, 01/21/2023, Additional history exists Alcohol/Substance Use Screening 01/11/2026 01/11/2025 Depression Screening 01/11/2026 01/11/2025, 01/12/20 25 SDOH Screening 01/11/2026 01/11/2025 Tobacco Screening 02/27/2026 02/27/2025 Eye Exam 09/06/2026 09/06/2024, 09/06/2023 Cervical Cancer [...] Procedure Name Priority Date/Time Associated Diagnosis Comments HOLD GREEN GEL Routine 01/31/2025 11:45 AM EDT T4, FREE Routine 01/31/2025 11:45 AM EDT TSH Routine 01/31/2025 11:45 AM EDT COMPREHENSIVE METABOLIC PANEL Routine 01/31/2025 11:45 AM EDT CBC WITH AUTO DIFFERENTIAL Routine 01/31/2025 11:45 AM EDT TSH W/REFLEX TO FT4 Routine 01/31/2025 1 1:45 AM EDT Acquired hypothyroidism XR LUMBAR SPINE COMPLETE 4+ VIEWS Routine 01/26/2025 12:40 PM EDT Sciatica of left side POCT GLYCATED HEMOGLOBIN, TOTAL Routine 01/11/2025 11:14 AM EDT Type 2 diabetes mellitus without complication, without long-term current use of insulin ([facility]) POCT GLUCOSE Routine 01/11/2025 11:14 AM EDT Type 2 diabetes mellitus without complication, without long-term current use of insulin ([facility]) LIPID PANEL, STANDARD Routine 08/24/2024 10:57 AM EDT On statin therapy PAP SMEAR Routine 06/20/2024 12:00 AM EST LGSIL Pap smear of vagina BI MAMMOGRAM SCREENING TOMOSYNTHESIS BILATERAL Routine 06/19/2024 2:05 PM EST DIABETES EYE EXAM Routine 09/06/2023 ALBUMIN, RANDOM URINE W/CREATININE Routine 08/19/2023 8:25 AM EDT Type 2 diabetes mellitus without complication, without long-term current use of insulin ([facility]) HPV MRNA E6/E7 REFLEX TO HPV 16, 18/45 Routine 06/10/2023 1:06 PM EST HM COLONOSCOPY Routine 01/11/2019 from Last 3 Months or Most Recently Relevant to Health Maintenance Results * Hold Green Gel (01/31/2025 11:45 AM EDT) Hold Green Gel See Note [facility] Comment:Specimen held untest ed for 24 hours; Call to requestChemistry testing. 01/31/2025 11:4 5 AM EDT 01/31/2025 1:49 PM EDT us Saman Doe MD HISTORICAL/NON ORDERABLE LABS Fi nal Result Performing Organization Address [facility]/ZIP Co de Phone Number [facility] [address] [place] [phone] * (ABNORMAL) TSH W/Reflex to FT4 (01/31/2025 11:45 AM EDT) Pathologist [facility] TSH reflex Free T4 0.10(L) 0.32 - 4.0 uIU/mL [facility] Blood Venous blood specimen / Unknown 01/31/2025 11:45 AM EDT 01/31/2025 1:04 PM EDT us Saman Doe MD LAB BLOOD ORDERABLES Final Resul t Performing Organization Address [facility] de Phone Number [facility] [address] [place] [phone] * (ABNORMAL) CBC auto differential (01/31/2025 11:45 AM EDT) [facility] White Blood Count 14.0(H) 4.8 - 10.8 X10*3/uL [facility] Red Blood Count 4.35 4.20 - 5.50 X10*6/uL [facility] Hemoglobin 11.1(L) 12.0 - 16.0 g/dl [facility] Hematocrit 35.7(L) 37.0 - 47.0 % [facility] Mean Corpuscular Volume 82.1 80.0 - 98.0 fL [facility] Mean Corpuscular Hemoglobin 25.5(L) 27.0 - 33.0 pg [facility] Mean Corpuscular HGB Conc 31.1 31.0 - 35.0 g/dl [facility] Red Cell Distribution Width 16.2(H) 11.0 - 16.0 % [facility] Platelet Count 349 160 - 400 X10*3/uL [facility] Mean Platelet Volume 10.8 9.4 - 12.3 fL [facility] Neutrophils Percent Auto 72.7 45 - 73 % [facility] Imm Gran Pct Auto 0.9(H) 0.0 - 0.4 % [facility] Lymphocytes Percent Auto 17.5(L) 20 - 40 % [facility] Monocytes Percent Auto 8.1 2 - 11 % [facility] Eosinophils Percent Auto 0.4 0 - 4 % [facility] Basophils Percent Auto 0.4 0 - 2 % [facility] NRBC Pct Auto 0.0 0.0 - 0.2 /100WBC [facility] Neutrophils Absolute Auto 10.2(H) 2.0 - 8.3 x10*3/uL [facility] Imm Gran Abs Auto 0.12(H) 0.00 - 0.03 X10*3/uL [facility] Lymphocytes Absolute Auto 2.5 1.2 - 4.9 X10*3/uL [facility] Monocytes Absolute Auto 1.1 0.1 - 1.2 X10*3/uL [facility] Eosinophils Absolute Auto 0.1 0.0 - 0.4 X10*3/uL [facility] Basophils Absolute Auto 0.1 0.0 - 0.2 X10*3/uL [facility] NRBC Abs Auto 0.000 0.0 - 0.012 X10*3/uL [facility] 01/31/2025 11:4 5 AM EDT 01/31/2025 1:04 PM EDT us Generic External Data Provider LAB BLOOD ORDERAB LES Final Result [facility] [address] [place] [phone] * (ABNORMAL) TSH (01/31/2025 11:45 AM EDT) Thyroid Stimulating Hormone 0.11(L) 0.32 - 4.0 uIU/mL [facility] Comment:TSH 3rd Generation ( [facility]) 01/31/2025 11:4 5 AM EDT 01/31/2025 1:04 PM EDT us Generic External Data Provider LAB BLOOD ORDERAB LES Final Result Performing Organization Address [facility]/ZIP Co de Phone Number [facility] [address] [place] [phone] * T4, Free (01/31/2025 11:45 AM EDT) Free T4 (Free Thyroxine) 1.42 0.71 - 1.85 ng/dL [facility] 01/31/2025 11:4 5 AM EDT 01/31/2025 1:04 PM EDT us Saman Doe MD LAB BLOOD ORDERABLES Final Resul t Performing Organization Address [facility]/ZIP Co de Phone Number [facility] [address] [place] [phone] * (ABNORMAL) Comprehensive Metabolic Panel (01/31/2025 11:45 AM EDT) Pathologist [facility] Sodium 138 135 - 145 mmol/L [facility] Potassium 3.8 3.3 - 5.1 mmol/L [facility] Chloride 101 96 - 108 mmol/L [facility] Carbon Dioxide 29 22 - 29 mmol/L [facility] Anion Gap 12 12 - 20 [facility] Urea Nitrogen (BUN) 20(H) 9 - 16 mg/dL [facility] Creatinine, Serum 1.02 0.5 - 1.4 mg/dL [facility] Estimated Glomerular Filt Rate 57 [facility] Comment:Chronic Kidney Disea se: Estimated GFR < 60 mL/min/1.04u9Bojxmr Kidney Disease: Estimated GFR < 15 mL/min/1.73m2 Glucose 116(H) 60 - 115 mg/dL [facility] Calcium 9.3 8.4 - 10.2 mg/dL [facility] Bilirubin, Total 0.2 0.0 - 1.0 mg/dL [facility] Aspartate Amino Transferase 15 5 - 31 U/L [facility] Alanine Aminotransferase 19 0 - 31 U/L [facility] Total Protein 6.9 6.5 - 8.0 g/dL [facility] Albumin Level 4.5 3.5 - 5.0 g/dL [facility] Alkaline Phosphatase 104 39 - 117 U/L [facility] 01/31/2025 11:4 5 AM EDT 01/31/2025 1:04 PM EDT us Generic External Data Provider LAB BLOOD ORDERAB LES Final Result Performing Organization Address City/State/[facility] Co de Phone Number [facility] [address] [place] [phone] * XR Lumbar Spine Complete 4+ Views (01/26/2025 12:40 PM EDT) Anatomical Region Laterality Modality Spine, L-spine Radiographic Shawna ging 01/26/2025 12:4 0 PM EDT Narrative 01/26/2025 1:40 PM EDT [address] [address] XRay Report Signed Patient: Yaniv Epstein MR#: [id number] : 1970 Acct:[id number] Age/Sex: 54 / F ADM Date: 01/26/25 [facility]: Saman Doe MD Ordering Physician: Saman Doe MD Date of Service: 01/26/25 Procedure(s): XR lumbar spine 4V min Accession Number(s): [id number] cc: Saman Doe MD EXAMINATION: XR LUMBOSACRAL [...] 01/26/25 1337 DD/ 1240 TD/TT: 01/26/25 1330 Regional Training Manager: Procedure Note Donotuseinterpreter, Image - 01/26/2025 [place] [address] XRay Report Signed Patient: Yaniv EpsteinMR#: [id number] : 1970Acct:[id number] Age/Sex: 54 / FADM Date: 01/26/25 Loc: [facility] Attending Dr: Saman Doe MD Ordering Physician: Saman Doe MD Date of Service: 01/26/25 Procedure(s): XR lumbar spine 4V min Accession Number(s): [id number] cc: Saman Doe MD EXAMINATION: XR LUMBOSACRAL [...] 01/26/25 1337 DD/ 1240 TD/TT: 01/26/25 1330 Regional Training Manager: us Saman Doe MD IMG XR PROCEDURES Final Result * [...] 10:57 AM EDT) Triglycerides 210(H) <150 mg/dL [facility] Comment:Desirable Triglyceri de: less than 150 mg/dLBorderline High Triglyceride 150-199 mg/dLHigh Triglyceride: 200-499 mg/dLVery High Triglyceride: greater than or equal to 5OO mg/dL Cholesterol 204(H) <200 mg/dL [facility] Comment:Desirable Cholestero l: less than 200 mg/dLBorderline High Cholesterol: 200-239 mg/dLHigh Cholesterol: greater than 239 mg/dL LDL Cholesterol Calculated 119(H) <100 mg/dL [facility] Comment:Desirable LDL: less than 100 mg/dLNear Optimal/Above Optimal LDL: 110- 129 mg/dLBorderline High LDL: 130-159 mg/dLHigh LDL: 160-189 mg/dLVery High LDL: greater than or equal to 190 mg/dL HDL Cholesterol 43 >40 mg/dL [facility] Comment:Desirable HDL: great er than 40 mg/dL Note: This HDL assay may give artificially low results in patients with liver disease. Blood Venous blood specimen / Unknown 08/24/2024 10:57 AM EDT 08/24/2024 1:06 PM EDT us Saman Doe MD LAB BLOOD ORDERABLES Final Resul t [facility] [address] [place] [phone] * Pap Smear (06/20/2024 12:00 AM EST) Swab Vaginal structure / Unknown 06/20/2024 06/21/2024 6:20 AM EST Narrative [facility] - 07/03/2024 3:04 PM EST ----- ------- Name: EzraamericaYaniv trinh Age/Sex: 53/F : 1970 Unit#: [id number] Attend Dr: ANDREW VILLAREAL [facility] Re06/20/24 Status: DEP [facility]F [facility] Disch: ----- ------- SPEC : [id number] RECD: 06/21/24 STATUS: SWETA [place] NUM: [id number] SIMONE: 06/20/24-[address] [facility] [address]: ANDREW VILLAREAL CNM ENTERED: 06/21/24 SP [...] 1504 ----- ------- END OF REPORT Andrew JAIME LAB CYTOLOGY ORDERABLES F inal Result [facility] [address] [place] [address] [phone] * BI Mammogram Screening Tomosynthesis Bilateral (06/19/2024 2:05 PM EST) Anatomical Region Laterality Modality Breast Bilateral Mammography 06/19/2024 2:05 PM EST Narrative 06/27/2024 4:59 PM EST [facility] [address] [place], [place] [address] Mammography Report Signed Patient: Yaniv Epstein MR#: [id number] : 1970 Acct:[id number] Age/Sex: 53 / F ADM Date: 06/19/24 Loc: HO.MAMMO Attending Dr: Saman Doe MD Ordering Physician: Saman Doe MD Results: 1Negative Date of Service: 06/19/24 Follow Up: 1 Year From Orig inal Mammogram Procedure(s): MM tomosynthesis screening BI Accession Number(s): [id number] cc: Saman Doe MD EXAMINATION: MM SCREENING [...] by Marce Stafford DO in OV> 06/27/24 9695 DD/ 1405 TD/TT: 06/19/24 1425 Regional Training Manager: Procedure Note Donotuseinterpreter, Image - 06/27/2024 [facility] [address] [place], [place] [address] Mammography Report Signed Patient: Myron Epstein#: [id number] : 1970Acct:[id number] Age/Sex: 53 / FADM Date: 06/19/24 Loc: HO.MAMMO Attending Dr: Saman Doe MD Ordering Physician: Saman Doe MDResults: 1Negative Date of Service: 06/19/24Follow Up: 1 Year From Orig inal Mammogram Procedure(s): MM tomosynthesis screening BI Accession Number(s): [id number] cc: Saman Doe MD EXAMINATION: MM SCREENING [...] 06/27/24 1655 DD/ 1405 TD/TT: 06/19/24 1425 Regional Training Manager: us Saman Doe MD IMG BI PROCEDURES Final Result * Hm Diabetes Eye Exam (09/06/2023) Eye Exam Normal Normal us Saman Doe MD HEALTH MAINTENANCE Final Result * Albumin, Random Urine W/Creatinine (08/19/2023 8:25 AM EDT) Creatinine, Urine 289.33 mg/dL [facility] Microalbumin Urine 26.0 mg/L [facility] Microalbum Creatinine Ratio Ur 8.9 <30 ug/mg cr [facility] Comment:Albumin/Creatinine R atio Reference Ranges: Normal: < 30 ug/mg creatinine Microalbuminuria: 30 - 300 ug/mg creatinineClinical Albuminuria: > 300 ug/mg creatinine Urine (Urine, Random) 08/19/2023 8:25 AM EDT 08/19/2023 11:27 AM EDT us Saman Doe MD LAB URINE ORDERABLES Final Resul t [facility] [address] [place] [address] [phone] * HPV mRNA E6/E7 w/Reflex to HPV Genotypes 16, 18/45 (06/10/2023 1:06 PM EST) HPV nRNA E6/E7 Not Detected Not Detected [facility] Comment:Methodology: Transcr iption-Mediated AmplificationThis assay detects E6/E7 viral messenger RNA (mRNA) from 14high-risk HPV types (16,18,31,33,35,39,45,51,52,56,58,59,66,68).Cervical sources are required for HPV testing.If a vaginal source from a patient who has had atotal hysterectomy with removal of cervix wassubmitted, please contact the testing laboratoryfor alternative testing options.For additional information, please refer [email or web address](This link if provided for information/educational purposes only.)THIS TEST WAS PERFORMED AT:[facility] [place] [phone] CORDERO MD HPV mRNA E6/E7 TNP [facility] HPV 16 RNA [facility] HPV 18/45 RNA [facility] 06/10/2023 1:06 PM EST 06/11/2023 9:30 AM EST Andrew Villareal CN LAB CYTOLOGY ORDERABLES F inal Result [facility] [address] [place] [phone] * (ABNORMAL) Colonoscopy (01/11/2019) Colonoscopy Abnormal(A ) Normal us Saman Doe MD HEALTH MAINTENANCE Final Result from Last 3 Months or Most Recently Relevant to Health Maintenance Insurance [facility] < [address] [place] [id number] Care Teams Marine Welder Relationship Specialty Start Date End Date Name, MD Saman [address] [place] [phone] PCP - General Family Medicine 08/13/15
--- OUTSIDE RECORDS SUMMARY | 2025-03-08 16:09 | XMS_ITS | Encounter Summary ---
Author Organization [employer] Address [address] [facility] 7t [place] [address] Care Team Providers Care Injection Mold Technician Name Role Phone Name, Saman HOOK Primary Care Provider [phone] Encounter Details Date Type Department Care Team ([facility] st Contact Info) Description 08/17/2022 Orders Only [facility] CHC MED & PEDS [address] [place] [address] Charla Yusuf LPN Social History Tobacco Use [...] documented as of this encounter Care Teams Injection Mold Technician Relationship Specialty Start Date End Date Name, MD Saman [address] [place] [address] PCP - General Family Medicine 08/13/15 documented as of this encounter
--- OUTSIDE RECORDS SUMMARY | 2025-03-08 16:09 | XMS_ITS | Encounter Summary ---
Author Organization [employer] Address [address] [facility] 7t [place] [address] Care Team Providers Care Weed Science Research Technician Name Role Phone Name, Saman HOOK Primary Care Provider [phone] Encounter Details Date Type Department Care Team ([facility] st Contact Info) Description 08/05/2022 Orders Only [facility] MEDICINE [address] [place] [address] Ellie Nagy LPN Social History Tobacco Use [...] documented as of this encounter Care Teams Weed Science Research Technician Relationship Specialty Start Date End Date Name, MD Saman [address] [place] [address] PCP - General Family Medicine 08/13/15 documented as of this encounter
--- OUTSIDE RECORDS SUMMARY | 2025-03-08 16:09 | XMS_ITS | Encounter Summary ---
Author Organization [employer] Address [address] [facility] 7t [place] [address] Care Team Providers Care Supervisor Sewing Department Name Role Phone Name, Saman HOOK Primary Care Provider Reason for Visit * Reason Comments Med Refill Encounter Details Date Type Department Care Team ([facility] Contact Info) Description 12/02/2023 Refill [facility] MEDICINE [address] [place], [place] [phone] Tabitha Goodman NP [address] [place], [place] [phone] Chronic pain syndrome Social History Tobacco Use [...] documented as of this encounter Care Teams Supervisor Sewing Department Relationship Specialty Start Date End Date Name, MD Saman [address] [place] [address] PCP - General Family Medicine 08/13/15 documented as of this encounter
--- OUTSIDE RECORDS SUMMARY | 2025-03-08 16:09 | XMS_ITS | Encounter Summary ---
Author Organization [facility] Address [address] [facility] [address] [place] [address] Phone Care Team Providers Care Program Administrator Name Role Phone Name, Saman HOOK Primary Care Provider [phone] Encounter Details Date Type Department Care Team ([facility] Contact Info) Description 03/31/2022 Telephone [facility] [address] [facility] [address] [place] [address] Lewis Kennedy MD [address] [facility] [address] [place] [phone] Social History Tobacco Use Types Packs/Day Years [...] of that. Please call her back at [phone] Thank you documented in this encounter Plan of Treatment Upcoming Encounters Date Type Department Care Team ([facility] Contact Info) Description 02/13/2026 1:15 PM EDT Office Visit [facility] [address] [address] Charla Arciniega ARNP [address] [address] documented as of this encounter Visit Diagnoses Not on filedocumented in this encounter Care Teams Program Administrator Relationship Specialty Start Date End Date Name, MD Saman [address] [place] [address] PCP - General 06/17/20 documented as of this encounter
--- OUTSIDE RECORDS SUMMARY | 2025-03-08 16:09 | XMS_ITS | Encounter Summary ---
Author Organization [employer] Address [address] [facility] 7t [place] [address] Care Team Providers Care Security Operations Engineer Name Role Phone Name, Saman HOOK Primary Care Provider [phone] Reason for Visit * Reason Comments Med Refill Encounter Details Date Type Department Care Team ([facility] st Contact Info) Description 04/14/2023 Refill [facility] MEDICINE [address] [place], [place] [phone] Name, MD Saman [address] [place], [place] [phone] Chronic pain syndrome Social History Tobacco Use [...] documented as of this encounter Care Teams Security Operations Engineer Relationship Specialty Start Date End Date Name, MD Saman [address] [place] [address] PCP - General Family Medicine 08/13/15 documented as of this encounter
--- OUTSIDE RECORDS SUMMARY | 2025-03-08 16:09 | XMS_ITS | Encounter Summary ---
Author Organization [employer] Address [address] [facility] 7t [place] [address] Care Team Providers Care Sugar Plantation Manager Name Role Phone Name, Saman HOOK Primary Care Provider [phone] Reason for Visit * Reason Onset Date Comments triage 08/06/2022 Encounter Details Date Type Department Care Team ([facility] st Contact Info) Description 08/06/2022 Telephone [facility] MEDICINE [address] [place], [place] [phone] Name, MD Saman [address] [place], [place] [phone] triage Social History Tobacco Use Types Packs/Day [...] EST Triage call returned to patient via [employer] [id number]. Patient reports that she is feeling tired [...] worse The caller accepted this outcome speaks pashto documented in this encounter Plan of Treatment Not on file documented as of this encounter Visit Diagnoses Not on filedocumented in this encounter Additional Health Concerns Assessment Noted Time PHQ-9 Depression Total Score: 0 07/03/19 23 10:55 AM EST documented as of this encounter Care Teams Sugar Plantation Manager Relationship Specialty Start Date End Date Name, MD Saman [address] [place] [address] PCP - General Family Medicine 08/13/15 documented as of this encounter
--- OUTSIDE RECORDS SUMMARY | 2025-03-08 16:09 | XMS_ITS | Encounter Summary ---
Author Organization [employer] Address [address] [facility] 7t [place] [address] Care Team Providers Care Clinical Program Manager Name Role Phone NameaSman MD Primary Care Provider [phone] Reason for Visit * Reason Comments Med Refill Encounter Details Date Type Department Care Team ([facility] st Contact Info) Description 02/10/2023 Refill [facility] MEDICINE [address] [place], [place] [phone] Saman Doe MD [address] [place] [address] Social History Tobacco Use Types Packs/Day Years [...] documented as of this encounter Care Teams Clinical Program Manager Relationship Specialty Start Date End Date NameSaman MD [address] [place] [address] PCP - General Family Medicine 08/13/15 documented as of this encounter
--- OUTSIDE RECORDS SUMMARY | 2025-03-08 16:09 | XMS_ITS | Encounter Summary ---
Author Organization [employer] Address 75 [facility] 7t [place] [address] Care Team Providers Care Hot Mill Tin Roller Name Role Phone Name, Saman HOOK Primary Care Provider [phone] Encounter Details Date Type Department Care Team ([facility] Contact Info) Description 10/16/2022 Orders Only [facility] CHC MED & PEDS [address] [place], [place] [phone] Charla Yusuf LPN Social History Tobacco Use [...] PM EDT Narrative 10/22/2022 11:24 AM EDT [facility] [address] [place], [place] [address] Mammography Report Signed Patient: Yaniv Kearns MR#: [id number] : 1970 Acct:[id number] Age/Sex: 52 / F ADM Date: 10/20/22 Loc: HO.MAMMO Attending Dr: Saman Doe MD Ordering Physician: Saman Doe MD Results: 0Incomplet e: Needs Additional Imaging Evaluation Date of Service: 10/20/22 Follow Up: Additional Imagi ng Procedure(s): MM tomosynthesis screening BI Accession Number(s): [id number] cc: Name,Saman HOOK EXAMINATION: MM SCREENING DIGITAL [...] in OV> 10/22/22 1122 DD/ 1400 TD/TT: Recreation Therapy Aides Teacher: KULKARNI Procedure Note Donotuseinterpreter, Image - 12/03/2022 [facility] [address] [place], [place] [address] Mammography Report Signed Patient: Yaniv KearnsMR#: [id number] : 1970Acct:[id number] Age/Sex: 52 / FADM Date: 10/20/22 Loc: HO.MAMMO Attending Dr: Saman Doe MD Ordering Physician: Saman Doe MDResults: 0Incomplet e: Needs Additional Imaging Evaluation Date of Service: 10/20/22Follow Up: Additional Imagi ng Procedure(s): MM tomosynthesis screening BI Accession Number(s): [id number] cc: Saman Doe MD EXAMINATION: MM SCREENING [...] in OV> 10/22/22 1122 DD/ 1400 TD/TT: Recreation Therapy Aides Teacher: CAYLA [facility] External Provider IMG BI PROCEDURES Final Result documented in this encounter Visit Diagnoses Not on filedocumented in this encounter Additional Health Concerns Assessment Noted Time PHQ-9 Depression Total Score: 0 07/03/19 10:55 AM EST documented as of this encounter Care Teams Hot Mill Tin Roller Relationship Specialty Start Date End Date Name, MD Saman [address] [place] [address] PCP - General Family Medicine 08/13/15 documented as of this encounter
--- OUTSIDE RECORDS SUMMARY | 2025-03-08 16:09 | XMS_ITS | Encounter Summary ---
Author Organization [employer] Address [address] [facility] 7t [place] [address] Care Team Providers Care Millstone Cleaner Name Role Phone Name, Saman HOOK Primary Care Provider [phone] Encounter Details Date Type Department Care Team ([facility] Contact Info) Description 12/15/2022 Telephone [facility] MEDICINE [address] [place], [place] [phone] Name, MD Saman [address] [place] [address] Social History Tobacco Use Types Packs/Day Years [...] documented as of this encounter Care Teams Millstone Cleaner Relationship Specialty Start Date End Date Name, MD Saman [address] [place] [address] PCP - General Family Medicine 08/13/15 documented as of this encounter
--- OUTSIDE RECORDS SUMMARY | 2025-03-08 16:09 | XMS_ITS | Encounter Summary ---
Author Organization [employer] Address [address] [facility] 7t [place] [address] Care Team Providers Care Seo Marketing Specialist Name Role Phone Name, Saman HOOK Primary Care Provider [phone] Reason for Visit * Reason Comments Med Refill Encounter Details Date Type Department Care Team ([facility] st Contact Info) Description 02/10/2023 Refill [facility] MEDICINE [address] [place] [address] Marisel Baxter MD [address] [place] [address] Social History Tobacco Use Types Packs/Day Years [...] documented as of this encounter Care Teams Seo Marketing Specialist Relationship Specialty Start Date End Date Name, MD Saman [address] [place] [address] PCP - General Family Medicine 08/13/15 documented as of this encounter
== END 2025-03-08 15:46 | disposition home or self-care (01) ==
LOC: HO.HGI 14:34
PROVIDERS: PCP Internal Medicine Geriatric Medicine; Visit Provider Nurse Practitioner
DX: K30 Functional dyspepsia (principal)
CPT/HCPCS: 99213

== ENCOUNTER → 2025-03-08 14:33 | Outpatient (BNVA) | payer OTHER, SELFPAY | PROVIDERS: PCP Internal Medicine Geriatric Medicine; Visit Provider Nurse Practitioner | DX: K30 Functional dyspepsia (principal) | CPT/HCPCS: 99212 ==

== ENCOUNTER → 2025-03-22 10:54 | Outpatient (BNVA) | payer OTHER, SELFPAY | PROVIDERS: PCP Internal Medicine Geriatric Medicine; Visit Provider Surgery | DX: M70.62 Trochanteric bursitis, left hip (principal) | CPT/HCPCS: 99212 ==

== ENCOUNTER 2025-03-22 11:49 | Outpatient (AMB) | payer OTHER, SELFPAY ==
--- NOTE | 2025-03-22 12:13 | MHC.OFFVIS ---
Vital Signs 03/22/25 12:14 Height 5 ft 2 in Weight 215 lb BMI 39.3 BP 120/56 L Blood Pressure Location Lt brachial Position Sitting Respiration 18 Pulse 109 H Pulse Source Pulse Oximeter Pulse Oximetry (%) 96 Oxygen Delivery Method Room Air Intake Visit Reasons: SCIATICA OF LEFT SIDE Cyber Security Architect Required: No Accompanied by: Self / Same As Patient Allergies oxycodone (From PERCOCET) Allergy (Intermediate, Verified 03/22/25 12:13) ITCHY tramadol (TRAMADOL) Allergy (Unknown, Verified 03/22/25 12:13) ITCHING HPI Comments Details: The patient is a 54-year-old female presenting with left hip pain radiating down lateral thigh to the knee. The pain began approximately two months ago without any preceding trauma or injury. Initially, the pain was localized to the low back and buttock area before radiating to the lateral left hip. The patient describes the pain as exacerbated by walking and relieved temporarily by Tordol injections and steroid dose pack. She reports no associated numbness, tingling, or weakness in the leg. Physical therapy has not provided significant relief. The patient has been using ibuprofen, Tylenol, heat, and ice for pain management. An x-ray was performed, which did not reveal any significant abnormalities. The patient is scheduled for general surgery to remove a cyst on buttock 03/26/25. - Onset: Approximately two months ago - Location: Initially low back and buttock, now primarily lateral left hip - Radiation: From lateral left hip down thigh to the knee - Exacerbating factors: Walking - Relieving factors: Tordol injections, ibuprofen, Tylenol, heat, ice - Affect: Not discussed - Analgesia: Tordol injections provided short-term relief; ibuprofen and Tylenol used regularly - Adverse Effects: Not discussed - Activities of Daily Living: Pain exacerbated by walking - Aberrant Drug Related Behaviors: None reported [facility] Medical History (Updated 03/22/25 @ 13:01 by Ally Whitten APRN, INFORMATION COORDINATOR) Cyst of buttocks Epidermal cyst Irritable bowel syndrome with constipation Postprandial epigastric pain LLQ abdominal pain Diverticulitis Muscle spasm Preprocedural examination LGSIL Pap smear of vagina Diabetes type 2, controlled Hx LEEP (loop electrosurgical excision procedure), cervix, Morbid obesity Kidney stones Calcific tendinitis of both shoulders Fibromyalgia Hypothyroidism Umbilical hernia Morbid obesity Surgical History H/O: hysterectomy Status post carpal tunnel release of both wrists S/P laparoscopic sleeve gastrectomy LAP-BAND surgery status S/P panniculectomy Hx of cystoscopy History of esophagogastroduodenoscopy (EGD) Hx of colonoscopy Family History Father Diabetes COPD (chronic obstructive pulmonary disease) Heart problem Mother Thyroid condition Diabetes Paternal Aunt Cancer of kidney Social History Household Members: None Housing: Apartment Alcohol intake: never Patient Tobacco Use Status: Never used Tobacco Current occupational status: disabled Sexual orientation: Straight/Heterosexual Gender identity: Female Review of Systems Const Details: - Musculoskeletal: Reports lateral left hip pain, denies numbness, tingling, or weakness in the leg Physical Exam Exam Exam: General: awake, alert, oriented. Answers questions appropriately. Fully engaged in examination. Skin: warm, dry, intact HEENT: Normocephalic. Hearing intact. Cardiac: External chest normal in appearance. Respiratory: No cough, audible wheezing or stridor. Abdomen: without gross distension. MS: Tenderness noted over the greater trochanteric bursa on palpation No pain elicited with internal/external rotation left hip Nontender over midline lumber vertebrae and paraspinal muscles Nontender over PSIS SLR neg bilaterally Neurological: Oriented to person, place, time and situation. Thought process intact. No gait abnormalities appreciated. Psychiatric: Appropriate mood and affect. Good judgment and insight. Vital Signs: Last Vital Signs Pulse 109 H 03/22/25 12:14 Resp 18 03/22/25 12:14 BP 120/56 L 03/22/25 12:14 Pulse Ox 96 03/22/25 12:14 Oxygen Delivery Method Room Air 03/22/25 12:14 BMI result Body Mass Index 39.3 Results Reviewed Results Reviewed: 01/26/25 XR LS FINDINGS: No acute cortical disruption or malalignment. Anterior marginal osteophyte formation and endplate sclerosis decreased intervertebral disc height and vacuum phenomenon and subchondral cyst formation at T12-L1 and to a lesser extent T11-12. No lytic or blastic lesions. Metallic coils overlapping the peripheral aspect of the sacrum likely in the abdominal wall. Vascular clips right upper quadrant abdomen. IMPRESSION: Spondylosis pronounced at T12-L1 and to a lesser extent T11-12. Assessment & Plan Assessment & Plan (1) Greater trochanteric bursitis of left hip: Code(s): M70.62 - Trochanteric bursitis, left hip Category: Medical Plan The plan includes scheduling the patient for a steroid injection in the left hip bursa to alleviate pain associated with greater trochanteric bursitis. The patient is advised to consult with the general surgeon regarding the timing of the injection post-surgery to avoid any potential complications with healing. The patient will continue using ibuprofen, Tylenol, heat, and ice for pain management until the injection can be administered. She was advised to call the office to schedule Left GTB injection to be performed in the office once cleared by surgeon. Patient was informed and verbally consented to the use of an ambient scribe for clinic note documentation during this visit. Patient Instructions: - Schedule a steroid injection for the left hip bursa after consulting with your surgeon. - Continue using ibuprofen, Tylenol, heat, and ice for pain relief. - Contact our office once you have consulted with your surgeon to schedule the injection. Coding Level of Care Code Est Pt Level 3 (03453) Complex EM visit Add On G2211 Diagnoses Greater trochanteric bursitis of left hip M70.62
[2025-03-22 12:14] VITALS: BP 120/56; PULSE 109; RESP 18; O2SAT 96; BMI 39.3
--- OUTSIDE RECORDS SUMMARY | 2025-03-22 15:06 | XMS_ITS | Data Portability ---
Author Organization [facility], [facility] Address [address] [place] [address] Care Team Providers Care Accounting Recruiter Name Role Phone HIM CCA OTHER NAME, HAROON Primary Care Provider [phone] Assessment Encounter Date Assessment Date Assessment LastModified by Organization Details LastModified Time 01/07/2025 01/07/2025 I have reviewed and agree with the assessment and plan as documented by the adult daycare coordinator. I provided real-time medical direction for this encounter and was immediately available to provide additional phone-based assistance as needed. HPI: 54F presenting with lower back pain radiating down left leg. No recent trauma or injury. On celebrex, last dose last evening. No renal issues. O/E: Vitals at baseline. Pt ambulatory, no limitations. Exam otherwise unremarkable per the adult daycare coordinator Impression/Plan: Suspect sciatica, will proceed with toradol. Pt also using Tylenol PRN. We discussed the diagnostic uncertainty of home visits and the risk associated with this. In this case, the patient and I felt this to be an acceptable and reasonable amount of risk given the benefit of avoiding an ED visit. We discussed the need to seek care urgently/emergen tly in the setting of any new or worsening serious symptoms, particularly weakness, dizziness, fever, chills, CP, SOB, worsening diarrhea, nausea, vomiting or any other concerns. paysola Not available 01/07/2025 14:31:39 01/24/2025 01/24/2025 As noted, we were called to see this patient regarding concerns of pain. Evaluation in the field was performed by my adult daycare coordinator colleague, as noted above, I provided real-time direction and supervision for this visit. The evaluation revealed 54y F with chronic hip, back and leg pain with recent exacerbation. She sees her PCP in 2 days and has f/u w a specialist within the next month. She had ketorolac 15mg from our service in early January with some relief and requests again. No AC, no GIB, no renal issues. Will admin 15mg and reaffirm goal of f/u w PCP. Impression: chronic pain Plan: ketorolac 15mg IM Primary care, consider f/u as scheduled in 2 days Disposition: We discussed the diagnostic uncertainty of home visits and the risk associated with this. In this case, the patient and I felt this to be an acceptable and reasonable amount of risk given the benefit of avoiding an ED visit. We discussed the need to seek care urgently/emergen tly in the setting of any new or worsening serious symptoms, particularly worsening pain, falls, confusion, change in stool, vomiting, weakness, numbness atilhou Not available 01/24/2025 18:32:57 03/19/2025 03/19/2025 As noted, we were called to see this patient regarding concerns of left sided sciatica. Evaluation in the field was performed by my adult daycare coordinator colleague, as noted above, I provided real-time direction and supervision for this visit. The evaluation revealed The patient is a 54 year old female with a past medical history of Chronic Obstructive Pulmonary Disease (COPD), Diabetes Mellitus Type 2, Hypertension Who presents with pain to the left hip that radiates down the left thigh. This will be going on for two months. Patient is going to physical therapy. Period. She's been taking Motrin. And other medicines to help with their pain. It's not helping her pain today. The patient would like some Toradol to help with her pain. She's had this in the past. She's not having any fevers or chills or any red flags for an acute neurosurgical emergency like an epidural Abscess. There are no concerning findings on neurologic exam. She's afebrile also. We will give her an IM dose of Toradol to help with her pain. Impression: acute on chronic left sided sciatica pain Plan: toradol 30 mg im Primary care, consider ___ Disposition: stay at home We discussed the diagnostic uncertainty of home visits and the risk associated with this. In this case, the patient and I felt this to be an acceptable and reasonable amount of risk given the benefit of avoiding an ED visit. We discussed the need to seek care urgently/emergen tly in the setting of any new or worsening serious symptoms, particularly Chest pain, shortness of breath, fever, chills, generalized weakness, dizziness., and abdominal pain. Not available 03/19/2025 21:44:35 Plan of Treatment Reminders Order Date Submit Date Provider Last Modified By Organization Details Last Modified Time Details Appointments None recorded. Lab None recorded. Referral None recorded. Procedures None recorded. Surgeries None recorded. Imaging None recorded. Medication Orders ketorolac 30 mg/mL injection solution 2024 025 [email or web address] [id number], [address] [place], [address], 21:42:52 ketorolac 30 mg/mL injection solution 2024 [facility]25 [id number] [address] [place], [address], 18:32:58 ketorolac 30 mg/mL injection solution 2024 025 paysola Not available 12:16:06 Patient TargetsNo targets recorded. Patient InstructionsNo instructions recorded. Reason for Referral None Reported. Medical Equipment None Reported. Allergies Allergen ID Allergen Name Allergen Category Reaction Reaction Severity Criticality Documentation Date Start Date Code Code System Note Provider Name and Address Organization Details Recorded Time 36380 tramadol medicatio n Not available Not available Not available 01/06/2025 95654 RxNorm Not Available [facility] - production 19:04:40 68030 oxycodone medicatio n Not available Not available Not available 01/06/2025 7804 RxNorm Not Available [facility] 19:04:40 Medications Name Sig Start Date Stop Date Status Note LastModified by Organization Details LastModified Time losartan 50 mg tablet TAKE 1 TABLET BY MOUTH IN THE MORNING active Not Available Not Available No t Available celecoxib 200 mg capsule TAKE 1 CAPSULE BY MOUTH two (2) times a day active Not Available Not Available No t Available levothyroxi ne 137 mcg tablet TAKE 1 TABLET BY MOUTH ONCE DAILY BEFORE BREAKFAST active Not Available Not Available No t Available clonidine HCl 0.1 mg tablet TAKE 1 TO 2 TABLETS BY MOUTH EVERY NIGHT AT BEDTIME active Not Available Not Available No t Available cetirizine 10 mg tablet TAKE 1 TABLET BY MOUTH ONCE DAILY IN THE MORNING active Not Available Not Available No t Available prednisone 20 mg tablet TAKE 2 TABLETS BY MOUTH ONCE DAILY FOR 5 DAYS active Not Available Not Available No t Available clonazepam 1 mg tablet TAKE 1 TABLET BY MOUTH two (2) times a day NEEDED active Not Available Not Available No t Available sumatriptan 50 mg tablet TAKE 1 TABLET BY MOUTH ONCE NEEDED for migraine UP TO 1 X. MAY REPEAT ONCE IN 2 HOUR NEEDED . not to exceed 2 X IN 24 HOUR active Not Available Not Available No t Available cyanocobala min (vit B-12) 1,000 mcg tablet TAKE 2 TABLETS BY MOUTH ONCE DAILY active Not Available Not Available No t Available acetaminoph en 300 mg-codeine 30 mg tablet TAKE 1 TABLET BY MOUTH THREE TIMES DAILY IN THE MORNING, AT NOON, AND AT BEDTIME NEEDED FOR SEVERE PAIN FOR 7 DAYS active Not Available Not Available No t Available methocarbam ol 750 mg tablet TAKE 1 TABLET BY MOUTH 3 (THREE) TIMES A DAY active Not Available Not Available No t Available trazodone 100 mg tablet TAKE 2 TABLETS BY MOUTH ONCE DAILY AT BEDTIME NEEDED active Not Available Not Available No t Available amitriptyli ne 10 mg tablet TAKE 1 TABLET BY MOUTH ONCE DAILY AT BEDTIME active Not Available Not Available No t Available potassium citrate ER 10 mEq (1,080 mg) tablet,exte nded release TAKE 1 TABLET BY MOUTH IN THE MORNING, 1 TAB AT NOON, AND 1 TAB IN THE EVENING. TAKE WITH A MEAL active Not Available Not Available No t Available pantoprazol e 40 mg tablet,vicente yed release TAKE 1 TABLET BY MOUTH two (2) times a day active Not Available Not Available No t Available montelukast 10 mg tablet TAKE 1 TABLET BY MOUTH EVERY EVENING active Not Available Not Available No t Available pravastatin 20 mg tablet TAKE 1 TABLET BY MOUTH ONCE DAILY active Not Available Not Available No t Available albuterol sulfate HFA 90 mcg/actuati on aerosol inhaler INHALE 2 PUFF BY MOUTH EVERY 4 TO 6 HOURS NEEDED active Not Available Not Available No t Available colchicine 0.6 mg tablet TAKE 2 TABLETS BY MOUTH ONCE FOR 1 DAY, THEN TAKE 1 TABLET TWICE DAILY FOR 3 DAYS active Not Available Not Available No t Available ondansetron 4 mg disintegrat ing tablet DISSOLVE 1 TAB UNDER THE TONGUE EVERY 8 HOURS active Not Available Not Available No t Available fluticasone propionate 50 mcg/actuati on nasal spray,suspe nsion SPRAY ONCE IN EACH NOSTRIL two (2) times a day NEEDED active Not Available Not Available No t Available amoxicillin 875 mg-potassiu m clavulanate 125 mg tablet TOME 1 TABLETA POR V A ORAL DOS VECES AL D A POR 7 D 01/06 completed Not Available Not Available Not Available hydroxyzine pamoate 25 mg capsule TAKE 1 TO 2 CAPSULES BY MOUTH ONCE DAILY NEEDED active Not Available Not Available No t Available eletriptan 40 mg tablet TAKE 1 TABLET BY MOUTH NEEDED . MAY REPEAT AFTER 2 HOURS. not to exceed 2 X IN 24 HOUR active Not Available Not Available No t Available duloxetine 60 mg capsule,del ayed release TAKE 2 CAPSULES BY MOUTH ONCE DAILY active Not Available Not Available No t Available pregabalin 150 mg capsule TAKE 1 CAPSULE BY MOUTH 3 (THREE) TIMES A DAY active Not Available Not Available No t Available atomoxetine 80 mg capsule TAKE 1 CAPSULE BY MOUTH ONCE DAILY active Not Available Not Available No t Available FreeStyle Lite Strips USE TO TEST FINGER STICK BLOOD SUGAR ONCE DAILY active Not Available Not Available No t Available estradiol 10 mcg vaginal tablet INSERT 1 TABLETS VAGINALLY EVERY WEDNESDAY AND WEDNESDAY active Not Available Not Available No t Available Vitamin D3 50 mcg (2,000 unit) capsule TAKE 1 CAPSULE BY MOUTH ONCE DAILY active Not Available Not Available No t Available dicyclomine 10 mg/5 mL oral solution TAKE 20mls BY MOUTH 4 (FOUR) TIMES DAILY active Not Available Not Available No t Available True Comfort Lancet 30 gauge USE TO TEST FINGER STICK BLOOD SUGAR ONCE DAILY active Not Available Not Available No t Available Ozempic 1 mg/dose (4 mg/3 mL) subcutaneou s pen injector INJECT 1 MG SUBCUTANE OUSLY ONCE PER WEEK active Not Available Not Available No t Available Ozempic 2 mg/dose (8 mg/3 mL) subcutaneou s pen injector Inject 2 MG SUBCUTANE OUSLY EVERY 7 DAYS IN THE ABDOMEN, THIGHS OR UPPER ARM. ROTATE INJECTION SITES. active Not Available Not Available No t Available Mounjaro 5 mg/0.5 mL subcutaneou s pen injector INJECT ONE PEN (=5MG) SUBCUTANE OUSLY ONCE A WEEK DIRECTED active Not Available Not Available No t Available Vitals Date Recorded Body temperature Heart rate Oxygen saturation Oxygen saturation in Arterial blood by Pulse oximetry Respiratory rate Systolic And Diastolic Provider Name and Address Organization Details Last Updated DateTime 97.3 [degF] 90 /min 98 % 98 % 16 /min 122/79 mm[Hg] Not Available [facility] 12:13:51 Date Recorded Body temperature Oxygen saturation Oxygen saturation in Arterial blood by Pulse oximetry Body weight Respiratory rate Body height Heart rate Systolic And Diastolic Provider Name and Address Organization Details Last Updated DateTime 98 [degF] 97 % 97 % 48227.6 g 14 /min 157.48 cm 72 /min 138/80 mm[Hg] Not Available [facility] 18:27:33 Date Recorded Body height Provider Name an d Address Organization Details Last Updated DateTime 03/19/2025 157.48 cm ALEJANDRA SAMANIEGO MD [address] [place] [address],[address], [place], [address] 03/19/2025 21:41:00 Social History None recorded. Functional Status None recorded. Mental Status None recorded. Family History Nothing Reported. Medical History No medical history recorded. Gynecological HistoryNo gynecological history recorded. Obstetrics History GPAL:G 0 P 0 0 0 0 Past Encounters Encounter ID Performer Location Encounter Start Date Encounter Closed Date Diagnosis/Indication Diagnosis SNOMED-CT Code Diagnosis ICD10 Code Diagnosis IMO Codes Diagnosis Note [id number] Yessenia Bolaños MD [address] [address] 01/07/2025 12:13:47 01/08/2025 09:50:04 Acute back pain with sciatica 052847626 M54.40 [id number] Moni Boykin MD [address] [address] 01/24/2025 18:27:30 01/24/2025 21:49:06 Pain of hip region 80539515 M25.551 M25.552 G89.29 [id number] Chronic low back pain 27 5969170 M54.42 M54.41 G89.29 [id number] ALEJANDRA SAMANIEGO MD [facility] [address] [place] [address] 03/19/2025 21:40:43 03/20/2025 11:06:20 Disorder of left sciatic nerve [id number] 86696 M54.32 [id number] Health Concerns Section Related Observation LastModified by Organization Detai ls LastModified Time None Recorded Concern Status LastModified by Organization Details LastModified Time None Recorded Advance Directives Directive None Recorded Payers Insurance Date Sequence Insurance Name Policy Number Policy Brown Covered Member ID Brown Member ID Guarantor Name 03/19/2025 1 [facility] - DOS ON OR AFTER 2022 - DUAL ELIGIBLE - [facility] [employer] AND [employer] (MEDICARE REPLACEMENT/AD VANTAGE - HMO) Yaniv Epstein [id number] Yaniv Epstein Notes Date Note Type Note Provider Name and Address Organization Details Recorded Time 01/07/2025 text/html CRC Nurse Triage Notes (Alisha Garsia): Denies: Zhu Flash, circumferential zhu Zhu reported with black tissue to the area Open skin area after a fall with uncontrolled bleeding Abscess/infection with streaking noted, presence of fever or without Chief Complaints: Back Pain PMH: Fibromyalgia, Hypertension, Diabetes Mellitus Type 2, Depression, Anxiety Disorder, Kidney Stones, Post-Traumatic Stress Disorder (PTSD), Hypothyroidism PMH Reviewed at 01/06/2025 - 19:04 Allergies Reviewed at 01/06/2025 - :04 Comments: 54 y.o female complains of Back Pain Referral taken via Behavioral Therapy Coordinator. Patient with lower back pain for about a week, goes to her gluts and hips. Denies history of sciatica, no falls, trauma or strenuous activity. She is unable to sit straight up, or it the pain shoots like lightening. Denies any numbness or tingling down her legs, no loss of bowel or bladder. She has taken APAP, IBU, is on lyrica and celebrex, heat and ice with no relief.. She would like to be evaluated. 01/07 9p- out reach to patient as we cannot accommodate a visit this evening, she is agreeable to a visit tomorrow 01/07- AC I provided information on the mobile health provider response time and advised the patient and/or caregiver to monitor reported signs and symptoms. I discussed the warning signs of when to seek emergency care. ..................... ..................... ..................... ..................... ..................... ..................... ............... Handtools Repairer Note From Forrest Akers: This 54-year-old female with a history including but not limited to fibromyalgia, HTN, DM type II, anxiety/depression, kidney stones, PTSD, hypothyroidism quested a visit today to address one week of left lower back pain that radiates down her left leg. Patient denies any known history of sciatica and denies any injuries or unusually strenuous activity. Patient had similar pain m any years ago. Patient takes Celebrex 200 mg BID, last dose was yesterday evening and has been taking Tylenol Q8H. Allergy to tramadol and oxycodone. Patient presents awake and alert, in no acute distress and speaking full sentences. Her vital signs are reasonably stable and she is afebrile. Nonfocal [...] and reasonable amount of risk given the benefit of avoiding an ED visit. I recommend she follow up with her PCP tomorrow to discuss the need for physical therapy. I instructed her hold her morning dose of Celebrex, resume tonight; continue Tylenol Q8H and present to the emergency department for any new or worsening severe symptoms such as black/bloody stools or emesis, focal weakness, loss of bowel or bladder function, high fever, altered mental status. The patient was given the opportunity to ask questions and is agreeable to this plan. [facility] Medication Orders: ketorolac 30 mg/mL injection solution: Administered ..................... ..................... ..................... ..................... ..................... ..................... ............... [facility] Consulted: Yessenia Bolaños ..................... ..................... ..................... ..................... ..................... ..................... ............... Disposition: Theron Bolaños MD [address] [place] [address],[address], [place], [address], [facility] 01/07/2025 14:31:52 01/24/2025 text/html CRC Nurse Triage Notes (Mignon Quinn): Reason For Request: Patient has leg pain and hip pain. Denies: Zhu Flash, circumferential zhu Zhu reported with black tissue to the area Open skin area after a fall with uncontrolled bleeding Abscess/infection with streaking noted, presence of fever or without History of cellulitis, isolated redness noted Fever and chills noted in setting of wound Rash Bites -bugs, spider Abscess Chief Complaints: Extremity Pain PMH: Fibromyalgia, Hypertension, Diabetes Mellitus Type 2, Depression, Anxiety Disorder, Kidney Stones, Post-Traumatic Stress Disorder (PTSD), Hypothyroidism PMH Reviewed at 01/24/2025:44 Allergies Reviewed at 01/24/2025:44 Pain Assessment: Level 10 out of 10 Comments: 54 y.o female complains of Extremity Pain Pt is having leg and hip pain, left leg, She has not had any falls or injuries. She has had the pain for month. She has an appt on Wednesday with her pcp . She denies any pain or swelling just pain when she walks. she has no arthritis or gout. She has a pain level of 10 when she walks. She has taken lyrica , tylenol and it has not helped She has no blood thinners or CKD I provided information on the mobile health provider response time and advised the patient and/or caregiver to monitor reported signs and symptoms. I discussed the warning signs of when to seek emergency care. ..................... ..................... ..................... ..................... ..................... ..................... ............... Handtools Repairer Note From Jose M Bajwa: No complaints are on phonic pain, bilateral and left leg pain. Patient reports she has appointment with TC in two days, just needs to get through. Patient denies recent injury or any other pain or complaint. Patient reports mobility is decrease due to pain on walking. Patient denies fever, chills, numbness, tingling, or any other pain. Patient pink warm dry good CSM s in all negative increase worker breathing positive full sentences extremities unremarkable no edema noted. Medication administered as ordered without complication using five rights. Red flags patient education discussed. Patient demonstrates understanding of care and plan. [facility] Medication Orders: ketorolac 30 mg/mL injection solution: Administered Comment: 15mg IM ..................... ..................... ..................... ..................... ..................... ..................... ............... [facility] Consulted: Moni Boykin ..................... ..................... ..................... ..................... ..................... ..................... ............... Disposition: Fulfilled Moni Boykin MD [address] [place] [address],[address] [facility], [place], [address] 01/24/2025 19:46:39 03/19/2025 text/html ROS as noted in the [facility] CRC Nurse Triage Notes (Wu Miller): Reason For Request: leg pain Denies: Zhu Flash, circumferential zhu Zhu reported with black tissue to the area Open skin area after a fall with uncontrolled bleeding Abscess/infection with streaking noted, presence of fever or without Chief Complaints: Extremity Pain PMH: Fibromyalgia, Hypertension, Diabetes Mellitus Type 2, Depression, Anxiety Disorder, Kidney Stones, Post-Traumatic Stress Disorder (PTSD), Hypothyroidism PMH Reviewed at 03/19/2025 - : Allergies Reviewed at 03/19/2025 - : Comments: 54 y.o female complains of Extremity Pain Patient Greek speaking primarily, general manager in training# [id number] used for triage assessment. Patient calling reporting terrible pain in my thigh . Patient states pain starts in her L hip and travels down into her L thigh. Patient states pain started two months ago and she currently goes to physical therapy. Patient reports pain is worse tonight and it is causing her to have difficulty walking. Patient reports she has tried heating pads, Tylenol, Ibuprofen, and Lyrica with no relief in pain. Patient denies any new injury to the area. Patient denies any new numbness, tingling, or loss of bladder or bowel control. Patient denies any fever or chills. I provided information on the mobile health provider response time and advised the patient and/or caregiver to monitor reported signs and symptoms. I discussed the warning signs of when to seek emergency care -Kiara Miller RN ..................... ..................... ..................... ..................... ..................... ..................... ............... Handtools Repairer Note From Casey Polk: SC08 dispatched to the address listed above for the report of a female constitution party with extremity pain. Arrival on scene, patient was found inside apartment seated on couch, alert and oriented x4, patent airway, breathing non labored speaking in complete sentences, skin WPD in no obvious distress. +/= Chest rise. -SOB, -CP, -NVD, -Trauma, -Fever. GCS 15. Patient reports that she has been experiencing ongoing left thigh pain x2 months in which she actively sees a physical therapist for and has been referred to a auto painter. Patient reports that the pain is worse than normal tonight. Patient reports pain on inner and outer left thigh that radiates up to her left hip, patient reports pain upon palpation, weight bearing, and extension of her leg. Patient denies any new numbness, tingling, swelling, or discoloration, CSM intact to the left leg. Patient denies any chest pain, shortness of breath, NVD, hx of blood clots, hx of blood thinners, recent trauma, or fever/chills. Patient reports she has taken 1000mg Tylenol 8 hours ago, 400mg Ibuprofen 6 hours ago along with her Lyrica without any relief. Patient vital signs obtained as noted. [facility] consulted, provided orders for 30mg Toradol IM injection. Patient opted for injection in glute. 30mg Toradol IM administered in left glute without incident, six patient rights verified. Red flags discussed with patient, advised to call 911 if her condition worsens. SC08 Clear. [facility] Medication Orders: ketorolac 30 mg/mL injection solution: Administered ..................... ..................... ..................... ..................... ..................... ..................... ............... [facility] Consulted: Alejandra Samaniego ..................... ..................... ..................... ..................... ..................... ..................... ............... Disposition: Fulfilled ALEJANDRA SAMANIEGO MD [address] [facility],[address], [place], [address], [facility] 03/19/2025 22:18:41 OBGyn Episode No OBEpisode recorded.
== END 2025-03-22 12:14 | disposition home or self-care (01) ==
LOC: HO.PMC 11:50
PROVIDERS: PCP Internal Medicine Geriatric Medicine; Visit Provider Registered Nurse Emergency
DX: M70.62 Trochanteric bursitis, left hip (principal)
CPT/HCPCS: 99213; G2211

== ENCOUNTER 2025-04-26 11:03 | Outpatient (REF) | payer OTHER, SELFPAY ==
--- OUTSIDE RECORDS SUMMARY | 2025-04-26 17:57 | XMS_ITS | Data Portability ---
Author Organization setObject, [facility] Address [address] [place] [address] Care Team Providers Care Personal Secretary Name Role Phone HIM CCA OTHER NAME, HAROON Primary Care Provider [phone] Assessment Encounter Date Assessment Date Assessment LastModified by Organization Details LastModified Time 01/07/2025 01/07/2025 I have reviewed and agree with the assessment and plan as documented by the head of loss prevention. I provided real-time medical direction for this encounter and was immediately available to provide additional phone-based assistance as needed. HPI: 54F presenting with lower back pain radiating down left leg. No recent trauma or injury. On celebrex, last dose last evening. No renal issues. O/E: Vitals at baseline. Pt ambulatory, no limitations. Exam otherwise unremarkable per the head of loss prevention Impression/Plan: Suspect sciatica, will proceed with toradol. [...] in the field was performed by my head of loss prevention colleague, as noted above, I provided real-time [...] in the field was performed by my head of loss prevention colleague, as noted above, I provided real-time [...] [id number] [address] [place], [address], 21:42:52 ketorolac 30 mg/mL injection solution 2024 [id number] [address] [place], [address], 18:32:58 ketorolac 30 mg/mL injection solution 2024 025 paysola Not available 12:16:06 Patient TargetsNo targets recorded. Patient InstructionsNo instructions recorded. Reason for Referral None Reported. Medical Equipment None Reported. Allergies Allergen ID Allergen Name Allergen Category Reaction Reaction Severity Criticality Documentation Date Start Date Code Code System Note Provider Name and Address Organization Details Recorded Time 93523 tramadol medicatio n Not available Not available Not available 01/06/2025 70076 RxNorm Not Available [facility] - production 19:04:40 34294 oxycodone medicatio n Not available Not available [...] Recorded Body temperature Heart rate Oxygen saturation Respiratory rate Systolic And Diastolic Provider Name and Address Organization Details Last Updated DateTime 97.3 [degF] 90 /min 98 % 16 /min 122/79 mm[Hg] Not Available [facility] - production 12:13:51 Date Recorded Body temperature Oxygen saturation Body weight Respiratory rate Body height Heart rate Systolic And Diastolic Provider Name and Address Organization Details Last Updated DateTime 98 [degF] 97 % 51413.6 g 14 /min 157.48 cm 72 /min 138/80 mm[Hg] Not Available [facility] - production 18:27:33 Date Recorded Body height Provider Name an d Address Organization Details Last Updated DateTime 03/19/2025 157.48 cm ALEJANDRA SAMANIEGO MD [address] [place] [address],[address], [place], [address] 03/19/2025 21:41:00 Social History None recorded. Functional Status None recorded. Mental Status None recorded. Family History Nothing Reported. Medical History No medical history recorded. Gynecological HistoryNo gynecological history recorded. Obstetrics History GPAL:G 0 P 0 0 0 0 Past Encounters Encounter ID Performer Location Encounter Start Date Encounter Closed Date Diagnosis/Indication Diagnosis SNOMED-CT Code Diagnosis ICD10 Code Diagnosis IMO Codes Diagnosis Note [id number] Yessenia Bolaños MD [facility] [address] [address] 01/07/2025 12:13:47 01/08/2025 09:50:04 Acute back pain with sciatica 294799814 M54.40 [id number] Moni Boykin MD [facility] [address] [address] 01/24/2025 18:27:30 01/24/2025 21:49:06 Pain of hip region 02658082 M25.551 M25.552 G89.29 [id number] Chronic low back pain 27 4830777 M54.42 M54.41 G89.29 [id number] ALEJANDRA SAMANIEGO MD [facility] [address] [address] 03/19/2025 21:40:43 03/20/2025 11:06:20 Disorder of left sciatic nerve [id number] 34166 M54.32 [id number] Health Concerns Section Related Observation LastModified by Organization Detlarissa ls LastModified Time None Recorded Concern Status LastModified by Organization Details LastModified Time None Recorded Advance Directives Directive None Recorded Payers Insurance Date Sequence Insurance Name Policy Number Policy Brown Covered Member ID Brown Member ID Guarantor Name 03/19/2025 1 [facility] - DOS ON OR AFTER 2022 - DUAL ELIGIBLE - PENITENTIARY OPTIONS AND ONE CARE (MEDICARE REPLACEMENT/AD VANTAGE - HMO) Yaniv Epstein [id number] Yaniv Epstein Notes Date Note Type Note [...] (PTSD), Hypothyroidism PMH Reviewed at 01/06/2025 - : Allergies Reviewed at 01/06/2025 - : Comments: 54 y.o female complains of Back Pain Referral taken via Assisted Living Nursing Director. Patient with lower back pain for about [...] ..................... ..................... ..................... ..................... ..................... ..................... ............... Pace Analyst Note From Forrest Akers: This 54-year-old female [...] questions and is agreeable to this plan. [facility] Medication Orders: ketorolac 30 mg/mL injection solution: Administered ..................... ..................... ..................... ..................... ..................... ..................... ............... [facility] Consulted: Yessenia Bolaños ..................... ..................... ..................... ..................... ..................... ..................... ............... Disposition: Theron Bolaños MD [address] [place] [address],[address], [place], [address], [facility] 01/07/2025 14:31:52 01/24/2025 text/html CRC Nurse Triage [...] ..................... ..................... ..................... ..................... ..................... ..................... ............... Pace Analyst Note From Jose M Bajwa: No complaints [...] Patient demonstrates understanding of care and plan. [facility] Medication Orders: ketorolac 30 mg/mL injection solution: Administered Comment: 15mg IM ..................... ..................... ..................... ..................... ..................... ..................... ............... [facility] Consulted: Moni Boykin ..................... ..................... ..................... ..................... ..................... ..................... ............... Disposition: Fulfilled Moni Boykin MD [address] [place] [address],[address], [place], [address], [facility] 01/24/2025 19:46:39 03/19/2025 text/html ROS as noted in the [facility] CRC Nurse Triage Notes (Wu Miller): Reason [...] y.o female complains of Extremity Pain Patient [place] speaking primarily, case mgr# [id number] used for triage assessment. Patient calling reporting [...] ..................... ..................... ..................... ..................... ..................... ..................... ............... Pace Analyst Note From Casey Polk: SC08 dispatched to the address listed above for the report of a female libertarian with extremity pain. Arrival on scene, patient [...] for and has been referred to a shipyard painter. Patient reports that the pain is [...] relief. Patient vital signs obtained as noted. [facility] consulted, provided orders for 30mg Toradol IM injection. Patient opted for injection in glute. 30mg Toradol IM administered in left glute without incident, six patient rights verified. Red flags discussed with patient, advised to call 911 if her condition worsens. SC08 Clear. [facility] Medication Orders: ketorolac 30 mg/mL injection solution: Administered ..................... ..................... ..................... ..................... ..................... ..................... ............... [facility] Consulted: Alejandra Samaniego ..................... ..................... ..................... ..................... ..................... ..................... ............... Disposition: Fulfilled ALEJANDRA SAMANIEGO MD [address] [facility],[address], [place], [address], [facility] 03/19/2025 22:18:41 OBGyn Episode No OBEpisode recorded.
--- OUTSIDE RECORDS SUMMARY | 2025-04-26 17:58 | XMS_ITS | Continuity of Care Document ---
Author Organization [employer], [facility] Address [address] [place] [address] Care Team Providers Care Lithostripper Name Role Phone HIM CCA OTHER NAME, HAROON Primary Care Provider Assessment Encounter Date Assessment Date Assessment LastModified by Organization Details LastModified Time 01/24/2025 01/24/2025 As noted, we were called to see this patient regarding concerns of pain. Evaluation in the field was performed by my veneer redrier colleague, as noted above, I provided real-time [...] We discussed the need to seek care urgently/emerge ntly in the setting of any new or worsening serious symptoms, particularly worsening pain, falls, confusion, change in stool, vomiting, weakness, numbness atilhou Not available 01/24/2025 18:32:57 Plan of Treatment Reminders Order Date Submit Date Provider Last Modified By Organization Details Last Modified Time Details Appointments None recorded. Lab None recorded. Referral None recorded. Procedures None recorded. Surgeries None recorded. Imaging None recorded. Medication Orders ketorolac 30 mg/mL injection solution 2024 025 atilhou [id number], [address] [facility] [place], [address], 18:32:58 Patient TargetsNo targets recorded. Patient InstructionsNo instructions recorded. Reason for Referral None Reported. Medical Equipment None Reported. Allergies Allergen ID Allergen Name Allergen Category Reaction Reaction Severity Criticality Documentation Date Start Date Code Code System Note Provider Name and Address Organization Details Recorded Time 36580 tramadol medicatio n Not available Not available Not available 01/06/2025 41868 RxNorm Not Available [facility] - production 19:04:40 17257 oxycodone medicatio n Not available Not available Not available 01/06/2025 7804 RxNorm Not Available [facility] - production 19:04:40 Medications Name Sig Start [...] t Available Vitals Date Recorded Body temperature Oxygen saturation Body weight Respiratory rate Body height Heart rate Systolic And Diastolic Provider Name and Address Organization Details Last Updated DateTime 5 98 [degF] 97 % 58393.6 g 14 /min 157.48 cm 72 /min 138/80 mm[Hg] Not Available [facility] - production 5 18:27:33 Social History None recorded. Functional Status None recorded. Mental Status None recorded. Family History Nothing Reported. Medical History No medical history recorded. Gynecological HistoryNo gynecological history recorded. Obstetrics History GPAL:G 0 P 0 0 0 0 Past Encounters Encounter ID Performer Location Encounter Start Date Encounter Closed Date Diagnosis/Indication Diagnosis SNOMED-CT Code Diagnosis ICD10 Code Diagnosis IMO Codes Diagnosis Note [id number] Yessenia Bolaños MD [facility] [address] [place] [address] 01/07/2025 12:13:47 01/08/2025 09:50:04 Acute back pain with sciatica 187669040 M54.40 [id number] Moni Boykin MD [facility] [address] [address] 01/24/2025 18:27:30 01/24/2025 21:49:06 Pain of hip region 88691877 M25.551 M25.552 G89.29 [id number] Chronic low back pain 27 8668101 M54.42 M54.41 G89.29 [id number] Health Concerns Section Related Observation LastModified by Organization Detai ls LastModified Time None Recorded Concern Status LastModified by Organization Details LastModified Time None Recorded Payers Encounter Date Sequence Insurance Name Policy Number Policy Brown Covered Member ID Brown Member ID Guarantor Name 01/24/2025 1 [facility] - DOS ON OR AFTER 2022 - DUAL ELIGIBLE - LONGTERM OPTIONS AND ONE CARE (MEDICARE REPLACEMENT/AD VANTAGE - HMO) Yaniv Epstein [id number] Yaniv Epstein Notes Date Note Type Note Provider Name and Address Organization Details Recorded Time 01/24/2025 text/html CRC Nurse Triage Notes (Mignon [...] Stress Disorder (PTSD), Hypothyroidism PMH Reviewed at 01/24/2025 - : Allergies Reviewed at 01/24/2025 - 17:44 Pain Assessment: Level 10 out of 10 [...] ..................... ..................... ..................... ..................... ..................... ..................... ............... Geophysical Laboratory Supervisor Note From Jose M Bajwa: No complaints [...] Patient demonstrates understanding of care and plan. [facility] Medication Orders: ketorolac 30 mg/mL injection solution: Administered Comment: 15mg IM ..................... ..................... ..................... ..................... ..................... ..................... ............... [facility] Consulted: Moni Boykin ..................... ..................... ..................... ..................... ..................... ..................... ............... Disposition: Fulfilled Moni Boykin MD [address] [facility],[address] [facility], [place], [address], KARLY BARNETT 01/24/2025 19:46:39 OBGyn Episode No OBEpisode recorded.
--- OUTSIDE RECORDS SUMMARY | 2025-04-26 17:58 | XMS_ITS | Data Portability ---
Author Organization [place] [facility] Address [address] [place] [address] Care Team Providers Care Mechanical Engineering Officer Name Role Phone NAME, HAROON OTHER Assessment Encounter Date Assessment Date Assessment LastModified [...] mcg/actua tion nasal spray,virgil pension 2018 [place]FACE [place], [place] - [phone], [address] [place], [address], 9 10:42:14 Mucinex 1,200 mg tablet, extended release 2018 [place], [place] - [phone], [address], [place], [address], 9 10:42:29 Patient TargetsNo targets recorded. Patient Instructions Encounter Date Encounter Id Patient Instructions Last Modified By Organization Details Last Modified Time 04/05/2019 [id number] Saline nasal spray, warm salt water gargles [...] Name and Address Organization Details Recorded Time 38949 acetamino phen / oxycodone medicatio n Not available Not available Not available 04/05/2019 57488 3 RxNorm [facility] [address] [place], [address], [place] [facility] 9 10:31:11 88702 tramadol medicatio n Not available Not available Not available 04/05/2019 27838 RxNorm [facility] [address] [place], [address], [place] [facility] 9 [...] Relief 50 mcg/actuatio n nasal spray,suspen kris Buda 1 spray twice a day by intranasal route. 2018 active Not Available Not Available Not Avai lable Vitals Date Recorded Heart rate Oxygen saturation Respiratory rate Body temperature Systolic And Diastolic Provider Name and Address Organization Details Last Updated DateTime 9 110 /min 95 % 12 /min 99.5 [degF] 108/70 mm[Hg] Not Available [facility] 9 10:28:09 Social History Question Answer Notes LastModified by Organizat Kuliza Details LastModified Time Tobacco Smoking Status Never Smoker [facility] [address], [place], [address], [place] [facility] 04/05/2019 10:32:28 Do You Have An Advance Directive? No Information not available 04/05/2019 What Is Your Code Status? Full Code Information not available 04/05/2019 Drugs Abused 0 Information not available 04/05/2019 How Many Days In The Past Year Have You Had A Heavy Drinking Consumption (4+ Female, 5+ Male)? 0 Information not available 04/05/2019 Marital Status Single Informatio n not available 04/05/2019 What Was The Date Of Your Most Recent Tobacco Screening? 04/05/2019 Information not available 04/05/2019 Sex: Unknown Functional Status Question Answer Note LastModified by Organizat ion Details LastModified Time Do you or have you ever used smokeless tobacco? Never used smokeless tobacco Information not available 04/05/2019 Do you or have you ever used e-cigarettes or vape? Never used electronic cigarettes Information not available 04/05/2019 Mental Status None recorded. Family History Relationship [...] ICD10 Code Diagnosis IMO Codes Diagnosis Note [id number] [facility] [address] [place] [address] 04/05/2019 10:11:14 04/05/2019 15:30:22 Acute rhinosinusitis 422829112 J00 Asthma 726665740 J45.90 9 Health Concerns Section Related Observation LastModified by Organization Detai ls LastModified Time None Recorded Concern Status LastModified by Organization Details LastModified Time None Recorded Advance Directives Directive N: Payers Insurance Date Sequence Insurance Name Policy Number Policy Brown Covered Member ID Brown Member ID Guarantor Name 04/05/2019 1 *SELF PAY* Yaniv Canseco [id number] Yaniv Munguia 04/05/2019 1 MEDICARE B-MO: [facility] [employer] Yaniv Munguia Romelia [id number] Yaniv Munguia Notes Date Note Type [...] for relief. [facility] [address], [place], [address], [place] [facility] 04/05/2019 11:34:02 OBGyn Episode No OBEpisode recorded.
--- OUTSIDE RECORDS SUMMARY | 2025-04-26 17:58 | XMS_ITS | Continuity of Care Document ---
Author Organization [employer] [facility], [facility] Address [address] [place] [address] Care Team Providers Care Medical Technical Writer Name Role Phone HIM CCA OTHER NAME, HAROON Primary Care Provider [phone] Assessment Encounter Date Assessment Date Assessment LastModified by Organization Details LastModified Time 03/19/2025 03/19/2025 As noted, we were called to see this patient regarding concerns of left sided sciatica. Evaluation in the field was performed by my lead burner helper colleague, as noted above, I provided real-time [...] mg/mL injection solution 2024 025 [email or web address] [id number], [address] [facility] [place], [address], 21:42:52 Patient TargetsNo targets recorded. Patient InstructionsNo instructions recorded. Reason for Referral None Reported. Medical Equipment None Reported. Allergies Allergen ID Allergen Name Allergen Category Reaction Reaction Severity Criticality Documentation Date Start Date Code Code System Note Provider Name and Address Organization Details Recorded Time 61918 tramadol medicatio n Not available Not available Not available 01/06/2025 17101 RxNorm Not Available [facility] - production 19:04:40 04447 oxycodone medicatio n Not available Not available [...] No t Available Vitals Date Recorded Body height Provider Name an d Address Organization Details Last Updated DateTime 03/19/2025 157.48 cm ALEJANDRA SAMANIEGO MD [address] [facility],[address] [facility], [place], [address], [place] [employer] 03/19/2025 21:41:00 Social History None recorded. Functional Status None recorded. Mental Status None recorded. Family History Nothing Reported. Medical History No medical history recorded. Gynecological HistoryNo gynecological history recorded. Obstetrics History GPAL:G 0 P 0 0 0 0 Past Encounters Encounter ID Performer Location Encounter Start Date Encounter Closed Date Diagnosis/Indication Diagnosis SNOMED-CT Code Diagnosis ICD10 Code Diagnosis IMO Codes Diagnosis Note [id number] ALEJANDRA [facility] [address] [place] [address] 03/19/2025 21:40:43 03/20/2025 11:06:20 Disorder of left sciatic nerve 4128276083 66028 M54.32 [id number] Health Concerns Section Related Observation LastModified by Organization Detai ls LastModified Time None Recorded Concern Status LastModified by Organization Details LastModified Time None Recorded Payers Encounter Date Sequence Insurance Name Policy Number Policy Brown Covered Member ID Brown Member ID Guarantor Name 03/19/2025 1 [facility] - DOS ON OR AFTER 2022 - DUAL ELIGIBLE - HALFWAY OPTIONS AND ONE CARE (MEDICARE REPLACEMENT/AD VANTAGE - HMO) Yaniv Epstein [id number] Yaniv Epstein Notes Date Note Type Note Provider Name and Address Organization Details Recorded Time 03/19/2025 text/html ROS as noted in the [facility] Nurse Triage Notes (Wu Miller): [...] - : Allergies Reviewed at 03/19/2025 - :07 Comments: 54 y.o female complains of Extremity Pain Patient Ugandan speaking primarily, paper and pulp mill operator# [id number] used for triage assessment. Patient calling reporting [...] ..................... ..................... ..................... ..................... ..................... ..................... ............... Consultant In Ergonomics And Safety Note From Casey Polk: SC08 dispatched to the address listed above for the report of a female alliance party with extremity pain. Arrival on scene, [...] for and has been referred to a paint mixer machine. Patient reports that the pain is worse [...] relief. Patient vital signs obtained as noted. [facility] [place], provided orders for 30mg Toradol IM injection. Patient opted for injection in glute. 30mg Toradol IM administered in left glute without incident, six patient rights verified. Red flags discussed with patient, advised to call 911 if her condition worsens. CA08 Clear. [facility] [place] Orders: ketorolac 30 mg/mL injection solution: Administered ..................... ..................... ..................... ..................... ..................... ..................... ............... [facility] [place] Consulted: Alejandra Samaniego ..................... ..................... ..................... ..................... ..................... ..................... ............... Disposition: Fulfilled ALEJANDRA SAMANIEGO MD [address] [facility],[address], [place], [address], [employer] 03/19/2025 22:18:41 OBGyn Episode No OBEpisode recorded.
== END 2025-04-26 11:04 | disposition home or self-care (01) ==
LOC: HO.LNP 11:03
PROVIDERS: PCP Internal Medicine Geriatric Medicine; Visit Provider Surgery
DX: L72.8 Other follicular cysts of the skin and subcutaneous tissue (principal)
CPT/HCPCS: 11403; 88304

== ENCOUNTER 2025-04-26 11:03 | Outpatient (AMB) | payer OTHER, SELFPAY ==
--- NOTE | 2025-04-26 11:11 | MHC.OFFVIS ---
Intake Visit Reasons: excision buttock cyst Intake Note: Office procedure: excision buttock cyst Network Security Administrator Required: Yes Network Security Administrator Services: Network Security Administrator Present Network Security Administrator Name: SaraiDorcas Information Interpreted: non-clinical & clinical Accompanied by: Self / Same As Patient Allergies oxycodone (From PERCOCET) Allergy (Intermediate, Verified 04/26/25 11:11) ITCHY tramadol (TRAMADOL) Allergy (Unknown, Verified 04/26/25 11:11) ITCHING HPI HPI excision buttock cyst: Details: She is here for excision of a left buttock cyst [facility] Medical History Cyst of buttocks Epidermal cyst Irritable bowel syndrome with constipation Postprandial epigastric pain LLQ abdominal pain Diverticulitis Muscle spasm Preprocedural examination LGSIL Pap smear of vagina Diabetes type 2, controlled Hx LEEP (loop electrosurgical excision procedure), cervix, Morbid obesity Kidney stones Calcific tendinitis of both shoulders Fibromyalgia Hypothyroidism Umbilical hernia Morbid obesity Surgical History H/O: hysterectomy Status post carpal tunnel release of both wrists S/P laparoscopic sleeve gastrectomy LAP-BAND surgery status S/P panniculectomy Hx of cystoscopy History of esophagogastroduodenoscopy (EGD) Hx of colonoscopy Family History Father Diabetes COPD (chronic obstructive pulmonary disease) Heart problem Mother Thyroid condition Diabetes Paternal Aunt Cancer of kidney Social History Household Members: None Housing: Apartment Alcohol intake: never Patient Tobacco Use Status: Never used Tobacco Current occupational status: disabled Sexual orientation: Straight/Heterosexual Gender identity: Female Office Procedures Excision Details: The area was prepped and draped. Lidocaine 1% was used for local anesthesia. I made an elliptical incision of the skin surrounding this cystic induration with a blade 15.. This was carried down through the full-thickness of the skin and subcutaneous fat to excise this entire anterior area. The excised area was about 2.6 cm in widest dimension. The incision was closed with full-thickness nylon 3-0 simple interrupted sutures. Dressings were applied. The procedure was completed. She tolerated procedure well. There were no immediate complications. 62396-lyggm/arms/legs 2.1-3cm Procedure code (CPT) selection complete Assessment & Plan Assessment & Plan (1) Cyst of buttocks: Code(s): L72.9 - Follicular cyst of the skin and subcutaneous tissue, unspecified Category: Medical Plan: Excision was done in the office. She was given wound care instructions. I will see her for removal sutures in about 2 weeks. Coding Level of Care Code Procedure Only Diagnoses Cyst of buttocks L72.9 CPT Codes Trunk/Arms/Legs - CPT: 73134-tvpwl/arms/legs 2.1-3cm ([id number])
== END 2025-04-26 11:39 | disposition home or self-care (01) ==
LOC: HO.HGS 11:04
PROVIDERS: PCP Internal Medicine Geriatric Medicine; Visit Provider Surgery
DX: L72.0 Epidermal cyst (principal)
CPT/HCPCS: 11403

== ENCOUNTER → 2025-05-15 13:58 | Outpatient (BNVA) | payer OTHER, SELFPAY | PROVIDERS: PCP Internal Medicine Geriatric Medicine; Visit Provider Surgery | DX: Z48.02 Encounter for removal of sutures (principal) | CPT/HCPCS: 99211 ==

== ENCOUNTER 2025-05-22 10:56 | Outpatient (AMB) | payer OTHER, SELFPAY ==
--- NOTE | 2025-05-22 11:08 | A.OFFVIS_ITS ---
Vital Signs 05/22/25 11:11 Height 5 ft 2 in Weight 213 lb 13.574 oz BMI 39.1 Intake Visit Reasons: wound check, continued discharge s/p suture remova Intake Note: Patient presents for wound check. Pt c/o; discharge, pain. Unclaimed Property Manager Required: Yes Unclaimed Property Manager Language: Ironworker Helper Shop Services: Unclaimed Property Manager Present Unclaimed Property Manager Name: Harshad Information Interpreted: non-clinical & clinical Accompanied by: Self / Same As Patient Allergies oxycodone (From PERCOCET) Allergy (Intermediate, Verified 05/22/25 11:11) ITCHY tramadol (TRAMADOL) Allergy (Unknown, Verified 05/22/25 11:11) ITCHING HPI HPI wound check, continued discharge s/p suture remova: Details: Patient having some pain and clear yellow discharge from excision site following suture removal. Denies fevers at home. [facility] Medical History Cyst of buttocks Epidermal cyst Irritable bowel syndrome with constipation Postprandial epigastric pain LLQ abdominal pain Diverticulitis Muscle spasm Preprocedural examination LGSIL Pap smear of vagina Diabetes type 2, controlled Hx LEEP (loop electrosurgical excision procedure), cervix, Morbid obesity Kidney stones Calcific tendinitis of both shoulders Fibromyalgia Hypothyroidism Umbilical hernia Morbid obesity Surgical History (Updated 05/28/25 @ 09:59 by Jesus Mcknight PA-C) History of removal of cyst (~04/26/25) H/O: hysterectomy Status post carpal tunnel release of both wrists S/P laparoscopic sleeve gastrectomy LAP-BAND surgery status S/P panniculectomy Hx of cystoscopy History of esophagogastroduodenoscopy (EGD) Hx of colonoscopy Family History Father Diabetes COPD (chronic obstructive pulmonary disease) Heart problem Mother Thyroid condition Diabetes Paternal Aunt Cancer of kidney Social History Household Members: None Housing: Apartment Alcohol intake: never Patient Tobacco Use Status: Never used Tobacco Current occupational status: disabled Sexual orientation: Straight/Heterosexual Gender identity: Female Physical Exam Vital Signs: BMI result Body Mass Index 39.1 Const General: comfortable and no acute distress Orientation/consciousness: patient oriented x3 Resp Effort & Inspection: normal respiratory effort and able to speak in complete sentences GI Other: small 0.5 cm area of granulation tissue at the excision site. tender to palpation. no cellulitic changes. Neuro General: patient oriented x3 Assessment & Plan Assessment & Plan (1) History of removal of cyst: Onset Date: ~04/26/25 Comment: office procedure: excision buttock cyst- Dr. Osmel HOOK FACS Code(s): Z98.890 - Other specified postprocedural states Category: Medical Plan 54-year-old female s/p excision of cyst on buttock with Dr. Bolivar on 04/26/2025, subsequently had sutures removed on 05/15 25 with our nurse Al. Path report showing benign ruptured epidermal cyst with fibrosis, inflammation with abscess, granulation tissue, and foreign body giant cell reaction to keratin debris. Patient reports pain and drainage from wound. She denies fevers. On exam there is a small 2 mm ulceration with granulation tissue in the centrum. There was no erythema, no palpable fluid collection, no active drainage. The dressings that were removed were dry. Likely delayed wound healing. But no evidence of infection at this time. I recommended she keep this area clean, can do warm compress 3 times a day. For now while there is some of the small drainage, she can keep this covered with a Band-Aid. Reassured her this should close over the next few weeks. If not improving patient can return with questions or concerns. We will see her about 2 weeks or sooner with any issues Coding Level of Care Code Est Pt Level 3 (10415) Diagnoses History of removal of cyst Z98.890
[2025-05-22 11:11] VITALS: BMI 39.1
== END 2025-05-22 11:10 | disposition home or self-care (01) ==
LOC: HO.HGS 10:56
PROVIDERS: PCP Internal Medicine Geriatric Medicine
DX: Z98.890 Other specified postprocedural states (principal)
CPT/HCPCS: 99213

== ENCOUNTER → 2025-05-22 10:56 | Outpatient (BNVA) | payer OTHER, SELFPAY | PROVIDERS: PCP Internal Medicine Geriatric Medicine | DX: Z98.890 Other specified postprocedural states (principal) | CPT/HCPCS: 99212 ==

== ENCOUNTER 2025-05-28 10:34 | Outpatient (AMB) | payer OTHER, SELFPAY ==
--- NOTE | 2025-05-28 11:05 | MHC.OFFVIS ---
Vital Signs 05/28/25 11:07 Height 5 ft 2 in Weight 214 lb BMI 39.1 BP 123/71 Blood Pressure Location Lt radial Position Sitting Respiration 17 Pulse 130 H Pulse Source Pulse Oximeter Pulse Oximetry (%) 95 Oxygen Delivery Method Room Air Intake Visit Reasons: Right GTB Injection Recycling Assistant Required: No Railroad Car Letterer: Railroad Car Letterer Present Accompanied by: Jose Smith Allergies oxycodone (From PERCOCET) Allergy (Intermediate, Verified 05/28/25 11:08) ITCHY tramadol (TRAMADOL) Allergy (Unknown, Verified 05/28/25 11:08) ITCHING Medication List - Last Reconciled 05/28/25 by Celia Montaño, DOMINGO albuterol sulfate 90 mcg/actuation 2 puffs inhalation Q4-6H PRN amitriptyline 25 mg PO BEDTIME cetirizine 10 mg PO DAILY cholecalciferol (vitamin D3) 50 mcg PO DAILY clonazepam (Klonopin) 1 mg PO BEDTIME clonidine HCl 0.1 mg PO BEDTIME cyanocobalamin (vitamin B-12) 1,000 mcg PO DAILY dicyclomine 40 mg (20 mL) PO QID duloxetine (Cymbalta) 60 mg PO DAILY fluticasone propionate 50 mcg/actuation 0 mcg intranasal BID PRN hydrocortisone 2.5% (Proctozone-HC) topical BID levothyroxine 137 mcg PO DAILY linaclotide (Linzess) 290 mcg PO QAM losartan 50 mg PO DAILY metoclopramide HCl (Reglan) 10 mg PO QIDACHS montelukast 10 mg PO QPM ondansetron 4 mg sublingual Q8H pantoprazole 40 mg PO BID potassium citrate ER 10 mEq PO BID pravastatin 20 mg PO DAILY pregabalin (Lyrica) 150 mg PO DAILY simethicone 180 mg PO QID tirzepatide (Mounjaro) mg subcut QWEEK trazodone 100 mg PO BEDTIME PRN HPI HPI Right GTB Injection: Details: History of Present Illness The patient is a 54 year old female presenting for a right greater trochanteric bursa injection. She reports this is the first time she has received this type of injection. She states she becomes nauseated with flu shots and expressed anxiety about the procedure being painful. Procedure - Procedure: Ultrasound-guided right greater trochanteric bursa injection. - Consent: Informed consent was obtained prior to the procedure. - Description: The patient was placed in the left lateral decubitus position. - The right greater trochanteric area was prepped with ChloraPrep. - A 21-gauge needle was advanced to the greater trochanteric bursa under ultrasound guidance. - A mixture of 30 mg of Kenalog and 0.25% ropivacaine 3 mL was injected without pain. - An image of the ultrasound-guided injection was saved. - Complications: None; the patient tolerated the procedure well. PFSH Medical History (Updated 05/28/25 @ 12:00 by Jason Damon MD) Cyst of buttocks Epidermal cyst Irritable bowel syndrome with constipation Postprandial epigastric pain LLQ abdominal pain Diverticulitis Muscle spasm Preprocedural examination LGSIL Pap smear of vagina Diabetes type 2, controlled Hx LEEP (loop electrosurgical excision procedure), cervix, Morbid obesity Kidney stones Calcific tendinitis of both shoulders Fibromyalgia Hypothyroidism Umbilical hernia Morbid obesity Surgical History (Updated 05/28/25 @ 09:59 by Jesus Mcknight PA-C) History of removal of cyst (~04/26/25) H/O: hysterectomy Status post carpal tunnel release of both wrists S/P laparoscopic sleeve gastrectomy LAP-BAND surgery status S/P panniculectomy Hx of cystoscopy History of esophagogastroduodenoscopy (EGD) Hx of colonoscopy Family History Father Diabetes COPD (chronic obstructive pulmonary disease) Heart problem Mother Thyroid condition Diabetes Paternal Aunt Cancer of kidney Social History Household Members: None Housing: Apartment Alcohol intake: never Patient Tobacco Use Status: Never used Tobacco Current occupational status: disabled Sexual orientation: Straight/Heterosexual Gender identity: Female Physical Exam Vital Signs: Last Vital Signs Pulse 130 H 05/28/25 11:07 Resp 17 05/28/25 11:07 BP 123/71 05/28/25 11:07 Pulse Ox 95 05/28/25 11:07 Oxygen Delivery Method Room Air 05/28/25 11:07 BMI result Body Mass Index 39.1 Assessment & Plan Assessment & Plan (1) Greater trochanteric bursitis of both hips: Code(s): M70.61 - Trochanteric bursitis, right hip; M70.62 - Trochanteric bursitis, left hip Category: Medical Plan Plan Patient was informed and verbally consented to the use of an ambient scribe for clinic note documentation during this visit. 1. Right Trochanteric Bursitis - An ultrasound-guided injection into the right greater trochanteric bursa was performed. - The patient tolerated the procedure well. - The patient will follow up for repeat injections as needed. Patient Instructions - You may return for another injection if your pain comes back. Coding Level of Care Code Procedure Only Diagnoses Greater trochanteric bursitis of both hips M70.61; M70.62
[2025-05-28 11:07] VITALS: BP 123/71; PULSE 130; RESP 17; O2SAT 95; BMI 39.1
--- OUTSIDE RECORDS SUMMARY | 2025-05-28 13:01 | XMS_ITS | Encounter Summary ---
Author Organization [employer] Address [address] [facility] 7[address] [place] [address] Care Team Providers Care Computer Methods Analyst Name Role Phone Name, Saman HOOK Primary Care Provider [phone] Reason for Visit * Reason Comments Med Refill Encounter Details Date Type Department Care Team ([facility] Contact Info) Description 02/10/2023 Refill [facility] [address] [place] [address] [phone] Name, MD Saman [address] [place] [phone] Social History Tobacco Use Types Packs/Day Years [...] Upcoming Encounters Date Type Department Care Team ([facility] Contact Info) Description 07/06/2025 2:45 PM EST Office Visit [facility] [address] [place] [address] [phone] Alida Vargas MD [address] [place] [address] [place] [address] documented as of this encounter Visit Diagnoses Not on filedocumented in this encounter Additional Health Concerns Assessment Noted Time PHQ-9 Depression Total Score: 0 07/03/19 23 10:55 AM EST documented as of this encounter Care Teams Computer Methods Analyst Relationship Specialty Start Date End Date Name, MD Saman [address] [place] [address] PCP - General Family Medicine 08/13/15 documented as of this encounter
--- OUTSIDE RECORDS SUMMARY | 2025-05-28 13:01 | XMS_ITS | Encounter Summary ---
Author Organization [employer] Address [address] [facility] [address] [place] [address] Care Team Providers Care Dewaterer Operator Name Role Phone Name, Saman HOOK Primary Care Provider [phone] Encounter Details Date Type Department Care Team ([facility] Contact Info) Description 02/26/2023 Orders Only [facility] & PEDS [address] [place], [place] [phone] Ellie Nagy LPN Social History Tobacco Use [...] Upcoming Encounters Date Type Department Care Team ([facility] Contact Info) Description 07/06/2025 2:45 PM EST Office Visit [facility] [address] [place], [place] [phone] Alida Vargas MD [address] [place], [place] [phone] documented as of this encounter Visit Diagnoses Not on filedocumented in this encounter Additional Health Concerns Assessment Noted Time PHQ-9 Depression Total Score: 0 07/03/19 23 10:55 AM EST documented as of this encounter Care Teams Dewaterer Operator Relationship Specialty Start Date End Date Name, MD Saman [address] [place] [address] PCP - General Family Medicine 08/13/15 documented as of this encounter
--- OUTSIDE RECORDS SUMMARY | 2025-05-28 13:01 | XMS_ITS | Encounter Summary ---
Author Organization [employer] Address [address] [facility] [address] [place] [address] Care Team Providers Care Continuous Mining Operator Name Role Phone Name, Saman HOOK Primary Care Provider [phone] Encounter Details Date Type Department Care Team (Late st Contact Info) Description 08/05/2022 Orders Only [facility] MEDICINE [address] [place] [address] [phone] Ellie Nagy LPN Social History Tobacco Use [...] Encounters Date Type Department Care Team (Late Contact Info) Description 07/06/2025 2:45 PM EST Office Visit [facility] MEDICINE [address] [place] [address] [phone] Alida Vargas MD [address] [place] [address] [phone] documented as of this encounter Visit Diagnoses Not on filedocumented in this encounter Additional Health Concerns Assessment Noted Time PHQ-9 Depression Total Score: 0 07/03/19 10:55 AM EST documented as of this encounter Care Teams Continuous Mining Operator Relationship Specialty Start Date End Date Name, MD Saman [address] [place] [address] PCP - General Family Medicine 08/13/15 documented as of this encounter
--- OUTSIDE RECORDS SUMMARY | 2025-05-28 13:01 | XMS_ITS | Encounter Summary ---
Author Organization [employer] Address [address] [facility] [address]t [place] [address] Care Team Providers Care Merchandise Supervisor Name Role Phone Name, Saman HOOK Primary Care Provider Encounter Details Date Type Department Care Team ([facility] Contact Info) Description 08/17/2022 Orders Only [facility] MED & PEDS [address] [place], [place] [phone] Charla Yusuf LPN Social History Tobacco Use [...] Upcoming Encounters Date Type Department Care Team ([facility] Contact Info) Description 07/06/2025 2:45 PM EST Office Visit [facility] MED[facility]INE [address] [place], [place] [phone] Alida Vargas MD [address] [place], [place] [phone] documented as of this encounter Visit Diagnoses Not on filedocumented in this encounter Additional Health Concerns Assessment Noted Time PHQ-9 Depression Total Score: 0 07/03/19 23 10:55 AM EST documented as of this encounter Care Teams Merchandise Supervisor Relationship Specialty Start Date End Date Name, MD Saman [address] [place] [address] PCP - General Family Medicine 08/13/15 documented as of this encounter
--- OUTSIDE RECORDS SUMMARY | 2025-05-28 13:01 | XMS_ITS | Encounter Summary ---
Author Organization [employer] Address [address] [facility] [address] [place] [address] Care Team Providers Care Commercial Producer Name Role Phone Name, Saman HOOK Primary Care Provider [phone] Reason for Visit * Reason Onset Date Comments triage 08/06/2022 Encounter Details Date Type Department Care Team ([facility] st Contact Info) Description 08/06/2022 Telephone [facility] MEDICINE [address] [place], [place] [phone] Name, MD Saman [address] [place], [place] [phone] triage Social History Tobacco Use Types Packs/Day [...] EST Triage call returned to patient via [employer] Engineer [phone]. Patient reports that she is feeling tired [...] worse The caller accepted this outcome speaks wolof documented in this encounter Plan of Treatment Upcoming Encounters Date Type Department Care Team (Late st Contact Info) Description 07/06/2025 2:45 PM EST Office Visit [facility] [address] [place], [place] [phone] Alida Vargas MD [address] [place], [place] [phone] documented as of this encounter Visit Diagnoses Not on filedocumented in this encounter Additional Health Concerns Assessment Noted Time PHQ-9 Depression Total Score: 0 07/03/19 23 10:55 AM EST documented as of this encounter Care Teams Commercial Producer Relationship Specialty Start Date End Date Name, MD Saman [address] [place] [address] PCP - General Family Medicine 08/13/15 documented as of this encounter
--- OUTSIDE RECORDS SUMMARY | 2025-05-28 13:01 | XMS_ITS | Encounter Summary ---
Author Organization [employer] Address [address] [facility] [address] [place] [address] Care Team Providers Care Cottrell Operator Name Role Phone Name, Saman HOOK Primary Care Provider [phone] Reason for Visit * Reason Comments Med Refill Encounter Details Date Type Department Care Team ([facility] Contact Info) Description 12/02/2023 Refill [facility] MED[facility]INE [address] [place], [place] [phone] Tabitha Goodman NP [address] [place], [place] [phone] Chronic pain syndrome Social History Tobacco Use [...] Description 07/06/2025 2:45 PM EST Office Visit [facility] MED[facility]INE [address] [place] [address] Alida Vargas MD [address] [place] [address] documented as of this encounter Visit Diagnoses Diagnosis Chronic pain syndrome documented in this encounter Additional Health Concerns Assessment Noted Time PHQ-9 Depression Total Score: 0 04/07/20 23 3:38 PM EDT documented as of this encounter Care Teams Cottrell Operator Relationship Specialty Start Date End Date Name, MD Saman [address] [place] [phone] PCP - General Family Medicine 08/13/15 documented as of this encounter
--- OUTSIDE RECORDS SUMMARY | 2025-05-28 13:01 | XMS_ITS | Clinical Summary ---
Author Organization [employer] Address [address] [facility] [address] [place] [address] Care Team Providers Care Carpenter Rough Name Role Phone Name, Saman HOOK Primary Care Provider [phone] Allergies Active Allergy Reactions Criticality Noted Date [...] times a day 100 g 023 Active estradiol (Vagifem) 10 MCG tablet vaginal tablet Insert 10 mcg into the vagina 2 (two) times a week. 024 Active cholecalcifero l (D3 Super Strength) 50 MCG (1999 UT) capsule TAKE 1 CAPSULE BY MOUTH ONCE DAILY 30 capsule 11 05/21/20 10:35 AM EST 025 Active hydrocortisone (Anusol-HC) 25 MG suppository [...] BY MOUTH EVERY EVENING 30 tablet 5 05/15/20 25 12:35 PM EST 025 Active pravastatin (Pravachol) 20 MG tablet TAKE 1 TABLET BY MOUTH ONCE DAILY 30 tablet 11 025 Active losartan (Cozaar) 50 MG tabletIndicati ons:Essential hypertension TAKE 1 TABLET BY MOUTH EVERY MORNING 90 tablet 1 025 Active tiZANidine (Zanaflex) 2 MG tablet TAKE 1 TABLET BY MOUTH EVERY 8 HOURS NEEDED FOR MUSCLE SPASM 30 tablet 025 Active levothyroxine (Synthroid) 125 MCG tablet Take 1 tablet (125 mcg) by mouth before breakfast. 30 tablet 11 05/05/20 25 10:32 AM EST 025 2025 Active Mounjaro 5 MG/0.5ML solution auto-injectorI ndications:Typ e 2 diabetes mellitus without complication, without long-term current use of insulin (HCC) INJECT ONE PEN (=5MG) SUBCUTANEOUSLY ONCE A WEEK DIRECTED 2 mL 2 Active cyanocobalamin (Vitamin B-12) 1000 MCG tablet TAKE 2 TABLETS BY MOUTH ONCE DAILY 60 tablet 11 Active Allergy Relief Cetirizine 10 MG tablet TAKE 1 TABLET BY MOUTH ONCE DAILY IN THE MORNING 30 tablet 11 Active SUMAtriptan (Imitrex) 50 MG tablet TAKE 1 TABLET BY MOUTH ONCE NEEDED for migraine. MAY REPEAT ONCE IN 2 HOUR NEEDED . not to exceed 2 TABLETS IN 24 HOURS 9 tablet 3 05/21/20 25 10:35 AM EST Active Tirzepatide-We ight Management (Zepbound) 7.5 MG/0.5ML solution auto-injector Inject 0.5 mL (7.5 mg) under the skin 1 (one) time per week. 2 mL 2 025 Active Tirzepatide (Mounjaro) 7.5 MG/0.5ML solution auto-injectorI ndications:Typ e 2 diabetes mellitus without complication, without long-term current use of insulin (HCC) Inject 7.5 mg under the skin 1 (one) time per week. 2 mL 2 05/21/20 25 10:35 AM EST 025 2025 Active meloxicam (Mobic) 7.5 MG tablet TAKE 1 TABLET BY MOUTH ONCE DAILY 30 tablet 05/05/20 25 10:32 AM EST 025 Active pregabalin (Lyrica) 150 MG capsuleIndicat ions:Chronic pain syndrome TAKE 1 CAPSULE BY MOUTH 3 (THREE) TIMES A DAY 90 capsule 05/05/20 25 10:32 AM EST 025 Active fluticasone (Flonase) 50 MCG/ACT nasal sprayIndicatio ns:Allergic rhinitis, unspecified seasonality, unspecified trigger SPRAY ONCE IN EACH NOSTRIL two (2) times a day NEEDED 48 g 1 05/15/20 25 12:36 PM EST 025 Active amitriptyline (Elavil) 25 MG tablet TAKE 1 TABLET BY MOUTH EVERY NIGHT AT BEDTIME 30 tablet 2 Active fluticasone (Flonase) 50 MCG/ACT nasal sprayIndicatio ns:Allergic rhinitis, unspecified seasonality, unspecified trigger SPRAY 1 SPRAY IN EACH NOSTRIL two (2) times a day NEEDED 48 g 1 025 2024 Discontinued amitriptyline (Elavil) 25 MG tablet TAKE 1 TABLET BY MOUTH ONCE DAILY AT BEDTIME 30 tablet 2 05/05/20 25 10:32 AM EST 025 2024 Discontinued pregabalin (Lyrica) 150 MG capsuleIndicat ions:Chronic pain syndrome TAKE 1 CAPSULE BY MOUTH 3 (THREE) TIMES A DAY 90 capsule 025 2024 Discontinued meloxicam (Mobic) 7.5 MG tablet TAKE 1 TABLET BY MOUTH ONCE DAILY 30 tablet 025 2024 Discontinued Active Problems Problem Noted [...] Encounters Date Type Department Care Team Description 05/26/2025 Refill [facility] [address] [place] [address] Saman Doe MD 05/08/2025 Refill [facility] [address] [place] [address] Saman Doe MD Allergic rhinitis, unspecified seasonality, unspecified trigger 05/02/2025 Refill [facility] [address] [place] [address] Shereen Castro MD Chronic pain syndrome 05/01/2025 Telephone [facility] [address] [place] [address] Saman Doe MD Durable Medical Equipment (Shower chair) 04/26/2025 Orders Only GENERIC EXTERNAL DATA DEPARTMENT Provider, Generic External Data 04/23/2025 Telephone [facility] [address] [place] [address] Saman Doe MD 04/20/2025 Orders Only [facility] [address] [place] [phone] Saman Doe MD Type 2 diabetes mellitus without complication, without long-term current use of insulin (HCC) (Primary Dx) 04/17/2025 Telephone [facility] [address] [place] [address] NameSaman MD Call Back Request 04/16/2025 Telephone [facility] [address] [place] [phone] Saman Doe MD Referral 04/14/2025 Refill [facility] [address] [place] [phone] Saman Doe MD 04/06/2025 Telephone [facility] [address] [place] [address] Saman Doe MD 03/29/2025 Telephone [facility] [address] [place] [phone] Cindy Maradiaga [place] dec recalls 03/29/2025 Refill [facility] [address] [place] [address] Saman Doe MD Chronic pain syndrome 03/22/2025 Refill [facility] [address] [place] [phone] Saman Doe MD 02/27/2025 3:45 PM EDT Office Visit [facility] [address] [place] [address] Saman Doe MD Sciatica of left side (Primary Dx) 02/27/2025 Travel 02/26/2025 Travel 02/26/2025 Refill [facility] [address] [place] [address] Name, MD Saman from Last 3 Months Immunizations Immunization Administration [...] 02/27/2025 3:40 PM EDT Plan of Treatment Upcoming Encounters Date Type Department Care Team (Late st Contact Info) Description 07/06/2025 2:45 PM EST Office Visit [facility] [address] [place] [address] Alida Vargas MD [address] [place] [address] Health Maintenance Due Date Last Done Comments CT Colonography 1971 FIT DNA/Cologuard 1970 FIT 1971 FOBT 1970 HIV Screening 1970 Sigmoidoscopy 1971 Hepatitis C Screening 1989 Hepatitis A Vaccines (1 of 2 - Risk 2-dose series) 1990 Hepatitis B Vaccines (1 of 3 - 19+ 3-dose series) 1990 RSV Patients and Patients Aged 60 years or older (1 - Risk 50-74 years 1-dose series) 2021 Zoster Vaccines (1 of 2) 2021 Diabetes: [...] Screening 01/11/2026 01/11/2025 Depression Screening 01/11/2026 01/11/2025, 08/07/20 25 SDOH Screening 01/11/2026 01/11/2025 Tobacco Screening 02/27/2026 02/27/2025 Eye Exam 09/06/2026 09/06/2024, 09/06/2023 Cervical Cancer Screening 06/20/2027 HPV/Cotest 06/20/2027 06/10/2023, 02/05, 01/18/2019 Pap Smear 06/20/2027 06/20/2024, 09/2023, 02/23/2022 Colonoscopy 12/28/2028 01/11/2019, 12/23/2018 Colorectal Cancer Screening 12/28/2028 DTaP/Tdap/Td Vaccines (3 - Td or Tdap) 07/07/2033 07/07/2023, 01/04/2013 Pneumococcal Vaccine: 50+ Years Completed 01/25/2024 HIB [...] on patient's age to complete this topic Goals Goal Patient Goal Type Associated Problems Recent Progress Patient-Stated? Author Help patients manage their type 2 diabetes Care Plan Help patients manage their type 2 diabetes No Jen Jefferson Weekly blood pressure task Care Plan Weekly blood pressure task No Jen Jefferson Help patients manage their type 2 diabetes Care Plan Help patients manage their type 2 diabetes No Jen Jefferson Patient has chronic kidney disease Care Plan Patient has chronic kidney disease No Jen Jefferson Weekly blood pressure task Care Plan Weekly blood pressure task No Jen Jefferson Patient has chronic kidney disease Care Plan Patient has chronic kidney disease No Jen Jefferson Weekly blood pressure task Care Plan Weekly blood pressure task No Anai Romero LPN Weekly blood pressure task Care Plan Weekly blood pressure task No Anai Romero LPN Patient has chronic kidney disease Care Plan Patient has chronic kidney disease No Anai Romero LPN Patient has chronic kidney disease Care Plan Patient has chronic kidney disease No Anai Romero LPN Weekly blood pressure task Care Plan Weekly blood pressure task [place] MD Weekly blood pressure task Care Plan Weekly blood pressure task [place] MD Patient has chronic kidney disease Care Plan Patient has chronic kidney disease [place] MD Patient has chronic kidney disease Care Plan Patient has chronic kidney disease [place] MD Weekly blood pressure task Care Plan Weekly blood pressure task [place] Doe MD Weekly blood pressure task Care Plan Weekly blood pressure task [place] MD Patient has chronic kidney disease Care Plan Patient has chronic kidney disease [place] MD Patient has chronic kidney disease Care Plan Patient has chronic kidney disease [place] Doe MD Weekly blood pressure task Care Plan Weekly blood pressure task No Vin Robert Weekly blood pressure task Care Plan Weekly blood pressure task No Vin Robert Patient has chronic kidney disease Care Plan Patient has chronic kidney disease No Vin Robert Patient has chronic kidney disease Care Plan Patient has chronic kidney disease No Vin Robert Weekly blood pressure task Care Plan Weekly blood pressure task No Yudith Ho Weekly blood pressure task Care Plan Weekly blood pressure task No Juve Holanda Patient has chronic kidney disease Care Plan Patient has chronic kidney disease No Vic Yudith Patient has chronic kidney disease Care Plan Patient has chronic kidney disease No Milo Hoa Weekly blood pressure task Care Plan Weekly blood pressure task No Charla Yusuf LPN Weekly blood pressure task Care Plan Weekly blood pressure task No Charla Yusuf LPN Patient has chronic kidney disease Care Plan Patient has chronic kidney disease No Charla Yusuf LPN Patient has chronic kidney disease Care Plan Patient has chronic kidney disease No Charla Yusuf LPN Procedures Procedure Name Priority Date/Time Associated Diagnosis Comments GROSS AND MICROSCOPIC LEVEL 3 Routine 04/26/2025 11:38 AM EST POCT GLYCATED HEMOGLOBIN, TOTAL Routine 01/11/2025 11:14 AM EDT Type 2 diabetes mellitus without complication, without long-term current use of insulin ([facility]) LIPID PANEL, STANDARD Routine 08/24/2024 10:57 AM EDT On statin therapy PAP SMEAR Routine 06/20/2024 12:00 AM EST LGSIL Pap smear of vagina BI MAMMOGRAM SCREENING TOMOSYNTHESIS BILATERAL Routine 06/19/2024 2:05 PM EST DIABETES EYE EXAM Routine 09/06/2023 ALBUMIN, RANDOM URINE W/CREATININE Routine 08/19/2023 8:25 AM EDT Type 2 diabetes mellitus without complication, without long-term current use of insulin ([facility]) HPV MRNA E6/E7 REFLEX TO HPV 16, 18/45 Routine 06/10/2023 1:06 PM EST COLONOSCOPY Routine 01/11/2019 from Last 3 Months or Most Recently Relevant to Health Maintenance Results * Gross and Microscopic Level 3 (04/26/2025 11:38 AM EST) 04/26/2025 11:3 8 AM EST 04/26/2025 1:41 PM EST Power [facility] - 04/30/2025 11:57 AM EST ----- ------- Name: Yaniv Kearns Age/Sex: 54/F : 1970 Unit#: [id number] Attend Dr: Roman Bolivar MD Re04/26/25 Status: DEP REF Location: [facility] Disch: ----- ------- SPEC : [id number] RECD: 04/26/25 STATUS: SWETA HOLCOMB NUM: [id number] SIMONE: 04/26/[address] [facility] [address]: Roman Bolivar MD ENTERED: 04/26/25 SP TYPE: Surgical OTHR DR: Saman Doe MD ORDERED: Gross Micro L3 Diagnosis Skin, left buttocks cyst, excision: Benign ruptured epidermal cyst with fibrosis, inflammation with abscess, granulation tissue, and foreign body giant cell reaction to keratin debris. Clinical History Cyst of buttocks, left Microscopic Description Microscopic sections reviewed. Material Received Cyst of buttocks, left Gross Description Received in formalin is a 2.7 x 2.5 x 1.2 cm portion of yellow-white fibrofatty soft tissue, partially surfaced by 1.8 x 1.3 cm portion of reeves-brown skin. Sectioning shows a disrupted subcutaneous cyst. Insurance Salesman cross-sections are submitted. (RJD) IHC S/NG Disclaimer NOTE: Unless otherwise stated, all tissue is formalin-fixed and paraffin-embedded. Some or all of the immunohistochemical tests reported herein may have been developed and their performance characteristics determined by [facility]. They have not been cleared or approved by the U.S. Food and Drug Administration (FDA). However, the FDA has determined that such clearance or approval is not necessary. This laboratory is certified under the Clinical Laboratory Improvement Amendments of 1988 (CLIA) as qualified to perform high complexity clinical laboratory testing. Copies To: Roman Bolivar MD [facility] [address] [place] [address] CONTINUED ON NEXT PAGE ----- ------- Name: Yaniv Kearns Age/Sex: 54/F : 1970 Unit#: [id number] Attend Dr: Roman Bolivar MD Re04/26/25 Status: DEP REF Location: [facility] Disch: ----- ------- SPEC : [id number] RECD: 04/26/25 STATUS: SWETA HOLCOMB NUM: [id number] SIMONE: 04/26/[address] [facility] [address]: Roman Bolivar MD ENTERED: 04/26/25 SP TYPE: Surgical OTHR DR: Saman Doe MD ORDERED: Gross Micro L3 Copies To: (Continued) Saman Doe MD [address] [id number] ----- ------- Signed (signature on file) Donna London MD 04/30/25 1157 ----- ------- END OF REPORT Generic External Data Provider LAB CYTOLOGY SHAMA DELUCA Final Result [facility] [address] [place] [phone] * (ABNORMAL) POCT HGB A1C (01/11/2025 11:14 AM EDT) Hemoglobin A1C 6.3(A) 4.0 - 5.7 % QC Media Lot # [id number] Lot# Expiration Date Blood 01/11/2025 11:1 4 AM EDT Saman Name POINT OF CARE TEST ENTER/EDIT OR DERABLES Final Result * (ABNORMAL) Lipid Panel, Standard (08/24/2024 10:57 AM EDT) Triglycerides 210(H) <150 mg/dL [facility] Comment:Desirable Triglyceri de: less than 150 mg/dLBorderline High Triglyceride 150-199 mg/dLHigh Triglyceride: 200-499 mg/dLVery High Triglyceride: greater than or equal to 5OO mg/dL Cholesterol 204(H) <200 mg/dL [facility] Comment:Desirable Cholestero l: less than 200 mg/dLBorderline High Cholesterol: 200-239 mg/dLHigh Cholesterol: greater than 239 mg/dL LDL Cholesterol Calculated 119(H) <100 mg/dL [facility] Comment:Desirable LDL: less than 100 mg/dLNear Optimal/Above Optimal LDL: 110- 129 mg/dLBorderline High LDL: 130-159 mg/dLHigh LDL: 160-189 mg/dLVery High LDL: greater than or equal to 190 mg/dL HDL Cholesterol 43 >40 mg/dL [facility] Comment:Desirable HDL: great er than 40 mg/dL Note: This HDL assay may give artificially low results in patients with liver disease. Blood Venous blood specimen / Unknown 08/24/2024 10:57 AM EDT 08/24/2024 1:06 PM EDT us Saman Name LAB BLOOD ORDERABLES Final Resul t [facility] [address] [place] [phone] * Pap Smear (06/20/2024 12:00 AM EST) Swab Vaginal structure / Unknown 06/20/2024 06/21/2024 6:20 AM EST Narrative [facility] - 07/03/2024 3:04 PM EST ----- ------- Name: Yaniv Epstein Age/Sex: 53/F : 1970 Unit#: [id number] Attend Dr: ANDREW VILLAREAL CNM Re06/20/24 Status: LEON REF Location: [facility] Disch: ----- ------- SPEC : [id number] RECD: 06/21/24 STATUS: SWETA HOLCOMB NUM: [id number] SIMONE: 06/20/24-[address]: ANDREW VILLAREAL CNM [...] ----- ------- END OF REPORT Andrew Villareal [facility] CYTOLOGY ORDERABLES F inal Result [facility] [address] [place] [phone] * BI Mammogram Screening Tomosynthesis Bilateral (06/19/2024 2:05 PM EST) Anatomical Region Laterality Modality Breast Bilateral Mammography 06/19/2024 2:05 PM EST Narrative 06/27/2024 4:59 PM EST [facility] [address] [place] [address] [place] [address] Mammography Report Signed Patient: Yaniv Epstein MR#: [id number] : 1970 Acct:[id number] Age/Sex: 53 / F ADM Date: 06/19/24 Loc: [facility] Attending Dr: Saman Doe MD Ordering Physician: Saman Doe MD Results: 1Negative Date of Service: 06/19/24 Follow Up: 1 Year From Orig inal Mammogram Procedure(s): MM tomosynthesis screening BI Accession Number(s): [id number] cc: Saman Doe MD EXAMINATION: MM SCREENING [...] 06/27/24 1655 DD/ 1405 TD/TT: 06/19/24 1425 Senior Ruby Developer: Procedure Note Donotuseinterpreter, Image - 06/27/2024 [facility] [address] [place] [address] [place] [address] Mammography Report Signed Patient: Yaniv Epstein#: [id number] : 1970Acct:[id number] Age/Sex: 53 / FADM Date: 06/19/24 Loc: [facility] Attending Dr: Saman Doe MD Ordering Physician: Saman Doe MDResults: 1Negative Date of Service: 06/19/24Follow Up: 1 Year From Orig inal Mammogram Procedure(s): MM tomosynthesis screening BI Accession Number(s): [id number] cc: Saman Doe MD EXAMINATION: MM SCREENING [...] by: Marce Stafford DO 06/27/2024 04:55 PM [facility] Dictated By: Marce Stafford DO Signed By: <Electronically signed by Marce Stafford DO in OV> 06/27/24 1655 DD/ 1405 TD/TT: 06/19/24 1425 Senior Ruby Developer: us Saman Doe MD IMG BI PROCEDURES Final Result * Hm Diabetes Eye Exam (09/06/2023) Eye Exam Normal Normal us Saman Doe MD HEALTH MAINTENANCE Final Result * Albumin, Random Urine W/Creatinine (08/19/2023 8:25 AM EDT) Creatinine, Urine 289.33 mg/dL [facility] Microalbumin Urine 26.0 mg/L [facility] Microalbum Creatinine Ratio Ur 8.9 <30 ug/mg cr [facility] Comment:Albumin/Creatinine R atio Reference Ranges: Normal: < 30 ug/mg creatinine Microalbuminuria: 30 - 300 ug/mg creatinineClinical Albuminuria: > 300 ug/mg creatinine Urine (Urine, Random) 08/19/2023 8:25 AM EDT 08/19/2023 11:27 AM EDT us Saman Doe MD LAB URINE ORDERABLES Final Resul t Performing Organization Address City/[facility]/ZIP Co de Phone Number [facility] [address] [place] [phone] * HPV mRNA E6/E7 w/Reflex to HPV Genotypes 16, 18/45 (06/10/2023 1:06 PM EST) HPV nRNA E6/E7 Not Detected Not Detected [facility] Comment:Methodology: Transcr iption-Mediated AmplificationThis assay detects E6/E7 viral messenger RNA (mRNA) from 14high-risk HPV types (16,18,31,33,35,39,45,51,52,56,58,59,66,68).Cervical sources are required for HPV testing.If a vaginal source from a patient who has had atotal hysterectomy with removal of cervix wassubmitted, please contact the testing laboratoryfor alternative testing options.For additional information, please refer [email or web address](This link if provided for information/educational purposes only.)THIS TEST WAS PERFORMED AT:[employer] [place] [phone] CORDERO MD HPV mRNA E6/E7 [facility] HPV 16 RNA [facility] HPV 18/45 RNA [facility] 06/10/2023 1:06 PM EST 06/11/2023 9:30 AM EST Andrew JAIME LAB CYTOLOGY ORDERABLES F inal Result [facility] [address] [place] [phone] * (ABNORMAL) Hm Colonoscopy (01/11/2019) Colonoscopy Abnormal(A ) Normal us Saman Doe MD HEALTH MAINTENANCE Final Result from Last 3 Months or Most Recently Relevant to Health Maintenance Additional Health Concerns Active Problems Noted Date Diagnosed Date Help patients manage their type 2 diabetes 04/18 Weekly blood pressure task 04/18/2025 Help patients manage their type 2 diabetes 04/18 Patient has chronic kidney disease 04/18/2025 Weekly blood pressure task 04/18/2025 Patient has chronic kidney disease 04/18/2025 Weekly blood pressure task 04/18/2025 Weekly blood pressure task 04/18/2025 Patient has chronic kidney disease 04/18/2025 Patient has chronic kidney disease 04/18/2025 Weekly blood pressure task 04/20/2025 Weekly blood pressure task 04/20/2025 Patient has chronic kidney disease 04/20/2025 Patient has chronic kidney disease 04/20/2025 Weekly blood pressure task 04/20/2025 Weekly blood pressure task 04/20/2025 Patient has chronic kidney disease 04/20/2025 Patient has chronic kidney disease 04/20/2025 Weekly blood pressure task 04/23/2025 Weekly blood pressure task 04/23/2025 Patient has chronic kidney disease 04/23/2025 Patient has chronic kidney disease 04/23/2025 Weekly blood pressure task 05/01/2025 Weekly blood pressure task 05/01/2025 Patient has chronic kidney disease 05/01/2025 Patient has chronic kidney disease 05/01/2025 Weekly blood pressure task 05/09/2025 Weekly blood pressure task 05/09/2025 Patient has chronic kidney disease 05/09/2025 Patient has chronic kidney disease 05/09/2025 Insurance [facility] < 66 [place] [id number] Care Teams Carpenter Rough Relationship Specialty Start Date End Date Name, MD Saman [address] [place] [phone] PCP - General Family Medicine 08/13/15
--- OUTSIDE RECORDS SUMMARY | 2025-05-28 13:01 | XMS_ITS | Encounter Summary ---
Author Organization [employer] Address 75 [facility] 7t [place] [address] Care Team Providers Care Concrete Gun Operator Name Role Phone Name, Smaan HOOK Primary Care Provider [phone] Reason for Visit * Reason Comments Med Refill Encounter Details Date Type Department Care Team ([facility] Contact Info) Description 05/26/2025 Refill [facility] MED[facility]INE [address] [place], [place] [phone] Name, MD Saman [address] [place] [address] Social History Tobacco Use Types Packs/Day Years [...] the past 12 months, has t he [employer], gas, oil or water company threatened to [...] 2:45 PM EST Office Visit [facility] [address] [place] [address] Alida Varags MD [address] [place] [address] documented as of this encounter Goals Goal Patient Goal Type Associated Problems [...] Care Plan Weekly blood pressure task No NickAnai fernandez, NON DESTRUCTIVE EVALUATION TECHNICIAN Weekly blood pressure task Care Plan Weekly blood pressure task No NickAnai fernandez, NON DESTRUCTIVE EVALUATION TECHNICIAN Patient has chronic kidney disease Care Plan Patient has chronic kidney disease No Anai Romero, NON DESTRUCTIVE EVALUATION TECHNICIAN Patient has chronic kidney disease Care Plan Patient has chronic kidney disease No Anai Romero NON DESTRUCTIVE EVALUATION TECHNICIAN Weekly blood pressure task Care Plan Weekly blood pressure task [place] Doe MD Weekly blood pressure task Care Plan Weekly blood pressure task [place] Doe MD Patient has chronic kidney disease Care Plan Patient has chronic kidney disease [place] Doe MD Patient has chronic kidney disease Care Plan Patient has chronic kidney disease [place] Doe MD Weekly blood pressure task Care Plan Weekly blood pressure task [place] Doe MD Weekly blood pressure task Care Plan Weekly blood pressure task [place] Doe MD Patient has chronic kidney disease Care Plan Patient has chronic kidney disease [place] Doe MD Patient has chronic kidney disease Care Plan Patient has chronic kidney disease [place] Doe MD Weekly blood pressure task Care Plan Weekly blood pressure task No Vin Robert Weekly blood pressure task Care Plan Weekly blood pressure task No Jakob Jacknerry Patient has chronic kidney disease Care Plan Patient has chronic kidney disease No John Robertnerry Patient has chronic kidney disease Care Plan Patient has chronic kidney disease No John Robertnerry Weekly blood pressure task Care Plan Weekly blood pressure task No Ho, Yudith Weekly blood pressure task Care Plan Weekly blood pressure task No Ho, Yudith Patient has chronic kidney disease Care Plan Patient has chronic kidney disease No Ho Yudith Patient has chronic kidney disease Care Plan Patient has chronic kidney disease No Ho Yudith Weekly blood pressure task Care Plan Weekly blood pressure task No Charla Yusuf LPN Weekly blood pressure task Care Plan Weekly blood pressure task No Charla Yusuf LPN Patient has chronic kidney disease Care Plan Patient has chronic kidney disease No Charla Yusuf LPN Patient has chronic kidney disease Care Plan Patient has chronic kidney disease No Charla Yusuf LPN documented as of this encounter Visit Diagnoses Not on filedocumented in this encounter Additional Health Concerns Active Problems Noted Date [...] 05/09/2025 Patient has chronic kidney disease 05/09/2025 Assessment Noted Time PHQ-9 Depression Total Score: 5 01/12/20 25 11:17 AM EDT documented as of this encounter Care Teams Concrete Gun Operator Relationship Specialty Start Date End Date Name, MD Saman [address] [place] [id number] PCP - General Family Medicine 08/13/15 documented as of this encounter
--- OUTSIDE RECORDS SUMMARY | 2025-05-28 13:01 | XMS_ITS | Encounter Summary ---
Author Organization [employer] Address [address] [facility] 7t [place] [address] Care Team Providers Care Newspaper Copy Editor Name Role Phone Name, Saman HOOK Primary Care Provider [phone] Reason for Visit * Reason Comments Med Refill Encounter Details Date Type Department Care Team ([facility] Contact Info) Description 02/10/2023 Refill [facility] MED[facility]INE [address] [place], [place] [phone] Marisel Baxter MD [address] [place], [place] [phone] Social History Tobacco Use Types Packs/Day Years [...] [facility] Contact Info) Description 07/06/2025 2:45 PM EST Office Visit [facility] MED[facility] [address] [place], [place] [phone] Alida Vargas MD [address] [place] [address] documented as of this encounter Visit Diagnoses Not on filedocumented in this encounter Additional Health Concerns Assessment Noted Time PHQ-9 Depression Total Score: 0 07/03/19 23 10:55 AM EST documented as of this encounter Care Teams Newspaper Copy Editor Relationship Specialty Start Date End Date Name, MD Saman [address] [place] [address] PCP - General Family Medicine 08/13/15 documented as of this encounter
--- OUTSIDE RECORDS SUMMARY | 2025-05-28 13:01 | XMS_ITS | Encounter Summary ---
Author Organization [employer] Address [address] [facility] 7t [place] [address] Care Team Providers Care Certified Endoscopy Technician Name Role Phone Name, Saman HOOK Primary Care Provider [phone] Reason for Visit * Reason Comments Med Refill Encounter Details Date Type Department Care Team ([facility] Contact Info) Description 04/14/2023 Refill [facility] MEDICINE [address] [place], [place] [phone] Name, MD Saman [address] [place], [place] [phone] Chronic pain syndrome Social History Tobacco Use [...] Description 07/06/2025 2:45 PM EST Office Visit [facility] [address] [place] [address] Alida Vargas MD [address] [place] [address] documented as of this encounter Visit Diagnoses Diagnosis Chronic pain syndrome documented in this encounter Additional Health Concerns Assessment Noted Time PHQ-9 Depression Total Score: 0 04/07/20 23 3:38 PM EDT documented as of this encounter Care Teams Certified Endoscopy Technician Relationship Specialty Start Date End Date Name, MD Saman [address] [place] [address] PCP - General Family Medicine 08/13/15 documented as of this encounter
--- OUTSIDE RECORDS SUMMARY | 2025-05-28 13:01 | XMS_ITS | Clinical Summary ---
Author Organization [facility] Address [address] [facility] [address] [place] [address] Phone Care Team Providers Care Biological Photographer Name Role Phone Name, Saman HOOK Primary Care Provider [phone] Allergies Active Allergy Reactions Criticality Noted Date [...] Gastric band attached 02/16/2022 H/O: asthma 02/16/2022 Hemorrhoid 02/16/2022 Repair of ventral hernia 02/16/2022 Obesity 02/16/2022 Overview (02/16/2022): bariatric surgery Venous varices 02/16/2022 Renal stone 08/06/2020 History of calculus of kidney 08/06/2020 Steatotic liver disease 01/05/2018 Migraine 09/01/2017 Allergic rhinitis 08/19/2017 Bilateral trigger fingers 04/16/2017 Numbness of hand 04/16/2017 H/O: hysterectomy 01/27/2017 Pain in female pelvis 01/27/2017 Blurring of visual image 05/13/2016 History of sleeve gastrectomy 05/13/2016 Pain of shoulder region 03/03/2016 Mild intermittent asthma 08/13/2015 Anxiety 05/28/2015 [...] Visit [facility] [address] [facility] [address] [place] [address] Charla Arciniega ARNP [address] [facility] [address] [place] [address] Health Maintenance Due Date Last Done [...] history exists Diabetes: Hemoglobin A1C 04/13/2025 01/11/2025, 11/0 11/2023 Pneumococcal Vaccine: 50+ Years Completed Pneumococcal Vaccine: Peds ( 0 to 5 Years) and At-Risk Patients (6 to 49 Years) Discontinued 01/25/2024 Insurance [facility] ([id number]) [facility] ([id number]) Care Teams Biological Photographer Relationship Specialty Start Date End Date Name, MD Saman [address] [place] [address] PCP - General 06/17/20
--- OUTSIDE RECORDS SUMMARY | 2025-05-28 13:01 | XMS_ITS | Encounter Summary ---
Author Organization [facility] Address [address] [facility] 200 [place] [address] Phone Care Team Providers Care Civil Laboratory Technician Name Role Phone Name, Saman HOOK Primary Care Provider [phone] Encounter Details Date Type Department Care Team ([facility] Contact Info) Description 03/31/2022 Telephone [facility] [address] [facility] 200 [place] [address] Lewis Kennedy MD [address] [facility] 204 [place] [phone] Social History Tobacco Use Types Packs/Day Years [...] of that. Please call her back at [phone] Thank you documented in this encounter Plan of Treatment Upcoming Encounters Date Type Department Care Team ([facility] Contact Info) Description 02/13/2026 1:15 PM EDT Office Visit [facility] [address] [address] Charla Arciniega ARNP [address] [address] documented as of this encounter Visit Diagnoses Not on filedocumented in this encounter Care Teams Civil Laboratory Technician Relationship Specialty Start Date End Date Name, MD Saman [address] [place] [address] PCP - General 06/17/20 documented as of this encounter
--- OUTSIDE RECORDS SUMMARY | 2025-05-28 13:01 | XMS_ITS | Encounter Summary ---
Author Organization [facility] Address [address] [facility] [address] [place] [address] Encounters * CPT with Medical [facility] at [employer] on 2025-05-02 { reasonForRequest : pt had surgery last week and her buttock is still bleeding , patientReports : , denies :[ Leonardo Flash, circumferentialburns , Leonardo reported with black tissue to the area , Open skin area after a fall with uncontrolled bleeding , Abscess/infection with streaking noted, presence of feveror without ], chiefComplaints : Wound Care , pmh : Fibromyalgia, Hypertension, Diabetes Mellitus Type 2, Depression, Anxiety Disorder, Kidney Stones, Post-Traumatic Stress Disorder (PTSD), Hypothyroidism , allergies : Tramadol, Oxycodone", otherAllergies :null, painAssessment : , visitOutcome : , additionalComments : 54 y.o female complains of Wound Care\n\nReferral taken via Senior Information Security [employer]st\nPatient who was started on an antibiotic for question of a cyst to her left buttock\nCyst burst on its own, however, not all the debris came out, and she had what sounds like and I&D last week with 5 stitches placed\nShe reports onoing bloody drainage-- per site looks good, no redness, dehiscense or puss\nShe states it feels swollen, +pain and difficulty sitting\nNo fever/chills\nHas been taking APAP and IBU\nShe has a follow up appt nect Wednesday for suture removal\nShe would like to be evaluated, she is not currently on any antibiotics\n\nI provided information on the mobile health provider response time and advised the patient and/or caregiverto monitor reported signs and symptoms. I discussed the warning signs of when to seek emergency care. } Sent to a call for a pt complaining of drainage from cyst after I&D. [facility] arrives on scene, pt is alert and oriented, airway is patent. Pt's primary language is Emirati. Language line used during visit. Pt states she has had a cyst since August, was prescribed antibiotics, and cyst partially drained. Pt states she had I&D on and is supposed to have stitches removed next Wednesday. Pt complains of worsening pain and serosanguinous fluid from wound site. Pt states she has to changelarge bandaids twice daily and pt has had some drainage onto clothes. Pt denies mercado, dizziness, cp, sob, n/v/d, abd pain, fever, or loc. Pt states she has been taking Tylenol and Ibuprofen for pain. Picture of wound uploaded to [employer]. BP:120/79, P:90, RR:18, SpO2:94% RA, T:98.7; Head: unremarkable;Lung sounds: clear bilaterally; Abdomen: soft, non-tender, no distention; Back: unremarkable; Left buttocks: wound appears to be healing well, (serosanguinous fluid present on bandaid). [facility] consultedand pt is advised to continue monitoring and call surgeon office/leave voicemail. Pt is given wound dressings. Red flags discussed. Pt has no further questions. ORAL_MEDICATION, WOUND_CARE Written by [facility] on 2025-05-02
--- OUTSIDE RECORDS SUMMARY | 2025-05-28 13:02 | XMS_ITS | Continuity of Care Document ---
Author Name [facility], Medical Address [address] [place] [address] Organization Unknown Address [address] [place] [address] Medications No known medications Problems No known problems
--- OUTSIDE RECORDS SUMMARY | 2025-05-28 13:02 | XMS_ITS | Encounter Summary ---
Author Organization [employer] Address [address] [facility] 7t [place] [address] Care Team Providers Care Slot Tag Inserter Name Role Phone Name, Saman HOOK Primary Care Provider [phone] Encounter Details Date Type Department Care Team ([facility] Contact Info) Description 12/15/2022 Telephone [facility] MEDICINE [address] [place] [address] [phone] Name, MD Saman [address] [place] [address] Social History Tobacco Use Types Packs/Day Years [...] Upcoming Encounters Date Type Department Care Team ([facility] Contact Info) Description 07/06/2025 2:45 PM EST Office Visit [facility]INE [address] [place] [address] [phone] Alida Vargas MD [address] [place], [place] [phone] documented as of this encounter Visit Diagnoses Not on filedocumented in this encounter Additional Health Concerns Assessment Noted Time PHQ-9 Depression Total Score: 0 07/03/19 23 10:55 AM EST documented as of this encounter Care Teams Slot Tag Inserter Relationship Specialty Start Date End Date Name, MD Saman [address] [place] [address] PCP - General Family Medicine 08/13/15 documented as of this encounter
--- OUTSIDE RECORDS SUMMARY | 2025-05-28 13:02 | XMS_ITS | Encounter Summary ---
Author Organization [employer] Address [address] [facility] 7t [place] [address] Care Team Providers Care Post Production Assistant Name Role Phone Name, Saman HOOK Primary Care Provider [phone] Encounter Details Date Type Department Care Team ([facility] Contact Info) Description 10/16/2022 Orders Only [facility] [address] [place], [place] [phone] Charla Yusuf LPN Social History Tobacco Use [...] Upcoming Encounters Date Type Department Care Team ([facility] Contact Info) Description 07/06/2025 2:45 PM EST Office Visit [facility] [address] [place], [place] [phone] Alida Vargas MD [address] [place], [place] [phone] documented as of this encounter Procedures Procedure Name Priority Date/Time Associated Diagnosis Comments BI MAMMOGRAM SCREENING TOMOSYNTHESIS BILATERAL Routine 10/20/2022 2:00 PM EDT documented in this encounter Results * BI Mammogram Screening Tomosynthesis Bilateral (10/20/2022 2:00 PM EDT) Anatomical Region Laterality Modality Breast Bilateral Mammography 10/20/2022 2:00 PM EDT Narrative 10/22/2022 11:24 AM EDT [facility] [address] [place] [address] Mammography Report Signed Patient: Yaniv Kearns MR#: [id number] : 1970 Acct:[id number] Age/Sex: 52 / F ADM Date: 10/20/22 Loc: HO.MAMMO Attending Dr: Saman Doe MD Ordering Physician: Saman Doe MD Results: 0Incomplet e: Needs Additional Imaging Evaluation Date of Service: 10/20/22 Follow Up: Additional Imagi ng Procedure(s): MM tomosynthesis screening BI Accession Number(s): [id number] cc: Saman Doe MD EXAMINATION: MM SCREENING [...] in OV> 10/22/22 1122 DD/ 1400 TD/TT: Entry Clerk: KULKARNI Procedure Note Donotuseinterpreter, Image - 12/03/2022 [facility] [address] [place] [address] Mammography Report Signed Patient: Yaniv KearnsMR#: [id number] : 1970Acct:[id number] Age/Sex: 52 / FADM Date: 10/20/22 Loc: HO.MAMMO Attending Dr: Saman Doe MD Ordering Physician: Saman Doe MDResults: 0Incomplet e: Needs Additional Imaging Evaluation Date of Service: 10/20/22Follow Up: Additional Imagi ng Procedure(s): MM tomosynthesis screening BI Accession Number(s): [id number] cc: Saman Doe MD EXAMINATION: MM SCREENING [...] in OV> 10/22/22 1122 DD/ 1400 TD/TT: Entry Clerk: KULKARNI [facility] External Provider IMG BI PROCEDURES Final Result documented in this encounter Visit Diagnoses Not on filedocumented in this encounter Additional Health Concerns Assessment Noted Time PHQ-9 Depression Total Score: 0 07/03/19 23 10:55 AM EST documented as of this encounter Care Teams Post Production Assistant Relationship Specialty Start Date End Date Name, MD Saman [address] [place] [address] PCP - General Family Medicine 08/13/15 documented as of this encounter
== END 2025-05-28 11:30 | disposition home or self-care (01) ==
LOC: HO.PMC 10:34
PROVIDERS: PCP Internal Medicine Geriatric Medicine; Visit Provider Internal Medicine
DX: M70.61 Trochanteric bursitis, right hip (principal); M70.62 Trochanteric bursitis, left hip
CPT/HCPCS: 20611

== ENCOUNTER → 2025-05-28 10:34 | Outpatient (BNVA) | payer OTHER, SELFPAY | PROVIDERS: PCP Internal Medicine Geriatric Medicine; Visit Provider Internal Medicine | DX: M70.61 Trochanteric bursitis, right hip (principal); M70.62 Trochanteric bursitis, left hip | CPT/HCPCS: 20611 ==

== ENCOUNTER 2025-06-06 12:41 | Outpatient (AMB) | payer OTHER, SELFPAY ==
--- NOTE | 2025-06-06 12:47 | MHC.OFFVIS ---
Vital Signs 06/06/25 12:56 Height 5 ft 2 in Weight 212 lb BMI 38.8 BP 130/70 Blood Pressure Location Rt brachial Position Sitting Pulse 119 H Intake Visit Reasons: wound check, buttock Intake Note: Patient here to follow up from last office visit on 05-22-2025. Reports buttock wound improvement. Patient c/o: bothersome area were suture used to be. Denies bleeding, oozing. [employer] Required: Yes [employer] Language: Frisian Accompanied by: Self / Same As Patient Allergies oxycodone (From PERCOCET) Allergy (Intermediate, Verified 06/06/25 12:54) ITCHY tramadol (TRAMADOL) Allergy (Unknown, Verified 06/06/25 12:54) ITCHING HPI HPI wound check, buttock: Details: Continues to feel like there is something with the sutures used to be. Tender to palpation. No fevers at home. No drainage PFSH Medical History (Updated 05/28/25 @ 12:00 by Jason Damon MD) Cyst of buttocks Epidermal cyst Irritable bowel syndrome with constipation Postprandial epigastric pain LLQ abdominal pain Diverticulitis Muscle spasm Preprocedural examination LGSIL Pap smear of vagina Diabetes type 2, controlled Hx LEEP (loop electrosurgical excision procedure), cervix, Morbid obesity Kidney stones Calcific tendinitis of both shoulders Fibromyalgia Hypothyroidism Umbilical hernia Morbid obesity Surgical History (Updated 05/28/25 @ 09:59 by Jesus Mcknight PA-C) History of removal of cyst (~04/26/25) H/O: hysterectomy Status post carpal tunnel release of both wrists S/P laparoscopic sleeve gastrectomy LAP-BAND surgery status S/P panniculectomy Hx of cystoscopy History of esophagogastroduodenoscopy (EGD) Hx of colonoscopy Family History Father Diabetes COPD (chronic obstructive pulmonary disease) Heart problem Mother Thyroid condition Diabetes Paternal Aunt Cancer of kidney Social History Household Members: None Housing: Apartment Alcohol intake: never Patient Tobacco Use Status: Never used Tobacco Current occupational status: disabled Sexual orientation: Straight/Heterosexual Gender identity: Female Physical Exam Vital Signs: Last Vital Signs Pulse 119 H 06/06/25 12:56 BP 130/70 06/06/25 12:56 BMI result Body Mass Index 38.8 Const General: comfortable and no acute distress Orientation/consciousness: patient oriented x3 Resp Effort & Inspection: normal respiratory effort and able to speak in complete sentences GI Other: Well healed incision site no obvious cellulitic changes. Tender to palpation. No retained suture. Some mild hyperpigmentation at the excision site Neuro General: patient oriented x3 Assessment & Plan Assessment & Plan (1) History of removal of cyst: Onset Date: ~04/26/25 Comment: office procedure: excision buttock cyst- Dr. Osmel HOOK FACS Code(s): Z98.890 - Other specified postprocedural states Category: Medical Plan 54-year-old female s/p excision of cyst on buttock with Dr. Bolivar on 04/26/2025, subsequently had sutures removed on 05/15 25 with our nurse Al. Continues to have pain associated the excision site. Feels like she feels a lump there. Denies any drainage. Denies fevers at home. On exam there was a well healed excision site with some hyperpigmentation tissue at the area of the excision site. There was no erythema, there was no active drainage or open wound. I was unable to appreciate any fluctuance. The area was tender. I was unable to appreciate a retained suture. I do not feel that there was any acute infectious process going on at this moment., we will have her try warm compresses to the area a few times a day. Recommended keeping the area clean and dry as best as possible. Reassured her this should improve over the next few weeks. If not improving patient can return with questions or concerns. We will see her about 2 weeks or sooner with any issues Coding Level of Care Code Est Pt Level 4 (74577) Diagnoses History of removal of cyst Z98.890
[2025-06-06 12:56] VITALS: BP 130/70; PULSE 119; BMI 38.8
--- OUTSIDE RECORDS SUMMARY | 2025-06-06 14:16 | XMS_ITS | Continuity of Care Document ---
Author Organization MD - [facility] [employer] Address [address] [place] [id number] Care Team Providers Care Pick And Shovel Man Name Role Phone HIM CCA OTHER NAME, HAROON Primary Care Provider [phone] Assessment No assessment recorded. Plan of Treatment Reminders Order Date Submit Date Provider Last Modified By Organization Details Last Modified Time Details Appointments None record ed. Lab None record ed. Referral None record ed. Procedures None record ed. Surgeries None record ed. Imaging None record ed. Medication Orders None record ed. Patient TargetsNo targets recorded. Patient InstructionsNo instructions recorded. Reason for Referral None Reported. Medical Equipment None Reported. Allergies Allergen ID Allergen Name Allergen Category Reaction Reaction Severity Criticality Documentation Date Start Date Code Code System Note Provider Name and Address Organization Details Recorded Time 41011 tramadol medicatio n Not available Not available Not available 01/06/2025 07529 RxNorm Not Available [facility] - production 19:04:40 11271 oxycodone medicatio n Not available Not available Not available 01/06/2025 7804 RxNorm Not Available [facility] - production 19:04:40 56229 lisinopri l medicatio n Not available Not available Not available 05/02/20252012 05155 RxNorm cough Not Available [employer] - prod 16:16:29 16214 acetamino phen / oxycodone medicatio n Not available Not available Not available 05/02/2025 81370 3 RxNorm Not Available [employer] - prod 16:16:29 Medications Name Sig Start Date Stop Date [...] Available No t Available Vitals Date Recorded Heart rate Oxygen saturation Body temperature Respiratory rate Systolic And Diastolic Provider Name and Address Organization Details Last Updated DateTime 5 90 /min 94 % 98.7 [degF] 18 /min 120/79 mm[Hg] Not Available [facility] - production 5 16:21:50 Social History None recorded. Functional Status None recorded. Mental Status None recorded. Family History Nothing Reported. Medical History No medical history recorded. Gynecological HistoryNo gynecological history recorded. Obstetrics History GPAL:G 0 P 0 0 0 0 Past Encounters Encounter ID Performer Location Encounter Start Date Encounter Closed Date Diagnosis/Indication Diagnosis SNOMED-CT Code Diagnosis ICD10 Code Diagnosis IMO Codes Diagnosis Note [id number] Rosa Storm MD [facility] ED Medical [address] [address] 05/02/2025 16:16:02 05/02/2025 19:05:46 Wound finding [id number] Z51.89 [id number] As noted, we were called to see this patient regarding concerns of wound changes. Evaluation in the field was performed by my portable machine cutter colleague, as noted above, I provided real-time direction and supervisio n for this visit with assistance of a lebanese interprete bruno The evaluation revealed 54 yo woman who had I+ D of cyst on her left buttock last , with stitches to be removed next . SHe is having more pain today and noting serosangui nous fluid draining. She is using a bandaid and needs to change this 1-2x/day.S he has no fevers or chills, and otherwise feels well. She is using tylenol and ibuprofen for pain.She appears well on exam with normal VS. There is no erythema or fluctuance at the surgical site per medic. Impression :Healing cyst Plan:Sara nue OTC pain control. Provide 4x4 dressings for more adequate control. She has a call in to the surgeon who will get back to her on Wednesday. Dispositio n: We discussed the diagnostic uncertaint y of home visits and the risk associated with this. In this case, the patient and I felt this to be an acceptable and reasonable amount of risk given the benefit of avoiding an ED visit. We discussed the need to seek care urgently/e mergently in the setting of any new or worsening serious symptoms, particular ly changes to consciousn ess, chest pain, dyspnea. Health Concerns Section Related Observation LastModified by Organization Detai ls LastModified Time None Recorded Concern Status LastModified by Organization Details LastModified Time None Recorded Payers Encounter Date Sequence Insurance Name Policy Number Policy Brown Covered Member ID Brown Member ID Guarantor Name 05/02/2025 1 [facility] - DOS ON OR AFTER 2022 - DUAL ELIGIBLE - [employer] OPT[employer] AND ONE [employer] (MEDICARE REPLACEMENT/AD VANTAGE - HMO) Yaniv Epstein [id number] Yaniv Epstein Notes Date Note Type Note Provider Name and Address Organization Details Recorded Time 05/02/2025 text/html CRC Nurse Triage Notes (Alisha Garsia): Reason For Request: pt had surgery last week and her buttock is still bleeding Denies: Zhu Flash, circumferential zhu Zhu reported with black tissue to the area Open skin area after a fall with uncontrolled bleeding Abscess/infection with streaking noted, presence of fever or without Chief Complaints: Wound Care PMH: Fibromyalgia, Hypertension, Diabetes Mellitus Type 2, Depression, Anxiety Disorder, Kidney Stones, Post-Traumatic Stress Disorder (PTSD), Hypothyroidism PMH Reviewed at 05/02/2025 - 14:56 (ET) Allergies Reviewed at 05/02/2025 - 14:56 (ET) Comments: 54 y.o female complains of Wound Care Referral taken via Naturopathic Doctor Patient who was started on an antibiotic for question of a cyst to her left buttock Cyst burst on its own, however, not all the debris came out, and she had what sounds like and I&D last week with 5 stitches placed She reports onoing bloody drainage-- per site looks good, no redness, dehiscense or puss She states it feels swollen, +pain and difficulty sitting No fever/chills Has been taking APAP and IBU She has a follow up appt nect Wednesday for suture removal She would like to be evaluated, she is not currently on any antibiotics I provided information on the mobile health provider response time and advised the patient and/or caregiver to monitor reported signs and symptoms. I discussed the warning signs of when to seek emergency care. ..................... ..................... ..................... ..................... ..................... ..................... ............... Beater Room Supervisor Note From Tania Becker: Sent to a call for a pt complaining of drainage from cyst after I&D. SC8 arrives on scene, pt is alert and oriented, airway is patent. Pt's primary language is Serbian. Language line used during visit. Pt states she has had a cyst since August, was prescribed antibiotics, and cyst partially drained. Pt states she had I&D on and is supposed to have stitches removed next Wednesday. Pt complains of worsening pain and serosanguinous fluid from wound site. Pt states she has to change large bandaids twice daily and pt has had some drainage onto clothes. Pt denies mercado, dizziness, cp, sob, n/v/d, abd pain, fever, or loc. Pt states she has been taking Tylenol and Ibuprofen for pain. Picture of wound uploaded to [employer]to[employer]. BP:120/79, P:90, RR:18, SpO2:94% RA, T:98.7; Head: unremarkable; Lung sounds: clear bilaterally; Abdomen: soft, non-tender, no distention; Back: unremarkable; Left buttocks: wound appears to be healing well, (serosanguinous fluid present on bandaid). [facility] consulted and pt is advised to continue monitoring and call surgeon office/leave voicemail. Pt is given wound dressings. Red flags discussed. Pt has no further questions. ..................... ..................... ..................... ..................... ..................... ..................... ............... [facility] Consulted: Rosa Storm ..................... ..................... ..................... ..................... ..................... ..................... ............... Disposition: Fulfilled Rosa Storm MD [address] [facility],[address] [facility], [place], [address], [employer] 05/02/2025 17:27:02 OBGyn Episode No OBEpisode recorded.
--- OUTSIDE RECORDS SUMMARY | 2025-06-06 14:16 | XMS_ITS | Encounter Summary ---
Author Organization [facility] Address [address] [facility] [address] [place] [address] Phone Care Team Providers Care Real Property Appraiser Name Role Phone Name, Saman HOOK Primary Care Provider [phone] Encounter Details Date Type Department Care Team ([facility] Contact Info) Description 03/31/2022 Telephone [facility] [address] [facility] [address] [place] [address] Lewis Kennedy MD [address] [facility] [address] [place] [phone] Social History Tobacco Use Types Packs/Day Years [...] of that. Please call her back at [phone] Thank you documented in this encounter Plan of Treatment Upcoming Encounters Date Type Department Care Team ([facility] Contact Info) Description 02/13/2026 1:15 PM EDT Office Visit [facility] [address] [address] Charla Arciniega ARNP [address] [address] documented as of this encounter Visit Diagnoses Not on filedocumented in this encounter Care Teams Real Property Appraiser Relationship Specialty Start Date End Date Name, MD Saman [address] [place] [id number] PCP - General 06/17/20 documented as of this encounter
--- OUTSIDE RECORDS SUMMARY | 2025-06-06 14:16 | XMS_ITS | Encounter Summary ---
Author Organization [employer] Address [address] [facility] 7t [place] [address] Care Team Providers Care Wire Saw Operator Name Role Phone Name, Saman HOOK Primary Care Provider [phone] Encounter Details Date Type Department Care Team ([facility] Contact Info) Description 08/17/2022 Orders Only [facility] MED & PEDS [address] [place], [place] [phone] Charla Yusuf LPN Social History Tobacco Use [...] Team ([facility] Contact Info) Description 07/06/2025 2:45 PM EST Office Visit [facility] MEDICINE [address] [place], [place] [phone] Alida Vargas MD [address] [place], [place] [phone] documented as of this encounter Visit Diagnoses Not on filedocumented in this encounter Additional Health Concerns Assessment Noted Time PHQ-9 Depression Total Score: 0 07/03/19 23 10:55 AM EST documented as of this encounter Care Teams Wire Saw Operator Relationship Specialty Start Date End Date Name, MD Saman [address] [place] [address] PCP - General Family Medicine 08/13/15 documented as of this encounter
--- OUTSIDE RECORDS SUMMARY | 2025-06-06 14:16 | XMS_ITS | Encounter Summary ---
Author Organization [employer] Address [address] [facility] 7t [place] [address] Care Team Providers Care Lab Animal Technician Name Role Phone Name, Saman HOOK Primary Care Provider [phone] Reason for Visit * Reason Comments Med Refill Encounter Details Date Type Department Care Team ([facility] st Contact Info) Description 04/14/2023 Refill [facility] MEDICINE [address] [place], [place] [phone] Name, MD Saman [address] [place], [place] [phone] Chronic pain syndrome Social History Tobacco Use [...] Description 07/06/2025 2:45 PM EST Office Visit [facility] MEDICINE [address] [place] [address] Alida Vargas MD [address] [place] [address] documented as of this encounter Visit Diagnoses Diagnosis Chronic pain syndrome documented in this encounter Additional Health Concerns Assessment Noted Time PHQ-9 Depression Total Score: 0 04/07/20 23 3:38 PM EDT documented as of this encounter Care Teams Lab Animal Technician Relationship Specialty Start Date End Date Name, MD Saman [address] [place] [address] PCP - General Family Medicine 08/13/15 documented as of this encounter
--- OUTSIDE RECORDS SUMMARY | 2025-06-06 14:16 | XMS_ITS | Encounter Summary ---
Author Organization [employer] Address [address] [facility] 7t [place] [address] Care Team Providers Care Valet Name Role Phone Name, Saman HOOK Primary Care Provider [phone] Reason for Visit * Reason Comments Med Refill Encounter Details Date Type Department Care Team ([facility] st Contact Info) Description 06/01/2025 Refill [facility] MEDICINE [address] [place], [place] [phone] Name, MD Saman [address] [place] [address] Chronic pain syndrome Social History Tobacco Use [...] the past 12 months, has t he Converser, gas, oil or water [employer] threatened to shut off services in your [...] Description 07/06/2025 2:45 PM EST Office Visit [facility] MEDICINE [address] [place] [address] Alida Vargas MD [address] [place] [address] documented as of this encounter Goals Goal [...] Plan Weekly blood pressure task No NickAnai fernandez LPN Weekly blood pressure task Care Plan Weekly blood pressure task No NickAnai fernandez BIOMETRIC FINGERPRINTING TECHNICIAN Patient has chronic kidney disease Care Plan Patient has chronic kidney disease No NickAnai victor, BIOMETRIC FINGERPRINTING TECHNICIAN Patient has chronic kidney disease Care Plan Patient has chronic kidney disease No Anai Romero BIOMETRIC FINGERPRINTING TECHNICIAN Weekly blood pressure task Care Plan Weekly blood pressure task CarverSaman Doe MD Weekly blood pressure task Care Plan Weekly blood pressure task CarverSaman Doe MD Patient has chronic kidney disease Care Plan Patient has chronic kidney disease CarverSaman Doe MD Patient has chronic kidney disease Care Plan Patient has chronic kidney disease CarverSaman Doe MD Weekly blood pressure task Care Plan Weekly blood pressure task CarverSaman Doe MD Weekly blood pressure task Care Plan Weekly blood pressure task CarverSaman Doe MD Patient has chronic kidney disease Care Plan Patient has chronic kidney disease CarverSaman Doe MD Patient has chronic kidney disease Care Plan Patient has chronic kidney disease CarverSaman Doe MD Weekly blood pressure task Care Plan Weekly blood pressure task No Vin Robert Weekly blood pressure task Care Plan Weekly blood pressure task No John Robertnerry Patient has chronic kidney disease Care Plan Patient has chronic kidney disease No Yoon Robertry Patient has chronic kidney disease Care Plan Patient has chronic kidney disease No John Robertnermarybel Weekly blood pressure task Care Plan Weekly blood pressure task No Juve Holanda Weekly blood pressure task Care Plan Weekly blood pressure task No Ho Yudith Patient has chronic kidney disease Care Plan Patient has chronic kidney disease No Ho, Yudith Patient has chronic kidney [...] documented in this encounter Additional Health Concerns Active [...] documented as of this encounter Care Teams Valet Relationship Specialty Start Date End Date Name, MD Saman [address] [place] [id number] PCP - General Family Medicine 08/13/15 documented as of this encounter
--- OUTSIDE RECORDS SUMMARY | 2025-06-06 14:16 | XMS_ITS | Encounter Summary ---
Author Organization [employer] Address [address] [facility] 7t [place] [address] Care Team Providers Care Sack Lifter Name Role Phone Name, Saman HOOK Primary Care Provider [phone] Reason for Visit * Reason Comments Med Refill Encounter Details Date Type Department Care Team ([facility] Contact Info) Description 02/10/2023 Refill [facility] MEDICINE [address] [place] [address] [phone] Name, MD Saman [address] [place] [phone] Social History Tobacco Use Types Packs/Day Years [...] Upcoming Encounters Date Type Department Care Team ([facility] Contact Info) Description 07/06/2025 2:45 PM EST Office Visit [facility] MEDICINE [address] [place] [address] [phone] Alida Vargas MD [address] [place] [address] [place] [address] documented as of this encounter Visit Diagnoses Not on filedocumented in this encounter Additional Health Concerns Assessment Noted Time PHQ-9 Depression Total Score: 0 07/03/19 23 10:55 AM EST documented as of this encounter Care Teams Sack Lifter Relationship Specialty Start Date End Date Name, MD Saman [address] [place] [address] PCP - General Family Medicine 08/13/15 documented as of this encounter
--- OUTSIDE RECORDS SUMMARY | 2025-06-06 14:16 | XMS_ITS | Encounter Summary ---
Author Organization [employer] Address [address] [facility] 7t [place] [address] Care Team Providers Care Dry Cleaning Counter Clerk Name Role Phone Name, Saman HOOK Primary Care Provider [phone] Encounter Details Date Type Department Care Team ([facility] Contact Info) Description 08/05/2022 Orders Only [facility] MEDICINE [address] [place] [phone] Ellie Nagy LPN Social History Tobacco Use [...] 2:45 PM EST Office Visit [facility] MEDICINE [address] [place] [phone] Alida Vargas MD [address] [place] [address] [phone] documented as of this encounter Visit Diagnoses Not on filedocumented in this encounter Additional Health Concerns Assessment Noted Time PHQ-9 Depression Total Score: 0 07/03/19 10:55 AM EST documented as of this encounter Care Teams Dry Cleaning Counter Clerk Relationship Specialty Start Date End Date Name, MD Saman [address] [place] [address] PCP - General Family Medicine 08/13/15 documented as of this encounter
--- OUTSIDE RECORDS SUMMARY | 2025-06-06 14:16 | XMS_ITS | Encounter Summary ---
Author Organization [employer] Address [address] [facility] 7t [place] [address] Care Team Providers Care Huc Ob Name Role Phone Name, Saman HOOK Primary Care Provider [phone] Encounter Details Date Type Department Care Team ([facility] Contact Info) Description 02/26/2023 Orders Only [facility] CHC MED & PEDS [address] [place], [place] [phone] Ellie Nagy LPN Social History Tobacco Use [...] [facility] Contact Info) Description 07/06/2025 2:45 PM EST Office Visit [facility] MEDICINE [address] [place], [place] [phone] Alida Vargas MD [address] [place], [place] [phone] documented as of this encounter Visit Diagnoses Not on filedocumented in this encounter Additional Health Concerns Assessment Noted Time PHQ-9 Depression Total Score: 0 07/03/19 23 10:55 AM EST documented as of this encounter Care Teams Huc Ob Relationship Specialty Start Date End Date Name, MD Saman [address] [place] [address] PCP - General Family Medicine 08/13/15 documented as of this encounter
--- OUTSIDE RECORDS SUMMARY | 2025-06-06 14:16 | XMS_ITS | Encounter Summary ---
Author Organization [employer] Address [address] [facility] 7t [place] [address] Care Team Providers Care Operations Label Clerk Name Role Phone Name, Saman HOOK Primary Care Provider [phone] Reason for Visit * Reason Comments Med Refill Encounter Details Date Type Department Care Team ([facility] Contact Info) Description 02/10/2023 Refill [facility] MEDICINE [address] [place], [place] [phone] Marisel Baxter MD [address] [place], [place] [phone] Social History Tobacco Use Types Packs/Day Years [...] Encounters Date Type Department Care Team ([facility] Contact Info) Description 07/06/2025 2:45 PM EST Office Visit [facility] MEDICINE [address] [place], [place] [phone] Alida Vargas MD [address] [place] [address] documented as of this encounter Visit Diagnoses Not on filedocumented in this encounter Additional Health Concerns Assessment Noted Time PHQ-9 Depression Total Score: 0 07/03/19 23 10:55 AM EST documented as of this encounter Care Teams Operations Label Clerk Relationship Specialty Start Date End Date Name, MD Saman [address] [place] [address] PCP - General Family Medicine 08/13/15 documented as of this encounter
--- OUTSIDE RECORDS SUMMARY | 2025-06-06 14:16 | XMS_ITS | Data Portability ---
Author Organization [employer], [facility] Address [address] [place] [address] Care Team Providers Care Infrastructure Design Engineer Name Role Phone HIM CCA OTHER NAME, HAROON Primary Care Provider Assessment Encounter Date Assessment Date Assessment LastModified by Organization Details LastModified Time 01/07/2025 01/07/2025 I have reviewed and agree with the assessment and plan as documented by the digestion operator. I provided real-time medical direction for this encounter and was immediately available to provide additional phone-based assistance as needed. HPI: 54F presenting with lower back pain radiating down left leg. No recent trauma or injury. On celebrex, last dose last evening. No renal issues. O/E: Vitals at baseline. Pt ambulatory, no limitations. Exam otherwise unremarkable per the digestion operator Impression/Plan: Suspect sciatica, will proceed with toradol. [...] in the field was performed by my digestion operator colleague, as noted above, I provided real-time [...] in the field was performed by my digestion operator colleague, as noted above, I provided real-time [...] chills, generalized weakness, dizziness., and abdominal pain. [email or web address] Not available 03/19/2025 21:44:35 Plan of Treatment Reminders Order Date Submit Date Provider Last Modified By Organization Details Last Modified Time Details Appointments None recorded. Lab None recorded. Referral None recorded. Procedures None recorded. Surgeries None recorded. Imaging None recorded. Medication Orders ketorolac 30 mg/mL injection solution 2024 025 [email or web address] [id number], [id number] [place], [address], 21:42:52 ketorolac 30 mg/mL [facility] solution 2024 [facility]25 [id number] [address] [place], [address], 18:32:58 ketorolac 30 mg/mL injection solution 2024 025 [email or web address] Not available 12:16:06 Patient TargetsNo targets recorded. Patient InstructionsNo instructions recorded. Reason for Referral None Reported. Medical Equipment None Reported. Allergies Allergen ID Allergen Name Allergen Category Reaction Reaction Severity Criticality Documentation Date Start Date Code Code System Note Provider Name and Address Organization Details Recorded Time 59436 tramadol medicatio n Not available Not available Not available 01/06/2025 10283 RxNorm Not Available [facility] - production 19:04:40 04591 oxycodone medicatio n Not available Not available Not available 01/06/2025 7804 RxNorm Not Available [facility] - production 19:04:40 59046 lisinopri l medicatio n Not available Not available Not available 05/02/20252012 36212 RxNorm cough Not Available [employer] - prod 16:16:29 53917 acetamino phen / oxycodone medicatio n Not available Not available Not available 05/02/2025 15099 3 RxNorm Not Available [employer] - prod 16:16:29 Medications Name [...] Address Organization Details Last Updated DateTime 5 97.3 [degF] 90 /min 98 % 16 /min 122/79 mm[Hg] Not Available [employer] [employer] 12:13:51 Date Recorded Body temperature Oxygen saturation Body weight Respiratory rate Body height Heart rate Systolic And Diastolic Provider Name and Address Organization Details Last Updated DateTime 5 98 [degF] 97 % 46028.6 g 14 /min 157.48 cm 72 /min 138/80 mm[Hg] Not Available [employer] 18:27:33 Date Recorded Body height Provider Name an d Address Organization Details Last Updated DateTime 03/19/2025 157.48 cm ALEJANDRA SAMANIEGO MD [address] [place] [address],[address] [place], [address], [place] - [employer] 03/19/2025 21:41:00 Date Recorded Heart rate Oxygen saturation Body temperature Respiratory rate Systolic And Diastolic Provider Name and Address Organization Details Last Updated DateTime 5 90 /min 94 % 98.7 [degF] 18 /min 120/79 mm[Hg] Not Available [employer] 16:21:50 Social History None recorded. Functional Status None recorded. Mental Status None recorded. Family History Nothing Reported. Medical History No medical history recorded. Gynecological HistoryNo gynecological history recorded. Obstetrics History GPAL:G 0 P 0 0 0 0 Past Encounters Encounter ID Performer Location Encounter Start Date Encounter Closed Date Diagnosis/Indication Diagnosis SNOMED-CT Code Diagnosis ICD10 Code Diagnosis IMO Codes Diagnosis Note [id number] Yessenia Bolaños MD [address] [address] 01/07/2025 12:13:47 01/08/2025 09:50:04 Acute back pain with sciatica 683677776 M54.40 [id number] Moni Boykin MD [place] [id number] 01/24/2025 18:27:30 01/24/2025 21:49:06 Pain of hip region 23082532 M25.551 M25.552 G89.29 [id number] Chronic low back pain 27 2136584 M54.42 M54.41 G89.29 [id number] ALEJANDRA SAMANIEGO MD [place] [id number] 0 03/19/2025 21:40:43 03/20/2025 11:06:20 Disorder of left sciatic nerve [id number] 15957 M54.32 [id number] Rosa Storm MD [place] [id number] 05/02/2025 16:16:02 05/02/2025 19:05:46 Wound finding 721239439 Z51.89 [id number] As noted, we were called to see this patient regarding concerns of wound changes. Evaluation in the field was performed by my digestion operator colleague, as noted above, I provided real-time direction and supervisio n for this visit with assistance of a ukrainian interprete robin. The evaluation revealed 54 yo woman who [...] Member ID Guarantor Name 05/02/2025 1 [facility] - DOS ON OR AFTER 2022 - DUAL ELIGIBLE - USP OPTIONS AND ONE CARE (MEDICARE REPLACEMENT/AD VANTAGE - HMO) Yaniv Epstein [id number] Yaniv Epstein Notes Date Note Type Note [...] complains of Back Pain Referral taken via Pipe Buffer. Patient with lower back pain for about [...] ..................... ..................... ..................... ..................... ..................... ..................... ............... Backbreaker Note From Forrest Akers: This 54-year-old female [...] questions and is agreeable to this plan. [facility] Medication Orders: ketorolac 30 mg/mL injection solution: Administered ..................... ..................... ..................... ..................... ..................... ..................... ............... [facility] Consulted: Yessenia Bolaños ..................... ..................... ..................... ..................... ..................... ..................... ............... Disposition: Theron Bolaños MD [address] [place] [address],[address], [place], [address], [employer] 01/07/2025 14:31:52 01/24/2025 text/html CRC Nurse Triage [...] Stress Disorder (PTSD), Hypothyroidism PMH Reviewed at 01/24/2025: Allergies Reviewed at 01/24/2025:44 Pain Assessment: Level [...] ..................... ..................... ..................... ..................... ..................... ..................... ............... Backbreaker Note From Jose M Bajwa: No complaints [...] Patient demonstrates understanding of care and plan. [facility] Medication Orders: ketorolac 30 mg/mL injection solution: Administered Comment: 15mg IM ..................... ..................... ..................... ..................... ..................... ..................... ............... [facility] Consulted: Moni Boykin ..................... ..................... ..................... ..................... ..................... ..................... ............... Disposition: Fulfilled Moni Boykin MD [address] [place] [address],[address], [place], [address], [employer] 01/24/2025 19:46:39 03/19/2025 text/html ROS as noted in the [facility] CRC Nurse Triage Notes (Wu [...] (PTSD), Hypothyroidism PMH Reviewed at 03/19/2025 - :07 Allergies Reviewed at 03/19/2025 - :07 Comments: 54 y.o female complains of Extremity Pain Patient Polish speaking primarily, hammer runner# [id number] used for triage assessment. Patient calling reporting [...] ..................... ..................... ..................... ..................... ..................... ..................... ............... Backbreaker Note From Felicitas Casey: SC08 dispatched to the address listed above [...] for and has been referred to a stage setting painter apprentice. Patient reports that the pain is worse [...] relief. Patient vital signs obtained as noted. [facility] consulted, provided orders for 30mg Toradol IM injection. Patient opted for injection in glute. 30mg Toradol IM administered in left glute without incident, six patient rights verified. Red flags discussed with patient, advised to call 911 if her condition worsens. SC08 Clear. [facility] Medication Orders: ketorolac 30 mg/mL injection solution: Administered ..................... ..................... ..................... ..................... ..................... ..................... ............... [facility] Consulted: Alejandra Samaniego ..................... ..................... ..................... ..................... ..................... ..................... ............... Disposition: Fulfilled ALEJANDRA SAMANIEGO MD [address] [facility],[address], [place], [address], [employer] 03/19/2025 22:18:41 05/02/2025 text/html CRC Nurse Triage Notes (Ady Alisha): Reason For Request: pt had surgery last [...] complains of Wound Care Referral taken via Pipe Buffer Patient who was started on an antibiotic [...] ..................... ..................... ..................... ..................... ..................... ..................... ............... Backbreaker Note From Tania Becker: Sent to a call for a pt complaining of drainage from cyst after I&D. SC8 arrives on scene, pt is alert and oriented, airway is patent. Pt's primary language is Polish. Language line used during visit. Pt states [...] for pain. Picture of wound uploaded to [employer]. BP:120/79, P:90, RR:18, SpO2:94% RA, T:98.7; Head: unremarkable; Lung sounds: clear bilaterally; Abdomen: soft, non-tender, no distention; Back: unremarkable; Left buttocks: wound appears to be healing well, (serosanguinous fluid present on bandaid). [facility] consulted and pt is advised to continue monitoring and call surgeon office/leave voicemail. Pt is given wound dressings. Red flags discussed. Pt has no further questions. ..................... ..................... ..................... ..................... ..................... ..................... ............... [facility] Consulted: Rosa Storm ..................... ..................... ..................... ..................... ..................... ..................... ............... Disposition: Fulfilled Rosa Storm MD [address] [place] [address],[address], [place], [address], [facility] - [employer] [email or web address]), [facility] 05/02/2025 17:27:02 OBGyn Episode No OBEpisode recorded.
--- OUTSIDE RECORDS SUMMARY | 2025-06-06 14:16 | XMS_ITS | Continuity of Care Document ---
Author Organization [employer] [facility], [facility] Address [address] [place] [address] Care Team Providers Care Overlock Hemmer Name Role Phone HIM CCA OTHER NAME, HAROON Primary Care Provider Assessment Encounter Date Assessment Date Assessment LastModified by Organization Details LastModified Time 03/19/2025 03/19/2025 As noted, we were called to see this patient regarding concerns of left sided sciatica. Evaluation in the field was performed by my keno manager colleague, as noted above, I provided real-time [...] chills, generalized weakness, dizziness., and abdominal pain. [email or web address] Not available 03/19/2025 21:44:35 Plan of Treatment Reminders Order Date Submit Date Provider Last Modified By Organization Details Last Modified Time Details Appointments None recorded. Lab None recorded. Referral None recorded. Procedures None recorded. Surgeries None recorded. Imaging None recorded. Medication Orders ketorolac 30 mg/mL injection solution 2024 025 [email or web address] [id number], [address] [facility] [place], [address], 21:42:52 Patient TargetsNo targets recorded. Patient InstructionsNo instructions recorded. Reason for Referral None Reported. Medical Equipment None Reported. Allergies Allergen ID Allergen Name Allergen Category Reaction Reaction Severity Criticality Documentation Date Start Date Code Code System Note Provider Name and Address Organization Details Recorded Time 52696 tramadol medicatio n Not available Not available Not available 01/06/2025 92353 RxNorm Not Available [facility] - production 19:04:40 70691 oxycodone medicatio n Not available Not available Not available 01/06/2025 7804 RxNorm Not Available [facility] - production 19:04:40 81172 lisinopri l medicatio n Not available Not available Not available 05/02/20252012 52106 RxNorm cough Not Available [employer] - prod 5 16:16:29 34134 acetamino phen / oxycodone medicatio n Not available Not available Not available 05/02/2025 35410 3 RxNorm Not Available [employer] - prod 5 16:16:29 Medications Name Sig Start Date Stop [...] DateTime 03/19/2025 157.48 cm ALEJANDRA SAMANIEGO MD [address] [place] [address],[address], [place], [address], [facility] 03/19/2025 21:41:00 Social History None recorded. Functional Status None recorded. Mental Status None recorded. Family History Nothing Reported. Medical History No medical history recorded. Gynecological HistoryNo gynecological history recorded. Obstetrics History GPAL:G 0 P 0 0 0 0 Past Encounters Encounter ID Performer Location Encounter Start Date Encounter Closed Date Diagnosis/Indication Diagnosis SNOMED-CT Code Diagnosis ICD10 Code Diagnosis IMO Codes Diagnosis Note [id number] ALEJANDRA SAMANIEGO MD [facility] Medical [facility] [address] [place] [address] 03/19/2025 21:40:43 03/20/2025 11:06:20 Disorder of left sciatic nerve [id number] 33103 M54.32 [id number] Health Concerns Section Related Observation LastModified by Organization Detai ls LastModified Time None Recorded Concern Status LastModified by Organization Details LastModified Time None Recorded Payers Encounter Date Sequence Insurance Name Policy Number Policy Brown Covered Member ID Brown Member ID Guarantor Name 03/19/2025 1 [facility] - DOS ON OR AFTER 2022 - DUAL ELIGIBLE - ALF OPTIONS AND ONE CARE (MEDICARE REPLACEMENT/AD VANTAGE - HMO) Yaniv Epstein [id number] Yaniv Epstein Notes Date Note Type Note Provider Name and Address Organization Details Recorded Time 03/19/2025 text/html ROS as noted in the [facility] CRC Nurse Triage Notes (Wu [...] (PTSD), Hypothyroidism PMH Reviewed at 03/19/2025 - 21:07 Allergies Reviewed at 03/19/2025 - :07 Comments: 54 y.o female complains of Extremity Pain Patient Brazilian speaking primarily, language interpreter# [id number] used for triage assessment. Patient calling reporting [...] ..................... ..................... ..................... ..................... ..................... ..................... ............... Superintendent Track Note From Felicitas Casey: SC08 dispatched to the address listed above for the report of a female democrat with extremity pain. Arrival on scene, patient [...] for and has been referred to a custom motorcycle painter. Patient reports that the pain is [...] relief. Patient vital signs obtained as noted. [facility] consulted, provided orders for 30mg Toradol IM injection. Patient opted for injection in glute. 30mg Toradol IM administered in left glute without incident, six patient rights verified. Red flags discussed with patient, advised to call 911 if her condition worsens. SC08 Clear. [facility] Medication Orders: ketorolac 30 mg/mL injection solution: Administered ..................... ..................... ..................... ..................... ..................... ..................... ............... [facility] Consulted: Alejandra Samaniego ..................... ..................... ..................... ..................... ..................... ..................... ............... Disposition: Fulfilled ALEJANDRA SAMANIEGO MD [address] [facility],[address], [place], [address], [employer] 03/19/2025 22:18:41 OBGyn Episode No OBEpisode recorded.
--- OUTSIDE RECORDS SUMMARY | 2025-06-06 14:16 | XMS_ITS | Encounter Summary ---
Author Organization [employer] Address [address] [facility] [address] [place] [address] Care Team Providers Care Cellophane Wrapping Examiner Name Role Phone Name, Saman HOOK Primary Care Provider [phone] Reason for Visit * Reason Comments Med Refill Encounter Details Date Type Department Care Team ([facility] Contact Info) Description 12/02/2023 Refill [facility] [address] [place], [place] [phone] Tabitha Goodman NP [address] [place], [place] [phone] Chronic pain syndrome Social History Tobacco Use [...] Description 07/06/2025 2:45 PM EST Office Visit [facility] [address] [place] [address] Alida Vargas MD [address] [place] [address] documented as of this encounter Visit Diagnoses Diagnosis Chronic pain syndrome documented in this encounter Additional Health Concerns Assessment Noted Time PHQ-9 Depression Total Score: 0 04/07/20 23 3:38 PM EDT documented as of this encounter Care Teams Cellophane Wrapping Examiner Relationship Specialty Start Date End Date Name, MD Saman [address] [place] [address] PCP - General Family Medicine 08/13/15 documented as of this encounter
--- OUTSIDE RECORDS SUMMARY | 2025-06-06 14:16 | XMS_ITS | Clinical Summary ---
Author Organization [facility] Address [address] [facility] [address] [place] [address] Phone Care Team Providers Care Bulk Station Agent Name Role Phone Name, Saman HOOK Primary Care Provider [phone] Allergies Active Allergy Reactions Criticality Noted Date [...] Visit [facility] [address] [facility] [address] [place] [address] Charla Arciniega ARNP [address] [facility] [address] [place] [address] Health Maintenance Due Date Last [...] (6 to 49 Years) Discontinued 01/25/2024 Insurance [facility] ([id number]) [facility] ([id number]) Care Teams Bulk Station Agent Relationship Specialty Start Date End Date Name, MD Saman [address] [place] [address] PCP - General 06/17/20
--- OUTSIDE RECORDS SUMMARY | 2025-06-06 14:17 | XMS_ITS | Encounter Summary ---
Author Organization [employer] Address [address] [facility] [address] [place] [address] Care Team Providers Care Lead Etl Developer Name Role Phone Name, Saman HOOK Primary Care Provider [phone] Encounter Details Date Type Department Care Team ([facility] Contact Info) Description 12/15/2022 Telephone [facility] [address] [place] [address] [phone] Name, MD Saman [address] [place] [address] Social History Tobacco Use Types Packs/Day Years [...] Upcoming Encounters Date Type Department Care Team ([facility] Contact Info) Description 07/06/2025 2:45 PM EST Office Visit [facility] [address] [place] [phone] Alida Vargas MD [address] [place], [place] [phone] documented as of this encounter Visit Diagnoses Not on filedocumented in this encounter Additional Health Concerns Assessment Noted Time PHQ-9 Depression Total Score: 0 07/03/19 23 10:55 AM EST documented as of this encounter Care Teams Lead Etl Developer Relationship Specialty Start Date End Date Name, MD Saman [address] [place] [address] PCP - General Family Medicine 08/13/15 documented as of this encounter
--- OUTSIDE RECORDS SUMMARY | 2025-06-06 14:17 | XMS_ITS | Encounter Summary ---
Author Organization [employer] Address [address] [facility] 7[address] [place] [address] Care Team Providers Care Boat Designer Name Role Phone Name, Saman HOOK Primary Care Provider [phone] Encounter Details Date Type Department Care Team ([facility] Contact Info) Description 10/16/2022 Orders Only [facility] [address] [place], [place] [phone] Charla Yusuf LPN Social History Tobacco Use [...] Upcoming Encounters Date Type Department Care Team ([facility] Contact Info) Description 07/06/2025 2:45 PM EST Office Visit [facility] [address] [place], [place] [phone] Alida Vargas MD [address] [place], [place] [phone] documented as of this encounter Procedures Procedure Name Priority Date/Time Associated Diagnosis Comments BI MAMMOGRAM SCREENING TOMOSYNTHESIS BILATERAL Routine 10/20/2022 2:00 PM EDT documented in this encounter Results * BI Mammogram Screening Tomosynthesis Bilateral (10/20/2022 2:00 PM EDT) Anatomical Region Laterality Modality Breast Bilateral Mammography 10/20/2022 2:00 PM EDT Narrative 10/22/2022 11:24 AM EDT [facility] [address] [place] [address] Mammography Report Signed Patient: Yaniv Kearns MR#: [id number] : 1970 Acct:[id number] Age/Sex: 52 / F ADM Date: 10/20/22 Loc: HO.MAMMO Attending Dr: Saman Doe MD Ordering Physician: Saman Doe MD Results: 0Incomplet e: Needs Additional Imaging Evaluation Date of Service: 10/20/22 Follow Up: Additional Imagi ng Procedure(s): MM tomosynthesis screening BI Accession Number(s): [id number] cc: Saman Doe MD EXAMINATION: MM SCREENING [...] in OV> 10/22/22 1122 DD/ 1400 TD/TT: Custodian Supervisor: KULKARNI Procedure Note Donotuseinterpreter, Image - 12/03/2022 [facility] [address] [place] [address] Mammography Report Signed Patient: Yaniv KearnsMR#: [id number] : 1970Acct:[id number] Age/Sex: 52 / FADM Date: 10/20/22 Loc: HO.MAMMO Attending Dr: Saman Doe MD Ordering Physician: Saman Doe MDResults: 0Incomplet e: Needs Additional Imaging Evaluation Date of Service: 10/20/22Follow Up: Additional Imagi ng Procedure(s): MM tomosynthesis screening BI Accession Number(s): [id number] cc: Saman Doe MD EXAMINATION: MM SCREENING [...] in OV> 10/22/22 1122 DD/ 1400 TD/TT: Custodian Supervisor: KULKARNI [facility] External Provider IMG BI PROCEDURES Final Result documented in this encounter Visit Diagnoses Not on filedocumented in this encounter Additional Health Concerns Assessment Noted Time PHQ-9 Depression Total Score: 0 07/03/19 23 10:55 AM EST documented as of this encounter Care Teams Boat Designer Relationship Specialty Start Date End Date Name, MD Saman [address] [place] [address] PCP - General Family Medicine 08/13/15 documented as of this encounter
--- OUTSIDE RECORDS SUMMARY | 2025-06-06 14:17 | XMS_ITS | Data Portability ---
Author Organization [place] [facility] Address [address] [place] [address] Care Team Providers Care Tennis Player Name Role Phone NAME, HAROON OTHER Assessment [...] mcg/actua tion nasal spray,virgil pension 2018 INTERFACE [place], [place] - [phone], [address] [place], [address], 9 10:42:14 Mucinex 1,200 mg tablet, extended release 2018 [place], [place] - [phone], [address], [place], [address], 9 10:42:29 Patient TargetsNo targets recorded. Patient Instructions Encounter Date Encounter Id Patient Instructions Last Modified By Organization Details Last Modified Time 04/05/2019 [id number] Saline nasal spray, warm salt water gargles [...] Name and Address Organization Details Recorded Time 06638 acetamino phen / oxycodone medicatio n Not available Not available Not available 04/05/2019 [id number] 3 RxNorm ODALYS BURT [address] [place], [address], [place] [facility] 9 10:31:11 16021 tramadol medicatio n Not available Not available Not available 04/05/2019 [id number] RxNorm ODALYS BURT [address] [place], [address], [place] [facility] 9 [...] Relief 50 mcg/actuatio n nasal spray,suspen kris Varney 1 spray twice a day by intranasal [...] History Question Answer Notes LastModified by Organizat Tenant Magic Details LastModified Time Tobacco Smoking Status Never Smoker [facility] [address], [place], [address], [place] [facility] 04/05/2019 10:32:28 Do You [...] ICD10 Code Diagnosis IMO Codes Diagnosis Note [id number] [facility] [address] [place] [address] 04/05/2019 10:11:14 04/05/2019 15:30:22 Acute rhinosinusitis [id number] J00 Asthma [id number] J45.90 9 Health Concerns Section Related Observation LastModified by Organization Detai ls LastModified Time None Recorded Concern Status LastModified by Organization Details LastModified Time None Recorded Advance Directives Directive N: Payers Insurance Date Sequence Insurance Name Policy Number Policy Brown Covered Member ID Brown Member ID Guarantor Name 04/05/2019 1 *SELF PAY* Yaniv Canseco [id number] Yaniv Munguia 04/05/2019 1 MEDICARE B-CA: [facility] [employer] Yaniv Munguia Romelia [id number] Yaniv Munguia Notes Date Note Type [...] for relief. [facility]AL[facility]URT [address], [place], [address], [place] [facility] 04/05/2019 11:34:02 OBGyn Episode No OBEpisode recorded.
--- OUTSIDE RECORDS SUMMARY | 2025-06-06 14:17 | XMS_ITS | Encounter Summary ---
Author Organization [employer] Address [address] [facility] 7[address] [place] [address] Care Team Providers Care Building Specialist Name Role Phone Name, Saman HOOK Primary Care Provider [phone] Reason for Visit * Reason Onset Date Comments triage 08/06/2022 Encounter Details Date Type Department Care Team ([facility] st Contact Info) Description 08/06/2022 Telephone [facility] [address] [place], [place] [phone] Name, MD Saman [address] [place], [place] [phone] triage Social History Tobacco Use Types Packs/Day [...] EST Triage call returned to patient via [employer] [phone]. Patient reports that she is feeling tired [...] worse The caller accepted this outcome speaks slovak documented in this encounter Plan of Treatment Upcoming Encounters Date Type Department Care Team (Late st Contact Info) Description 07/06/2025 2:45 PM EST Office Visit [facility] [address], [place] [phone] Alida Vargas MD [address] [place], [place] [phone] documented as of this encounter Visit Diagnoses Not on filedocumented in this encounter Additional Health Concerns Assessment Noted Time PHQ-9 Depression Total Score: 0 07/03/19 23 10:55 AM EST documented as of this encounter Care Teams Building Specialist Relationship Specialty Start Date End Date Name, MD Saman [address] [place] [address] PCP - General Family Medicine 08/13/15 documented as of this encounter
--- OUTSIDE RECORDS SUMMARY | 2025-06-06 14:17 | XMS_ITS | Clinical Summary ---
Author Organization [employer] Address [address] [facility] 7[address] [place] [address] Care Team Providers Care Lodging House Keeper Name Role Phone Name, Saman HOOK Primary Care Provider [phone] Allergies Active Allergy Reactions Criticality Noted Date [...] by mouth before breakfast. 30 tablet 11 06/02/20 25 11:01 AM EST 025 2025 Active Mounjaro 5 MG/0.5ML solution auto-injectorI ndications:Typ e 2 diabetes mellitus without complication, without long-term current use of insulin (HCC) INJECT ONE PEN (=5MG) SUBCUTANEOUSLY ONCE A WEEK DIRECTED 2 mL 2 025 Active cyanocobalamin (Vitamin B-12) 1000 MCG tablet TAKE 2 TABLETS BY MOUTH ONCE DAILY 60 tablet 11 025 Active Allergy Relief Cetirizine 10 MG tablet TAKE 1 TABLET BY MOUTH ONCE DAILY IN THE MORNING 30 tablet 11 Active SUMAtriptan (Imitrex) 50 MG tablet TAKE 1 TABLET BY MOUTH ONCE NEEDED for migraine. MAY REPEAT ONCE IN 2 HOUR NEEDED . not to exceed 2 TABLETS IN 24 HOURS 9 tablet 3 05/21/20 25 10:35 AM EST 025 Active Tirzepatide-We ight Management (Zepbound) 7.5 MG/0.5ML [...] 25 10:35 AM EST 025 2025 Active fluticasone (Flonase) 50 MCG/ACT nasal sprayIndicatio ns:Allergic rhinitis, unspecified seasonality, unspecified trigger SPRAY ONCE IN EACH NOSTRIL two (2) times a day NEEDED 48 g 1 05/15/20 25 12:36 PM EST 025 Active amitriptyline (Elavil) 25 MG tablet TAKE 1 TABLET BY MOUTH EVERY NIGHT AT BEDTIME 30 tablet 2 06/02/20 25 11:01 AM EST 025 Active meloxicam (Mobic) 7.5 MG tablet TAKE 1 TABLET BY MOUTH ONCE DAILY 30 tablet 06/06/20 25 12:45 PM EST 025 Active pregabalin (Lyrica) 150 MG capsuleIndicat ions:Chronic pain syndrome TAKE 1 CAPSULE BY MOUTH 3 (THREE) TIMES A DAY 90 capsule 06/06/20 25 12:45 PM EST 025 Active fluticasone (Flonase) 50 MCG/ACT nasal sprayIndicatio ns:Allergic rhinitis, unspecified seasonality, unspecified trigger SPRAY 1 SPRAY IN EACH NOSTRIL two (2) times a day NEEDED 48 g 1 025 2024 Discontinued amitriptyline (Elavil) 25 MG tablet TAKE 1 TABLET BY MOUTH ONCE DAILY AT BEDTIME 30 tablet 2 05/05/20 25 10:32 AM EST 025 2024 Discontinued meloxicam (Mobic) 7.5 MG tablet TAKE 1 TABLET BY MOUTH ONCE DAILY 30 tablet 05/05/20 25 10:32 AM EST 025 2024 Discontinued pregabalin (Lyrica) 150 MG capsuleIndicat ions:Chronic pain syndrome TAKE 1 CAPSULE BY MOUTH 3 (THREE) TIMES A DAY 90 capsule 05/05/20 25 10:32 AM EST 025 2024 Discontinued Active Problems Problem Noted [...] syndrome 07/03/2022 Essential hypertension 02/16/2022 Morbid obesity ([facility]) 02/16/2022 Overview (04/07/2023): bariatric surgery Hemorrhoids without [...] Encounters Date Type Department Care Team Description 06/01/2025 Refill [facility] [address] [facility] [place] [address] Saman Doe MD Chronic pain syndrome 05/26/2025 Refill [facility] [address] [facility] [place] [address] Saman Doe MD 05/08/2025 Refill [facility] [address] [place] [address] Saman oDe MD Allergic rhinitis, unspecified seasonality, unspecified trigger 05/02/2025 Refill [facility] [address] [place] [address] Shereen Castro MD Chronic pain syndrome 05/01/2025 Telephone [facility] [address] [place] [phone] Saman Doe MD Durable Medical Equipment (Shower chair) 04/26/2025 Orders Only GENERIC EXTERNAL DATA DEPARTMENT Provider, Generic External Data 04/23/2025 Telephone [facility] [address] [place] [phone] Samna Doe MD 04/20/2025 Orders Only [facility] [place] [address] Saman Doe MD Type 2 diabetes mellitus without complication, without long-term current use of insulin (HCC) (Primary Dx) 04/17/2025 Telephone [facility] [address] [place] [phone] Saman Doe MD Call Back Request 04/16/2025 Telephone [facility] [address] [place] [phone] Saman Doe MD Referral 04/14/2025 Refill [facility] [place] [address] Saman Doe MD 04/06/2025 Telephone [facility] [address] [place] [phone] Saman Doe MD 03/29/2025 Telephone [facility] [address] [place] [phone] Cindy Maradiaga MA dec recalls 03/29/2025 Refill [facility] [address] [place] [address] Name, MD Saman Chronic pain syndrome 03/22/2025 Refill [facility] [address] [facility] [place] [address] Name, MD Saman from Last 3 Months [...] your housing situation today? I have eve sing 01/11/[address] you li [...] 2:45 PM EST Office Visit [facility] [address] [place] [address] Alida Vargas MD [address] [place] [address] Health Maintenance Due Date Last Done Comments [...] task Care Plan Weekly blood pressure task SomersworthSaman Doe MD Weekly blood pressure task Care Plan Weekly blood pressure task SomersworthSaman Doe MD Patient has chronic kidney disease Care Plan Patient has chronic kidney disease SomersworthSaman Doe MD Patient has chronic kidney disease Care Plan Patient has chronic kidney disease SomersworthSaman Doe MD Weekly blood pressure task Care Plan Weekly blood pressure task SomersworthSaman Doe MD Weekly blood pressure task Care Plan Weekly blood pressure task SomersworthSaman Doe MD Patient has chronic kidney disease Care Plan Patient has chronic kidney disease SomersworthSaman Doe MD Patient has chronic kidney disease Care Plan Patient has chronic kidney disease SomersworthSaman Doe MD Weekly blood pressure task Care Plan Weekly blood pressure task No Vin Robert Weekly blood pressure task Care Plan Weekly blood pressure task No John Robertnerry Patient has chronic kidney disease Care Plan Patient has chronic kidney disease No John Robertnerry Patient has chronic kidney disease Care Plan Patient has chronic kidney disease No Jakob Jacknerry Weekly blood pressure task Care Plan Weekly [...] complication, without long-term current use of insulin ([facility]) LIPID PANEL, STANDARD Routine 08/24/2024 10:57 AM EDT On statin therapy PAP SMEAR Routine 06/20/2024 12:00 AM EST LGSIL Pap smear of vagina BI MAMMOGRAM SCREENING TOMOSYNTHESIS BILATERAL Routine 06/19/2024 2:05 PM EST DIABETES EYE EXAM Routine 09/06/2023 ALBUMIN, RANDOM URINE W/CREATININE Routine 08/19/2023 8:25 AM EDT Type 2 diabetes mellitus without complication, without long-term current use of insulin ([facility]) HPV MRNA E6/E7 REFLEX TO HPV 16, 18/45 Routine 06/10/2023 1:06 PM EST COLONOSCOPY Routine 01/11/2019 from Last 3 Months or Most Recently Relevant to Health Maintenance Results * Gross and Microscopic Level 3 (04/26/2025 11:38 AM EST) 04/26/2025 11:3 8 AM EST 04/26/2025 1:41 PM EST [facility] - 04/30/2025 11:57 AM EST ----- ------- Name: Yaniv Kearns Age/Sex: 54/F : 1970 Unit#: [id number] Attend Dr: Roman Bolivar MD Re04/26/25 Status: DEP [facility]F [facility]: ----- ------- SPEC : [id number] RECD: 04/26/25 STATUS: SWETA [place] NUM: [id number] SIMONE: 04/26/25 [facility] DR: Roman Bolivar MD ENTERED: 04/26/25 SP [...] skin. Sectioning shows a disrupted subcutaneous cyst. Animal Geneticist cross-sections are submitted. (RJD) IHC S/NG Disclaimer NOTE: Unless otherwise stated, all tissue is formalin-fixed and paraffin-embedded. Some or all of the immunohistochemical tests reported herein may have been developed and their performance characteristics determined by [facility]. They have not been cleared or approved by the U.S. Food and Drug Administration (FDA). However, the FDA has determined that such clearance or approval is not necessary. This laboratory is certified under the Clinical Laboratory Improvement Amendments of 1988 (CLIA) as qualified to perform high complexity clinical laboratory testing. Copies To: Roman Bolivar MD [facility] [address] [place] [address] CONTINUED ON NEXT PAGE ----- ------- Name: Yaniv Kearns Age/Sex: 54/F : 1970 Unit#: [id number] Attend Dr: Roman Bolivar MD Re04/26/25 Status: DEP REF Location: HO.LNP Disch: ----- ------- SPEC : [id number] RECD: 04/26/25 STATUS: SWETA [place] NUM: [id number] SIMONE: 04/26/25 [facility] DR: Roman Bolivar MD ENTERED: 04/26/25 SP TYPE: Surgical OTHR DR: Saman Doe MD ORDERED: Gross Micro L3 Copies To: (Continued) Saman Doe MD [address] [address] ----- ------- Signed (signature on file) Donna London MD 04/30/25 1157 ----- ------- END OF REPORT Generic External Data Provider LAB CYTOLOGY ORDE RABLES Final Result [facility] [address] [place] [address] [phone] * (ABNORMAL) POCT HGB A1C (01/11/2025 11:14 AM EDT) Hemoglobin A1C 6.3(A) 4.0 - 5.7 % QC Media Lot # [id number] Lot# Expiration Date Blood 01/11/2025 11:1 4 AM EDT us Saman Doe MD POINT OF CARE TEST ENTER/EDIT OR DERABLES Final Result * (ABNORMAL) Lipid Panel, Standard (08/24/2024 10:57 AM EDT) Triglycerides 210(H) <150 mg/dL [facility] Comment:Desirable Triglyceri de: less than 150 mg/dLBorderline High Triglyceride 150-199 mg/dLHigh Triglyceride: 200-499 mg/dLVery High Triglyceride: greater than or equal to 5OO mg/dL Cholesterol 204(H) <200 mg/dL [facility] Comment:Desirable Cholestero l: less than 200 mg/dLBorderline High Cholesterol: 200-239 mg/dLHigh Cholesterol: greater than 239 mg/dL LDL Cholesterol Calculated 119(H) <100 mg/dL [facility] Comment:Desirable LDL: less than 100 mg/dLNear Optimal/Above Optimal LDL: 110- 129 mg/dLBorderline High LDL: 130-159 mg/dLHigh LDL: 160-189 mg/dLVery High LDL: greater than or equal to 190 mg/dL HDL Cholesterol 43 >40 mg/dL [facility] Comment:Desirable HDL: great er than 40 mg/dL Note: This HDL assay may give artificially low results in patients with liver disease. Blood Venous blood specimen / Unknown 08/24/2024 10:57 AM EDT 08/24/2024 1:06 PM EDT us Saman Doe MD LAB BLOOD ORDERABLES Final Resul t [facility] [address] [place] [phone] * Pap Smear (06/20/2024 12:00 AM EST) Swab Vaginal structure / Unknown 06/20/2024 06/21/2024 6:20 AM EST Narrative [facility] - 07/03/2024 3:04 PM EST ----- ------- Name: Yaniv Epstein Age/Sex: 53/F : 1970 Unit#: [id number] Attend Dr: ANDREW VILLAREAL CNM Re06/20/24 Status: [facility] REF Location: [facility] Disch: ----- ------- SPEC : [id number] RECD: 06/21/24 STATUS: SWETA REDank NUM: [id number] SIMONE: 06/20/24-[address]: ANDREW VILLAREAL CNM ENTERED: 06/21/24 SP TYPE: Pap Smr OT DR: ORDERED: Pap Smear Interpretation Satisfactory for evaluation. Negative for intraepithelial lesion or malignancy. HPV High Risk: Negative HPV Genotyping 16: Negative HPV Genotyping 18: Negative Clinical Information LMP: Previous PAP test: Other surgery: Hysterectomy Other history: LSIL HPV neg 2023, hx ABILIO Material Received ThinPrep-Vaginal ----- ------- Signed (signature on file) Kathy Aragon CT (ASCP) 07/03/24 1504 ----- ------- END OF REPORT Andrew Villareal [facility] LAB CYTOLOGY ORDERABLES F inal Result [facility] [address] [place] [phone] * BI Mammogram Screening Tomosynthesis Bilateral (06/19/2024 2:05 PM EST) Anatomical Region Laterality Modality Breast Bilateral Mammography 06/19/2024 2:05 PM EST Narrative 06/27/2024 4:59 PM EST [facility] [address] [place] [address] [place] [address] Mammography Report Signed Patient: Yaniv Epstein MR#: [id number] : 1970 Acct:[id number] Age/Sex: 53 / F ADM Date: 06/19/24 Loc: AWA Attending Dr: Saman Doe MD Ordering Physician: Saman Doe MD Results: 1Negative Date of Service: 06/19/24 Follow Up: 1 Year From Orig inal Mammogram Procedure(s): MM tomosynthesis screening BI Accession Number(s): [id number] cc: Saman Doe MD EXAMINATION: MM SCREENING [...] by: Marce Stafford DO 06/27/2024 04:55 PM [facility] Dictated By: Marce Stafford DO Signed By: <Electronically signed by Marce Stafford DO in OV> 06/27/24 1655 DD/ 1405 TD/TT: 06/19/24 1425 Drier Attendant: Procedure Note Donotuseinterpreter, Image - 06/27/2024 [facility] [address] [place], [place] [address] Mammography Report Signed Patient: Yaniv Epstein#: [id number] : 1970Acct:[id number] Age/Sex: 53 / FADM Date: 06/19/24 Loc: HO.MAMMO Attending Dr: Saman Doe MD Ordering Physician: Saman Doe MDResults: 1Negative Date of Service: 06/19/24Follow Up: 1 Year From Orig inal Mammogram Procedure(s): MM tomosynthesis screening BI Accession Number(s): [id number] cc: Saman Doe MD EXAMINATION: MM SCREENING [...] 06/27/24 1655 DD/ 1405 TD/TT: 06/19/24 1425 Drier Attendant: us Saman Doe MD IMG BI PROCEDURES Final Result * Hm Diabetes Eye Exam (09/06/2023) Eye Exam Normal Normal Result Arabella Doe MD HEALTH MAINTENANCE Final Result * Albumin, Random Urine W/Creatinine (08/19/2023 8:25 AM EDT) Creatinine, Urine 289.33 mg/dL [facility] Microalbumin Urine 26.0 mg/L [facility] Microalbum Creatinine Ratio Ur 8.9 <30 ug/mg cr [facility] Comment:Albumin/Creatinine R atio Reference Ranges: Normal: < 30 ug/mg creatinine Microalbuminuria: 30 - 300 ug/mg creatinineClinical Albuminuria: > 300 ug/mg creatinine Urine (Urine, Random) 08/19/2023 8:25 AM EDT 08/19/2023 11:27 AM EDT Result Arabella Doe MD LAB URINE ORDERABLES Final Resul t Performing Organization Address [facility] Co de Phone Number [facility] [address] [place] [address] [phone] * HPV mRNA E6/E7 w/Reflex to HPV Genotypes 16, 18/45 (06/10/2023 1:06 PM EST) HPV nRNA E6/E7 Not Detected Not Detected [facility] Comment:Methodology: Transcr iption-Mediated AmplificationThis assay detects E6/E7 viral messenger RNA (mRNA) from 14high-risk HPV types (16,18,31,33,35,39,45,51,52,56,58,59,66,68).Cervical sources are required for HPV testing.If a vaginal source from a patient who has had atotal hysterectomy with removal of cervix wassubmitted, please contact the testing laboratoryfor alternative testing options.For additional information, please refer [email or web address]/faq/[email or web address](This link if provided for information/educational purposes only.)THIS TEST WAS PERFORMED AT:[employer] [place] [phone] CORDERO MD HPV mRNA E6/E7 [facility] HPV 16 RNA [facility] HPV 18/45 RNA [facility] 06/10/2023 1:06 PM EST 06/11/2023 9:30 AM EST Andrew JAIME LAB CYTOLOGY ORDERABLES F inal Result Performing Organization Address [facility]/ZIP Co de Phone Number [facility] [address] [place] [address] [phone] * (ABNORMAL) Hm Colonoscopy (01/11/2019) Colonoscopy [...] Patient has chronic kidney disease 05/09/2025 Insurance [facility] < 65 ODALYS HOWELL [id number] Care Teams Lodging House Keeper Relationship Specialty Start Date End Date Name, MD Saman [address] [place] [phone] PCP - General Family Medicine 08/13/15
== END 2025-06-06 13:25 | disposition home or self-care (01) ==
LOC: HO.HGS 12:42
PROVIDERS: PCP Internal Medicine Geriatric Medicine
DX: Z98.890 Other specified postprocedural states (principal)
CPT/HCPCS: 99214

== ENCOUNTER → 2025-06-06 12:41 | Outpatient (BNVA) | payer OTHER, SELFPAY | PROVIDERS: PCP Internal Medicine Geriatric Medicine | DX: Z48.817 Encounter for surgical aftercare following surgery on the skin and subcutaneous tissue (principal); Z98.890 Other specified postprocedural states | CPT/HCPCS: 99212 ==